=== PATIENT | male | born 1960 | race Caucasian/White ===

== ENCOUNTER 2020-05-05 16:01 | Emergency (ER) | payer MEDICAID, SELFPAY ==
[2020-05-05 16:10] VITALS: BP 142/70; PULSE 98; RESP 24; TEMP 36.9; O2SAT 99; BMI 31.6
--- NOTE | 2020-05-05 16:23 | HMH.EDUTC ---
[facility] [place] Clinical Impression: Cough, Viral syndrome Disposition: Home, Self-Care Condition on Discharge: Good Instructions: Cough, Benzonatate, Preventing the Spread of Coronavirus Discharge Instructions Additional Instructions: *Monitor Temp, Over the counter Motrin or Tylenol as directed/as needed Tylenol every 4 hours and Motrin every 6 hours (as long as your family doctor has told you that you can take it) for fever or pain. and straight to ER if unable to lower temp less than 101.0 after medication given *Warm salt water gargles may help to soothe the throat *Throat Lozenges *Warm fluids like tea with honey may help to soothe the throat *Sleep elevated *Humidifier/Vaporizer *Flonase 2 sprays in each nostril daily but be aware that it may take 2-3 days before you notice improvement *Bromfed may cause drowsiness. Know how it effects you (your child) before driving, caring for small child, or sending your child to school. Not other antihistamines/allergy medications while taking bromfed Your throat swab was sent for culture. Those results are typically sent to your primary care. Be sure to follow up in 2-3 days with your family doctor/primary care physician if no improvement so they can review those result and treat if necessary. If you don?t have a primary care doctor, I recommend you get one but in the mean time, you will have to return to a walk in clinic Follow up IMMEDIATELY for new or worsening symptoms or no Noticeable improvement over the next 48-72 hours. 911 for difficulty breathing or swallowing You was tested for today for COVID19 your test result should be back in the next 24-48 hours, you may call to the [facility] later today or tomorrow to see if your test results are back and the result [phone] [facility] hours are 9am-9pm You was given a handout with instructions for Self Quarantine and Self isolation for while you wait on test results and what to do if they are positive If you are positive the Health Dept will be contacting you also Prescriptions: Fluticasone Propionate [Flonase 50mcg nasal spray 16gm] 1 spr NS DAILY #1 bottle Transmission Status: Received by [id number] Benzonatate [Tessalon Perle 100mg Cap*] 100 mg PO TID PRN #30 cap PRN Reason: Cough Transmission Status: Received by [id number] Referrals: PCP,No [Primary Care Provider] - As needed Forms: Work/School Release Time of Disposition: 16:41 Medical Decision Making - Matti Inquiry Pt receiving controlled substance: No Matti was queried for this patient: No Vital Signs: 05/05/20 16:10 Temperature 98.4 F Temperature Source Oral Pulse Rate [Left Brachial] 98 H Respiratory Rate 24 Blood Pressure [Left Arm] 142/70 H Blood Pressure Mean [Left Arm] 94 Blood Pressure Source [Left Arm] Automatic Cuff Blood Pressure Position [Left Arm] Sitting 02 Sat by Pulse Oximetry 99 Oxygen Delivery Method Room Air - Lab Data Lab results reviewed: Yes: I reviewed the patient's lab results. Orders (Tests/Meds): ORDERS Category Date Time Status Covid-19 Nasal PCR Sendout [facility] 05/05/20 16:26 [place] [facility] [place] - General Stated complaint: cough/covid test Time Seen by Provider: 05/05/20 16:23 Mode of Arrival: Ambulatory Source of Information: Patient Limitations: No Limitations Description of Symptoms (Recalled from Triage Doc. by RN): PATIENT STATES THIS AM HE FELT IF HE HAD A FEVER AND HAS BEEN FEELING BAD THROUGHOUT THE DAY. 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 NO KNOWN DIRECT COVID CONTACTS. 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
[2020-05-05 16:44] VITALS: BP 142/70; PULSE 98; RESP 24; TEMP 36.9; O2SAT 99
[2020-05-06 20:05] LABS: UTC Influenza A Antigen Negative (Negative)
[2020-05-06 20:06] LABS: UTC Influenza B Antigen Negative (Negative)
[2020-05-07 09:47] LABS: Covid-19 Nasal PCR Sendout Lex NOT DETECTED
== END 2020-05-05 16:48 | disposition home or self-care (01) ==
PROVIDERS: Emergency Provider Nurse Practitioner
DX: Z20.828 Contact with and (suspected) exposure to other viral communicable diseases (principal); B34.9 Viral infection, unspecified; E11.9 Type 2 diabetes mellitus without complications; K21.9 Gastro-esophageal reflux disease without esophagitis; Z87.891 Personal history of nicotine dependence
CPT/HCPCS: 87804; 99201; U0004

== ENCOUNTER 2024-11-02 14:49 | Emergency (ER) | payer OTHER, SELFPAY ==
[2024-11-02] VITALS (24 sets, daily range): BP systolic 107–141; BP diastolic 71–97; PULSE 75–155; RESP 13–34; TEMP 36.8–37; O2SAT 94–100; BMI 30.4
--- NOTE | 2024-11-02 15:12 | ECG_ITS ---
APPROVED REPORT Exam: Resting ECG HR:155 bpm ECG Measurements Heart Rate 155 AXES QRSd 93 QRS -64 QT 260 T 66 QTc 347 Conclusion ATRIAL FLUTTER/TACHYCARDIA WITH RAPID VENTRICULAR RESPONSE PATTERN CONSISTENT WITH PULMONARY DISEASE LEFT ANTERIOR FASCICULAR BLOCK [QRS AXIS <= -45, QR IN I, RS IN II] JUNCTIONAL ST DEPRESSION, CONSIDER NORMAL VARIANT [0.1+ mV JUNCTIONAL DEPRESSION] No STEMI Electronically signed by : ABEBA DANIELS, 11/09/2024 03:57:05
[2024-11-02] MEDS: LACTATED RINGERS 1000ML 1,000 ML 999 ML IV ×2 (15:27→18:09)
[2024-11-02 15:32] LABS: Basophils # 0.1 K/mm3 (0-0.2); Basophils % 0.5 % (0.1-2.0); Eosinophils # 0.2 Kmm3 (0.0-0.4); Eosinophils % 1.6 % (0.1-12.0); Hematocrit 48.8 % (42.0-52.0); Hemoglobin 16.3 g/dL (14.1-18.0); Immature Granulocytes # 0.04 10^3uL; Immature Granulocytes % 0.4 %; Lymphocytes # 3.5 K/mm3 (0.7-4.5); Lymphocytes % 32.8 % (10-50); Mean Corpuscular HGB Conc 33.4 g/dL (31.8-35.4); Mean Corpuscular Hemoglobin 31.2 pg (27.0-31.2); Mean Corpuscular Volume 93.3 fl (80-94); Mean Platelet Volume 9.7 fl (7.4-10.4); Monocytes # 1.3 K/mm3 (0.1-1.0); Monocytes % 12.3 % (1.7-9.3); Neutrophils # 5.5 K/mm3 (1.8-7.8); Neutrophils % 52.4 % (37.0-80.0); Nucleated Red Blood Cells # 0 10^3/uL; Nucleated Red Blood Cells % 0 %; Platelet Count 271 K/mm3 (142-424); Red Blood Count 5.23 M/mm3 (4.60-6.20); Red Cell Distribution Width 12.8 % (11.5-17.5); Red Cell Distribution Width-SD 43.8 fL; White Blood Count 10.5 K/mm3 (4.8-10.8)
[2024-11-02 15:35] LABS: Albumin Level 4.7 g/dl (3.5-5.0); Chloride 103 mmol/L (98-107); Potassium 4.9 mmoL/L (3.5-5.1); Sodium 141 mmol/L (136-145)
[2024-11-02 15:37] LABS: Blood Urea Nitrogen 16 mg/dl (9-20); Creatinine Clearance Estimated 107 mL/min (50-200); Estimated Glomerular Filt Rate 67 ml/min (>60); GFR (African American) 81 ML/MIN (>60)
[2024-11-02 15:38] LABS: Alanine Aminotransferase 38 U/L (12-78); Albumin/Globulin Ratio 1.4 (1.1-1.8); Alkaline Phosphatase 88 U/L (38-126); Anion Gap 14.9 mEq/L (5-15); Aspartate Amino Transferase 48 U/L (17-59); Bilirubin,Total 0.7 mg/dl (0.2-1.3); Calcium 10.7 mg/dl (8.4-10.2); Carbon Dioxide 28 mmol/L (22.0-30.0); Globulin 3.4 g/dL (1.3-3.2); Glucose 274 mg/dl (74-100); Total Protein,Serum 8.1 g/dl (6.3-8.2)
--- NOTE | 2024-11-02 15:44 | HMH.EDGENADL ---
Discharge Plan Disposition Patient Disposition: Home, Self-Care Prescriptions Prescriptions: New Eliquis 5 mg tablet 5 mg PO BID 28 Days Qty: 56 0RF Rx Instructions: please take 10 mg BID for 7 days followed by 5 mg BID for a total of 3 months metoprolol succinate 50 mg tablet extended release 24 hr 50 mg PO DAILY 30 Days Qty: 30 0RF No Action pantoprazole [Protonix] 20 mg tablet,delayed release (DR/EC) 20 mg PO ONCE fluticasone propionate 120 SPR/BOT bottle 1 spr NS DAILY Qty: 1 0RF Rx Instructions: each nostril daily Referrals Follow up/Referrals: Neli Brito APRN [Primary Care Provider, Medical] - See instructions Balaji Lucero MD [Staff Physician, Cardiology] - See instructions Activity Restrictions/Add. Instructions Additional Instructions/Restrictions: You had acute onset atrial flutter with rapid ventricular response that was successfully cardioverted. We have started you on a medication called metoprolol and Eliquis. The metoprolol is a medication that will keep your heart rate low and the Eliquis is a blood thinner. Please make sure you do not miss any doses and follow-up closely with cardiology, Dr. Lucero. Return to the emergency point with any significant worsening of your symptoms. Clinical Impressions Clinical Impression: Atrial flutter with rapid ventricular response, Near syncope, Hypomagnesemia Print Language Print Language: [place] Island[place] Discharge ED Provider: Jerardo Erickson General Adult HPI General Chief complaint: Dizziness Stated complaint: dizziness x2 elevated pulse above 150 weakness Time Seen by Provider: 11/02/24 15:32 Mode of Arrival: Ambulatory Source of Information: Patient Description of Symptoms (Recalled from ER Triage Doc. by RN): pt reports feeling dizzy, shaky and almost blacking out while standing and cooking his luis. Pt reports that he had 2 episodes of this feeling lasting from 10-30 sec, he was able to take his bp after the first episode which read 171/95 and HR in the 150s. History of Present Illness HPI narrative: Patient is a 64-year-old previously healthy man who presents today with near syncope. This happened just prior to arrival had 2 episodes. Had no symptoms prior to these episodes. No history of atrial fibrillation or atrial flutter. Not on any anticoagulants or antiplatelets. No chest pain shortness of breath or any other symptoms currently feels no symptoms aside from stating that his heart rate is really elevated. Related Data Home Medications ?Medication ?Instructions ?Recorded ?Confirmed pantoprazole 20 mg tablet,delayed 20 mg PO ONCE 01/04/18 01/05/21 release (Protonix) Previous Rx's ?Medication ?Instructions ?Recorded fluticasone propionate 50 1 spr NS DAILY ##1 05/05/20 mcg/actuation nasal spray,suspension apixaban 5 mg tablet (Eliquis) 5 mg PO BID 28 days #56 tabs 11/02/24 metoprolol succinate 50 mg 50 mg PO DAILY 30 days #30 tabs 11/02/24 tablet,extended release 24 hr Allergies Allergy/AdvReac Type Severity Reaction Status Date / Time pseudoephedrine (From Allergy Verified 01/05/21 17:14 [facility]) [facility] Disclaimer: The information contained in this section may have been updated after the patient was seen, as this information can be updated by other users. Social History Smoking Status: Former smoker alcohol intake: never current occupational status: other Travel in the last 8 weeks?: None Have you lived/traveled outside [place] in past 30 days?: No Contact w/someone who lives/traveled outside [place] past 30 days?: No Exposure to someone with infectious disease in past 14 days?: No Do you have a fever (greater than 100.4 F or 38 C)?: No Have you tested positive for COVID-19?: No Exposed to someone with COVID-19 in past 14 days?: No Do you have a sore throat?: No Do you have a cough?: No Do you have any weakness?: No Do you have any diarrhea?: No Are you experiencing any unusual bleeding?: No Do you have any muscle aches/pain?: No Do you have any abdominal pain?: No Are you experiencing loss of taste or smell?: No Other Medical History Have you received the Flu Vaccine for this season: Yes ROS Obtained: Yes All systems reviewed & no additional complaints except as documented Physical Exam General General appearance: alert and in no apparent distress Respiratory Respiratory exam: Present normal lung sounds bilaterally; Absent respiratory distress Cardiovascular Cardiovascular exam: Present tachycardia Neurological Exam Neurological exam: Present alert, oriented X3, CN II-XII intact and normal gait; Absent motor sensory deficit Medical Decision Making Medical Records Screening: Per USPSTF and CDC recommendations, given the prevalence of disease in our region, it is our hospital?s policy to screen for HIV and viral Hepatitis for all patients aged 18 and over and those with ongoing risk factors. Matti Inquiry Pt receiving controlled substance: No Matti was queried for this patient: No Vital Signs: 11/02/24 15:15 11/02/24 15:21 11/02/24 15:30 Temperature 98.6 F Temperature Source Oral Pulse Rate 150 H 152 H Pulse Rate [Left Radial] 155 H Respiratory Rate 20 25 H 25 H Blood Pressure 121/83 107/74 L Blood Pressure [Right Arm] 121/83 Blood Pressure Mean [Right Arm] 95 02 Sat by Pulse Oximetry 97 99 96 Oxygen Delivery Method Room Air 11/02/24 16:00 11/02/24 16:30 11/02/24 17:00 Temperature Temperature Source Pulse Rate 150 H 75 149 H Pulse Rate [Left Radial] Respiratory Rate 28 H 28 H 20 Blood Pressure 114/79 130/79 128/94 H Blood Pressure [Right Arm] Blood Pressure Mean [Right Arm] 02 Sat by Pulse Oximetry 98 98 98 Oxygen Delivery Method 11/02/24 17:06 11/02/24 17:11 11/02/24 17:15 Temperature Temperature Source Pulse Rate 152 H 149 H 150 H Pulse Rate [Left Radial] Respiratory Rate 18 34 H 26 H Blood Pressure 118/87 141/97 H 119/84 Blood Pressure [Right Arm] Blood Pressure Mean [Right Arm] 02 Sat by Pulse Oximetry 100 99 97 Oxygen Delivery Method 11/02/24 17:20 11/02/24 17:25 11/02/24 17:30 Temperature Temperature Source Pulse Rate 151 H 149 H 148 H Pulse Rate [Left Radial] Respiratory Rate 17 19 26 H Blood Pressure 117/83 118/81 133/82 Blood Pressure [Right Arm] Blood Pressure Mean [Right Arm] 02 Sat by Pulse Oximetry 99 98 98 Oxygen Delivery Method 11/02/24 17:35 11/02/24 17:40 Temperature Temperature Source Pulse Rate 148 H 80 Pulse Rate [Left Radial] Respiratory Rate 23 19 Blood Pressure 122/89 137/90 Blood Pressure [Right Arm] Blood Pressure Mean [Right Arm] 02 Sat by Pulse Oximetry 95 95 Oxygen Delivery Method Lab Data Lab results reviewed: Yes I reviewed the patient's lab results. Lab Results 11/02/24 15:14: WBC 10.5, RBC 5.23, Hgb 16.3, Hct 48.8, MCV 93.3, MCH 31.2, MCHC 33.4, RDW 12.8, Plt Count 271, MPV 9.7, Neut % (Auto) 52.4, Lymph % (Auto) 32.8, [place] % (Auto) 12.3 H, Eos % (Auto) 1.6, Baso % (Auto) 0.5, Neut # (Auto) 5.5, Lymph # (Auto) 3.5, [place] # (Auto) 1.3 H, Eos # (Auto) 0.2, Baso # (Auto) 0.1, Sodium 141, Potassium 4.9, Chloride 103, Carbon Dioxide 28, Anion Gap 14.9, BUN 16, Creatinine 1.10, Estimated Creat Clear 107, Estimated GFR 67, Est GFR ( Amer) 81, Glucose 274 H, Calcium 10.7 H, Magnesium 0.8 L, Total Bilirubin 0.7, AST 48, ALT 38, Alkaline Phosphatase 88, Troponin I 0.02, Total Protein 8.1, Albumin 4.7, Globulin 3.4 H, Albumin/Globulin Ratio 1.4, TSH 1.74, HCV Ab ZULAY w/Rflx PCR Qn Negative, HIV Ag/Ab Combo Qual Negative 11/02/24 15:14 11/02/24 15:14 Orders (Tests/Meds): ED MEDICATIONS Discontinued Medications Generic Name Dose Route Start Last Admin Trade Name Freq PRN Reason Stop Dose Admin Lactated Ringer's 1,000 mls @ 999 mls/hr 11/02/24 15:30 11/02/24 15:27 Lactated Ringer's 1000 Ml Bag IV 11/02/24 16:30 999 mls/hr .Q1H1M MARYLIN Administration Lactated Ringer's 1,000 mls @ 999 mls/hr 11/02/24 15:45 Lactated Ringer's 1000 Ml Bag IV 11/02/24 16:45 .Q1H1M MARYLIN Magnesium Sulfate 2 gm in 50 mls @ 50 mls/hr 11/02/24 16:15 11/02/24 16:25 Magnesium Sulfate 2gm/50ml Premix IV 11/02/24 17:14 50 mls/hr ONCE ONE Administration Metoprolol Succinate 50 mg 11/02/24 17:48 Metoprolol Succinate Xl 50mg Tablet PO 11/02/24 17:49 ONCE ONE ORDERS Category Date Time Status Complete Blood Count Auto Diff Stat Lab 11/02/24 15:14 Completed Comprehensive Metabolic Panel Stat Lab 11/02/24 15:14 Completed HIV Combo Stat Lab 11/02/24 15:14 Completed Hepatitis C Ab Qual. W/ RFX Stat Lab 11/02/24 15:14 Completed Magnesium Stat Lab 11/02/24 15:14 Completed TSH [Thyroid Stimulating Hormone] Stat Lab 11/02/24 15:14 Completed Trop I [Troponin I] Stat Lab 11/02/24 15:14 Completed Troponin I Q3H Lab 11/02/24 18:45 Ordered Troponin I Q3H Lab 11/02/24 21:45 Ordered Medical Decision Narrative: Patient with above history and physical presents today with near syncope EKG was performed I personally interpreted which shows a ventricular rate of 155 and has atrial flutter with rapid ventricular response some ST depressions which are nonspecific in this particular situation no obvious STEMI. Does appear to have a left anterior fascicular block. Patient has no chest pain or shortness of breath I do not suspect an MA or pulmonary embolism or other acute cardiopulmonary emergency this appears to be an acute arrhythmia. Given the fact that he had symptoms that presented just prior to arrival suggest that we could pursue either rate control or rhythm control. Had an extensive discussion with him regarding risk and benefits of both. I do think that he is safe given the fact that this started just a few minutes ago that we could proceed with electrical cardioversion which is what he opted for. Will proceed with moderate sedation and electrical cardioversion then we will anticoagulate the patient and have him follow-up with cardiology. Reassessment 6:01 PM patient had significant hypomagnesemia and this was replaced. After replacement patient was successfully cardioverted. Patient is awake alert oriented with normal neurologic exam first dose of metoprolol and Eliquis were provided patient will be anticoagulated for 4 weeks and will follow-up closely with cardiology as soon as possible. Patient was discharged in improved and stable condition. Procedures Procedural Sedation A heart and lung assessment was performed on this patient at: 16:30 Mallampati Score:: Class I Indication: other (Electrical cardioversion) ASA Class: I Preparation: monitoring specialist applied, pulse oximeter, capnometry used, supplemental O2 applied, suction/airway equipment at bedside and IV secured Fentanyl: IV Fentanyl dose (mcg): 99 Midazolam: IV Midazolam dose (mg): 3 Patient Tolerated Procedure: well Complications: none Miscellaneous Procedure Procedure Performed: Electrical cardioversion Indication acute onset atrial flutter with rapid ventricular response Patient had an IV placed and procedural sedation was performed. Patient had anterior posterior pads that were placed and had synchronized cardioversion with 200 J and was successfully cardioverted with 1 attempt. Subsequent twelve-lead was performed which confirmed sinus rhythm. Patient had no complications. Critical Care Critical Care Time Critical Care Time: Yes Attestation: On 11/02/24, the high probability of a clinically significant, sudden or life threatening deterioration of the following system(s) required my full and direct attention, intervention and personal management. The time I documented below is in addition to time spent performing reported procedures but includes the following listed in this critical care notation. Total Time Total Critical Care Time: 35
[2024-11-02 16:07] LABS: Troponin I 0.02 ng/ml (0.00-0.034)
[2024-11-02 16:08] LABS: Magnesium 0.8 mg/dl (1.6-2.3)
[2024-11-02 16:25] LABS: Thyroid Stimulating Hormone 1.74 uIU/mL (0.465-4.68)
[2024-11-02] MEDS: MAGNESIUM SULFATE IN WATER 2 GM/50 ML PIGGYBACK IV (16:25)
[2024-11-02 16:36] LABS: HIV Combo NEGATIVE (Negative)
[2024-11-02 16:44] LABS: Hepatitis C Ab Qual. W/ RFX NEGATIVE (Negative)
--- NOTE | 2024-11-02 17:39 | ECG_ITS ---
APPROVED REPORT Exam: Resting ECG HR:78 bpm ECG Measurements Heart Rate 78 AXES NV 160 P 60 QRSd 102 QRS -67 QT 364 T 12 QTc 397 Conclusion SINUS RHYTHM LEFT ANTERIOR FASCICULAR BLOCK [QRS AXIS <= -45, QR IN I, RS IN II] POSSIBLE ANTERIOR MYOCARDIAL INFARCTION , OF INDETERMINATE AGE [30 ms Q WAVE IN V3/V4, OR R < 0.2 mV IN V4] ABNORMAL ECG UNCONFIRMED REPORT Electronically signed by : Vimal Erickson, 11/05/2024 23:15:12
[2024-11-02] MEDS: MIDAZOLAM 5MG/ML 1ML VIAL 4 MG IV (18:08)
[2024-11-02] MEDS: FENTANYL 100MCG/2ML VIAL 100 MCG IV (18:09)
[2024-11-02] MEDS: METOPROLOL SUCCINATE XL 50MG TABLET 50 MG PO (18:11)
== END 2024-11-02 18:25 | disposition home or self-care (01) ==
PROVIDERS: Emergency Provider Student in an Organized Health Care Education/Training Program; PCP Nurse Practitioner Family
DX: I48.91 Unspecified atrial fibrillation (principal); R55 Syncope and collapse; E83.42 Hypomagnesemia
CPT/HCPCS: 80053; 83735; 84443; 84484; 85025; 86803; 87389; 92960; 93005; 96360; 99291; J2250; J3010; J3475; J7120

== ENCOUNTER 2024-12-21 15:35 | Emergency (ER) | payer OTHER, SELFPAY ==
--- OUTSIDE RECORDS SUMMARY | 2023-12-28 07:12 | XMS_ITS | Encounter Summary ---
Author Name [facility] Organization [facility] Address [address] [place] [address] Care Team Providers Care Audio Production Instructor Name Role Phone KRYSTIN HOLLIS Primary Care Provider LUKE Harris Primary Care Provider Unavailab le Insurance Providers: All historical and current Section Date Range: From patient's date of to the date document was created. This section includes the names of all active insurance providers for the patient. Insurance Provider Type of Coverage Plan Name Start of Policy Coverage End of Policy Coverage Group Number Member ID Insurance Provider's Telephone Number Policy Landon's Name Patient's Relationship to Policy Landon MEDICARE (WNR) MEDICARE (M) PART A Jun 05, 2024 PART A [id number] BLAIR BOND PATIENT MEDICARE (WNR) MEDICARE (M) PART B Jun 05, 2024 PART B [id number] BLAIR BOND PATIENT Selected Encounter This section includes the information on record at DC for the Encounter. Date/Time Encounter Type Encounter Description Reason Pro vider Source Dec 28, 2023 11:12 AM Outpatient Encounter PRIMARY CARE SHARED APPT IHE Encounter Template Text not used by DC Plan of Treatment: Future Appointments (+ 6 months) and Future Tests (+/- 45 days) The Plan of Treatment section includes future care activities for the patient [facility] This section includes future appointments and future orders which are active, pending or scheduled. Future Appointments This section includes appointments that were scheduled to occur 6 months from the date of the Encounter, up to a maximum of 20 appointments. The data comes from all [place] treatment [facility]. Appointment Date/Time Appointment Type Appointme nt Facility Name Jan 10, 2024 09:00 AM AMBULATORY - NONE [place] [facility] Jan 17, 2024 09:00 AM AMBULATORY - NONE [place] Jan 23, 2024 08:30 AM AMBULATORY - NONE [place] Jan 23, 2024 09:00 AM [facility] [facility] Jan 30, 2024 09:15 AM [facility] - N[place] [facility] Jan 30, 2024 01:40 PM [place]UL[place]GERY [place] Feb 01, 2024 08:00 AM AMBULATORY - NONE [place] Feb 01, 2024 08:45 AM AMBULATORY - NONE [place] Feb 02, 2024 01:00 PM AMBULATORY - REHAB MEDICIN E [facility] Feb 06, 2024 08:30 AM [facility]ORY - NONE [place] [facility] Feb 14, 2024 11:00 AM AMBULATORY - REHAB MEDICIN E [facility] Feb 23, 2024 01:00 PM AMBULATORY - REHAB MEDICIN E [facility] Feb 28, 2024 09:30 AM AMBULATORY - REHAB MEDICIN E [facility] Lab Results: +/- 30 days of the encounter This section includes the Chemistry and Hematology Lab Results on record with DC for the patient. Radiology Reports and Pathology Reports are provided separately, in subsequent sections. Lab Results This section contains the Chemistry/Hematology Results that were resulted 30 days before or 30 daysafter the date of the Encounter. Date/Time Source Result Type Result - Unit Interpretation Reference Range Specimen Type Comment Dec 28, 2023 09:12 AM [facility] MICRO[facility]IN/CREAT RATIO URINE Specimen Type: URINE No comment entered. Ordering Provider: LUEK MANCIA Report Released Date/Time: Dec 28, 2023 08:39 AM Reporting Lab: [address] [address] Performing Lab: [address] [address] CREATININE 251.3 mg/dL MICROALBUMIN QUANT 119.0 mg/L H 0.0-30.0 .MICROALBUMIN/CREA RATIO 47.4 ug/mg{creat} Dec 28, 2023 09:00 AM [facility] TSH PLASMA Specimen Type: PLASM A Comment: Vitamin B12 test may not yield results when protein level of sample is too elevated. Estimated Glomerular Filtration Rate (eGFR) calculated using the 2020 Chronic Kidney Disease-Epidemiology (CKD-EPI) Collaboration creatinine equation; units of measure are mL/min/1.73 m2. Results are only valid for adults (>=18 years) whose serum creatinine is in a steady state. eGFR calculations are not valid for patients with acute kidney injury and for patients on dialysis. Creatinine-based estimates of kidney function may also be inaccurate in patients with reduced creatinine generation due to decreased muscle mass (e.g., malnutrition, severe hypoalbuminemia, sarcopenia, chronic neuromuscular disease, amputations, severe heart failure or liver disease) and in patients with increased creatinine generation due to increased muscle mass (e.g., muscle builders, anabolic steroids) or increased dietary intake. As drug clearance is proportional to total GFR and not GFR indexed to body surface area (BSA), in individuals with a BSA substantially different than 1.73 m2, drug dosing should be based on the reported eGFR value de-indexed from BSA by multiplying by the individual's BSA and dividing by 1.73. CKD is diagnosed based on abnormalities of kidney structure or function, present for >3 months, with implications for health and disease. CKD is classified and staged based on cause, eGFR and albuminuria (quantified as urine albumin to creatinine ratio). An eGFR >60 mL/min/1.73 m2 in the absence of increased urine albumin excretion or structural abnormalities does not represent CKD. eGFR CKD Interpretation (mL/min/1.73 m2) stage >=90 G1 Normal 60-89 G2 Mild decrease 45-59 G3A Mild to moderate decrease 30-44 G3B Moderate to severe decrease 15-29 G4 Severe decrease <15 G5 Kidney failure Ordering Provider: LUKE MANCIA Report Released Date/Time: Dec 28, 2023 08:39 AM Reporting Lab: [address] [address] Performing Lab: [address] [address] TSH 2.0426 m[IU]/mL 0.3500-4.9400 Dec 28, 2023 09:00 AM [facility] 25-OH VITAMIN D SERUM Specime n Type: SERUM Comment: The National Institutes of Health (NIH) recommendations state: <12 ng/mL - Deficient 20 - 50 ng/mL - Optimal Levels - adequate for most people. >50 ng/mL - Increased risk of hypercalciuria/other health problems - clinical correlation is required. These reference ranges represent clinical decision values rather than population-based reference values. Ordering Provider: LUKE MANCIA Report Released Date/Time: Dec 28, 2023 08:39 AM Reporting Lab: [address] [address] Performing Lab: [address] [address] 25-OH VITAMIN D 43.0 ng/mL 20.0-50.0 Dec 28, 2023 09:00 AM [facility] B12 VITAMIN PLASMA Specimen Type: PLASM A Comment: Vitamin B12 test may not yield results when protein level of sample is too elevated. Estimated Glomerular Filtration Rate (eGFR) calculated using the 2020 Chronic Kidney Disease-Epidemiology (CKD-EPI) Collaboration creatinine equation; units of measure are mL/min/1.73 m2. Results are only valid for adults (>=18 years) whose serum creatinine is in a steady state. eGFR calculations are not valid for patients with acute kidney injury and for patients on dialysis. Creatinine-based estimates of kidney function may also be inaccurate in patients with reduced creatinine generation due to decreased muscle mass (e.g., malnutrition, severe hypoalbuminemia, sarcopenia, chronic neuromuscular disease, amputations, severe heart failure or liver disease) and in patients with increased creatinine generation due to increased muscle mass (e.g., muscle builders, anabolic steroids) or increased dietary intake. As drug clearance is proportional to total GFR and not GFR indexed to body surface area (BSA), in individuals with a BSA substantially different than 1.73 m2, drug dosing should be based on the reported eGFR value de-indexed from BSA by multiplying by the individual's BSA and dividing by 1.73. CKD is diagnosed based on abnormalities of kidney structure or function, present for >3 months, with implications for health and disease. CKD is classified and staged based on cause, eGFR and albuminuria (quantified as urine albumin to creatinine ratio). An eGFR >60 mL/min/1.73 m2 in the absence of increased urine albumin excretion or structural abnormalities does not represent CKD. eGFR CKD Interpretation (mL/min/1.73 m2) stage >=90 G1 Normal 60-89 G2 Mild decrease 45-59 G3A Mild to moderate decrease 30-44 G3B Moderate to severe decrease 15-29 G4 Severe decrease <15 G5 Kidney failure Ordering Provider: LUKE MANCIA Report Released Date/Time: Dec 28, 2023 08:39 AM Reporting Lab: [address] [address] Performing Lab: [address] [address] B12 VITAMIN 322 pg/mL 213-816 Dec 28, 2023 09:00 AM [facility] GLYCOHEMOGLOBIN BLOOD Specimen Type: BLOOD Comment: [place] guidelines for A1c interpretation: Glycemic control targets are based on Shared Decision Making between clinicians and patients. Criteria used to establish an A1c target recommendation can be found at https://www.va.gov/qualityandpatientsafety/ and include the use of result accuracy and precision(CV) of the A1c tests clinicians utilize at their own sites of practice. Values obtained from A1C measurements can vary. For typical A1C assays, a reported value of 7.0 could actually be between 6.72 and 7.28 if measured by a reference method. A reported value of 9.0 could actually be between 8.73 and 9.27. Ref: https://ngsp.org/CAPdata.asp. The in-house [employer] D-100 analyzer has a historical CV <= 2%. Contact the laboratory for further performance characteristics of this assay. Ordering Provider: LUKE MANCIA Report Released Date/Time: Dec 28, 2023 08:39 AM Reporting Lab: [address] [address] Performing Lab: [address] [address] GLYCOHEMOGLOBIN 8.2 H 4.4-6.4 Dec 28, 2023 09:00 AM [facility] LIPID PROFILE PLASMA Specimen Type: PLASM A Comment: Vitamin B12 test may not yield results when protein level of sample is too elevated. Estimated Glomerular Filtration Rate (eGFR) calculated using the 2020 Chronic Kidney Disease-Epidemiology (CKD-EPI) Collaboration creatinine equation; units of measure are mL/min/1.73 m2. Results are only valid for adults (>=18 years) whose serum creatinine is in a steady state. eGFR calculations are not valid for patients with acute kidney injury and for patients on dialysis. Creatinine-based estimates of kidney function may also be inaccurate in patients with reduced creatinine generation due to decreased muscle mass (e.g., malnutrition, severe hypoalbuminemia, sarcopenia, chronic neuromuscular disease, amputations, severe heart failure or liver disease) and in patients with increased creatinine generation due to increased muscle mass (e.g., muscle builders, anabolic steroids) or increased dietary intake. As drug clearance is proportional to total GFR and not GFR indexed to body surface area (BSA), in individuals with a BSA substantially different than 1.73 m2, drug dosing should be based on the reported eGFR value de-indexed from BSA by multiplying by the individual's BSA and dividing by 1.73. CKD is diagnosed based on abnormalities of kidney structure or function, present for >3 months, with implications for health and disease. CKD is classified and staged based on cause, eGFR and albuminuria (quantified as urine albumin to creatinine ratio). An eGFR >60 mL/min/1.73 m2 in the absence of increased urine albumin excretion or structural abnormalities does not represent CKD. eGFR CKD Interpretation (mL/min/1.73 m2) stage >=90 G1 Normal 60-89 G2 Mild decrease 45-59 G3A Mild to moderate decrease 30-44 G3B Moderate to severe decrease 15-29 G4 Severe decrease <15 G5 Kidney failure Ordering Provider: LUKE MANCIA Report Released Date/Time: Dec 28, 2023 08:39 AM Reporting Lab: [address] [phone] Performing Lab: [address] [address] CHOLESTEROL 259 mg/dL H 0-199 TRIGLYCERIDE 346 mg/dL H 0-149 HDL CHOLESTEROL 44 mg/dL 40-69 DIRECT LDL CHOL. 167 mg/dL H 0-100 Dec 28, 2023 09:00 AM [facility] IRON/TIBC PLASMA Specimen Type: PLASM A Comment: Vitamin B12 test may not yield results when protein level of sample is too elevated. Estimated Glomerular Filtration Rate (eGFR) calculated using the 2020 Chronic Kidney Disease-Epidemiology (CKD-EPI) Collaboration creatinine equation; units of measure are mL/min/1.73 m2. Results are only valid for adults (>=18 years) whose serum creatinine is in a steady state. eGFR calculations are not valid for patients with acute kidney injury and for patients on dialysis. Creatinine-based estimates of kidney function may also be inaccurate in patients with reduced creatinine generation due to decreased muscle mass (e.g., malnutrition, severe hypoalbuminemia, sarcopenia, chronic neuromuscular disease, amputations, severe heart failure or liver disease) and in patients with increased creatinine generation due to increased muscle mass (e.g., muscle builders, anabolic steroids) or increased dietary intake. As drug clearance is proportional to total GFR and not GFR indexed to body surface area (BSA), in individuals with a BSA substantially different than 1.73 m2, drug dosing should be based on the reported eGFR value de-indexed from BSA by multiplying by the individual's BSA and dividing by 1.73. CKD is diagnosed based on abnormalities of kidney structure or function, present for >3 months, with implications for health and disease. CKD is classified and staged based on cause, eGFR and albuminuria (quantified as urine albumin to creatinine ratio). An eGFR >60 mL/min/1.73 m2 in the absence of increased urine albumin excretion or structural abnormalities does not represent CKD. eGFR CKD Interpretation (mL/min/1.73 m2) stage >=90 G1 Normal 60-89 G2 Mild decrease 45-59 G3A Mild to moderate decrease 30-44 G3B Moderate to severe decrease 15-29 G4 Severe decrease <15 G5 Kidney failure Ordering Provider: LUKE MANCIA Report Released Date/Time: Dec 28, 2023 08:39 AM Reporting Lab: [address] [address] Performing Lab: [address] [address] IRON 122 ug/dL 65-175 TIBC 325 mg/dL 250-425 IRON SATURATION 38 20-50 Dec 28, 2023 09:00 AM [facility] H. PYLORI AB SERUM Specimen Type: SERUM No comment entered. Ordering Provider: LUKE MANCIA Report Released Date/Time: Dec 28, 2023 08:39 AM Reporting Lab: [address] [address] Performing Lab: [address] [address] H. PYLORI AB Negative Negative Dec 28, 2023 09:00 AM [facility] FERRITIN PLASMA Specimen Type: PLASM A Comment: Vitamin B12 test may not yield results when protein level of sample is too elevated. Estimated Glomerular Filtration Rate (eGFR) calculated using the 2020 Chronic Kidney Disease-Epidemiology (CKD-EPI) Collaboration creatinine equation; units of measure are mL/min/1.73 m2. Results are only valid for adults (>=18 years) whose serum creatinine is in a steady state. eGFR calculations are not valid for patients with acute kidney injury and for patients on dialysis. Creatinine-based estimates of kidney function may also be inaccurate in patients with reduced creatinine generation due to decreased muscle mass (e.g., malnutrition, severe hypoalbuminemia, sarcopenia, chronic neuromuscular disease, amputations, severe heart failure or liver disease) and in patients with increased creatinine generation due to increased muscle mass (e.g., muscle builders, anabolic steroids) or increased dietary intake. As drug clearance is proportional to total GFR and not GFR indexed to body surface area (BSA), in individuals with a BSA substantially different than 1.73 m2, drug dosing should be based on the reported eGFR value de-indexed from BSA by multiplying by the individual's BSA and dividing by 1.73. CKD is diagnosed based on abnormalities of kidney structure or function, present for >3 months, with implications for health and disease. CKD is classified and staged based on cause, eGFR and albuminuria (quantified as urine albumin to creatinine ratio). An eGFR >60 mL/min/1.73 m2 in the absence of increased urine albumin excretion or structural abnormalities does not represent CKD. eGFR CKD Interpretation (mL/min/1.73 m2) stage >=90 G1 Normal 60-89 G2 Mild decrease 45-59 G3A Mild to moderate decrease 30-44 G3B Moderate to severe decrease 15-29 G4 Severe decrease <15 G5 Kidney failure Ordering Provider: LUKE MANCIA Report Released Date/Time: Dec 28, 2023 08:39 AM Reporting Lab: [address] [address] Performing Lab: [address] [address] FERRITIN 412.1 ng/mL H 21.8-274.7 Dec 28, 2023 09:00 AM [facility] PSA S JEFF Specimen Type: SERUM No comment entered. Ordering Provider: LUKE MANCIA Report Released Date/Time: Dec 28, 2023 08:39 AM Reporting Lab: [address] [address] Performing Lab: [address] [address] PSA 0.340 ng/mL 0-3.999 Dec 28, 2023 09:00 AM [facility] CBC/PLT BLOOD Specimen Type: BLOOD No comment entered. Ordering Provider: LUKE MANCIA Report Released Date/Time: Dec 28, 2023 08:39 AM Reporting Lab: [facility] [address] [facility] [address] Performing Lab: [address] [address] WBC 6.8 10*3/uL 5.0-10.0 RBC 4.64 10*6/uL 4.6-6.2 HGB 13.8 g/dL L 14.0-18.0 HCT 43.9 42.0-52.0 MCV 94.6 fL H 80.0-94.0 MCH 29.7 pg 27.0-31.0 MCHC 31.4 g/dL L 32.0-36.0 PLT 293 10*3/uL 150-450 MPV 9.5 fL 9.0-13.1 RDW 12.7 11.0-16.0 NRBC 0.0 0.0-0.0 Dec 28, 2023 09:00 AM [facility] PANEL 5 PLASMA Specimen Type: PLASM A Comment: Vitamin B12 test may not yield results when protein level of sample is too elevated. Estimated Glomerular Filtration Rate (eGFR) calculated using the 2020 Chronic Kidney Disease-Epidemiology (CKD-EPI) Collaboration creatinine equation; units of measure are mL/min/1.73 m2. Results are only valid for adults (>=18 years) whose serum creatinine is in a steady state. eGFR calculations are not valid for patients with acute kidney injury and for patients on dialysis. Creatinine-based estimates of kidney function may also be inaccurate in patients with reduced creatinine generation due to decreased muscle mass (e.g., malnutrition, severe hypoalbuminemia, sarcopenia, chronic neuromuscular disease, amputations, severe heart failure or liver disease) and in patients with increased creatinine generation due to increased muscle mass (e.g., muscle builders, anabolic steroids) or increased dietary intake. As drug clearance is proportional to total GFR and not GFR indexed to body surface area (BSA), in individuals with a BSA substantially different than 1.73 m2, drug dosing should be based on the reported eGFR value de-indexed from BSA by multiplying by the individual's BSA and dividing by 1.73. CKD is diagnosed based on abnormalities of kidney structure or function, present for >3 months, with implications for health and disease. CKD is classified and staged based on cause, eGFR and albuminuria (quantified as urine albumin to creatinine ratio). An eGFR >60 mL/min/1.73 m2 in the absence of increased urine albumin excretion or structural abnormalities does not represent CKD. eGFR CKD Interpretation (mL/min/1.73 m2) stage >=90 G1 Normal 60-89 G2 Mild decrease 45-59 G3A Mild to moderate decrease 30-44 G3B Moderate to severe decrease 15-29 G4 Severe decrease <15 G5 Kidney failure Ordering Provider: LUKE MANCIA Report Released Date/Time: Dec 28, 2023 08:39 AM Reporting Lab: [address] [phone] Performing Lab: [address] [address] CREATININE 1.15 mg/dL 0.72-1.25 UREA NITROGEN 10 mg/dL 9-25 GLUCOSE 220 mg/dL H 74-100 SODIUM 140 mmol/L 136-145 POTASSIUM 4.5 mmol/L 3.5-5.1 CHLORIDE 102 mmol/L 98-107 CO2 25 mmol/L 22-29 CALCIUM 10.0 mg/dL 8.4-10.2 TOTAL PROTEIN 7.9 g/dL 6.4-8.3 ALBUMIN 4.3 g/dL 3.5-5.2 TOTAL BILIRUBIN 0.4 mg/dL 0.2-1.2 AST 41 U/L H 5-34 ALT 51 U/L 0-55 ANION GAP 13 meq/L 3-19 ALK PHOS 101 U/L 40-150 eGFR (CKD-EPI) 71 Vital Signs: All taken on the encounter date This section contains inpatient and outpatient Vital Signs collected on the date of the Encounter. Date/Time Temperature Pulse Blood Pressure Respiratory Rate SP02 Pain Height Weight Body Mass Index Source Dec 28, 2023 08:07 AM 89 128/80 16 97 5 76 268 33 [place] [facility] Dec 28, 2023 07:53 AM 97.9 [place] [facility] Social History: Smoking Status (Most current) and Tobacco Use (All prior to encounter date) This section includes the most current, and the historical, smoking and tobacco- related health factors from the DC facility where the Encounter took place. Current Smoking Status This section includes the most current smoking, or tobacco-related health factor, from the [place] facility where the Encounter took place. Date/Time Current Smoking Status Comment Facil ity Dec 28, 2023 08:00 AM VA-TOBACCO FORMER USER [facility] Tobacco Use History This section includes a history of the smoking, or tobacco-related health factors, that were collected on or before the date of the Encounter. The data comes from the [place] facility where the Encounter took place. Date/Time Smoking Status/Tobacco Use Comment F acility Dec 28, 2023 08:00 AM VA-TOBACCO QUIT 5 TO < 15 YRS [facility] May 19, 2022 09:30 AM VA-TOBACCO FORMER USER [facility] May 19, 2022 09:30 AM VA-TOBACCO QUIT 5 TO < 15 YRS [facility] Mar 29, 2021 08:00 AM VA-TOBACCO FORMER USER [facility] Mar 29, 2021 08:00 AM VA-TOBACCO QUIT 5 TO < 15 YRS [facility] Nov 22, 2017 10:50 AM V9 QUIT TOBACCO >1 2 MO & <7 YRS AGO [facility] Advance Directives: All historical and current Section Date Range: From patient's date of to the date document was created. This section includes ALL of a patient's completed or amended [place] Advance and Rescinded Directives. The entries below indicate that a directive exists for the patient, but an actual copy is not included with this document. The data comes from all [place] facilities. Date Advance Directives Provider Source Apr 25, 2019 ADVANCE DIRECTIVE DISCUSSION ERVIN TAYLOR [facility] Radiology Reports: +/- 30 days of the encounter Radiology Reports For cases when an order for radiology services may have been completed prior to the date of the Encounter, the report list includes the Radiology Reports that were completed up to 30 days before dateof the Encounter. For cases when an order for radiology services may have been completed after the date of the Encounter, the report list also includes the Radiology Reports that were completed up to30 days after date of the Encounter. The data comes from all [place] treatment facilities. Date/Time Radiology Report Provider Source Jan 23, 2024 08:33 AM UPPER GI- DOUBLE C ONTRAST: ZENON BOND [id number] -[id number] M Exm Date: JAN 23, 2024@08:33 Req Phys: LUKE MANCIA Pat Loc: SOL PACT PHONE WILL MCGOVERN (Req'g Img Loc: [facility] RADIOLOGY Service: Unknown [place] [id number] (Case [id number] COMPLETE) UPPER GI- DOUBLE CONTRAST (RAD Detailed) CPT:56339 Contrast Media : Barium Reason for Study: eval for pud Clinical History: severe heartburn Report Status: Verified Date Reported: JAN 23, 2024 Date Verified: JAN 23, 2024 [employer] E-Sig: Report: EXAMINATION: UPPER GI AIR CONTRAST WITHOUT KUB CLINICAL INDICATIONS: Evaluate for peptic ulcer disease, severe heart COMPARISON: 03/28/2018 FINDINGS: Routine double contrast exam was performed in the usual fashion. Swallowing mechanism was within normal limits. The esophagus had a normal appearance. There was a small transient sliding type hiatal hernia. No gastroesophageal reflux was demonstrated during the exam. There is continued prominence of rugal fold within the stomach greatest in the proximal one half of the stomach and similar to the previous exam. This may reflect gastritis. No mucosal ulceration were apparent. The more distal one half of the stomach and the duodenal bulb and proximal small intestine opacified have a normal appearance. No strictures or persistent filling defects were apparent. Impression: Transient small sliding type hiatal hernia. No significant gastroesophageal reflux or peptic esophagitis though the patient would be at increased risk for gastroesophageal reflux. Continued prominence of rugal folds diffusely throughout the proximal one half of stomach similar to the previous exam. This would raise the question of question of hyperplastic gastritis. No focal ulcerations. Primary Diagnostic Code: NO ALERT REQUIRED Primary Interpreting Staff: ALAINA MENDOZA Radiologist Verified by rug layer for ALAINA MENDOZA /ALAINA LOCKETT-D [facility] Jan 23, 2024 08:21 AM LDCT LUNG CANCER S CREENING: ZENON BOND [id number] -1960 M Exm Date: JAN 23, 2024@08:21 Req Phys: LUKE MANCIA Pat Loc: SOL PACT PHONE RN FROILAN (Req'g Img Loc: CT SCAN Service: Unknown [place] [id number] (Case [id number] COMPLETE) LDCT LUNG CANCER SCREENING (CT Detailed) CPT:75841 Reason for Study: screening Clinical History: + tobacco Report Status: Verified Date Reported: JAN 23, 2024 Date Verified: JAN 23, 2024 Camp [employer] E-Sig: Report: EXAM: LDCT LUNG CANCER SCREENING . COMPARISON: Chest CT scan dated 01/02/2018. PROTOCOL: Screening protocol, low dose, non-contrast CT chest was performed at the local [place] facility in accordance with Lung-Rads 2021. Additional coronal and sagittal reconstructions. MIP reconstructions were reviewed. RADIATION DOSE: CTDI(vol): 3.40 mGy. INDEX NODULE: No suspicious pulmonary nodule. OTHER NODULES: None. ADDITIONAL FINDINGS: LUNG/AIRWAYS: The lungs and central airways are unremarkable. EMPHYSEMA: Mild. HEART, MEDIASTINUM AND LYMPH NODES: No significant abnormalities. VISUAL CORONARY ARTERY CALCIFICATIONS: Mild. UPPER ABDOMEN: Fatty liver. BONES AND SOFT TISSUES: Unremarkable. Impression: LUNG-RADS: 1: Negative. RECOMMENDATION: [address] follow-up, if patient meets screening criteria. LUNG-RADS MODIFIER: N/A. Primary Diagnostic Code: LUNGRADS 1: NEGATIVE Primary Interpreting Staff: ELVIA NOYOLA, Staff Physician Verified by rug layer for ELVIA NOYOLA /ELVIA HO [facility] Dec 28, 2023 09:15 AM ORTHO BGPB-VJLYC-HYR,MIHAELA WALLACE,W/JUANI TH AP STANDING: ZENON BOND [id number] -1960 M Exm Date: DEC 28, 2023@09:15 Req Phys: LUKE MANCIA Pat Loc: SOL PACT PAPA 16-2 (Req'g Loc) Img Loc: [facility] RADIOLOGY [place]: [place] [address] (Case [id number] COMPLETE)ORTHO GWFA-KNGTL-HHR,MIHAELA WALLACE,W/B( RAD Detailed) CPT:21815 Reason for Study: eval for worsening djd Clinical History: chronic right knee pain Report Status: Verified Date Reported: DEC 31, 2023 Date Verified: DEC 31, 2023 [employer] E-Sig: Report: HISTORY eval for worsening djdchronic right knee pain COMPARISON May 19, 2022 TECHNIQUE X-RAY EXAM KNEE 4 OR MORE FINDINGS No acute fracture or dislocation. No radiopaque foreign bodies. No suspicious lytic or erosive lesions. Right knee small suprapatellar effusion. Moderate bilateral tricompartmental osteophytosis and joint space narrowing. Right knee soft tissue swelling. Osteopenia. Vascular calcifications. Electronically signed by: Floyd Saldaña MD (December 31 2023 07:44 PM EST) Impression: *No acute fracture or dislocation. *Right knee small suprapatellar effusion and soft tissue swelling. *Similar moderate bilateral tricompartmental osteoarthritis. Primary Diagnostic Code: SIGNIFICANT ABNORMALITY, ATTN NEEDED Primary Interpreting Staff: FLOYD SALDAÑA, Staff Physician Verified by rug layer for FLOYD SALDAÑA /FLOYD AVENDANO [facility] Encounter Notes: All associated encounter notes This section contains the clinical notes associated to the Encounter. Date/Time Encounter Note(s) Provider Source Dec 28, 2023 11:12 AM LETTERS: LOCAL TITLE: SPECIALTY CONTACT LETTER STANDARD TITLE: LETTERS DATE OF NOTE: DEC 28, 2023@11:12 ENTRY DATE: DEC 28, 2023@11:12:12 AUTHOR: ROBBIE FIGUEROA EXP COSIGNER: URGENCY: STATUS: COMPLETED [facility] [address] [place] [address] Mr. ZENON BOND [facility] [place], [place] [address] DEC 28, 2023 Dear ZENON BOND, We have been unable to contact you by telephone to schedule an appointment in our Nutrition clinic. Your health and well-being are important to us. Please call us at or . Select Option #2 and then #3. We look forward to hearing from you soon. Sincerely yours, Nutrition [facility] ROBBIE FIGUEROA [facility]
--- OUTSIDE RECORDS SUMMARY | 2024-01-26 09:27 | XMS_ITS ---
Author Name [facility] Organization [facility] Address [address] [place] [address] Care Team Providers Care Cracker Dough Mixer Name Role Phone KRYSTIN HOLLIS Primary Care Provider VERONICA Harris Primary Care Provider Unavailab le Insurance [...] PART A Jun 05, 2024 PART A [id number] [facility] [place] PATIENT MEDICARE (WNR) MEDICARE (M) PART B Jun 05, 2024 PART B [id number] [place] PATIENT Selected Encounter This section includes the information on record at ID for the Encounter. Date/Time Encounter Type Encounter Description Reason Pro vider Source Jan 26, 2024 01:27 PM Outpatient Encounter ADMIN PAT ACTIVTIES (MASNONCT) IHE Encounter Template Text not used by ID Plan of Treatment: Future Appointments (+ 6 months) and Future Tests (+/- 45 days) The Plan of Treatment section includes future care activities for the patient from all ID treatmentfacilities. This section includes future appointments and future orders which are active, pending or scheduled. Future Appointments This section includes appointments that were scheduled to occur 6 months from the date of the Encounter, up to a maximum of 20 appointments. The data comes from all ID treatment facilities. Appointment Date/Time Appointment Type Appointme nt Facility Name Jan 30, 2024 09:15 AM [facility]ORY - NONE [place] [facility] Jan 30, 2024 01:40 PM AMBULATORY - SURGERY [place] [facility] Feb 01, 2024 08:00 AM [facility]ORY - NONE [place] [facility] Feb 01, 2024 08:45 AM [facility]ORY - NONE [place] [facility] Feb 02, 2024 01:00 PM AMBULATORY - REHAB [facility]ICIN E [facility] Feb 06, 2024 08:30 AM [facility] - NONE [place] [facility] Feb 14, 2024 11:00 AM AMBULATORY - REHAB MEDICIN E [facility] Feb 23, 2024 01:00 PM AMBULATORY - REHAB MEDICIN E [facility] Feb 28, 2024 09:30 AM AMBULATORY - REHAB MEDICIN E [facility] Lab Results: +/- 30 days of the encounter This section includes the Chemistry and Hematology Lab Results on record with ID for the patient. Radiology Reports and Pathology Reports are provided separately, in subsequent sections. Lab Results This section contains the Chemistry/Hematology Results that were resulted 30 days before or 30 daysafter the date of the Encounter. Date/Time Source Result Type Result - Unit Interpretation Reference Range Specimen Type Comment Jan 30, 2024 09:25 AM [facility] N PANEL 1 PLASMA Specimen Type: PLASMA Comment: Estimated Glomerular Filtration Rate (eGFR) calculated using the 2020 Chronic Kidney Disease-Epidemio logy (CKD-EPI) Collaboration creatinine equation; units of measure [...] or structural abnormalities does not represent CKD. ====== eGFR CKD Interpretation (mL/min/1.73 m2) stage >=90 G1 Normal 60-89 G2 Mild decrease 45-59 G3A Mild to moderate decrease 30-44 G3B Moderate to severe decrease 15-29 G4 Severe decrease <15 G5 Kidney failure Ordering Provider: VERONICA MICHELE Report Released Date/Time: Jan 02, 2024 11:14 AM Reporting Lab: [address] [address] Performing Lab: [address] [address] CREATININE 1.09 mg/dL 0.72-1.25 UREA NITROGEN 11 mg/dL 9-25 GLUCOSE 189 mg/dL H 74-100 SODIUM 139 mmol/L 136-145 POTASSIUM 4.3 mmol/L 3.5-5.1 CHLORIDE 101 mmol/L 98-107 CO2 27 mmol/L 22-29 CALCIUM 10.1 mg/dL 8.4-10.2 ANION GAP 11 meq/L 3-19 eGFR (CKD-EPI) 76 Dec 28, 2023 09:12 AM [facility] MICROALBUMIN/CREAT RATIO URINE Specimen Type: URINE No comment entered. Ordering Provider: VERONICA MICHELE Report Released Date/Time: Dec 28, 2023 08:39 AM Reporting Lab: [address] [address] Performing Lab: [address] [address] CREATININE 251.3 mg/dL MICROALBUMIN QUANT 119.0 mg/L H 0.0-30.0 .MICROALBUMIN/CREA RATIO 47.4 ug/mg{creat} Dec 28, 2023 09:00 AM [facility] TSH PLASMA Specimen Type: PLASM A Comment: [...] decrease <15 G5 Kidney failure Ordering Provider: VERONICA MICHELE Report Released Date/Time: Dec 28, 2023 08:39 AM Reporting Lab: [address] [address] Performing Lab: [address] [address] TSH 2.0426 m[IU]/mL 0.3500-4.9400 Dec 28, 2023 09:00 AM [facility] B12 VITAMIN PLASMA Specimen Type: PLASM [...] decrease <15 G5 Kidney failure Ordering Provider: VERONICA MICHELE Report Released Date/Time: Dec 28, 2023 08:39 AM Reporting Lab: [address] [address] Performing Lab: [address] [address] B12 VITAMIN 322 pg/mL 213-816 Dec 28, 2023 09:00 AM [facility] 25-OH VITAMIN D SERUM Specime n Type: SERUM Comment: The National Institutes of Health (NIH) recommendations state: <12 ng/mL - Deficient 20 - 50 ng/mL - Optimal Levels - adequate for most people. >50 ng/mL - Increased risk of hypercalciuria/other health problems - clinical correlation is required. These reference ranges represent clinical decision values rather than population-based reference values. Ordering Provider: VERONICA MICHELE Report Released Date/Time: Dec 28, 2023 08:39 AM Reporting Lab: [address] [address] Performing Lab: [address] [address] 25-OH VITAMIN D 43.0 ng/mL 20.0-50.0 Dec 28, 2023 09:00 AM [facility] GLYCOHEMOGLOBIN BLOOD Specimen Type: BLOOD Comment: [facility] guidelines for A1c interpretation: Glycemic control targets [...] 8.73 and 9.27. Ref: https://ngsp.org/CAPdata.asp. The in-house [employer]Ezuza D-100 analyzer has a historical CV <= 2%. Contact the laboratory for further performance characteristics of this assay. Ordering Provider: VERONICA MICHELE Report Released Date/Time: Dec 28, 2023 08:39 AM Reporting Lab: [address] [address] Performing Lab: [address] [address] GLYCOHEMOGLOBIN 8.2 H 4.4-6.4 Dec 28, 2023 09:00 AM [facility] LIPID PROFILE PLASMA Specimen Type: PLASM [...] decrease <15 G5 Kidney failure Ordering Provider: VERONICA MICHELE Report Released Date/Time: Dec 28, 2023 08:39 AM Reporting Lab: [address] [address] Performing Lab: [address] [address] CHOLESTEROL 259 mg/dL H 0-199 TRIGLYCERIDE 346 mg/dL H 0-149 HDL CHOLESTEROL 44 mg/dL 40-69 DIRECT LDL CHOL. 167 mg/dL H 0-100 Dec 28, 2023 09:00 AM [facility] IRON/TIBC PLASMA Specimen Type: PLASM A Comment: [...] decrease <15 G5 Kidney failure Ordering Provider: VERONICA MICHELE Report Released Date/Time: Dec 28, 2023 08:39 AM Reporting Lab: [address] [address] Performing Lab: [address] [address] IRON 122 ug/dL 65-175 TIBC 325 mg/dL 250-425 IRON SATURATION 38 20-50 Dec 28, 2023 09:00 AM [facility] SERUM Specimen Type: SERUM No comment entered. Ordering Provider: VERONICA MICHELE Report Released Date/Time: Dec 28, 2023 08:39 AM Reporting Lab: [address] [address] Performing Lab: [address] [address] H. PYLORI AB Negative Negative Dec 28, 2023 09:00 AM [facility] FERRITIN PLASMA Specimen Type: PLASM A [...] decrease <15 G5 Kidney failure Ordering Provider: VERONICA MICHELE Report Released Date/Time: Dec 28, 2023 08:39 AM Reporting Lab: [address] [address] Performing Lab: [address] [address] FERRITIN 412.1 ng/mL H 21.8-274.7 Dec 28, 2023 09:00 AM [facility] CBC/PLT BLOOD Specimen Type: BLOOD No comment entered. Ordering Provider: VERONICA MICHELE Report Released Date/Time: Dec 28, 2023 08:39 AM Reporting Lab: [address] [address] Performing Lab: [address] [address] WBC 6.8 10*3/uL 5.0-10.0 RBC 4.64 10*6/uL 4.6-6.2 HGB 13.8 g/dL L 14.0-18.0 HCT 43.9 42.0-52.0 MCV 94.6 fL H 80.0-94.0 MCH 29.7 pg 27.0-31.0 MCHC 31.4 g/dL L 32.0-36.0 PLT 293 10*3/uL 150-450 MPV 9.5 fL 9.0-13.1 RDW 12.7 11.0-16.0 NRBC 0.0 0.0-0.0 Dec 28, 2023 09:00 AM [facility] PSA S JEFF Specimen Type: SERUM No comment entered. Ordering Provider: VERONICA MICHELE Report Released Date/Time: Dec 28, 2023 08:39 AM Reporting Lab: [address] [address] Performing Lab: [address] [address] PSA 0.340 ng/mL 0-3.999 Dec 28, 2023 09:00 AM [facility] PANEL 5 PLASMA Specimen Type: PLASM [...] decrease <15 G5 Kidney failure Ordering Provider: VERONICA MICHELE Report Released Date/Time: Dec 28, 2023 08:39 AM Reporting Lab: [address] [address] Performing Lab: [address] [address] CREATININE 1.15 mg/dL 0.72-1.25 UREA NITROGEN 10 [...] PHOS 101 U/L 40-150 eGFR (CKD-EPI) 71 Advance Directives: All historical and current Section Date Range: From patient's date of to the date document was created. This section includes ALL of a patient's completed or amended ID Advance and Rescinded Directives. The entries below indicate that a directive exists for the patient, but an actual copy is not included with this document. The data comes from all ID facilities. Date Advance Directives Provider Source Apr 25, 2019 ADVANCE DIRECTIVE DISCUSSION ERVIN TAYLOR [facility] Radiology Reports: +/- 30 days [...] the Encounter. The data comes from all ID treatment facilities. Date/Time Radiology Report Provider Source Jan 23, 2024 08:33 AM UPPER GI- DOUBLE C ONTRAST: ZENON BOND Brandy [id number] -1960 M Exm Date: JAN 23, 2024@08:33 Req Phys: VERONICA MICHELE Pat Loc: SOL PACT PHONE WILL MCGOVERN (Req'g Img Loc: [facility] RADIOLOGY Service: [place] [address] (Case [id number] COMPLETE) UPPER GI- DOUBLE CONTRAST (RAD Detailed) CPT:13995 Contrast Media : Barium Reason for Study: eval for pud Clinical History: severe heartburn Report Status: Verified Date Reported: JAN 23, 2024 Date Verified: JAN 23, 2024 Director Of Vocational Guidance E-Sig: Report: EXAMINATION: UPPER GI AIR CONTRAST [...] NO ALERT REQUIRED Primary Interpreting Staff: ALAINA MENDOZA, Radiologist Verified by azure principal solution specialist for ALAINA MENDOZA /ALAINA LOCKETT-[facility] Jan 23, 2024 08:21 AM LDCT LUNG CANCER S CREENING: ZENON BOND [id number] -1960 M Exm Date: JAN 23, 2024@08:21 Req Phys: VERONICA MICHELE Loc: SOL PACT PHONE WILL MCGOVERN (Req'g Img Loc: CT SCAN Service: [place] [address] (Case [id number] COMPLETE) LDCT LUNG CANCER SCREENING (CT Detailed) CPT:73988 Reason for Study: screening Clinical History: + tobacco Report Status: Verified Date Reported: JAN 23, 2024 Date Verified: JAN 23, 2024 Director Of Vocational Guidance E-Sig: Report: EXAM: LDCT LUNG CANCER SCREENING . COMPARISON: Chest CT scan dated 01/02/2018. PROTOCOL: Screening protocol, low dose, non-contrast CT chest was performed at the local [place] facility in accordance with Lung-Rads 2021. Additional [...] LUNGRADS 1: NEGATIVE Primary Interpreting Staff: ELVIA NOYOLA Staff Physician Verified by azure principal solution specialist for ELVIA NOYOLA /ELVIA HO [facility] Dec 28, 2023 09:15 AM ORTHO EHON-YOJZY-LMGRODRIGO TUNL,W/JUANI TH AP STANDING: ZENON BOND [id number] -1960 M Exm Date: DEC 28, 2023@09:15 Req Phys: NGVERONICA CLINTON [facility]Req[facility]g Loc) Img Loc: [facility] RADIOLOGY [place]: [place] [address] (Case [id number] COMPLETE)ORTHO AISM-KRCAX-JAV,MIHAELA WALLACE,W/B( RAD Detailed) CPT:14499 Reason for Study: eval for worsening djd Clinical History: chronic right knee pain Report Status: Verified Date Reported: DEC 31, 2023 Date Verified: DEC 31, 2023 Director Of Vocational Guidance E-Sig: Report: HISTORY eval for worsening djdchronic [...] ABNORMALITY, ATTN NEEDED Primary Interpreting Staff: FLOYD SALDAÑA Staff Physician Verified by azure principal solution specialist for FLOYD AGUILERA [facility] Pathology Reports: +/- 30 days of the encounter Pathology Reports For cases when an order for pathology services may have been completed prior to the date of the Encounter, the report list includes the Pathology Reports that were completed up to 30 days before dateof the Encounter. For cases when an order for pathology services may have been completed after the date of the Encounter, the report list also includes the Pathology Reports that were completed up to30 days after date of the Encounter. The data comes from all ID treatment facilities. Date/Time Pathology Report Provider Source Feb 07, 2024 02:19 PM LR SURGICAL PATHOL OGY REPORT: LOCAL TITLE: LR SURGICAL PATHOLOGY REPORT DATE OF NOTE: FEB 07, 2024@14:19:30 ENTRY DATE: FEB 07, 2024@14:19:30 AUTHOR: ELBA SEXTON COSIGNER: URGENCY: STATUS: COMPLETED $APHDR Reporting Lab: [facility] [[facility]# [id number]] [address] [place] [phone] - - - - - - - - - - - - - - - - - - - - - - - - - - - - - - - - - - - - - - - - MEDICAL RECORD SURGICAL PATHOLOGY - - - - - - - - - - - - - - - - - - - - - - - - - - - - - - - - - - - - - - - - PATHOLOGY REPORT Accession No. [id number] - - - - - - - - - - - - - - - - - - - - - - - - - - - - - - - - - - - - - - - - $TEXT Submitted by: ENDO Date obtained: Feb 01, 2024 - - - - - - - - - - - - - - - - - - - - - - - - - - - - - - - - - - - - - - - - Specimen (Received Feb 02, 2024 08:46): ASCENDING COLON POLYP - - - - - - - - - - - - - - - - - - - - - - - - - - - - - - - - - - - - - - - - BRIEF CLINICAL HISTORY: 63YOM HX OF ADVANCED ADENOMA UNDERGOING SURVEILLANCE COLONOSCOPY. ADDITIONALLY WITH MELENA UNDERGOING EGD. - - - - - - - - - - - - - - - - - - - - - - - - - - - - - - - - - - - - - - - - PREOPERATIVE DIAGNOSIS: NORMAL EGD. DIVERTICULOSIS. 2 SUBCENTIMETER POLYPS, REMOVED WITH PATH PENDING. - - - - - - - - - - - - - - - - - - - - - - - - - - - - - - - - - - - - - - - - OPERATIVE FINDINGS: PROCEDURE & FINDINGS - NOT GIVEN. - - - - - - - - - - - - - - - - - - - - - - - - - - - - - - - - - - - - - - - - POSTOPERATIVE DIAGNOSIS: NOT GIVEN. Surgeon/physician: SARAH MAGANA MD =-=-=-=-=-=-=-=-=-=-=-=-=- =-=-=-=-=-=-=-=-=-=-=-=-=- =-=-=-=-=-=-=-=-=-=-=-=-=- = - - - - - - - - - - - - - - - - - - - - - - - - - - - - - - - - - - - - - - - - PATHOLOGY REPORT Accession No. [id number] - - - - - - - - - - - - - - - - - - - - - - - - - - - - - - - - - - - - - - - - Pathology Resident: SHIRLENE BO The specimen is received in formalin labeled ascending colon polyp and consists of two currie/white fragments of soft tissue which measure 0.4 x 0.4 x 0.4 cm and 0.4 x 0.3 x 0.3 cm, respectively. The specimen is entirely submitted in one cassette. CPT CODE - [id number] MICROSCOPIC EXAM/DIAGNOSIS: Colon, ascending, polyp, biopsy: -Fragments of tubular adenoma. /es/ ELBA SEXTON Pathologist Signed Feb 07, 2024@14:19 Performing Laboratory: Surgical Pathology Report Performed By: [facility] [[facility]# [id number]] [address] [place] [phone] $FTR - - - - - - - - - - - - - - - - - - - - - - - - - - - - - - - - - - - - - - - - (End of report) ELBA SEXTON [facility] Date Feb 07, 2024 - - - - - - - - - - - - - - - - - - - - - - - - - - - - - - - - - - - - - - - - ZENON BOND STANDARD FORM 515 ID:[id number] SEX:M :1960 AGE: 63 LOC:PATH PCP: Veronica Michele /allie/ ELBA SEXTON Pathologist Signed: 02/07/2024 14:19 ELBA SEXTONTaryn [facility] Encounter Notes: All associated encounter notes This section contains the clinical notes associated to the Encounter. Date/Time Encounter Note(s) Provider Source Jan 26, 2024 01:27 PM ADMINISTRATIVE NOT E: LOCAL TITLE: CLERICAL/ADMIN NOTE STANDARD TITLE: ADMINISTRATIVE NOTE DATE OF NOTE: JAN 26, 2024@13:27 ENTRY DATE: JAN 26, 2024@13:27:48 AUTHOR: NANCY GOYAL EXP COSIGNER: URGENCY: STATUS: COMPLETED FUTURE ORDER FOR: LDCT LUNG CANCER SCREENIN per 01/23/2025 dd Order has been placed in HOLD STATUS Per [facility]ATIONAL RADIOLOGY SOP [id number] /allie/ Nancy Goyal Advanced Brand Strategy Manager Signed: 01/26/2024 13:27 [facility]
--- OUTSIDE RECORDS SUMMARY | 2024-01-29 03:54 | XMS_ITS ---
Author Name [facility] [place] [facility] [place] Address [address] [place] [address] Care Team Providers Care Casing Tier Name Role Phone KRYSTIN HOLLIS Primary Care [...] PART A Jun 05, 2024 PART A [id number] [facility] BLA[place] B[place] PATIENT MEDICARE (WNR) MEDICARE (M) PART B Jun 05, 2024 PART B [id number] [place] PATIENT Selected Encounter This section includes the information on record at [place] for the Encounter. Date/Time Encounter Type Encounter Description Reason Pro vider Source Jan 29, 2024 07:54 AM Outpatient Encounter ADMIN PAT ACTIVTIES (MASNONCT) IHE Encounter Template Text not used by [place] Plan of Treatment: Future Appointments (+ 6 months) and Future Tests (+/- 45 days) The Plan of Treatment section includes future care activities for the patient from all [place] treatmentfacilities. This section includes future appointments and future orders which are active, pending or scheduled. Future Appointments This section includes appointments that were scheduled to occur 6 months from the date of the Encounter, up to a maximum of 20 appointments. The data comes from all [place] treatment facilities. Appointment Date/Time Appointment Type Appointme nt Facility Name Jan 30, 2024 09:15 AM AMBULATORY - NONE [place] [facility] Jan 30, 2024 01:40 PM AMBULATORY - SURGERY [place] [facility] Feb 01, 2024 08:00 AM AMBULATORY - NONE [place] Feb 01, 2024 08:45 AM AM[place]ATORY - NONE [place] Feb 02, 2024 01:00 PM AMBULATORY - [facility]AB [facility] Feb 06, 2024 08:30 AM AM[facility]ULATORY - NONE [place] [facility] Feb 14, 2024 11:00 AM AMBULATORY - REHAB MEDICIN E [facility] Feb 23, 2024 01:00 PM AMBULATORY - REHAB MEDICIN E [facility] Feb 28, 2024 09:30 AM AMBULATORY - REHAB MEDICIN E [facility] Lab Results: +/- 30 days of the encounter This section includes the Chemistry and Hematology Lab Results on record with [place] for the patient. Radiology Reports and Pathology Reports are provided separately, in subsequent sections. Lab Results This section contains the Chemistry/Hematology Results that were resulted 30 days before or 30 daysafter the date of the Encounter. Date/Time Source Result Type Result - Unit Interpretation Reference Range Specimen Type Comment Jan 30, 2024 09:25 AM [facility] N PANEL 1 PLASMA Specimen Type: PLASMA [...] Jan 02, 2024 11:14 AM Reporting Lab: [address] [address] Performing Lab: [address] [address] CREATININE 1.09 mg/dL 0.72-1.25 UREA NITROGEN 11 mg/dL 9-25 GLUCOSE 189 mg/dL H 74-100 SODIUM 139 mmol/L 136-145 POTASSIUM 4.3 mmol/L 3.5-5.1 CHLORIDE 101 mmol/L 98-107 CO2 27 mmol/L 22-29 CALCIUM 10.1 mg/dL 8.4-10.2 ANION GAP 11 meq/L 3-19 eGFR (CKD-EPI) 76 Advance Directives: All historical and current Section Date Range: From patient's date of to the date document was created. This section includes ALL of a patient's completed or amended [place] Advance and Rescinded Directives. The entries below indicate that a directive exists for the patient, but an actual copy is not included with this document. The data comes from all [place] facilities. Date Advance Directives Provider Source Apr 25, 2019 ADVANCE DIRECTIVE DISCUSSION ERVIN TAYLOR [facility] Radiology Reports: +/- 30 days of the [...] the Encounter. The data comes from all [place] treatment facilities. Date/Time Radiology Report Provider Source Jan 23, 2024 08:33 AM UPPER GI- DOUBLE C ONTRAST: ZENON BOND [id number] -1960 M Exm Date: JAN 23, 2024@08:33 Req Phys: VERONICA MICHELE Pat Loc: SOL PACT PHONE WILL MCGOVERN (Req'g Img Loc: CDD RADIOLOGY Service: [place] [address] (Case [id number] COMPLETE) UPPER GI- DOUBLE CONTRAST (RAD Detailed) CPT:60826 Contrast Media : Barium Reason for Study: eval for pud Clinical History: severe heartburn Report Status: Verified Date Reported: JAN 23, 2024 Date Verified: JAN 23, 2024 Dental Scheduling Coordinator E-Sig: Report: EXAMINATION: UPPER GI AIR CONTRAST [...] Interpreting Staff: ALAINA MENDOZA, Radiologist Verified by lubricator granulator for ALAINA MENDOZA /ALAINA LOCKETT-D [facility] Jan 23, 2024 08:21 AM LDCT LUNG CANCER S CREENING: ZENON BOND Brandy [id number] -1960 M Exm Date: JAN 23, 2024@08:21 Req Phys: VERONICA MICHELE Loc: SOL PACT PHONE WILL MCGOVERN (Req'g Img Loc: CT SCAN Service: [place] [address] (Case [id number] COMPLETE) LDCT LUNG CANCER SCREENING (CT Detailed) CPT:93554 Reason for Study: screening Clinical History: + tobacco Report Status: Verified Date Reported: JAN 23, 2024 Date Verified: JAN 23, 2024 Dental Scheduling Coordinator E-Sig: Report: EXAM: LDCT LUNG CANCER SCREENING . COMPARISON: Chest CT scan dated 01/02/2018. PROTOCOL: Screening protocol, low dose, non-contrast CT chest was performed at the local [place] facility in accordance with Lung-Rads 2022. Additional coronal and sagittal reconstructions. MIP reconstructions [...] Staff: ELVIA NOYOLA, Staff Physician Verified by lubricator granulator for ELVIA NOYOLA /[facility]IA [facility] Pathology Reports: +/- 30 days of the [...] the Encounter. The data comes from all [place] treatment facilities. Date/Time Pathology Report Provider Source Feb 07, 2024 02:19 PM LR SURGICAL PATHOL OGY REPORT: LOCAL TITLE: LR SURGICAL PATHOLOGY REPORT DATE OF NOTE: FEB 07, 2024@14:19:30 ENTRY DATE: FEB 07, 2024@14:19:30 AUTHOR: ELBA SEXTON EXP COSIGNER: URGENCY: STATUS: COMPLETED $APHDR Reporting Lab: [facility] [CLIA# [id number]] [address] [place] [address] - - - - - - - [...] submitted in one cassette. CPT CODE - 91029 MICROSCOPIC EXAM/DIAGNOSIS: Colon, ascending, polyp, biopsy: -Fragments of tubular adenoma. /allie/ ELBA SEXTON Pathologist Signed Feb 07, 2024@14:19 Performing Laboratory: Surgical Pathology Report Performed By: [facility] [CLIA# [id number]] [facility] [place] [address] $FTR - - - - - - - - - - - - - - - - - - - - - - - - - - - - - - - - - - - - - - - - (End of report) ELBA SEXTON [facility] Date Feb 07, 2024 - - - - - - - - - - - - - - - - - - - - - - - - - - - - - - - - - - - - - - - - ZENON BOND STANDARD FORM 515 ID:[id number] SEX:M :1960 AGE: 63 LOC:PATH PCP: Veronica Michele /allie/ ELBA SEXTON Pathologist Signed: 02/07/2024 14:19 ELBA SEXTON [facility] Encounter Notes: All associated encounter notes This section contains the clinical notes associated to the Encounter. Date/Time Encounter Note(s) Provider Source Jan 29, 2024 07:54 AM LETTERS: LOCAL TITLE: SPECIALTY CONTACT LETTER STANDARD TITLE: LETTERS DATE OF NOTE: JAN 29, 2024@07:54 ENTRY DATE: JAN 29, 2024@07:54:33 AUTHOR: BROCK ARNETT EXP COSIGNER: URGENCY: STATUS: COMPLETED [address] [address] Mr. ZENON Nava RONDA [address] [place] [address] JAN 29, 2024 Dear ZENON BOND, We have been unable to contact you by telephone to schedule an appointment in our Audiology clinic. Your health and well-being are important to us. Please call us at or . Select Option #2 and then #3. We look forward to hearing from you soon. Sincerely yours, Audiology [facility]
--- OUTSIDE RECORDS SUMMARY | 2024-01-30 09:40 | XMS_ITS | Encounter Summary ---
Author Name [facility] [place] [facility] [place] Address [address] [place] [address] Care Team Providers Care Bark Fitter Name Role Phone KRYSTIN HOLLIS Primary Care [...] PART A Jun 05, 2024 PART A [id number] [place] PATIENT MEDICARE (WNR) MEDICARE (M) PART B Jun 05, 2024 PART B [id number] [place] PATIENT Selected Encounter This section includes the information on record at [place] for the Encounter. Date/Time Encounter Type Encounter Description Reason Provider Source Jan 30, 2024 01:40 PM OFFICE O/P NEW MOD 45 MIN ORTHO/JOINT SURG ICD-10-CM M17.0 Bilateral primary osteoarthritis of knee DEON SWANSON Chapo Encounter Template Text not used by [place] Assessments - Encounter Diagnoses This section includes the primary and secondary diagnoses documented for the Encounter. Date/Time Primary/Secondary Diagnosis Diagnosis Name Provider Source Feb 19, 2024 03:59 PM PRIMARY Bilateral primary osteoarthritis of knee DEON SWANSON [facility] Plan of Treatment: Future Appointments (+ 6 months) and Future Tests (+/- 45 days) The Plan of Treatment section includes future care activities for the patient from all [place] treatmentfacilities. This section includes future appointments and future orders which are active, pending or scheduled. Future Appointments This section includes appointments that were scheduled to occur 6 months from the date of the Encounter, up to a maximum of 20 appointments. The data comes from all [place] treatment facilities. Appointment Date/Time Appointment Type Appointme nt Facility Name Feb 01, 2024 08:00 AM AMBULATORY - NONE [facility] Feb 01, 2024 08:45 AM AMBULATORY - NONE [facility] Feb 02, 2024 01:00 PM AMBULATORY - REHAB MEDICIN E [facility] Feb 06, 2024 08:30 AM AMBULATORY - NONE [facility] Feb 14, 2024 11:00 AM AMBULATORY - REHAB MEDICIN E [facility] Feb 23, 2024 01:00 PM AMBULATORY - REHAB MEDICIN E [facility] Feb 28, 2024 09:30 AM AMBULATORY - REHAB MEDICIN E [facility] Lab Results: +/- 30 days of the encounter This section includes the Chemistry and Hematology Lab Results on record with [place] for the patient. Radiology Reports and Pathology Reports are provided separately, in subsequent sections. Lab Results This section contains the Chemistry/Hematology Results that were resulted 30 days before or 30 daysafter the date of the Encounter. Date/Time Source Result Type Result - Unit Interpretation Reference Range Specimen Type Comment Jan 30, 2024 09:25 AM [facility] PANEL 1 PLASMA Specimen Type: PLASMA Comment: [...] Jan 02, 2024 11:14 AM Reporting Lab: [address] [address] Performing Lab: [address] [address] CREATININE 1.09 mg/dL 0.72-1.25 UREA NITROGEN 11 [...] ALL of a patient's completed or amended [place] Advance and Rescinded Directives. The entries below indicate that a directive exists for the patient, but an actual copy is not included with this document. The data comes from all [place] facilities. Date Advance Directives Provider Source Apr [...] the Encounter. The data comes from all [place] treatment facilities. Date/Time Radiology Report Provider Source Jan 23, 2024 08:33 AM UPPER GI- DOUBLE C ONTRAST: RONDAZENON [id number] -1960 M Exm Date: JAN 23, 2024@08:33 Req Phys: VERONICA MICHELE Loc: SOL PACT PHONE WILL MCGOVERN (Req'g Img Loc: CDD RADIOLOGY Service: [place] [address] (Case [id number] COMPLETE) UPPER GI- DOUBLE CONTRAST (RAD Detailed) CPT:87401 Contrast Media : Barium Reason for Study: eval for pud Clinical History: severe heartburn Report Status: Verified Date Reported: JAN 23, 2024 Date Verified: JAN 23, 2024 Power Digger Operator E-Sig: Report: EXAMINATION: UPPER GI AIR CONTRAST [...] Interpreting Staff: ALAINA MENDOZA, Radiologist Verified by penology professor for ALAINA MENDOZA /ALAINA LOCKETT-Taryn [facility] Jan 23, 2024 08:21 AM LDCT LUNG CANCER S CREENING: ZENON BOND [id number] -1960 M Exm Date: JAN 23, 2024@08:21 Req Phys: VERONICA MICHELE Loc: SOL PACT PHONE WILL MCGOVERN (Req'g Img Loc: CT SCAN Service: [place] [address] (Case [id number] COMPLETE) LDCT LUNG CANCER SCREENING (CT Detailed) CPT:20996 Reason for Study: screening Clinical History: + tobacco Report Status: Verified Date Reported: JAN 23, 2024 Date Verified: JAN 23, 2024 Power Digger Operator E-Sig: Report: EXAM: LDCT LUNG CANCER SCREENING . COMPARISON: Chest CT scan dated 01/02/2018. PROTOCOL: Screening protocol, low dose, non-contrast CT chest was performed at the local [place] facility in accordance with Lung-Rads 2022. Additional [...] Staff: ELVIA NOYOLA, Staff Physician Verified by penology professor for ELVIA NOYOLA /ELVIA [facility] Pathology Reports: +/- 30 days of [...] the Encounter. The data comes from all [place] treatment facilities. Date/Time Pathology Report Provider Source Feb 07, 2024 02:19 PM LR SURGICAL PATHOL OGY REPORT: LOCAL TITLE: LR SURGICAL PATHOLOGY REPORT DATE OF NOTE: FEB 07, 2024@14:19:30 ENTRY DATE: FEB 07, 2024@14:19:30 AUTHOR: ELBA SEXTON EXP COSIGNER: URGENCY: STATUS: COMPLETED $APHDR Reporting Lab: [facility] [[facility]# [id number]] [address] [place] [address] - - - - - - - [...] - - - - $TEXT Submitted by: DENIS Date obtained: Feb 01, 2024 - - [...] submitted in one cassette. CPT CODE - 73584 MICROSCOPIC EXAM/DIAGNOSIS: Colon, ascending, polyp, biopsy: -Fragments of tubular adenoma. /es/ YASODAH TODDYWALLA Pathologist Signed Feb 07, 2024@14:19 Performing Laboratory: Surgical Pathology Report Performed By: [facility] [IA# [id number]] [address] [place] [address] $FTR - - - - - - - - - - - - - - - - - - - - - - - - - - - - - - - - - - - - - - - - (End of report) ELBA SEXTON [facility] Date Feb 07, 2024 - - - - - - - - - - - - - - - - - - - - - - - - - - - - - - - - - - - - - - - - ZENON BOND STANDARD FORM 515 ID:[id number] SEX:M :1960 AGE: 63 LOC:PATH PCP: Veronica Michele /valentine SEXTON Pathologist Signed: 02/07/2024 14:19 ELBA SEXTON-CDD [facility] Encounter Notes: All associated encounter notes This section contains the clinical notes associated to the Encounter. Date/Time Encounter Note(s) Provider Source Jan 30, 2024 03:00 PM ORTHOPEDIC SURGERY CONSULT: LOCAL TITLE: ORTHOPEDIC SURGERY CONSULT RESPONSE STANDARD TITLE: ORTHOPEDIC SURGERY CONSULT DATE OF NOTE: JAN 30, 2024@15:00 ENTRY DATE: JAN 30, 2024@15:00:29 AUTHOR: DEON SWANSON COSIGNER: URGENCY: STATUS: COMPLETED ORTHOPEDIC SURGERY CONSULT RESPONSE Has ADDENDA Prior to procedure, the operative/procedure team members verbally confirmed: Correct patient identity (2 identifiers) Correct operation/procedure to be performed Correct operative/procedure site/side Correct consent form Correct position Correct imaging labeled and displayed Correct implant(s) available, if applicable Special equipment available, if applicable Allergies confirmed COMMENTS: CONSULT RESPONSE Nursing Screening Note reviewed: PAIN: 5 (12/28/2023 08:07) Presenting problems and reason for visit: Right knee pain History:63-year-old male here for evaluation of chronic right knee pain. Patient says that he has had right knee pain for several years maybe up to 6 years however over the last 9 months this started getting significantly worse. He lives in [facility] and says he was walking about 3 miles a day when his knee started clicking and popping and swelling and increasing in pain. He is now stateside to deal with other medical issues and hoping that we will be able to do an arthroscopy of his knee like he had on his left knee several years ago and debride what ever was causing him the pain. We have discussed that this is not an option as he has moderately severe osteoarthritis. Exam:Right knee, moderate effusion. Medial joint line tenderness on palpation. Active range of motion 0-1 20. Walks with mild antalgic gait. No varus or valgus laxity or anterior posterior instability with stressing neurovascular intact ROS: Right knee pain X-ray findings: X-rays reveal moderately severe osteoarthritis of the right knee medial compartment with mild to moderate lateral and patellofemoral joint Impression:Right knee osteoarthritis moderate Treatment plan/Follow-up treatment and patient instructions:Discussed at length his treatment options his BMI now is 32.69 and his hemoglobin A1c is 8.2 we discussed that this is above our criteria of 7.5 he says that he has just started new medication for glucose control. He also does not know how long he is going to stay but it is going to be under a month before he returns to [facility]. We discussed viscosupplement injections since we cannot do steroid injection of his knee and he says he does not want to do something that he cannot continue while he is in [facility]. Explained to him he could be a surgical candidate for total knee arthroplasty with better glucose control however he is not wanting a joint replacement so we will try PT for quad strengthening exercises Voltaren gel and lidocaine patches for his knee as well as fitted him for a medial off grain loader brace through prosthetics with the global marketing operations manager. He does not know when he will be back stateside so he understands he can follow-up as needed and at that time hopefully have better hemoglobin A1c Diagnoses treated, or that require further treatment: /allie/ DEON SWANSON Orthopedic SHANNON Signed: 01/30/2024 15:07 02/06/2024 ADDENDUM STATUS: COMPLETED Exam per SHANNON. EXITED CLINIC BY SHANNON, WHO PROVIDED INSTRUCTION TO THE PATIENT. Chart reviewed. Plan of Care as follows: -Right knee osteoarthritis Treatment plan/Follow-up treatment and patient instructions: -patient does not want to do any intervention that he cannot continue while he is [place] [facility] -needs better glucose control to be surgical candidate for total knee arthroplasty -PT for quad strengthening exercises -Voltaren gel -lidocaine patches -medial off grain loader brace through prosthetics -does not know when he will be back stateside, can follow-up as needed Per PA, to return to Follow-up clinic in: [place] /allie/ KURT [place], dentist private practice Replenishment Merchandising Associate Signed: 02/06/2024 10:41 DEON SWANSON-CDD [facility] Jan 30, 2024 01:47 PM SURGERY NURSING NO TE: LOCAL TITLE: SURGERY CLINIC INTAKE NOTE STANDARD TITLE: SURGERY NURSING NOTE DATE OF NOTE: JAN 30, 2024@13:47 ENTRY DATE: JAN 30, 2024@13:47:20 AUTHOR: PADMINI GARCIA COSIGNER: URGENCY: STATUS: COMPLETED The patient was given a list of his/her medications, instructed to review and discuss any changes or problems with their provider. Patient advised to carry a list of current medications and any allergies with them in the event of emergency situations. Allergies: local and remote PSEUDOEPHEDRINE, CRESTOR FACILITY ALLERGY/ADR -------- 35582^ED [facility]^675 ATORVASTATIN 21671^ED [facility]^675 PRAVASTATIN 91793^ED [facility]^675 PSEUDOEPHEDRINE Medication Reconciliation MRR1 - Med Reconciliation INCLUDED IN THIS LIST: Alphabetical list of active outpatient prescriptions dispensed from this [place] (local) and dispensed from another [place] or [facility] facility (remote) as well as inpatient orders (local pending and active), local clinic medications, locally documented non-VA medications, and local prescriptions that have or been discontinued in the past 90 days. Non-VA Meds Last Documented On: Dec 28, 2023 NOTE The display of VA prescriptions dispensed from another [place] or [facility] facility (remote) is limited to active outpatient prescription entries matched to National Drug File at the originating site and may not include some items such as investigational drugs, compounds, etc. NOT INCLUDED IN THIS LIST: Medications self-entered by the patient into personal health records (i.e. Social[employer]) are NOT included in this list. Non-VA medications documented outside this [place], remote inpatient orders (regardless of status) and remote clinic medications are NOT included in this list. The patient and provider must always discuss medications the patient is taking, regardless of where the medication was dispensed or obtained. Non-VA ASPIRIN 81MG EC TAB TAKE ONE TABLET BY MOUTH DAILY otc OUTPT ATORVASTATIN CALCIUM 40MG TAB (Status = Active/Suspended) TAKE ONE-HALF TABLET BY MOUTH DAILY FOR CHOLESTEROL -DO NOT DRINK GRAPEFRUIT JUICE WHILE ON THIS DRUG Rx# [id number] Last Released: 01/26/24 Qty/Days Supply: Rx Expiration Date: 01/02/25 Refills Remainin Indication: FOR CHOLESTEROL OUTPT COLON ELECTROLYTE LAVAGE PWD FOR SOLN (Status = Active) TAKE MIX CONTENTS OF BOTTLE AND TAKE BY MOUTH DIRECTED FOR BOWEL PREP -FILL JUG TO LINE WITH WATER. DRINK HALF AT 6PM THE NIGHT BEFORE PROCEDURE. DRINK LAST HALF 4-6 HOURS PRIOR TO PROCEDURE. NOTHING BY MOUTH AFTER PREP IS COMPLETED. CALL PREP HOTLINE AT WITH QUESTIONS. Rx# [id number] Last Released: 01/10/24 Qty/Days Supply: 07/04 Rx Expiration Date: 02/02/24 Refills Remainin Indication: FOR BOWEL PREP OUTPT GLIMEPIRIDE 2MG TAB (Status = Active) TAKE ONE TABLET BY MOUTH TWICE A DAY FOR BLOOD SUGAR Rx# [id number] Last Released: 01/05/24 Qty/Days Supply: 180/90 Rx Expiration Date: 01/02/25 Refills Remainin Indication: FOR BLOOD SUGAR Non-VA IBUPROFEN 400MG TAB TAKE ONE TABLET BY MOUTH DAILY otc CLIN LACTATED RINGER'S INJ,SOLN (Status=Active) LACTATED RINGER'S INJ,SOLN 1000 ml IV 20 ml/hr@0 for 12 hours Administered in [facility] Indication: FOR HYDRATION CLIN LIDOCAINE INJ 2% 5ML VIAL (PF) (Status=Active) 3ML ORAL ONCE -INJECTION SOLUTION TO BE GARGLED/SWALLOWED PRIOR TO EGD. TO BE GIVEN IN CLINIC Indication: FOR PAIN OUTPT LISINOPRIL 10MG TAB (Status = Active/Suspended) TAKE ONE-HALF TABLET BY MOUTH DAILY FOR HIGH BLOOD PRESSURE Rx# [id number] Last Released: 01/26/24 Qty/Days Supply: Rx Expiration Date: 01/02/25 Refills Remainin Indication: FOR HIGH BLOOD PRESSURE OUTPT METFORMIN HCL 500MG 24HR SA TAB (Status = Discontinued) TAKE ONE TABLET BY MOUTH DAILY FOR 7 DAYS, THEN TAKE ONE TABLET TWICE A DAY FOR 7 DAYS, THEN TAKE TWO TABLETS EVERY MORNING AND TAKE ONE TABLET EVERY EVENING FOR 7 DAYS, THEN TAKE TWO TABLETS TWICE A DAY FOR BLOOD SUGAR Rx# [id number] Last Released: 01/23/24 Qty/ Supply: Rx Expiration Date: 01/17/25 Refills Remainin Indication: FOR BLOOD SUGAR OUTPT METFORMIN HCL 500MG 24HR SA TAB (Status = Active) TAKE TWO TABLETS BY MOUTH TWICE A DAY FOR BLOOD SUGAR Rx# [id number] Last Released: Qt Supply: 12030 Rx Expiration Date: 01/17/25 Refills Remainin Indication: FOR BLOOD SUGAR OUTPT OMEPRAZOLE 20MG EC CAP (Status = Active) TAKE TWO CAPSULES BY MOUTH TWICE A DAY FOR STOMACH -TAKE ON AN EMPTY STOMACH Rx# [id number] Last Released: 01/05/24 Qty/Days Supply: 360/90 Rx Expiration Date: 03/27/24 Refills Remainin Indication: FOR STOMACH Non-VA TAMSULOSIN HCL 0.4MG CAP TAKE 1 CAPSULE BY MOUTH EVERY EVENING per private Non-VA TRAMADOL HCL 50MG TAB TAKE ONE TABLET BY MOUTH TWICE A DAY NEEDED SUPPLIES OUTPT ACCU-CHEK GUIDE (GLUCOSE) TEST STRIP (Status = Active/Suspended) USE 1 STRIP TO TEST BLOOD SUGAR DIRECTED LIMIT 50 STRIPS EVERY 90 DAYS Rx# [id number] Last Released: 01/24/24 Qty/Days Supply: 50/90 Rx Expiration Date: 01/17/25 Refills Remainin OUTPT LANCET,SOFTCLIX (Status = Active/Suspended) USE LANCET AFFECTED AREA DIRECTED Rx# [id number] Last Released: 01/19/24 Qty/Days Supply: 100/90 Rx Expiration Date: 01/17/25 Refills Remainin /allie/ Padmini CASTRO [facility] LEATHER FITTER Signed: 01/30/2024 13:49 PADMINI GARCIA-SUZAND [facility]
--- OUTSIDE RECORDS SUMMARY | 2024-01-30 11:57 | XMS_ITS | Encounter Summary ---
Author Name [facility] Organization [facility] Address [address] [place] [address] Care Team Providers Care Golf Superintendent Name Role Phone KRYSTIN HOLLIS Primary Care [...] PART A Jun 05, 2024 PART A [id number] [place] PATIENT MEDICARE (WNR) MEDICARE (M) PART B Jun 05, 2024 PART B [id number] [place] PATIENT Selected Encounter This section includes the information on record at [place] for the Encounter. Date/Time Encounter Type Encounter Description Reason Provider Source Jan 30, 2024 03:57 PM SELF-MGMT EDUC & TRAIN 1 PT PHYSICAL THERAPY ICD-10-CM M25.561 Pain in right knee KIKI STEPHEN [place] Encounter Template Text not used by [place] Assessments - Encounter Diagnoses This section includes the primary and secondary diagnoses documented for the Encounter. Date/Time Primary/Secondary Diagnosis Diagnosis Name Provider Source Feb 14, 2024 10:28 AM PRIMARY Pain in right knee KIKI STEPHEN [facility] Plan of Treatment: Future Appointments (+ 6 months) and Future Tests (+/- 45 days) The Plan of Treatment section includes future care activities for the [facility] This section includes future appointments and future orders which are active, pending or scheduled. Future Appointments This section includes appointments that were scheduled to occur 6 months from the date of the Encounter, up to a maximum of 20 appointments. The data comes from all [place] treatment facilities. Appointment Date/Time Appointment Type Appointme nt Facility Name Feb 01, 2024 08:00 AM [facility] Feb 01, 2024 08:45 AM AMBULATORY - NONE [facility] Feb 02, 2024 01:00 PM AMBULATORY - REHAB MEDICIN E [facility] Feb 06, 2024 08:30 AM AMBULATORY - NONE [facility] Feb 14, 2024 11:00 AM AMBULATORY - REHAB MEDICIN E [facility] Feb 23, 2024 01:00 PM AMBULATORY - REHAB MEDICIN E [facility] Feb 28, 2024 09:30 AM AMBULATORY - REHAB MEDICIN E [facility] Lab Results: +/- 30 days of the encounter This section includes the Chemistry and Hematology Lab Results on record with [place] for the patient. Radiology Reports and Pathology Reports are provided separately, in subsequent sections. Lab Results This section contains the Chemistry/Hematology Results that were resulted 30 days before or 30 daysafter the date of the Encounter. Date/Time Source Result Type Result - Unit Interpretation Reference Range Specimen Type Comment Jan 30, 2024 09:25 AM [facility] N PANEL 1 PLASMA Specimen Type: PLASMA [...] Jan 02, 2024 11:14 AM Reporting Lab: [address] [id number] Performing Lab: [address] [id number] CREATININE 1.09 mg/dL 0.72-1.25 UREA NITROGEN 11 mg/dL 9-25 GLUCOSE 189 mg/dL H 74-100 SODIUM 139 mmol/L 136-145 POTASSIUM 4.3 mmol/L 3.5-5.1 CHLORIDE 101 mmol/L 98-107 CO2 27 mmol/L 22-29 CALCIUM 10.1 mg/dL 8.4-10.2 ANION GAP 11 meq/L 3-19 eGFR (CKD-EPI) 76 Vital Signs: All taken on the encounter date This section contains inpatient and outpatient Vital Signs collected on the date of the Encounter. Date/Time Temperature Pulse Blood Pressure Respiratory Rate SP02 Pain Height Weight Body Mass Index Source Jan 30, 2024 09:22 AM 96 124/74 [place] [facility] Social History: Smoking Status (Most current) and Tobacco Use (All prior to encounter date) This section includes the most current, and the historical, smoking and tobacco- related health factors from the [place] facility where the Encounter took place. Current Smoking Status This section includes the most current smoking, or tobacco-related health factor, from the [place] facility where the Encounter took place. Date/Time Current Smoking Status Comment Facil ity Dec 28, 2023 08:00 AM VA-TOBACCO QUIT 5 TO < 15 YRS [facility] Tobacco Use History This section includes a history of the smoking, or tobacco-related health factors, that were collected on or before the date of the Encounter. The data comes from the [place] facility where the Encounter took place. Date/Time Smoking Status/Tobacco Use Comment F acility Dec 28, 2023 08:00 AM VA-TOBACCO QUIT 5 TO < 15 YRS [facility] May 19, 2022 09:30 AM VA-TOBACCO FORMER USER [facility] May 19, 2022 09:30 AM VA-TOBACCO QUIT 5 TO < 15 YRS [facility] Mar 29, 2021 08:00 AM VA-TOBACCO FORMER USER [facility] Mar 29, 2021 08:00 AM VA-TOBACCO QUIT 5 TO < 15 YRS [facility] Nov 22, 2017 10:50 AM V9 QUIT TOBACCO >1 2 MO & <7 YRS AGO [facility] Advance Directives: All historical and current Section Date Range: From patient's date of to the date document was created. This section includes ALL of a patient's completed or amended [place] Advance and Rescinded Directives. The entries below indicate that a directive exists for the patient, but an actual copy is not included with this document. The data comes from all [place] facilities. Date Advance Directives Provider Source Apr 25, 2019 ADVANCE DIRECTIVE DISCUSSION [facility] Radiology Reports: +/- 30 days [...] the Encounter. The data comes from all [place] treatment facilities. Date/Time Radiology Report Provider Source Jan 23, 2024 08:33 AM UPPER GI- DOUBLE C ONTRAST: ZENON BOND Brandy [id number] -1960 M Exm Date: JAN 23, 2024@08:33 Req Phys: VERONICA MICHELE Loc: SOL PACT PHONE WILL MCGOVERN (Req'g Img Loc: CDD RADIOLOGY Service: [place] [address] (Case [id number] COMPLETE) UPPER GI- DOUBLE CONTRAST (RAD Detailed) CPT:10715 Contrast Media : Barium Reason for Study: eval for pud Clinical History: severe heartburn Report Status: Verified Date Reported: JAN 23, 2024 Date Verified: JAN 23, 2024 Instrumentation Fitter E-Sig: Report: EXAMINATION: UPPER GI AIR CONTRAST [...] Interpreting Staff: ALAINA MENDOZA, Radiologist Verified by lounge car attendant for ALAINA MENDOZA /ALAINA LOCK[facility] Jan 23, 2024 08:21 AM LDCT LUNG CANCER S CREENING: ZENON BOND [id number] -1960 M Exm Date: JAN 23, 2024@08:21 Req Phys: VERONICA MICHELE Pat Loc: SOL PACT PHONE WILL MCGOVERN (Req'g Img Loc: CT SCAN Service: Unknown [place] [id number] (Case [id number] COMPLETE) LDCT LUNG CANCER SCREENING (CT Detailed) CPT:61651 Reason for Study: screening Clinical History: + tobacco Report Status: Verified Date Reported: JAN 23, 2024 Date Verified: JAN 23, 2024 Instrumentation Fitter E-Sig: Report: EXAM: LDCT LUNG CANCER SCREENING . COMPARISON: Chest CT scan dated 01/02/2018. PROTOCOL: Screening protocol, low dose, non-contrast CT chest was performed at the local [place] facility in accordance with Lung-Rads 2022. Additional [...] Staff: ELVIA NOYOLA, Staff Physician Verified by lounge car attendant for ELVIA NOYOLA /ELVIA HO [facility] Pathology Reports: +/- 30 days of the [...] the Encounter. The data comes from all [place] treatment facilities. Date/Time Pathology Report Provider Source Feb 07, 2024 02:19 PM LR SURGICAL PATHOL OGY REPORT: LOCAL TITLE: LR SURGICAL PATHOLOGY REPORT DATE OF NOTE: FEB 07, 2024@14:19:30 ENTRY DATE: FEB 07, 2024@14:19:30 AUTHOR: ELBA SEXTON COSIGNER: URGENCY: STATUS: COMPLETED $APHDR Reporting Lab: [facility] [[facility]# [id number]] [address] [place] [id number] - - - - - - - [...] submitted in one cassette. CPT CODE - 96527 MICROSCOPIC EXAM/DIAGNOSIS: Colon, ascending, polyp, biopsy: -Fragments of tubular adenoma. /es/ ELBA SEXTON Pathologist Signed Feb 07, 2024@14:19 Performing Laboratory: Surgical Pathology Report Performed By: [facility] [CLIA# [id number]] [address] [place] [address] $FTR - - - - - - - - - - - - - - - - - - - - - - - - - - - - - - - - - - - - - - - - (End of report) ELBA SEXTON [facility] Date Feb 07, 2024 - - - - - - - - - - - - - - - - - - - - - - - - - - - - - - - - - - - - - - - - ZENON BOND STANDARD FORM 515 ID:[id number] SEX:M :1960 AGE: 63 LOC:PATH PCP: Veronica Michele /allie/ ELBA SEXTON Pathologist Signed: 02/07/2024 14:19 ELBA SEXTON-D [facility] Encounter Notes: All associated encounter notes This section contains the clinical notes associated to the Encounter. Date/Time Encounter Note(s) Provider Source Jan 30, 2024 03:57 PM PHYSICAL THERAPY C ONSULT: LOCAL TITLE: PHYSICAL THERAPY CONSULT RESPONSE STANDARD TITLE: PHYSICAL THERAPY CONSULT DATE OF NOTE: JAN 30, 2024@15:57 ENTRY DATE: JAN 30, 2024@15:57:33 AUTHOR: KIKI STEPHEN EXP COSIGNER: URGENCY: STATUS: COMPLETED Order Information To Service: PT OUTPATIENT PACT From Service: SOL PACT OPTICAL GLASS ETCHER PAPA 16-2 Requesting Provider: VERONICA MICHELE Service is to be rendered on an OUTPATIENT basis Place: Sensor Technician's choice Urgency: Routine Clinically Ind. Date: Jan 30, 2024 DST ID: Orderable Item: PT OUTPATIENT PACT Consult: Consult Request Provisional Diagnosis: Pain in unspecified Knee(ICD-10-CM M25.569) Reason For Request: #RCT# Special Comments: knee pain/needs cane SUBJECTIVE: Pt presents needing instruction on a single point cane OBJECTIVE: Pt. was instructed in the use of the straight cane, including: proper gait pattern, ambulation up and down steps with railing; how to properly adjust height. Precautions while using the straight cane included: avoid wet floors, remove loose throw rugs, caution at walking surface change, caution around small children/pets, caution when stepping over objects, caution in narrow spaces/crowds. Observed function following instruction: Pt. ambulated approximately 75 feet in clinic with straight cane, verbally expressed understanding of ascending and descending steps. No loss of balance or loss of path during ambulation. ASSESSMENT: At time of this assessment, patient ambulated with use of straight cane without loss of balance or loss of path, and is appropriate for use of straight cane during ambulation as long as he maintains the functional status observed during this consult. PLAN: Discharge to home use of straight cane TODAY'S TREATMENT: 15 MINUTES PATIENT EDUCATION: 15 MINUTES /allie/ KIKI STEPHEN Signed: 01/30/2024 15:58 KIKI STEPHEN [facility]
--- OUTSIDE RECORDS SUMMARY | 2024-02-01 04:00 | XMS_ITS | Encounter Summary ---
Author Name [facility] Organization [facility] Address [address] [place] [address] Care Team Providers Care Stove Polisher Name Role Phone KRYSTIN HOLLIS Primary Care [...] PART A Jun 05, 2024 PART A [id number] BLA[place]OND PATIENT MEDICARE (WNR) MEDICARE (M) PART B Jun 05, 2024 PART B [id number] BLAIR BOND PATIENT Selected Encounter This section includes the information on record at ME for the Encounter. Date/Time Encounter Type Encounter Description Reason Provider Source Feb 01, 2024 08:00 AM COLONOSCOPY W/LESION REMOVAL GI ENDOSCOPY ICD-10-CM K92.1 LUIS Bueno E Encounter Template Text not used by ME Assessments - Encounter Diagnoses This section includes the primary and secondary diagnoses documented for the Encounter. Date/Time Primary/Secondary Diagnosis Diagnosis Name Provider Source Feb 06, 2024 09:51 AM PRIMARY SHAY Elliott [place] Plan of Treatment: Future Appointments (+ 6 months) and Future Tests (+/- 45 days) The Plan of Treatment section includes future care activities for the patient from all [place] treatmentfacilities. This section includes future appointments and future orders which are active, pending or scheduled. Future Appointments This section includes appointments that were scheduled to occur 6 months from the date of the Encounter, up to a maximum of 20 appointments. The data comes from all [place] treatment facilities. Appointment Date/Time Appointment Type Appointme nt Facility Name Feb 02, 2024 01:00 PM AMBULATORY - REHAB MEDICIN E [facility] Feb 06, 2024 08:30 AM AMBULATORY - NONE [facility] Feb 14, 2024 11:00 AM AMBULATORY - REHAB MEDICIN E [facility] Feb 23, 2024 01:00 PM AMBULATORY - REHAB MEDICIN E [facility] Feb 28, 2024 09:30 AM AMBULATORY - REHAB MEDICIN E [facility] Lab Results: +/- 30 days of the encounter This section includes the Chemistry and Hematology Lab Results on record with ME for the patient. Radiology Reports and Pathology Reports are provided separately, in subsequent sections. Lab Results This section contains the Chemistry/Hematology Results that were resulted 30 days before or 30 daysafter the date of the Encounter. Date/Time Source Result Type Result - Unit Interpretation Reference Range Specimen Type Comment Jan 30, 2024 09:25 AM [facility] PANEL 1 PLASMA Specimen Type: PLASMA Comment: [...] Jan 02, 2024 11:14 AM Reporting Lab: [address] [id number] Performing Lab: [address] [id number] CREATININE 1.09 mg/dL 0.72-1.25 UREA NITROGEN 11 [...] ALL of a patient's completed or amended ME Advance and Rescinded Directives. The entries below indicate that a directive exists for the patient, but an actual copy is not included with this document. The data comes from all [place] facilities. Date Advance Directives Provider Source Apr 25, 2019 ADVANCE DIRECTIVE DISCUSSION [facility] Radiology Reports: +/- 30 days of the [...] the Encounter. The data comes from all [place] treatment facilities. Date/Time Radiology Report Provider Source Jan 23, 2024 08:33 AM UPPER GI- DOUBLE C ONTRAST: ZENON BOND [id number] -1960 M Ex Date: JAN 23, 2024@08:33 Req Phys: VERONICA MICHELE Pat Loc: SOL PACT PHONE WILL MCGOVERN (Req'g Img Loc: CDD RADIOLOGY Service: [place] [address] (Case [id number] COMPLETE) UPPER GI- DOUBLE CONTRAST (RAD Detailed) CPT:82572 Contrast Media : Barium Reason for Study: eval for pud Clinical History: severe heartburn Report Status: Verified Date Reported: JAN 23, 2024 Date Verified: JAN 23, 2024 Interactive Media Specialist E-Sig: Report: EXAMINATION: UPPER GI AIR CONTRAST [...] Interpreting Staff: ALAINA MENDOZA, Radiologist Verified by international sales manager for ALAINA MENDOZA /ALAINA LOCKETT-D [facility] Jan 23, 2024 08:21 AM LDCT LUNG CANCER S CREENING: ZENON BOND [id number] -1960 M Exm Date: JAN 23, 2024@08:21 Req Phys: VERONICA MICHELE Loc: SOL PACT PHONE WILL MCGOVERN (Req'g Img Loc: CT SCAN Service: [place] [address] (Case [id number] COMPLETE) LDCT LUNG CANCER SCREENING (CT Detailed) CPT:93059 Reason for Study: screening Clinical History: + tobacco Report Status: Verified Date Reported: JAN 23, 2024 Date Verified: JAN 23, 2024 Interactive Media Specialist E-Sig: Report: EXAM: LDCT LUNG CANCER SCREENING . COMPARISON: Chest CT scan dated 01/02/2018. PROTOCOL: Screening protocol, low dose, non-contrast CT chest was performed at the local [place] facility in accordance with Lung-Rads 2022. Additional [...] Staff: ELVIA NOYOLA, Staff Physician Verified by international sales manager for ELVIA NOYOLA /WILLIAM NOYOLA,[facility] Pathology Reports: +/- 30 days [...] the Encounter. The data comes from all [place] treatment facilities. Date/Time Pathology Report Provider Source Feb 07, 2024 02:19 PM LR SURGICAL PATHOL OGY REPORT: LOCAL TITLE: LR SURGICAL PATHOLOGY REPORT DATE OF NOTE: FEB 07, 2024@14:19:30 ENTRY DATE: FEB 07, 2024@14:19:30 AUTHOR: ELBA SEXTON COSIGNER: URGENCY: STATUS: COMPLETED $APHDR Reporting Lab: [facility] [IA# [id number]] [address] [place] [phone] - - - - - - - [...] - - POSTOPERATIVE DIAGNOSIS: NOT GIVEN. Surgeon/physician: LUIS ALMONTE MD =-=-=-=-=-=-=-=-=-=-=-=-=- =-=-=-=-=-=-=-=-=-=-=-=-=- =-=-=-=-=-=-=-=-=-=-=-=-=- = - - [...] submitted in one cassette. CPT CODE - 92966 MICROSCOPIC EXAM/DIAGNOSIS: Colon, ascending, polyp, biopsy: -Fragments of tubular adenoma. /allie/ ELBA SEXTON Pathologist Signed Feb 07, 2024@14:19 Performing Laboratory: Surgical Pathology Report Performed By: [facility] [CLIA# [id number]] [address] [place] [phone] $FTR - - - - - - - - - - - - - - - - - - - - - - - - - - - - - - - - - - - - - - - - (End of report) ELBA SEXTON [facility] Date Feb 07, 2024 - - - - - - - - - - - - - - - - - - - - - - - - - - - - - - - - - - - - - - - - ZENON BOND STANDARD FORM 515 ID:[id number] SEX:M :1960 AGE: 63 LOC:PATH PCP: Veronica Michele /allie/ ELBA SEXTON Pathologist Signed: 02/07/2024 14:19 SEBASTIANAndrésJEFFELBA MOJICA-CDD [facility] Encounter Notes: All associated encounter notes This section contains the clinical notes associated to the Encounter. Date/Time Encounter Note(s) Provider Source Feb 01, 2024 12:16 PM CONSULT: LOCAL TITLE: CP ENDOSCOPY CONSULT RESPONSE STANDARD TITLE: CONSULT DATE OF NOTE: FEB 01, 2024@12:16:35 ENTRY DATE: FEB 01, 2024@12:16:35 AUTHOR: CLINICAL,DEVICE PRO EXP COSIGNER: URGENCY: STATUS: COMPLETED CP ENDOSCOPY CONSULT RESPONSE Has ADDENDA DOCUMENT IN [facility] SEE FULL REPORT IN [facility] SIGNATURE NOT REQUIRED SEE SIGNATURE IN [facility]IST[facility] (Provation EGD) AUTO-INSTRUMENT DIAGNOSIS Procedure: ExamEndo Upper GI endoscopy Release Status: Released Off-Line Verified Date Verified: Feb 01, 2024@12:16:33 [facility] Patient Name: Zenon Bnod. Procedure Date No Time: 02/01/2024 SSN: [id number] Date of : 1960 Admit Type: Outpatient Age: 63 Gender: Male Attending MD: Luis Almonte MD Procedure: Upper GI endoscopy Indications: Melena Providers: Luis Almonte MD, Shay Estrada (Fellow), Saji Samaniego (Nurse), Antonieta Nugent (Print Finishing Worker) Referring MD: Medicines: Midazolam 5 mg IV, Fentanyl 75 micrograms IV Complications: No immediate complications. Procedure: After obtaining informed consent, the endoscope was passed under direct vision. Throughout the procedure, the patient's blood pressure, pulse, and oxygen saturations were monitored continuously. The EGD Scope (serial# [id number]) was introduced through the mouth, and advanced to the second part of duodenum. The upper GI endoscopy was accomplished without difficulty. The patient tolerated the procedure fairly well. Moderate Sedation: Moderate (conscious) sedation was administered by the endoscopy nurse and supervised by the endoscopist. The following parameters were monitored: oxygen saturation, heart rate, blood pressure, and response to care. Findings: The esophagus was normal. The stomach was normal. The examined duodenum was normal. Impression: - Normal esophagus. - Normal stomach. - Normal examined duodenum. - No specimens collected. - Normal examination. Recommendation: - Discharge patient to home (with escort). - Patient has a contact number available for emergencies. The signs and symptoms of potential delayed complications were discussed with the patient. Return to normal activities tomorrow. Written discharge instructions were provided to the patient. - If patient needs EGD in the future would recommend undergoing procedure with Anesthesia -Follow up with referring provider Procedure Code(s): --- Professional --- 70075, Esophagogastroduodenoscopy, flexible, transoral; diagnostic, including collection of specimen(s) by brushing or washing, when performed (separate procedure) Diagnosis Code(s): --- Professional --- K92.1, Melena (includes Hematochezia) CPT copyright 2017 [employer]. All rights reserved. The codes documented in this report are preliminary and upon lead radiation therapist review may be revised to meet current compliance requirements. Attending Participation: I personally performed the entire procedure. MD Luis Gonzalez MD 02/01/2024 12:13:10 PM This report has been signed electronically. Number of Addenda: 0 Note Initiated On: 02/01/2024 8:18 AM Total Procedure Duration Time 0 hours 3 minutes 10 seconds Estimated Blood Loss: Estimated blood loss: none. Scope In: 8:52:44 AM Scope Out: 8:55:54 AM Administrative Closure: 02/01/2024 by: DEVICE PROXY SERVICE CLINICAL CLINICAL,DEVICE PROXY SERVICE 02/20/2024 ADDENDUM STATUS: COMPLETED no additional f/u advised /allie/ IKE GUILLORY RN ENDOSCOPY FIXTURE RELAMPER Signed: 02/20/2024 11:46 CLINICAL,DEVICE PROXY SERVICE [facility] Feb 01, 2024 11:17 AM SCANNED NOTE: LOCAL TITLE: CONSCIOUS SEDATION SCANNED NOTE STANDARD TITLE: SCANNED NOTE DATE OF NOTE: FEB 01, 2024@11:17 ENTRY DATE: FEB 02, 2024@11:17:30 AUTHOR: KEELY HUSTON EXP COSIGNER: URGENCY: STATUS: COMPLETED The scanned image may be viewed in [employer]. /allie/ KEELY HUSTON LEAD MICROWAVE REMOTE SENSING SCIENTIST Signed: 02/02/2024 11:18 KEELY HUSTON [facility] Feb 01, 2024 09:47 AM PATHOLOGY NOTE: LOCAL TITLE: MED/GI/PATH EXAM REQUEST STANDARD TITLE: PATHOLOGY NOTE DATE OF NOTE: FEB 01, 2024@09:47 ENTRY DATE: FEB 01, 2024@09:47:08 AUTHOR: SHAY ESTRADA EXP COSIGNER: URGENCY: STATUS: COMPLETED Specimen Submitted By: Dr. Almonte, Dr. Shay Estrada Obtained: FEB 01, 2024 Specimen(s): [please enter each on a separate line] A. Ascending Colon Polyp Brief Clinical History: 63yoM hx advanced adenoma undergoing surveillance colonoscopy. Additionally with melena undergoing EGD. (For Gynecologic specimens) Date of Last Menstrual Period: Jan Operative Procedure(s): Preoperative Diagnosis: Normal EGD Diverticulosis 2 subcentimeter polyps, removed with path pending Operative Findings: Postoperative Diagnosis: Physician Collecting Specimen: Dr. Almonte, Dr. Shay Estrada Attending Provider: Dr. Almonte LAB USE ONLY Accession Number(s) AGE: 63 SEX: MALE RACE: WHITE /allie/ SHAY ESTRADA Signed: 02/01/2024 09:49 SHAY ESTRADA [facility] Feb 01, 2024 09:43 AM GASTROENTEROLOGY P ROCEDURE NOTE: LOCAL TITLE: PRELIM ENDO PROCEDURE REPORT NOTE STANDARD TITLE: GASTROENTEROLOGY PROCEDURE NOTE DATE OF NOTE: FEB 01, 2024@09:43 ENTRY DATE: FEB 01, 2024@09:43:11 AUTHOR: SHAY ESTRADA EXP COSIGNER: URGENCY: STATUS: COMPLETED PRELIM ENDO Procedure Report Primary Attending: Dr. Almonte Fellow: Shay Estrada Procedure Performed: EGD, Colonoscopy Preliminary Procedure Findings: Normal EGD Colonoscopy with singh-=dioverticular disease. 2 polyps identified in the ascending colon, removed and sent for patho Estimated Blood Loss: Minimal Specimen(s) Removed: Ascending colon polyp Postoperative Diagnosis: Normal EGD 2 subcentimeter polyps in ascending colon, removed. Path pending Diverticulosis /es/ SHAY ESTRADA Signed: 02/01/2024 09:46 SHAY ESTRADA MARIA [facility] Feb 01, 2024 08:47 AM NURSING NOTE: LOCAL TITLE: PRE PROCEDURE PROGRESS NOTE WITH MED-REC STANDARD TITLE: NURSING NOTE DATE OF NOTE: FEB 01, 2024@08:47 ENTRY DATE: FEB 01, 2024@08:47:18 AUTHOR: SAJI SAMANIEGO EXP COSIGNER: URGENCY: STATUS: COMPLETED History & Physical dated within 30 days or Review of Systems completed. Yes Interval/Focus H&P Note within 24 hours of planned procedure Yes Attending note within 30 days Yes Step 1: Reviewed current medications with patient/signficant other, patient/significant other reports patient taking ALL VA, Non VA & OTC medications as listed on CPRS medication tab outpatient section. YES: *Printed copy of medication list provided to patient and reviewed. Yes *Explained to the patient the importance of keeping providers updated on medication changes and to carrying an updated list of medication at all times in case of an emergency situation. Yes Step 2: Consent Form checked for: Patient's Full Name: Yes Procedure Site: Yes Name of Procedure: Yes Reason for Procedure:Yes Privileges verified: Yes COMMENTS: egd , colonoscopy Step 4: Patient States: Their Full Name Yes Full SSN or Date of Yes Site for the Procedure Yes egd , colonoscopy Step 5: Time Out Presence of the Correct Patient Yes Marking of the Correct Site Not Applicable Procedure to be Performed Yes Availability of the Correct Implant Not Applicable Time Out Done At: 0833 YES, Verbal confirmation by participants of the site of the invasive procedure to be performed. Position of Patient: left lateral Participants: Name of Surgeon/Physician:Brianda Almonte and Name of Nursing Staff Members: Anish Nugent Other: Endoscopy Suite ONLY: Scope reprocessing date current Yes COMMENTS: egd 4500 - 02/05/24 colon 3090 - exp 02/06/24 See OR Nurse Nichols Protocol Checklist Note for Time out documentation for OR cases. Patient notified executive receptionist available upon request for any examinations/procedures. Warm Handoff communicated to post procedure staff, RN. Time: post /es/ SAJI SAMANIEGO Registered Nurse Signed: 02/01/2024 08:50 SAJI SAMANIEGO-SERA [facility]
--- OUTSIDE RECORDS SUMMARY | 2024-02-01 04:45 | XMS_ITS | Encounter Summary ---
Author Name [facility] Organization [facility] Address [address] [place] [address] Care Team Providers Care Coil Winder Strap Name Role Phone KRYSTIN HOLLIS Primary Care [...] Policy [place] MEDICARE (WNR) MEDICARE (M) PART B Jun 05, 2024 PART B [id number] BLAIR BOND PATIENT MEDICARE (WNR) MEDICARE (M) PART A Jun 05, 2024 PART A [id number] BLAIR BOND PATIENT Selected Encounter This section includes the information on record at DC for the Encounter. Date/Time Encounter Type Encounter Description Reason Provider Source Feb 01, 2024 08:45 AM Outpatient Encounter GI ENDOSCOPY LUIS ALMONTE Encounter Template Text not used by DC Plan of Treatment: Future Appointments (+ 6 months) and Future Tests (+/- 45 days) The Plan of Treatment section includes future care activities for the patient from [facility]. This section includes future appointments and future orders which are active, pending or scheduled. Future Appointments This section includes appointments that were scheduled to occur 6 months from the date of the Encounter, up to a maximum of 20 appointments. The data comes from all [place] treatment facilities. Appointment Date/Time Appointment Type Appointme nt Facility Name Feb 02, 2024 01:00 PM AMBULATORY - REHAB MEDICIN E [facility] Feb 06, 2024 08:30 AM AMBULATORY - NONE [facility] Feb 14, 2024 11:00 AM AMBULATORY - REHAB MEDICIN E [facility] Feb 23, 2024 01:00 PM AMBULATORY - REHAB MEDICIN E [facility] Feb 28, 2024 09:30 AM AMBULATORY - REHAB MEDICIN E [facility] Lab Results: +/- 30 days [...] Type Comment Jan 30, 2024 09:25 AM [facility] N PANEL 1 PLASMA Specimen [...] Jan 02, 2024 11:14 AM Reporting Lab: [address] [address] Performing Lab: [address] [address] CREATININE 1.09 mg/dL 0.72-1.25 UREA NITROGEN 11 [...] 25, 2019 ADVANCE DIRECTIVE DISCUSSION [facility] Radiology Reports: +/- 30 days of [...] UPPER GI- DOUBLE C ONTRAST: ZENON BOND [id number] -1960 M Exm Date: JAN 23, 2024@08:33 Req Phys: VERONICA MICHELE Loc: SOL PACT PHONE WILL MCGOVERN (Req'g Img Loc: CDD RADIOLOGY Service: [place] [address] (Case [id number] COMPLETE) UPPER GI- DOUBLE CONTRAST (RAD Detailed) CPT:92286 Contrast Media : Barium Reason for Study: eval for pud Clinical History: severe heartburn Report Status: Verified Date Reported: JAN 23, 2024 Date Verified: JAN 23, 2024 [employer] Laborer E-Sig: Report: EXAMINATION: UPPER GI AIR CONTRAST [...] Interpreting Staff: ALAINA MENDOZA, Radiologist Verified by laborer mine for ALAINA MENDOZA /[facility] Jan 23, 2024 08:21 AM LDCT LUNG CANCER S CREENING: ZENON BOND [id number] -1960 M Exm Date: JAN 23, 2024@08:21 Req Phys: VERONICA MICHELE Pat Loc: SOL PACT PHONE WILL MCGOVERN (Req'g Img Loc: CT SCAN Service: [place] [address] (Case [id number] COMPLETE) LDCT LUNG CANCER SCREENING (CT Detailed) CPT:76296 Reason for Study: screening Clinical History: + tobacco Report Status: Verified Date Reported: JAN 23, 2024 Date Verified: JAN 23, 2024 [employer] E-Sig: Report: EXAM: LDCT LUNG CANCER SCREENING . COMPARISON: Chest CT scan dated 01/02/2018. PROTOCOL: Screening protocol, low dose, non-contrast CT chest was performed at the local [place] facility in accordance with Lung-Rads 2. Additional coronal and sagittal reconstructions. MIP reconstructions [...] Staff: ELVIA NOYOLA, Staff Physician Verified by laborer mine for ELVIA NOYOLA /ELVIA [facility] Pathology Reports: +/- 30 days of [...] comes from all [place] treatment facilities. Date/Time Pathology Report Provider Source Feb 07, 2024 02:19 PM LR SURGICAL PATHOL OGY REPORT: LOCAL TITLE: LR SURGICAL PATHOLOGY REPORT DATE OF NOTE: FEB 07, 2024@14:19:30 ENTRY DATE: FEB 07, 2024@14:19:30 AUTHOR: ELBA SEXTON EXP COSIGNER: URGENCY: STATUS: COMPLETED $APHDR Reporting Lab: [facility] [[facility]# [id number]] [address] [place] [id number] - - - - - - - [...] submitted in one cassette. CPT CODE - 71120 MICROSCOPIC EXAM/DIAGNOSIS: Colon, ascending, polyp, biopsy: -Fragments of tubular adenoma. /es/ ELBA SEXTON Pathologist Signed Feb 07, 2024@14:19 Performing Laboratory: Surgical Pathology Report Performed By: [facility] [[facility]# [id number]] [address] [place] [address] $FTR - - - - - - - - - - - - - - - - - - - - - - - - - - - - - - - - - - - - - - - - (End of report) ELBA SEXTON [facility] Date Feb 07, 2024 - - - - - - - - - - - - - - - - - - - - - - - - - - - - - - - - - - - - - - - - ZENON BOND STANDARD FORM 515 ID:[id number] SEX:M :1960 AGE: 63 LOC:PATH PCP: Veronica Michele /allie/ ELBA SEXTON Pathologist Signed: 02/07/2024 14:19 [facility] Encounter Notes: All associated encounter notes This section contains the clinical notes associated to the Encounter. Date/Time Encounter Note(s) Provider Source Feb 20, 2024 11:47 AM GASTROENTEROLOGY L ETTERS: LOCAL TITLE: GASTROENTEROLOGY PATIENT LETTER STANDARD TITLE: GASTROENTEROLOGY LETTERS DATE OF NOTE: FEB 20, 2024@11:47 ENTRY DATE: FEB 20, 2024@11:47:14 AUTHOR: IEK GUILLORY EXP COSIGNER: URGENCY: STATUS: COMPLETED [facility] [address] [place] [address] Mr. ZENON BOND [address] [place] [address] Feb Dear Mr. ZENON BOND This letter is to inform you of the results from your colonoscopy on Jan. The biopsies that were obtained demonstrated: Tubular adenoma/tubulovillous adenoma polyp(s) - these are the types of polyps that as they increase in size may become malignant. There was no evidence of cancer in your polyp(s) and your polyp(s) were completely removed. However, because you can form more precancerous polyps that can develop into colon cancer with time, it is very important that you have a repeat (surveillance) colonoscopy in the future. We would recommend a repeat colonoscopy, per the gastroenterology professional societies guidelines: 5 years (2028) Thank you for allowing the Gastroenterology/Endoscopy department to participate in your healthcare. If you should have any questions or concerns, please contact telephone care. Sincerely, /valentine GUILLORY RN ENDOSCOPY MULTI CARE TECHNICIAN Patient Record Number [id number] IKE GUILLORY-[facility] Feb 09, 2024 11:30 AM ADDENDUM: LOCAL TITLE: Addendum STANDARD TITLE: ADDENDUM DATE OF NOTE: FEB 09, 2024@11:30:30 ENTRY DATE: FEB 09, 2024@11:30:31 AUTHOR: SHAY ESTRADA COSIGNER: URGENCY: STATUS: COMPLETED Surgeon/physician: LUIS ALMONTE MD =-=-=-=-=-=-=-=-=-=-=-=-=-=- =-=-=-=-=-=-=-=-=-=-=-=-=-=- =-=-=-=-=-=-=-=-=-=-=-= - - - - - - - [...] submitted in one cassette. CPT CODE - 00705 MICROSCOPIC EXAM/DIAGNOSIS: Colon, ascending, polyp, biopsy: -Fragments of tubular adenoma. Recommendations: -Repeat colonoscopy in 5 years /allie/ SHAY ESTRADA Signed: 02/09/2024 11:31 Receipt Acknowledged By: 02/15/2024 11:49 /es/ LUIS ALMONTE MD GI Attending 02/12/2024 10:29 /es/ IKE GUILLORY RN ENDOSCOPY MULTI CARE TECHNICIAN for KARRI CORONADO 02/09/2024 11:34 /es/ VERONICA MICHELE STAFF PHYSICIAN/PRIMARY CARE --- Original Document --- 02/01/24 CP ENDOSCOPY CONSULT RESPONSE: DOCUMENT IN VISTA IMAGING SEE FULL REPORT IN VISTA IMAGING SIGNATURE NOT REQUIRED SEE SIGNATURE IN VISTA IMAGING (Provation Colonoscopy) AUTO-INSTRUMENT DIAGNOSIS Procedure: ExamCol Colonoscopy Release Status: Released Off-Line Verified Date Verified: Feb 01, 2024@12:16:31 [facility] Endoscopy Patient Name: Zenon Bond Procedure Date No Time: 02/01/2024 SSN: [id number] Date of : 1960 Admit Type: Outpatient Age: 63 Gender: Male Attending MD: Luis Almonte MD Procedure: Colonoscopy Indications: High risk colon cancer surveillance: Personal history of adenoma (10 mm or greater in size) Providers: Luis Almonte MD, Shay Estrada (Fellow), Kirill Oconnell (Nurse), Antonieta Nugent (Tobacco Classer) Referring MD: Medicines: Midazolam 7 mg IV, Fentanyl 100 micrograms IV (additive from prior EGD) Complications: No immediate complications. Procedure: Pre-Anesthesia Assessment: - Pre-procedure physical examination revealed no contraindications to sedation. After I obtained informed consent, the scope was passed under direct vision. Throughout the procedure, the patient's blood pressure, pulse, and oxygen saturations were monitored continuously. The Colonoscope (serial# [id number]) was introduced through the anus and advanced to the cecum, identified by appendiceal orifice and ileocecal valve. The colonoscopy was performed without difficulty. The patient tolerated the procedure fairly well. The quality of the bowel preparation was good. The quality of the bowel preparation was evaluated using the BBPS ([place] Bowel Preparation Scale) with scores of: Right Colon = 2 (minor amount of residual staining, small fragments of stool and/or opaque liquid, but mucosa seen well), Transverse Colon = 2 (minor amount of residual staining, small fragments of stool and/or opaque liquid, but mucosa seen well) and Left Colon = 2 (minor amount of residual staining, small fragments of stool and/or opaque liquid, but mucosa seen well). The total BBPS score equals 6. Moderate Sedation: Moderate (conscious) sedation was administered by the endoscopy nurse and supervised by the endoscopist. The following parameters were monitored: oxygen saturation, heart rate, blood pressure, and response to care. Findings: A 6 mm polyp was found in the distal ascending colon. The polyp was sessile. The polyp was removed with a cold snare. Resection and retrieval were complete. Estimated blood loss: none. A 2 mm polyp was found in the mid ascending colon. The polyp was sessile. The polyp was removed with a cold biopsy forceps. Resection and retrieval were complete. Multiple diverticula were found in the sigmoid colon, descending colon and ascending colon. Impression: - One 6 mm polyp in the distal ascending colon, removed with a cold snare. Resected and retrieved. - One 2 mm polyp in the mid ascending colon, removed with a cold biopsy forceps. Resected and retrieved. - Diverticulosis in the sigmoid colon, in the descending colon and in the ascending colon. Recommendation: - The patient will be observed post-procedure, until all discharge criteria are met. - Await pathology results. - Follow up with referring provider - Repeat colonoscopy in 5 years for surveillance (history of advanced adenoma). - Findings and recommendations discussed with patient. - Findings and recommendations to be conveyed to referring provider. Procedure Code(s): --- Professional --- 30150, Colonoscopy, flexible; with removal of tumor(s), polyp(s), or other lesion(s) by snare technique 93143, 59, Colonoscopy, flexible; with biopsy, single or multiple Diagnosis Code(s): --- Professional --- Z86.010, Personal history of colonic polyps CPT copyright 2017 [employer]. All rights reserved. The codes documented in this report are preliminary and upon sole scraper review may be revised to meet current compliance requirements. Attending Participation: I was present and participated during the entire procedure, including non-arrington portions. MD Luis Gonzalez MD 02/01/2024 12:12:47 PM This report has been signed electronically. Number of Addenda: 0 Note Initiated On: 02/01/2024 8:13 AM Scope Withdrawal Time 0 hours 17 minutes 23 seconds Total Procedure Duration Time 0 hours 24 minutes 52 seconds Estimated Blood Loss: Estimated blood loss was minimal. Scope In: 9:04:20 AM Scope Out: 9:29:12 AM Administrative Closure: 02/01/2024 by: DEVICE PROXY SERVICE CLINICAL CLINICAL,DEVICE PROXY SERVICE 02/12/2024 ADDENDUM STATUS: COMPLETED Colonoscopy GAP Reminder: Recommendations are needed in the clinical reminder system following the patient's most recent colorectal cancer screening/surveillance test (Colonoscopy, Sigmoidoscopy or CT Colonography) Colonoscopy reminder set 5 years from FEB 12, 2024. /allie/ IKE GUILLORY RN ENDOSCOPY MULTI CARE TECHNICIAN Signed: 02/12/2024 10:30 [facility] Feb 01, 2024 12:16 PM CONSULT: LOCAL TITLE: CP ENDOSCOPY CONSULT RESPONSE STANDARD TITLE: CONSULT DATE OF NOTE: FEB 01, 2024@12:16:33 ENTRY DATE: FEB 01, 2024@12:16:33 AUTHOR: CLINICAL,DEVICE PRO EXP COSIGNER: URGENCY: STATUS: COMPLETED CP ENDOSCOPY CONSULT RESPONSE Has ADDENDA DOCUMENT IN VISTA IMAGING SEE FULL REPORT IN VISTA IMAGING SIGNATURE NOT REQUIRED SEE SIGNATURE IN VISTA IMAGING (Provation Colonoscopy) AUTO-INSTRUMENT DIAGNOSIS Procedure: ExamCol Colonoscopy Release Status: Released Off-Line Verified Date Verified: Feb 01, 2024@12:16:31 [facility] Endoscopy Patient Name: Zenon Bond Procedure Date No Time: 02/01/2024 SSN: [id number] Date of : 1960 Admit Type: Outpatient Age: 63 Gender: Male Attending MD: Luis Almonte MD Procedure: Colonoscopy Indications: High risk colon cancer surveillance: Personal history of adenoma (10 mm or greater in size) Providers: Luis Almonte MD, Shay Estrada (Fellow), Kirill Oconnell (Nurse), Antonieta Nugent (Tobacco Classer) Referring MD: Medicines: Midazolam 7 mg IV, Fentanyl 100 micrograms IV (additive from prior EGD) Complications: No immediate complications. Procedure: Pre-Anesthesia Assessment: - Pre-procedure physical examination revealed no contraindications to sedation. After I obtained informed consent, the scope was passed under direct vision. Throughout the procedure, the patient's blood pressure, pulse, and oxygen saturations were monitored continuously. The Colonoscope (serial# [id number]) was introduced through the anus and advanced to the cecum, identified by appendiceal orifice and ileocecal valve. The colonoscopy was performed without difficulty. The patient tolerated the procedure fairly well. The quality of the bowel preparation was good. The quality of the bowel preparation was evaluated using the BBPS ([place] Bowel Preparation Scale) with scores of: Right Colon = 2 (minor amount of residual staining, small fragments of stool and/or opaque liquid, but mucosa seen well), Transverse Colon = 2 (minor amount of residual staining, small fragments of stool and/or opaque liquid, but mucosa seen well) and Left Colon = 2 (minor amount of residual staining, small fragments of stool and/or opaque liquid, but mucosa seen well). The total BBPS score equals 6. Moderate Sedation: Moderate (conscious) sedation was administered by the endoscopy nurse and supervised by the endoscopist. The following parameters were monitored: oxygen saturation, heart rate, blood pressure, and response to care. Findings: A 6 mm polyp was found in the distal ascending colon. The polyp was sessile. The polyp was removed with a cold snare. Resection and retrieval were complete. Estimated blood loss: none. A 2 mm polyp was found in the mid ascending colon. The polyp was sessile. The polyp was removed with a cold biopsy forceps. Resection and retrieval were complete. Multiple diverticula were found in the sigmoid colon, descending colon and ascending colon. Impression: - One 6 mm polyp in the distal ascending colon, removed with a cold snare. Resected and retrieved. - One 2 mm polyp in the mid ascending colon, removed with a cold biopsy forceps. Resected and retrieved. - Diverticulosis in the sigmoid colon, in the descending colon and in the ascending colon. Recommendation: - The patient will be observed post-procedure, until all discharge criteria are met. - Await pathology results. - Follow up with referring provider - Repeat colonoscopy in 5 years for surveillance (history of advanced adenoma). - Findings and recommendations discussed with patient. - Findings and recommendations to be conveyed to referring provider. Procedure Code(s): --- Professional --- 55975, Colonoscopy, flexible; with removal of tumor(s), polyp(s), or other lesion(s) by snare technique 37768, 59, Colonoscopy, flexible; with biopsy, single or multiple Diagnosis Code(s): --- Professional --- Z86.010, Personal history of colonic polyps CPT copyright 2017 [employer]. All rights reserved. The codes documented in this report are preliminary and upon sole scraper review may be revised to meet current compliance requirements. Attending Participation: I was present and participated during the entire procedure, including non-arrington portions. MD Luis Gonzalez MD 02/01/2024 12:12:47 PM This report has been signed electronically. Number of Addenda: 0 Note Initiated On: 02/01/2024 8:13 AM Scope Withdrawal Time 0 hours 17 minutes 23 seconds Total Procedure Duration Time 0 hours 24 minutes 52 seconds Estimated Blood Loss: Estimated blood loss was minimal. Scope In: 9:04:20 AM Scope Out: 9:29:12 AM Administrative Closure: 02/01/2024 by: DEVICE PROXY SERVICE CLINICAL CLINICAL,DEVICE PROXY SERVICE 02/09/2024 ADDENDUM STATUS: COMPLETED Surgeon/physician: LUIS ALMONTE MD =-=-=-=-=-=-=-=-=-=-=-=-=-=- =-=-=-=-=-=-=-=-=-=-=-=-=-=- =-=-=-=-=-=-=-=-=-=-=-= - - - - - - - [...] submitted in one cassette. CPT CODE - 93852 MICROSCOPIC EXAM/DIAGNOSIS: Colon, ascending, polyp, biopsy: -Fragments of tubular adenoma. Recommendations: -Repeat colonoscopy in 5 years /es/ SHAY ESTRADA Signed: 02/09/2024 11:31 Receipt Acknowledged By: 02/15/2024 11:49 /es/ LUIS ALMONTE MD GI Attending 02/12/2024 10:29 /es/ IKE GUILLORY RN ENDOSCOPY MULTI CARE TECHNICIAN for KARRI CORONADO 02/09/2024 11:34 /es/ VERONICA MICHELE STAFF PHYSICIAN/PRIMARY CARE 02/12/2024 ADDENDUM STATUS: COMPLETED Colonoscopy GAP Reminder: Recommendations are needed in the clinical reminder system following the patient's most recent colorectal cancer screening/surveillance test (Colonoscopy, Sigmoidoscopy or CT Colonography) Colonoscopy reminder set 5 years from FEB 12, 2024. /allie/ IKE GUILLORY RN ENDOSCOPY MULTI CARE TECHNICIAN Signed: 02/12/2024 10:30 02/20/2024 ADDENDUM STATUS: COMPLETED Pathology results have been mailed & surveillance interval noted on problem list. /valentine GUILLORY RN ENDOSCOPY MULTI CARE TECHNICIAN Signed: 02/20/2024 11:46 CLINICAL,DEVICE PROXY SERVICE [facility] Feb 01, 2024 12:13 PM CONSULT: LOCAL TITLE: CP ENDOSCOPY CONSULT RESPONSE STANDARD TITLE: CONSULT DATE OF NOTE: FEB 01, 2024@12:13:09 ENTRY DATE: FEB 01, 2024@12:13:09 AUTHOR: CLINICAL,DEVICE PRO EXP COSIGNER: URGENCY: STATUS: COMPLETED CP ENDOSCOPY CONSULT RESPONSE Has ADDENDA DOCUMENT IN VISTA IMAGING SEE FULL REPORT IN VISTA IMAGING SIGNATURE NOT REQUIRED SEE SIGNATURE IN VISTA IMAGING (Provation Colonoscopy) AUTO-INSTRUMENT DIAGNOSIS Procedure: ExamCol Colonoscopy Release Status: Released Off-Line Verified Date Verified: Feb 01, 2024@12:13 [facility] Endoscopy Patient Name: Zenon Bond Procedure Date No Time: 02/01/2024 SSN: [id number] Date of : 1960 Admit Type: Outpatient Age: 63 Gender: Male Attending MD: Luis Almonte MD Procedure: Colonoscopy Indications: High risk colon cancer surveillance: Personal history of adenoma (10 mm or greater in size) Providers: Luis Almonte MD, Shay Estrada (Fellow), Kirill Oconnell (Nurse), Antonieta Nugent (Tobacco Classer) Referring MD: Medicines: Midazolam 7 mg IV, Fentanyl 100 micrograms IV (additive from prior EGD) Complications: No immediate complications. Procedure: Pre-Anesthesia Assessment: - Pre-procedure physical examination revealed no contraindications to sedation. After I obtained informed consent, the scope was passed under direct vision. Throughout the procedure, the patient's blood pressure, pulse, and oxygen saturations were monitored continuously. The Colonoscope (serial# [id number]) was introduced through the anus and advanced to the cecum, identified by appendiceal orifice and ileocecal valve. The colonoscopy was performed without difficulty. The patient tolerated the procedure fairly well. The quality of the bowel preparation was good. The quality of the bowel preparation was evaluated using the BBPS ([place] Bowel Preparation Scale) with scores of: Right Colon = 2 (minor amount of residual staining, small fragments of stool and/or opaque liquid, but mucosa seen well), Transverse Colon = 2 (minor amount of residual staining, small fragments of stool and/or opaque liquid, but mucosa seen well) and Left Colon = 2 (minor amount of residual staining, small fragments of stool and/or opaque liquid, but mucosa seen well). The total BBPS score equals 6. Moderate Sedation: Moderate (conscious) sedation was administered by the endoscopy nurse and supervised by the endoscopist. The following parameters were monitored: oxygen saturation, heart rate, blood pressure, and response to care. Findings: A 6 mm polyp was found in the distal ascending colon. The polyp was sessile. The polyp was removed with a cold snare. Resection and retrieval were complete. Estimated blood loss: none. A 2 mm polyp was found in the mid ascending colon. The polyp was sessile. The polyp was removed with a cold biopsy forceps. Resection and retrieval were complete. Multiple diverticula were found in the sigmoid colon, descending colon and ascending colon. Impression: - One 6 mm polyp in the distal ascending colon, removed with a cold snare. Resected and retrieved. - One 2 mm polyp in the mid ascending colon, removed with a cold biopsy forceps. Resected and retrieved. - Diverticulosis in the sigmoid colon, in the descending colon and in the ascending colon. Recommendation: - The patient will be observed post-procedure, until all discharge criteria are met. - Await pathology results. - Follow up with referring provider - Repeat colonoscopy in 5 years for surveillance (history of advanced adenoma). - Findings and recommendations discussed with patient. - Findings and recommendations to be conveyed to referring provider. Procedure Code(s): --- Professional --- 31638, Colonoscopy, flexible; with removal of tumor(s), polyp(s), or other lesion(s) by snare technique 13767, 59, Colonoscopy, flexible; with biopsy, single or multiple Diagnosis Code(s): --- Professional --- Z86.010, Personal history of colonic polyps CPT copyright 2017 [employer]. All rights reserved. The codes documented in this report are preliminary and upon sole scraper review may be revised to meet current compliance requirements. Attending Participation: I was present and participated during the entire procedure, including non-arrington portions. MD Luis Gonzalez MD 02/01/2024 12:12:47 PM This report has been signed electronically. Number of Addenda: 0 Note Initiated On: 02/01/2024 8:13 AM Scope Withdrawal Time 0 hours 17 minutes 23 seconds Total Procedure Duration Time 0 hours 24 minutes 52 seconds Estimated Blood Loss: Estimated blood loss was minimal. Scope In: 9:04:20 AM Scope Out: 9:29:12 AM Administrative Closure: 02/01/2024 by: DEVICE PROXY SERVICE CLINICAL CLINICAL,DEVICE PROXY SERVICE 02/20/2024 ADDENDUM STATUS: COMPLETED duplicate report /es/ IKE GUILLORY RN ENDOSCOPY MULTI CARE TECHNICIAN Signed: 02/20/2024 11:45 CLINICAL,DEVICE PROXY SERVICE [facility]
--- OUTSIDE RECORDS SUMMARY | 2024-02-02 01:51 | XMS_ITS | Encounter Summary ---
Author Name [facility] [facility] [place] [facility] [place] Address [address] [place] [address] Care Team Providers Care Early Childhood Education Worker Name Role Phone KRYSTIN HOLLIS Primary Care [...] PART A Jun 05, 2024 PART A [id number] [phone] BLA[place] BOND PATIENT MEDICARE (WNR) MEDICARE (M) PART B Jun 05, 2024 PART B [id number] BLAIR BOND PATIENT Selected Encounter This section includes the information on record at [place] for the Encounter. Date/Time Encounter Type Encounter Description Reason Pro vider Source Feb 02, 2024 05:51 AM Outpatient Encounter AMBULATORY IHE Encounter Template Text not used by [facility] Plan of Treatment: Future Appointments (+ 6 months) and Future Tests (+/- 45 days) The Plan of Treatment section includes future care activities for the patient from all [place] [facility]. This section includes future appointments and future orders which are active, pending or scheduled. Future Appointments This section includes appointments that were scheduled to occur 6 months from the date of the Encounter, up to a maximum of 20 appointments. The data comes from all [place] treatment facilities. Appointment Date/Time Appointment Type Appointme nt Facility Name Feb 06, 2024 08:30 AM AMBULATORY - NONE [facility] Feb 14, 2024 11:00 AM AMBULATORY - REHAB MEDICIN E [facility] Feb 23, 2024 01:00 PM AMBULATORY - REHAB MEDICIN E [facility] Feb 28, 2024 09:30 AM AMBULATORY - REHAB MEDICIN E [facility] Lab Results: +/- 30 days of the encounter This section includes the Chemistry and Hematology Lab Results on record with [place] for the patient. Radiology Reports and Pathology Reports are provided separately, in subsequent sections. Lab Results This section contains the Chemistry/Hematology Results that were resulted 30 days before or 30 daysafter the date of the Encounter. Date/Time Source Result Type Result - Unit Interpretation Reference Range Specimen Type Comment Jan 30, 2024 09:25 AM [facility] PANEL 1 PLASMA Specimen Type: PLASMA [...] Jan 02, 2024 11:14 AM Reporting Lab: [address] [address] Performing Lab: [address] [address] CREATININE 1.09 mg/dL 0.72-1.25 UREA NITROGEN 11 [...] ALL of a patient's completed or amended [place] Advance and Rescinded Directives. The entries below indicate that a directive exists for the patient, but an actual copy is not included with this document. The data comes from all [place] facilities. Date Advance Directives Provider Source Apr 25, 2019 ADVANCE DIRECTIVE DISCUSSION [facility] Radiology Reports: +/- 30 days of [...] the Encounter. The data comes from all [place] treatment facilities. Date/Time Radiology Report Provider Source Jan 23, 2024 08:33 AM UPPER GI- DOUBLE C ONTRAST: ZENON BOND [id number] -1960 M Exm Date: JAN 23, 2024@08:33 Req Phys: MARIYA MICHELEMY Phill Pat Loc: SOL PACT PHONE WILL MCGOVERN (Req'g Img Loc: CDD RADIOLOGY Service: [place] [address] (Case [id number] COMPLETE) UPPER GI- DOUBLE CONTRAST (RAD Detailed) CPT:13874 Contrast Media : Barium Reason for Study: eval for pud Clinical History: severe heartburn Report Status: Verified Date Reported: JAN 23, 2024 Date Verified: JAN 23, 2024 Groundwater Monitoring Technician E-Sig: Report: EXAMINATION: UPPER GI AIR CONTRAST [...] Interpreting Staff: ALAINA MENDOZA, Radiologist Verified by crust sorter for ALAINA MENDOZA [facility] Jan 23, 2024 08:21 AM LDCT LUNG CANCER S CREENING: ZENON BOND [id number] -1960 M Exm Date: JAN 23, 2024@08:21 Req Phys: VERONICA MICHELE Pat Loc: SOL PACT PHONE WILL MCGOVERN (Req'g Img Loc: CT SCAN Service: Unknown [place] [id number] (Case [id number] COMPLETE) LDCT LUNG CANCER SCREENING (CT Detailed) CPT:65557 Reason for Study: screening Clinical History: + tobacco Report Status: Verified Date Reported: JAN 23, 2024 Date Verified: JAN 23, 2024 Groundwater Monitoring Technician E-Sig: Report: EXAM: LDCT LUNG CANCER SCREENING . COMPARISON: Chest CT scan dated 01/02/2018. PROTOCOL: Screening protocol, low dose, non-contrast CT chest was performed at the local [place] facility in accordance with Lung-Rads 2021. Additional [...] Staff: ELVIA NOYOLA, Staff Physician Verified by crust sorter for ELVIA NOYOLA /ELVIA HO [facility] Pathology Reports: +/- 30 days [...] the Encounter. The data comes from all [place] treatment facilities. Date/Time Pathology Report Provider Source Feb 07, 2024 02:19 PM LR SURGICAL PATHOL OGY REPORT: LOCAL TITLE: LR SURGICAL PATHOLOGY REPORT DATE OF NOTE: FEB 07, 2024@14:19:30 ENTRY DATE: FEB 07, 2024@14:19:30 AUTHOR: ELBA SEXTON COSIGNER: URGENCY: STATUS: COMPLETED $APHDR Reporting Lab: [facility] [CLIA# [id number]] [address] [place] [id number] - - - - - - - [...] submitted in one cassette. CPT CODE - 01174 MICROSCOPIC EXAM/DIAGNOSIS: Colon, ascending, polyp, biopsy: -Fragments of tubular adenoma. /es/ ELBA SEXTON Pathologist Signed Feb 07, 2024@14:19 Performing Laboratory: Surgical Pathology Report Performed By: [facility] [CLIA# [id number]] [address] [place] [address] $FTR - - - - - - - - - - - - - - - - - - - - - - - - - - - - - - - - - - - - - - - - (End of report) ELBA SEXTON [facility] Date Feb 07, 2024 - - - - - - - - - - - - - - - - - - - - - - - - - - - - - - - - - - - - - - - - ZENON BOND STANDARD FORM 515 ID:[id number] SEX:M :1960 AGE: 63 LOC:PATH PCP: Veronica Michele /allie/ ELBA SEXTON Pathologist Signed: 02/07/2024 14:19 ELBA SEXTON-SUZAND [facility]
--- OUTSIDE RECORDS SUMMARY | 2024-02-02 09:00 | XMS_ITS | Encounter Summary ---
Author Name [facility] [facility] [place] [facility] [place] Address [address] [place] [address] Care Team Providers Care Junior Assistant Manager Name Role Phone KRYSTIN HOLLIS Primary Care [...] PART A Jun 05, 2024 PART A [id number] BLA[place] BOND PATIENT MEDICARE (WNR) MEDICARE (M) PART B Jun 05, 2024 PART B [id number] BLAIR BOND PATIENT Selected Encounter This section includes the information on record at [place] for the Encounter. Date/Time Encounter Type Encounter Description Reason Provider Source Feb 02, 2024 01:00 PM HEARING AID EXAM BOTH EARS AUDIOLOGY ICD-10-CM H90.5 Unspecified sensorineural hearing loss KAILYN LEON IHE Encounter Template Text not used by [place] Assessments - Encounter Diagnoses This section includes the primary and secondary diagnoses documented for the Encounter. Date/Time Primary/Secondary Diagnosis Diagnosis Name Provider Source Feb 02, 2024 01:32 PM PRIMARY Unspecified sensorineural hearing loss CANDIDO LEON [facility] Feb 02, 2024 01:32 PM SECONDARY Tinnitus, bilateral CANDIDO LEON [facility] Plan of Treatment: Future Appointments (+ 6 months) and Future Tests (+/- 45 days) The Plan of Treatment section includes future care activities for the patient [facility] [place] [facility] This section includes future appointments and future orders which are active, pending or scheduled. Future Appointments This section includes appointments that were scheduled to occur 6 months from the date of the Encounter, up to a maximum of 20 appointments. The data comes from all [place] treatment facilities. Appointment Date/Time Appointment Type Appointme nt Facility Name Feb 06, 2024 08:30 AM AMBULATORY - NONE [facility] Feb 14, 2024 11:00 AM AMBULATORY - REHAB MEDICIN E [facility] Feb 23, 2024 01:00 PM AMBULATORY - REHAB MEDICIN E [facility] Feb 28, 2024 09:30 AM AMBULATORY - REHAB MEDICIN E [facility] Lab Results: +/- 30 days of the encounter This section includes the Chemistry and Hematology Lab Results on record with [place] for the patient. Radiology Reports and Pathology Reports are provided separately, in subsequent sections. Lab Results This section contains the Chemistry/Hematology Results that were resulted 30 days before or 30 daysafter the date of the Encounter. Date/Time Source Result Type Result - Unit Interpretation Reference Range Specimen Type Comment Jan 30, 2024 09:25 AM [facility] PANEL 1 PLASMA Specimen Type: PLASMA Comment: [...] Jan 02, 2024 11:14 AM Reporting Lab: [address] [address] Performing Lab: [address] [address] CREATININE 1.09 mg/dL 0.72-1.25 UREA NITROGEN 11 mg/dL 9-25 GLUCOSE 189 mg/dL H 74-100 SODIUM 139 mmol/L 136-145 POTASSIUM 4.3 mmol/L 3.5-5.1 CHLORIDE 101 mmol/L 98-107 CO2 27 mmol/L 22-29 CALCIUM 10.1 mg/dL 8.4-10.2 ANION GAP 11 meq/L 3-19 eGFR (CKD-EPI) 76 Social History: Smoking Status (Most current) and Tobacco Use (All prior to encounter date) This section includes the most current, and the historical, smoking and tobacco- related health factors from the [place] facility where the Encounter took place. Current Smoking Status This section includes the most current smoking, or tobacco-related health factor, from the [place] facility where the Encounter took place. Date/Time Current Smoking Status Comment [place] Dec 28, 2023 08:00 AM VA-TOBACCO FORMER USER [facility] Tobacco Use History This section includes a history of the smoking, or tobacco-related health factors, that were collected on or before the date of the Encounter. The data comes from the [place] facility where the Encounter took place. Date/Time Smoking Status/Tobacco Use Comment F acility Dec 28, 2023 08:00 AM VA-TOBACCO QUIT 5 TO < 15 YRS [facility] May 19, 2022 09:30 AM VA-TOBACCO FORMER USER [facility] May 19, 2022 09:30 AM VA-TOBACCO QUIT 5 TO < 15 YRS [facility] Mar 29, 2021 08:00 AM VA-TOBACCO FORMER USER [facility] Mar 29, 2021 08:00 AM VA-TOBACCO QUIT 5 TO < 15 YRS [facility] Nov 22, 2017 10:50 AM V9 QUIT TOBACCO >1 2 MO & <7 YRS AGO [facility] Advance Directives: All historical and current Section Date Range: From patient's date of to the date document was created. This section includes ALL of a patient's completed or amended [place] Advance and Rescinded Directives. The entries below indicate that a directive exists for the patient, but an actual copy is not included with this document. The data comes from all [facility]. Date Advance Directives Provider Source Apr 25, 2019 ADVANCE DIRECTIVE DISCUSSION [facility]IN [facility] Radiology Reports: +/- 30 days [...] the Encounter. The data comes from all [place] treatment facilities. Date/Time Radiology Report Provider Source Jan 23, 2024 08:33 AM UPPER GI- DOUBLE C ONTRAST: ZENON BOND [id number] -1960 M Exm Date: JAN 23, 2024@08:33 Req Phys: VERONICA MICHELE Loc: SOL PACT PHONE WILL MCGOVERN (Req'g Img Loc: CDD RADIOLOGY Service: Unknown [place] [id number] (Case [id number] COMPLETE) UPPER GI- DOUBLE CONTRAST (RAD Detailed) CPT:35380 Contrast Media : Barium Reason for Study: eval for pud Clinical History: severe heartburn Report Status: Verified Date Reported: JAN 23, 2024 Date Verified: JAN 23, 2024 Wagon Driver Salesperson E-Sig: Report: EXAMINATION: UPPER GI AIR CONTRAST [...] Interpreting Staff: ALAINA MENDOZA, Radiologist Verified by alligator hunter for ALAINA MENDOZA /ALAINA LOCKETT-D [facility] Jan 23, 2024 08:21 AM LDCT LUNG CANCER S CREENING: ZENON BOND [id number] -1960 M Exm Date: JAN 23, 2024@08:21 Req Phys: VERONICA MICHELE Loc: SOL PACT PHONE WILL ShepardReq'g Img Loc: CT SCAN Service: [place] [address] (Case [id number] COMPLETE) LDCT LUNG CANCER SCREENING (CT Detailed) CPT:16159 Reason for Study: screening Clinical History: + tobacco Report Status: Verified Date Reported: JAN 23, 2024 Date Verified: JAN 23, 2024 Wagon Driver Salesperson E-Sig: Report: EXAM: LDCT LUNG CANCER SCREENING . COMPARISON: Chest CT scan dated 01/02/2018. PROTOCOL: Screening protocol, low dose, non-contrast CT chest was performed at the local [place] facility in accordance with Lung-Rads 2021. Additional [...] Staff: ELVIA NOYOLA, Staff Physician Verified by alligator hunter for ELVIA NOYOLA /ELVIA HO [facility] Pathology Reports: +/- 30 days of [...] the Encounter. The data comes from all [place] treatment facilities. Date/Time Pathology Report Provider Source Feb 07, 2024 02:19 PM LR SURGICAL PATHOL OGY REPORT: LOCAL TITLE: LR SURGICAL PATHOLOGY REPORT DATE OF NOTE: FEB 07, 2024@14:19:30 ENTRY DATE: FEB 07, 2024@14:19:30 AUTHOR: ELBA SEXTON COSIGNER: URGENCY: STATUS: COMPLETED $APHDR Reporting Lab: [facility] [[facility]# [id number]] [address] [place] [address] - - - - - - - [...] submitted in one cassette. CPT CODE - 61725 MICROSCOPIC EXAM/DIAGNOSIS: Colon, ascending, polyp, biopsy: -Fragments of tubular adenoma. /allie/ ELBA SEXTON Pathologist Signed Feb 07, 2024@14:19 Performing Laboratory: Surgical Pathology Report Performed By: [facility] [CLIA# [id number]] [address] [place] [address] $FTR - - - - - - - - - - - - - - - - - - - - - - - - - - - - - - - - - - - - - - - - (End of report) ELBA SEXTON [facility] Date Feb 07, 2024 - - - - - - - - - - - - - - - - - - - - - - - - - - - - - - - - - - - - - - - - ZENON BOND STANDARD FORM 515 ID:[id number] SEX:M :1960 AGE: 63 LOC:PATH PCP: Veronica Michele /allie/ ELBA SEXTON Pathologist Signed: 02/07/2024 14:19 ELBA SEXTON SOL[facility]-CDD [facility] Encounter Notes: All associated encounter notes This section contains the clinical notes associated to the Encounter. Date/Time Encounter Note(s) Provider Source Feb 02, 2024 01:03 PM AUDIOLOGY E & M NO TE: LOCAL TITLE: AUDIOLOGICAL EVALUATION NOTE STANDARD TITLE: AUDIOLOGY E & M NOTE DATE OF NOTE: FEB 02, 2024@13:03 ENTRY DATE: FEB 02, 2024@13:03:36 AUTHOR: CANDIDO LEON COSIGNER: URGENCY: STATUS: COMPLETED AUDIOLOGICAL EVALUATION NOTE Has ADDENDA HEARING EVALUATION NOTE SUBJECTIVE: lives in [facility] and is just visiting the [facility] to take care of medical appointments. Patient, who has sensorineural hearing loss, presents in clinic for a hearing evaluation. His last hearing evaluation was on 02/14/18. The reports a decline in hearing sensitivity since his last evaluation. He denies having any recent ear issues such as infection, pain, pressure, or drainage. He does report a history of ear infections in the past, h/o middle ear fluid, no h/o surgeries. He reports bilateral intermittent tinnitus. He reports having occasional vertigo when he looks down from a great height, He reports consistent hearing aid use up until he lost one of the aids a year and a half ago. Patient has been issued the following hearing aid(s): 03/06/18 AUDIOLOGY PURE 312 7NX ANANDA R [id number] 03/06/18 AUDIOLOGY PURE 312 7NX ANANDA L [id number] OBJECTIVE: ALSO AVAILABLE IN THE AUDIOGRAM EDIT FOUND IN CPRS TOOLS MENU Equipment: Audiometer: GSI Transducer: 3A insert earphones Middle Ear Analyzer: Titan Otoscopy: clear ear canals bilaterally, tympanic membranes visible Tympanometry: Right: Type A Left: Type A Acoustic Reflexes Screening at 1000Hz @ 80 dB: Right: absent Left: absent Distortion Product Otoacoustic Emissions (DPOAEs .5-10 kHz): Right: no emissions present Left: emissions present at 1.5 kHz Speech Intelligence Officer Threshold (SRT): Right: 25dB Left: 25dB Word Recognition Score (WRS): Right: 96% @ 65dB Left: 100% @ 65dB Pure Tone air and bone conduction: Right: Normal hearing sensitivity through 1 kHz, sloping to a severe sensorineural hearing loss. Left: Normal hearing sensitivity through 1 kHz, sloping to a moderately severe sensorineural hearing loss. Reliability: GOOD ASSESSMENT: Comprehensive pure tone air/bone conduction testing revealed an asymmetric sensorineural hearing loss, right ear is the worse ear. Hearing sensitivity has declined bilaterally compared to the previous audiogram from 2018. The asymmetry was preseng on the previous audiogram. Word recognition scores were excellent, bilaterally. Tympanograms were consistent with normal middle ear status bilaterally. We discussed the effects of hearing loss on speech understanding and we reviewed the test results. Subjective tinnitus - the origins of tinnitus and some tinnitus sound therapy strategies were discussed with the patient. OAEs - findings correlate well with pure tone results. Hearing Aid Assessment-BINAURAL - benefits and limitations of amplification were discussed with the patient. Hearing aid styles and technologies were discussed with the patient. ANANDA style hearing aids were recommended for him. Patient is interested in hearing aids and he is an eligible candidate. PLAN: Schedule a hearing aid fitting with [facility] in 3 weeks. New devices to be ordered: Aaron Oreilly /allie/ CANDIDO LEON DELI SLICER Signed: 02/02/2024 13:33 02/12/2024 ADDENDUM STATUS: COMPLETED Hearing aids received by [facility], Verified in [facility]. Fitting is schedule for 02/23/24@1300 with CALEB Nash /allie/ ANNETTE ROSS SLEEVE TAILOR Signed: 02/12/2024 07:57 CANDIDO LEON [facility]
--- OUTSIDE RECORDS SUMMARY | 2024-02-06 04:30 | XMS_ITS | Encounter Summary ---
Author Name [facility] [place] [facility] [place] Address [address] [place] [address] Care Team Providers Care Deputy Assessor Name Role Phone KRYSTIN HOLLIS Primary Care [...] PART B Jun 05, 2024 PART B [id number] BLAIR BOND PATIENT MEDICARE (WNR) MEDICARE (M) PART A Jun 05, 2024 PART A [id number] BLAIR BOND PATIENT Selected Encounter This section includes the [place] record at [place] for the Encounter. Date/Time Encounter Type Encounter Description Reason Provider Source Feb 06, 2024 08:30 AM DIAB MANAGE TRN PER INDIV NUTRITION/DIETETI CS-INDIVIDUAL ICD-10-CM E11.9 Type 2 diabetes mellitus without complications STEVEN TERAN [facility] Encounter Template Text not used by [facility] Assessments - Encounter Diagnoses This section includes the primary and secondary diagnoses documented for the Encounter. Date/Time Primary/Secondary Diagnosis Diagnosis Name Provider Source Feb 06, 2024 09:50 AM PRIMARY Type 2 diabetes mellitus without complications [facility] Feb 06, 2024 09:50 AM SECONDARY Dietary counseling and surveillance JACKSON TERAN [facility] Plan of Treatment: Future Appointments (+ 6 months) and Future Tests (+/- 45 days) The Plan of Treatment section includes future care activities for the patient from all [place] [facility]. This section includes future appointments and future orders which are active, pending or scheduled. Future Appointments This section includes appointments that were scheduled to occur 6 months from the date of the Encounter, up to a maximum of 20 appointments. The data comes from all [place] treatment facilities. Appointment Date/Time Appointment Type Appointme nt Facility Name Feb 14, 2024 11:00 AM AMBULATORY - REHAB MEDICIN E [facility] Feb 23, 2024 01:00 PM AMBULATORY - REHAB MEDICIN E [facility] Feb 28, 2024 09:30 AM AMBULATORY - REHAB [facility] Lab Results: +/- 30 days of [...] Type Comment Jan 30, 2024 09:25 AM [facility] N PANEL 1 PLASMA Specimen Type: [...] Jan 02, 2024 11:14 AM Reporting Lab: [address] [address] Performing Lab: [address] [address] CREATININE 1.09 mg/dL 0.72-1.25 UREA NITROGEN 11 [...] and tobacco- related health factors from the [place] facility where the Encounter took place. Current Smoking Status This section includes the most current smoking, or tobacco-related health factor, from the [place] facility where the Encounter took place. Date/Time Current Smoking Status Comment [place] Dec 28, 2023 08:00 AM VA-TOBACCO FORMER USER [facility] Tobacco Use History This section includes a history of the smoking, or tobacco-related health factors, that were collected on or before the date of the Encounter. The data comes from the [place] facility where the Encounter took place. Date/Time Smoking Status/Tobacco Use Comment F acility Dec 28, 2023 08:00 AM VA-TOBACCO QUIT 5 TO < 15 YRS [facility] May 19, 2022 09:30 AM VA-TOBACCO FORMER USER [facility] May 19, 2022 09:30 AM VA-TOBACCO QUIT 5 TO < 15 YRS [facility] Mar 29, 2021 08:00 AM VA-TOBACCO FORMER USER [facility] Mar 29, 2021 08:00 AM VA-TOBACCO QUIT 5 TO < 15 YRS [facility] Nov 22, 2017 10:50 AM V9 QUIT TOBACCO >1 2 MO & <7 YRS AGO [facility] Advance Directives: All historical and current [...] from all [facility]. Date Advance Directives Provider Source Apr 25, 2019 ADVANCE DIRECTIVE DISCUSSION ERVIN TAYLOR [facility] Radiology Reports: +/- 30 days of the [...] UPPER GI- DOUBLE C ONTRAST: ZENON BOND [id number] -1960 M Exm Date: JAN 23, 2024@08:33 Req Phys: VERONICA MICHELE Pat Loc: SOL PACT PHONE WILL MCGOVERN (Req'g Img Loc: CDD RADIOLOGY Service: [place] [address] (Case [id number] COMPLETE) UPPER GI- DOUBLE CONTRAST (RAD Detailed) CPT:30717 Contrast Media : Barium Reason for Study: eval for pud Clinical History: severe heartburn Report Status: Verified Date Reported: JAN 23, 2024 Date Verified: JAN 23, 2024 Analytics Lead E-Sig: Report: EXAMINATION: UPPER GI AIR CONTRAST [...] Interpreting Staff: ALAINA MENDOZA, Radiologist Verified by quality control tech raw materials for ALAINA MENDOZA /ALAINA [facility] Jan 23, 2024 08:21 AM LDCT LUNG CANCER S CREENING: ZENON BOND [id number] -1960 Exm Date: JAN 23, 2024@08:21 Req Phys: VERONICA MICHELE Loc: SOL PACT PHONE WILL MCGOVERN (Req'g Img Loc: CT SCAN Service: Unknown [place] [id number] (Case [id number] COMPLETE) LDCT LUNG CANCER SCREENING (CT Detailed) CPT:41619 Reason for Study: screening Clinical History: + tobacco Report Status: Verified Date Reported: JAN 23, 2024 Date Verified: JAN 23, 2024 Analytics Lead E-Sig: Report: EXAM: LDCT LUNG CANCER SCREENING . COMPARISON: Chest CT scan dated 01/02/2018. PROTOCOL: Screening protocol, low dose, non-contrast CT chest was performed at the local [place] facility in accordance with Lung-Rads 2021. Additional [...] Staff: ELVIA NOYOLA, Staff Physician Verified by quality control tech raw materials for ELVIA NOYOLA /ELVIA HO [facility] Pathology Reports: +/- 30 days [...] $APHDR Reporting Lab: [facility] [IA# [id number]] [address] [place] [address] - - - - - - - [...] submitted in one cassette. CPT CODE - 01603 MICROSCOPIC EXAM/DIAGNOSIS: Colon, ascending, polyp, biopsy: -Fragments of tubular adenoma. /allie/ ELBA SEXTON Pathologist Signed Feb 07, 2024@14:19 Performing Laboratory: Surgical Pathology Report Performed By: [facility] [IA# [id number]] [address] [place] [id number] $FTR - - - - - - - - - - - - - - - - - - - - - - - - - - - - - - - - - - - - - - - - (End of report) ELBA SEXTON [facility] Date Feb 07, 2024 - - - - - - - - - - - - - - - - - - - - - - - - - - - - - - - - - - - - - - - - ZENON BOND STANDARD FORM 515 ID:[id number] SEX:M :1960 AGE: 63 LOC:PATH PCP: Veronica Michele /valentine SEXTON Pathologist Signed: 02/07/2024 14:19 ELBA SEXTON-SERA [facility] Encounter Notes: All associated encounter notes This section contains the clinical notes associated to the Encounter. Date/Time Encounter Note(s) Provider Source Feb 06, 2024 08:30 AM DIABETOLOGY NOTE: LOCAL TITLE: DIABETES SELF-MANAGEMENT TRAINING STANDARD TITLE: DIABETOLOGY NOTE DATE OF NOTE: FEB 06, 2024@08:30 ENTRY DATE: FEB 06, 2024@09:25:40 AUTHOR: JACKSON TERAN EXP COSIGNER: URGENCY: STATUS: COMPLETED Diabetes Self-Management Education Note Individual session Visit Type Follow up: Comment: F/U from DSMES groups Teaching/Technology Platform In-person: Length of appointment 60 minutes Patient/Family Response Adequately explains critical information about the topic Needs reinforcement Patient/family/significan t other understands when and how to obtain further treatment SMART GOAL(S) SMART Goal Topic: Healthy Eating: Healthy Eating Smart Goal: Reduce Sugary Bevergaes: sweet tea and fruit juices Return to clinic/other In-Person Comment: Individual RTC 1 year __ Time spent: 60 minites Mr Bond is here for DSMES f/u for Mgt of T2DM. He lives most of the year in [facility]- and is returning to there at the end of the month. He is working on lowering his A1c to 7.5 to qualify for knee replacement surgery. Lab Tests Glycohemoglobin (blood) 6.6 H % 4.4 - 6.4 11/22/17 12:31 Glycohemoglobin (blood) 8.4 H % 4.4 - 6.4 06/12/20 08:14 Glycohemoglobin (blood) 7.5 H % 4.4 - 6.4 09/21/20 08:34 Glycohemoglobin (blood) 9.0 H % 4.4 - 6.4 03/29/21 09:11 Glycohemoglobin (blood) 10.1 H % 4.4 - 6.4 07/07/21 08:39 Glycohemoglobin (blood) 10.5 H % 4.4 - 6.4 09/29/21 09:54 Glycohemoglobin (blood) 10.6 H % 4.4 - 6.4 05/19/22 10:18 Glycohemoglobin (blood) 8.2 H % 4.4 - 6.4 12/28/23 09:00 ADCES 7 self-care behaviors: Healthy Eating: Has been working to reduce bread and potato intake since [facility]. Has also been splurging on [place] favorites he doesnt typcially get to eat while in [facility]. vietnamese and zimbabwean food Breakfast: kejeromybasa on 06/06 hot dog bun Dinner: 2 spoons of green beans I'm getting over a cold and havent felt like eating candy bar last night- standard size angel bar. drinks: diet coke or ice tea half and half (15g CHO) - 5 or 6 glasses in [place]: Lots of seafood serves rice and beans with everything. i hate rice. if i eat breakst of brunch- el morso- lunch of the day- soup, a salad, an entree and a dessert and juice. Reviewed CHO Sources and appropraite amounts. Reminded of the plate method for managing CHO intake Being Active: ambulates with cane. Monitoring: Reviewed SMBG data with Shock from his glucometer: 01/17 0931 155 01/24 1043 182 02/04 1215 255 (breakfast hour and a half before) 02/05 0615 222 Reviewed SMBG testing frequency and BG Goals based on time of day. Reminded Shock of SMBG log he has in his DSMES booklet. Taking Medications: I didn't always take my medicine like I should, but I am now Stopped glimiperide- needs to be d/c in chart. Started Metformin 500mg SA titrating up to 2,000mg/day. Having some diarrhea. Encouraged taking med with food-which he has not been. I suspect he will need an additional medication to reach A1c goal. Feels he could obtain this back home if needed. Problem Solving: Discussed utilizing SMBG as a tool to make decisions about food intake and when to seek care from medical cash poster to evaluate meds Healthy Coping: - Reducing Risk: Discussed GOC to prevent complications. Atorvastatin 20mg Lisinopril 5mg daily Microalbumin Quant (urine) 119.0 H Mg/L 0.0 - 30.0 12/28/23 09:12 Plan/Goals: A1c 7.5 to qualify for knee replacement: 1. Try to cut back/eliminate sweet tea and fruit juices can use Stevia to replace. 2. Add a protein to carb sources- meat, cheese, etc. 3. Neuropathy- Continue working on blood glucose levels capsaicin cream- Neuropathy Rubbing Oils- Can ask MD about Alpha Lipoic Acid verbalized understanding and is agreeable to plan of care. Recall 1 year (when [place]) /allie/ JACKSON [place]. EVELIO TERAN, [facility] CLINICAL DIETITIAN/MAINTENANCE SPECIALIST Signed: 02/06/2024 09:48 JACKSON TERAN [facility]
--- OUTSIDE RECORDS SUMMARY | 2024-02-28 05:30 | XMS_ITS | Encounter Summary ---
Author Name [facility] [place] Address [address] [place] [address] Care Team Providers Care Shuffle Board Operator Name Role Phone KRYSTIN HOLLIS Primary Care [...] PART B Jun 05, 2024 PART B [id number] BLAIR BOND PATIENT MEDICARE (WNR) MEDICARE (M) PART A Jun 05, 2024 PART A [id number] BLAIR BOND PATIENT Selected Encounter This section includes the information on record at [place] for the Encounter. Date/Time Encounter Type Encounter Description Reason Provider Source Feb 28, 2024 09:30 AM PT EVAL LOW COMPLEX 20 MIN PHYSICAL THERAPY ICD-10-CM M25.561 Pain in right knee YULISA FRANCIS IHE Encounter Template Text not used by [place] Assessments - Encounter Diagnoses This section includes the primary and secondary diagnoses documented for the Encounter. Date/Time Primary/Secondary Diagnosis Diagnosis Name Provider Source Feb 28, 2024 10:27 AM PRIMARY Pain in right knee YULISA FRANCIS [facility] Plan of Treatment: Future Appointments (+ 6 months) and Future Tests (+/- 45 days) The Plan of Treatment section includes future care activities for the patient from all [place] treatmentfacilities. This section includes future appointments and future orders which are active, pending or scheduled. Active, Pending, and Scheduled Orders This section includes a listing of several types of active, pending, and scheduled orders, including clinic medications orders, diagnostic test orders, procedure orders and consult orders; where the start date of the order is 45 days before the date of the Encounter or 45 days after the date of theEncounter. The data comes from all [place] treatment facilities. Test Date/Time Test Type Test Details Facility Name Apr 03, 2024 12:00 AM Laboratory - Chemistry Order GLYCOHEMOGLOBIN PPI-FMXNNRUB-OPT BLOOD SP ONCE [facility] Apr 03, 2024 12:00 AM Laboratory - Chemistry Order PANEL 5 RVM-BDZOM-XDYSIF SP ONCE [facility] Apr 03, 2024 12:00 AM Laboratory - Chemistry Order LIPID PROFILE KWQ-LLUVA-LEFNHR SP ONCE [facility] Lab Results: +/- 30 days of the encounter This section includes the Chemistry and Hematology Lab Results on record with [facility] for the patient. Radiology Reports and Pathology Reports are provided separately, in subsequent sections. Lab Results This section contains the Chemistry/Hematology Results that were resulted 30 days before or 30 daysafter the date of the Encounter. Date/Time Source Result Type Result - Unit Interpretation Reference Range Specimen Type Comment Jan 30, 2024 09:25 AM [facility] Chew PANEL 1 PLASMA Specimen Type: PLASMA Comment: [...] Jan 02, 2024 11:14 AM Reporting Lab: [address] [address] Performing Lab: [address] [address] CREATININE 1.09 mg/dL 0.72-1.25 UREA NITROGEN 11 [...] 25, 2019 ADVANCE DIRECTIVE DISCUSSION ERVIN TAYLOR [facility] Pathology Reports: +/- 30 days of [...] COMPLETED $APHDR Reporting Lab: [facility] [IA# [id number]] [address] [place] [id number] - - - - - - - [...] submitted in one cassette. CPT CODE - 86269 MICROSCOPIC EXAM/DIAGNOSIS: Colon, ascending, polyp, biopsy: -Fragments of tubular adenoma. /allie/ ELBA SEXTON Pathologist Signed Feb 07, 2024@14:19 Performing Laboratory: Surgical Pathology Report Performed By: [facility] [CLIA# [id number]] [address] [place] [address] $FTR - - - - - - - - - - - - - - - - - - - - - - - - - - - - - - - - - - - - - - - - (End of report) ELBA SEXTON [facility] Date Feb 07, 2024 - - - - - - - - - - - - - - - - - - - - - - - - - - - - - - - - - - - - - - - - ZENON BOND STANDARD FORM 515 ID:[id number] SEX:M :1960 AGE: 63 LOC:PATH PCP: Veronica Michele /allie/ ELBA SEXTON Pathologist Signed: 02/07/2024 14:19 ELBA SEXTON-CDD [facility] Encounter Notes: All associated encounter notes This section contains the clinical notes associated to the Encounter. Date/Time Encounter Note(s) Provider Source Feb 28, 2024 09:42 AM PHYSICAL THERAPY C ONSULT: LOCAL TITLE: PHYSICAL THERAPY INITIAL & PLAN OF CARE CONSULT RES STANDARD TITLE: PHYSICAL THERAPY CONSULT DATE OF NOTE: FEB 28, 2024@09:42 ENTRY DATE: FEB 28, 2024@09:42:17 AUTHOR: YULISA FRANCIS COSIGNER: URGENCY: STATUS: COMPLETED Order Information To Service: PT OUTPATIENT CDD From Service: SOL ORTHO/CONSULT CD Requesting Provider: DEON SWANSON Service is to be rendered on an OUTPATIENT basis Place: Brake Adjuster's choice Urgency: Routine Clinically Ind. Date: Jan 30, 2024 DST ID: Orderable Item: PT OUTPATIENT CDD Consult: Consult Request Provisional Diagnosis: Pain in right Knee(ICD-10-CM M25.561) Reason For Request: #RCT# Special Comments: CHRONIC RT KNEE PAIN, FOR QUAD STRENGTHENING Check if any of the following apply: Subjective: Patient is a 63 year old male with chronic right knee pain. Patient reports that over the past few months/years there has been pain but it has gotten worse. Patient states that he has been having alot of popping, and clicking that reduces his ability to walk. Patient reports that he used to walk 3-4 miles a day but the pain limits his ability to do that. Patient is leaving to return to [facility] on Monday next week. EMPLOYMENT: Retired HOME ENVIRONMENT: Lives in [facility] Assistive devices: Knee medial tank tender, SPC Date of injury: Chronic Mechanism of injury: Degeneration Location of pain: R knee Pain rating (0-10 scale):Current: 2/10; Worse: 6/10 Pain description: Sharp, grinding, click Pain is constant Activities that increase pain: Walking Activities that decrease pain: Sitting, Rest, elevation OBJECTIVE: OBSERVATION/SKIN INTEGRITY Patient deferred full evaluation due to leaving the country for unknown duration. GAIT: mild limp with using wooden SPC to LUE ASSESSMENT: Patient was referred for physical therapy with a diagnosis of right knee degeneration. Objective findings from physical therapy evaluation consistent with above diagnosis. Patient issued TENs unit and a replacement cane tip. Provided green, blue and black T-band with written HEP for improvement flexibility and strength of the knees. GOALS: None with patient leaving country Plan: No Outpaitent physical therapy needs at this time. Consult completed. Today's Treatment:30 (minutes) Evaluation:30 min /allie/ YULISA FRANCIS PHYSICAL THERAPIST Signed: 02/28/2024 10:27 YULISA FRANCIS-SUZAND [facility]
--- OUTSIDE RECORDS SUMMARY | 2024-07-17 08:46 | XMS_ITS ---
Author Name [facility] [place] Address [address] [place] [address] Care Team Providers Care Validation Consultant Name Role Phone KRYSTIN HOLLIS Primary Care [...] PART A Jun 05, 2024 PART A [id number] BLAIR BOND PATIENT MEDICARE (WNR) MEDICARE (M) PART B Jun 05, 2024 PART B [id number] BLAIR BOND PATIENT Selected Encounter This section includes the information on record at [place] for the Encounter. Date/Time Encounter Type Encounter Description Reason Pro vider Source Jul 17, 2024 12:46 PM Outpatient Encounter ADMIN PAT ACTIVTIES (MASNONCT) IH Encounter Template Text not used by [place] Plan of Treatment: Future Appointments (+ 6 months) and Future Tests (+/- 45 days) The Plan of Treatment section includes future care activities for the patient from all [place] [facility]. This section includes future appointments and future orders which are active, pending or scheduled. Future Appointments This section includes appointments that were scheduled to occur 6 months from the date of the Encounter, up to a maximum of 20 appointments. The data comes from all [place] treatment facilities. Appointment Date/Time Appointment Type Appointme nt Facility Name Sep 30, 2024 10:00 AM AMBULATORY - MEDICINE [facility] October 09, 2024 10:30 AM AMBULATORY - SURGERY [place] [facility] October 29, 2024 10:15 AM AMBULATORY - NONE [place] [facility] Nov 12, 2024 01:00 PM AMBULATORY - MEDICINE [facility] Nov 15, 2024 09:00 AM AMBULATORY - MEDICINE [facility] Nov 25, 2024 04:00 PM AMBULATORY - NONE [place] [facility] Nov 28, 2024 09:40 AM AMBULATORY - MEDICINE [facility] Dec 30, 2024 02:00 PM AMBULATORY - NONE [place] Dec 30, 2024 02:30 PM AMBULATORY - MEDICINE [facility] Advance Directives: All historical and current Section Date Range: From patient's date of to the date document was created. This section includes ALL of a patient's completed or amended [place] Advance and Rescinded Directives. The entries below indicate that a directive exists for the patient, but an actual copy is not included with this document. The data comes from all [facility]. Date Advance Directives Provider Source Apr 25, 2019 ADVANCE DIRECTIVE DISCUSSION [facility] [facility] Encounter Notes: All associated encounter notes This section contains the clinical notes associated to the Encounter. Date/Time Encounter Note(s) Provider Source Jul 17, 2024 12:50 PM PRIMARY CARE LETTE RS: LOCAL TITLE: PC LETTER FOLLOW UP/PAST RECALL/INACTIVE STANDARD TITLE: PRIMARY CARE LETTERS DATE OF NOTE: JUL 17, 2024@12:50 ENTRY DATE: JUL 17, 2024@12:51:02 AUTHOR: RACHID DINH EXP COSIGNER: URGENCY: STATUS: COMPLETED [facility] [address] [place] [address] [address] Mr. ZENON BOND [facility] [place] [address] JUL 17, 2024 Dear Mr. ZENON BOND, Our Records indicate you are past due for an appointment in primary care. We value you as a patient, and are concerned about your overall health. Patients are encouraged to see their Primary Care Provider annually to maintain their health care needs. If you would like to be seen and maintain enrollment in Primary Care, please contact our Telephone Care Program at or local [phone] to schedule an appointment. If you do not wish to be seen, please call the same number listed above, and let us know. We look forward to hearing from you soon. Sincerely, /valentine DINH Advanced Senior Production Supervisor Patient Record Number [id number] RACHID DINHTaryn [facility] Jul 17, 2024 12:46 PM PRIMARY CARE ADMIN ISTRATIVE NOTE: LOCAL TITLE: PC ADMINISTRATIVE NOTE STANDARD TITLE: PRIMARY CARE ADMINISTRATIVE NOTE DATE OF NOTE: JUL 17, 2024@12:46 ENTRY DATE: JUL 17, 2024@12:46:28 AUTHOR: RACHID DINH EXP COSIGNER: URGENCY: STATUS: COMPLETED Called to schedule recall from his spouse , no answer, left HIPAA Compliant Voice Mail to return call to schedule. /valentine DINH Advanced Senior Production Supervisor Signed: 07/17/2024 12:50 RACHID DINHTaryn [facility]
--- OUTSIDE RECORDS SUMMARY | 2024-09-30 06:00 | XMS_ITS | Encounter Summary ---
Author Name [facility] [place] [facility] [place] [facility] [place] [facility] [place] Address [address] [place] [address] Care Team Providers Care Handkerchief Folder Name Role Phone KRYSTIN HOLLIS Primary Care [...] PART B Jun 05, 2024 PART B [id number] [place] PATIENT MEDICARE (WNR) MEDICARE (M) PART A Jun 05, 2024 PART A [id number] BLA[place] PATIENT Selected Encounter This section includes the information on record at [place] for the Encounter. Date/Time Encounter Type Encounter Description Reason Provider Source Sep 30, 2024 10:00 AM OFFICE O/P EST MOD 30 MIN PRIMARY CARE/MEDICINE ICD-10-CM R05.9 Cough, unspecified NGUYENDON,TAMM Y H IHE Encounter Template Text not used by [place] Assessments - Encounter Diagnoses This section includes the primary and secondary diagnoses documented for the Encounter. Date/Time Primary/Secondary Diagnosis Diagnosis Name Provider Source Nov 05, 2024 12:34 PM PRIMARY Cough, unspecified NGUYENDON,TAMM Y Phill [facility] Nov 05, 2024 12:34 PM SECONDARY Chronic pain syndrome NGUYENDONTAMM Y H [facility] Nov 05, 2024 12:34 PM SECONDARY Encounter for immunization KARINA LAI RA [facility] Nov 05, 2024 12:34 PM SECONDARY Essential (primary) hypertension NGCLEOPATRAENDMARIYA ROBBM Y H [facility] Nov 05, 2024 12:34 PM SECONDARY Obesity, unspecified NGUYENDON,TAMM Y H [facility] Nov 05, 2024 12:34 PM SECONDARY Otitis media in diseases classified elsewhere, left ear NGUYENDONTAMM Y H [facility] Nov 05, 2024 12:34 PM SECONDARY Pain in right knee NGUYENDONTAMM Y H [facility] Nov 05, 2024 12:34 PM SECONDARY Personal history of colon polyps, unspecified NGUYENDON,TAMM Y H [facility] Nov 05, 2024 12:34 PM SECONDARY Type 2 diabetes mellitus without complications NGUYENDONTAMM Y H [facility] Plan of Treatment: Future Appointments (+ 6 months) and Future Tests (+/- 45 days) The Plan of Treatment section includes future care activities for the patient [facility] [place] [facility] This section includes future appointments and future orders which are active, pending or scheduled. Future Appointments This section includes appointments that were scheduled to occur 6 months from the date of the Encounter, up to a maximum of 20 appointments. The data comes from all [place] treatment facilities. Appointment Date/Time Appointment Type Appointme nt Facility Name October 09, 2024 10:30 AM AMBULATORY - SURGERY SOLIN GTON [facility] October 29, 2024 10:15 AM AMBULATORY - NONE [place] [facility] Nov 12, 2024 01:00 PM AMBULATORY - MEDICINE TOYA ALFREDITO [facility] Nov 15, 2024 09:00 AM AMBULATORY - MEDICINE TOYA ALFREDITO [facility] Nov 25, 2024 04:00 PM AMBULATORY - NONE SHEREE Chew [facility] Nov 28, 2024 09:40 AM AMBULATORY - MEDICINE TOYA ALFREDITO [facility] Dec 30, 2024 02:00 PM AM[place]ULATORY - NONE [place] Dec 30, 2024 02:30 PM AMBULATORY - MEDICINE [facility] Jan 22, 2025 03:00 PM AMBULATORY - NONE DARRIUSTO Jeevan [facility] Active, Pending, and Scheduled Orders This section includes a listing of several types of active, pending, and scheduled orders, including clinic medications orders, diagnostic test orders, procedure orders and consult orders; where the start date of the order is 45 days before the date of the Encounter or 45 days after the date of theEncounter. The data comes from all [place] treatment facilities. Test Date/Time Test Type Test Details Facility Name Nov 08, 2024 03:56 PM Consult Order MED CARDIO LOGY OUTPATIENT Cons Supervisor [employer] [facility] Lab Results: +/- 30 [...] Unit Interpretation Reference Range Specimen Type Comment October 29, 2024 10:22 AM [facility] N PANEL 1 PLASMA Specimen Type: [...] Ordering Provider: LUKE MANCIA Report Released Date/Time: Sep 30, 2024 11:03 AM Reporting Lab: [address] [address] Performing Lab: [address] [address] CREATININE 0.90 mg/dL 0.72-1.25 UREA NITROGEN 11 mg/dL 9-25 GLUCOSE 180 mg/dL H 74-100 SODIUM 144 mmol/L 136-145 POTASSIUM 4.5 mmol/L 3.5-5.1 CHLORIDE 105 mmol/L 98-107 CO2 26 mmol/L 22-29 CALCIUM 9.6 mg/dL 8.4-10.2 ANION GAP 13 meq/L 3-19 eGFR (CKD-EPI) >90 Sep 30, 2024 12:04 PM [facility] DRUG SCREEN EXPANDED IN-HOUSE URINE Specimen Type: URINE Comment: Screening method results are unconfirmed and are for medical use only. Unconfirmed screening results must not be used for non-medical purposes. Opiates test most sensitive for morphine, codeine and heroin and less sensitive for hydrocodone and hydromorphone where higher concentrations are needed for cut-off detection. Drugs of abuse screening is a preliminary analytical test result. A more specific alternate chemical method (GC/MS) must be used to obtain a confirmed analytical result. This assay provides a preliminary unconfirmed analytical test result that may be suitable for clinical management of patients in certain situations. Drug-test results should be interpreted in the context of clinical information. Patient metabolic characteristics can affect test outcome. Ordering Provider: LUKE MANCIA Report Released Date/Time: Sep 30, 2024 11:05 AM Reporting Lab: [address] [address] Performing Lab: [place] [id number] TETRAHYDROCANNABINOL SCREEN NEG Cuto ff < 50 AMPHETAMINE SCR NEG Cutoff < 1000 BARBITURATES SCR NEG Cutoff < 200 BENZODIAZEPINES SCR NEG Cutoff < 200 COCAINE METABOLITE SCR NEG Cutoff < 300 OPIATES SCR NEG Cutoff < 300 METHADONE SCR NEG Cutoff < 300 OXYCODONE SCR NEG Cutoff < 200 BUPRENORPHINE SCR IN-HOUSE NEG Cutof f < 5 FENTANYL SCREEN IN-HOUSE NEG Cutoff < 1 Sep 30, 2024 12:04 PM [facility] PSA S JEFF Specimen Type: SERUM No comment entered. Ordering Provider: LUKE MANCIA Report Released Date/Time: Sep 30, 2024 11:03 AM Reporting Lab: [address] [address] Performing Lab: [address] [address] PSA 0.561 ng/mL 0-3.999 Sep 30, 2024 12:04 PM [facility] PANEL 2 PLASMA Specimen Type: PLASM A Comment: Vitamin [...] Ordering Provider: LUKE MANCIA Report Released Date/Time: Sep 30, 2024 11:03 AM Reporting Lab: [address] [address] Performing Lab: [address] [address] TOTAL PROTEIN 7.7 g/dL 6.4-8.3 ALBUMIN 4.1 g/dL 3.5-5.2 TOTAL BILIRUBIN 0.4 mg/dL 0.2-1.2 AST 21 U/L 5-34 ALT 19 U/L 0-55 ALK PHOS 78 U/L 40-150 BILIRUBIN-DIRECT 0.2 mg/dL 0.0-0.5 Sep 30, 2024 12:04 PM [facility] MICROALBUMIN/CREAT RATIO URINE Specimen Type: URINE No comment entered. Ordering Provider: LUKE MANCIA Report Released Date/Time: Sep 30, 2024 11:03 AM Reporting Lab: [address] [address] Performing Lab: [address] [address] CREATININE 189.9 mg/dL MICROALBUMIN QUANT 60.2 mg/L H 0.0-30.0 .MICROALBUMIN/CREA RATIO 31.7 ug/mg{creat} Sep 30, 2024 12:04 PM [facility] GLYCOHEMOGLOBIN BLOOD Specimen Type: BLOOD Comment: Prediabetes: 5.7%-6.4% Diabetes: >= 6.5% [facility] guidelines for A1c interpretation: Glycemic control targets are based on Shared Decision Making between clinicians and patients. Criteria used to establish an A1c target recommendation can be found at https://www.pr.gov/qualityandpatientsafety/ and include the use of result accuracy [...] 8.73 and 9.27. Ref: https://ngsp.org/CAPdata.asp. The in-house flux - neutrinity-[employer] D-100 analyzer has a historical CV <= 2%. Contact the laboratory for further performance characteristics of this assay. Ordering Provider: LUKE MANCIA Report Released Date/Time: Sep 30, 2024 11:03 AM Reporting Lab: [address] [address] Performing Lab: [address] [address] GLYCOHEMOGLOBIN 7.8 H 4.4-5.6 Sep 30, 2024 12:04 PM [facility] LIPID PROFILE PLASMA Specimen Type: PLASM A [...] Ordering Provider: LUKE MANCIA Report Released Date/Time: Sep 30, 2024 11:03 AM Reporting Lab: [address] [address] Performing Lab: [address] [address] CHOLESTEROL 201 mg/dL H 0-199 TRIGLYCERIDE 166 mg/dL H 0-149 HDL CHOLESTEROL 51 mg/dL 40-69 DIRECT LDL CHOL. 139 mg/dL H 0-100 Sep 30, 2024 12:04 PM [facility] CBC/PLT BLOOD Specimen Type: BLOOD No comment entered. Ordering Provider: LUKE MANCIA Report Released Date/Time: Sep 30, 2024 11:03 AM Reporting Lab: [address] [address] Performing Lab: [address] [address] WBC 7.8 10*3/uL 5.0-10.0 RBC 4.65 10*6/uL 4.6-6.2 HGB 14.3 g/dL 14.0-18.0 HCT 43.8 42.0-52.0 MCV 94.2 fL H 80.0-94.0 MCH 30.8 pg 27.0-31.0 MCHC 32.6 g/dL 32.0-36.0 PLT 280 10*3/uL 150-450 MPV 9.6 fL 9.0-13.1 RDW 13.0 11.0-16.0 NRBC 0.0 0.0-0.0 Sep 30, 2024 12:04 PM [facility] 25-OH VITAMIN D SERUM Specime n Type: [...] Ordering Provider: LUKE MANCIA Report Released Date/Time: Sep 30, 2024 11:03 AM Reporting Lab: [address] [address] Performing Lab: [address] [address] 25-OH VITAMIN D 53.7 ng/mL H 20.0-50.0 Sep 30, 2024 12:04 PM [facility] B12 VITAMIN PLASMA Specimen Type: PLASM A [...] Ordering Provider: LUKE MANCIA Report Released Date/Time: Sep 30, 2024 11:03 AM Reporting Lab: [address] [address] Performing Lab: [address] [address] B12 VITAMIN 295 pg/mL 213-816 Sep 30, 2024 12:04 PM [facility] THYROID PROFILE PLASMA Specimen Type: PLASM A Comment: [...] Ordering Provider: LUKE MANCIA Report Released Date/Time: Sep 30, 2024 11:05 AM Reporting Lab: [address] [address] Performing Lab: [address] [address] TSH 1.1217 m[IU]/mL 0.3500-4.9400 FREE T4 1.03 ng/mL 0.70-1.48 Sep 30, 2024 12:04 PM [facility] PANEL 1 PLASMA Specimen Type: PLASM A Comment: Vitamin [...] Ordering Provider: LUKE MANCIA Report Released Date/Time: Sep 30, 2024 11:03 AM Reporting [facility]: [facility] [address] Performing Lab: [address] [address] CREATININE 0.91 mg/dL 0.72-1.25 UREA NITROGEN 7 mg/dL L 9-25 GLUCOSE 181 mg/dL H 74-100 SODIUM 144 mmol/L 136-145 POTASSIUM 3.8 mmol/L 3.5-5.1 CHLORIDE 102 mmol/L 98-107 CO2 30 mmol/L H 22-29 CALCIUM 9.5 mg/dL 8.4-10.2 ANION GAP 12 meq/L 3-19 eGFR (CKD-EPI) >90 Sep 30, 2024 10:46 AM [facility] COVID-19 & FLU DIAGNOSTIC PANEL (SOFIA) NASOPHARYNX Specimen Type: NASOPHARYNX Comment: Test performed by: [id number] Meter #: [id number] Ordering Provider: LUKE MANCIA Report Released Date/Time: Sep 30, 2024 11:28 AM Reporting Lab: [address] [address] Performing Lab: [address] [address] COVID-19 (SOFIA) Not Detected Not Detecte d POC INFLUENZA A Not Detected Not Detecte d POC INFLUENZA B Not Detected Not Detecte d Vital Signs: All taken on the encounter date This section contains inpatient and outpatient Vital Signs collected on the date of the Encounter. Date/Time Temperature Pulse Blood Pressure Respiratory Rate SP02 Pain Height Weight Body Mass Index Source Sep 30, 2024 10:18 AM 150/88 [place] [facility] Sep 30, 2024 10:08 AM 98.4 76 156/91 14 95 0 76 246 30 [facility] Immunizations: All administered on the encounter date This section contains immunizations associated to the Encounter. Immunization Series Date Issued Administered By Site Reaction Lot Number CVX Code Drug Cocoa Roaster Comment(s) Source TDAP Sep 30, 2024 DEEJAY LAI RIGHT DELTO ID [id number] SANOFI PASTEUR Booster for Series, ADMINISTERE D AT [place], [place] [facility] Social History: Smoking Status (Most current) and Tobacco Use (All prior to encounter date) This section includes the most current, and the historical, smoking and tobacco- related health factors from the [place] facility where the Encounter took place. Current Smoking Status This section includes the most current smoking, or tobacco-related health factor, from the [place] facility where the Encounter took place. Date/Time Current Smoking Status Comment [place] Dec 28, 2023 08:00 AM VA-TOBACCO FORMER USER [facility] Tobacco Use History This section includes a history of the smoking, or tobacco-related health factors, that were collected on or before the date of the Encounter. The data comes from the [place] facility where the Encounter took place. Date/Time Smoking Status/Tobacco Use Comment F acility Dec 28, 2023 08:00 AM VA-TOBACCO QUIT 5 TO < 15 YRS [facility] May 19, 2022 09:30 AM VA-TOBACCO FORMER USER [facility] May 19, 2022 09:30 AM VA-TOBACCO QUIT 5 TO < 15 YRS [facility] Mar 29, 2021 08:00 AM VA-TOBACCO FORMER USER [facility] Mar 29, 2021 08:00 AM VA-TOBACCO QUIT 5 TO < 15 YRS [facility] Nov 22, 2017 10:50 AM V9 QUIT TOBACCO >1 2 MO & <7 YRS AGO [facility] Advance Directives: All historical and current Section Date Range: From patient's date of to the date document was created. This section includes ALL of a patient's completed or amended [place] Advance and Rescinded Directives. The entries below indicate that a directive exists for the patient, but an actual copy is not included with this document. The data comes from all [facility]. Date Advance Directives Provider Source Apr 25, 2019 ADVANCE DIRECTIVE DISCUSSION ERVIN TAYLOR [facility] Radiology Reports: +/- 30 days of [...] the Encounter. The data comes from all [place] treatment facilities. Date/Time Radiology Report Provider Source October 09, 2024 10:23 AM AORTA -U/S SCREEN (INITIAL): ZENON BOND [id number] -1960 M Exm Date: OCTOBER 09, 2024@10:23 Req Phys: LUKE MANCIA Pat Loc: [facility] PACT [facility] 16-2 (Req'g Loc) Img Loc: [facility] Service: Unknown (Case [id number] COMPLETE) AORTA -U/S SCREEN (INITIAL) (VAS Detailed) CPT:87468 Reason for Study: SEE CLINICAL HISTORY Clinical History: Screening aorta duplex, asymptomatic Report Status: Verified Date Reported: OCTOBER 10, 2024 Date Verified: OCTOBER 10, 2024 Pc Technician E-Sig: Report: Duplex examination of the abdominal aorta. Findings: The suprarenal aorta measures 2.4 cm in diameter, and the infrarenal aorta 2.2 cm in diameter. The right and left common iliac arteries measure 1.1 and 1.4 cm in diameter. Impression: Study is negative for abdominal aortic aneurysm. Primary Diagnostic Code: NO ALERT REQUIRED Primary Interpreting Staff: LISA OTOOLE, ATTENDING PHYSICIAN Verified by nut grinder for LISA OTOOLE /LISA PORTER [facility] Encounter Notes: All associated encounter notes This section contains the clinical notes associated to the Encounter. Date/Time Encounter Note(s) Provider Source October 03, 2024 10:49 AM PRIMARY CARE NOTE: LOCAL TITLE: Pc Chart Review Note STANDARD TITLE: PRIMARY CARE NOTE DATE OF NOTE: OCTOBER 03, 2024@10:49 ENTRY DATE: OCTOBER 03, 2024@10:49:12 AUTHOR: LUKE MANCIA EXP COSIGNER: URGENCY: STATUS: COMPLETED Specimen: PLASMA. CH [id number] Specimen Collection Date: Sep 30, 2024@12:04 Test name Result units Ref. range Site Code CHOLESTEROL 201 H mg/dL 0 - 199 [6033] Eval: The National Cholesterol Education Program (NCEP)-III Guidelines Eval: recommends obtaining a complete lipoprotein profile after a 9 to 12 hour Eval: fast. Following are the Adult Treatment Panel III (ATP III) risk Eval: categories: Eval: Eval: TOTAL CHOLESTEROL: Eval: <200 mg/dl Desirable Eval: 201 - 239 mg/dl Borderline High Eval: =>240 mg/dl High TRIGLYCERIDE 166 H mg/dL 0 - 149 [6033] Eval: TRIGLYCERIDES: Eval: <150 mg/dl Normal Eval: 150 - 199 mg/dl Borderline High Eval: >= 200 mg/dl High HDL CHOLESTEROL 51 mg/dL 40 - 69 [6033] Eval: HDL CHOLESTEROL: Eval: <40 mg/dL Low Eval: =>60 mg/dL High DIRECT LDL CHOL. 139 H mg/dL 0 - 100 [6033] Eval: <100 Optimal or Desirable Eval: 100-159 Borderline High Eval: >160 High -I called the patient/he had run out of Lipitor prior to this lab result -Will continue current treatment with Lipitor 40 mg 1/2 tablet daily -Microalbumin urea noted at 60-we just recently increased lisinopril -Keep upcoming HOPPER OPERATOR visit for blood pressure check/panel 1 check the end of this month -He thanked me for calling /allie/ LUKE MANCIA STAFF PHYSICIAN/PRIMARY CARE Signed: 10/03/2024 10:49 LUKE MANCIA [facility] October 03, 2024 10:39 AM PRIMARY CARE LETTERS: LOCAL TITLE: PC LETTER STANDARD TITLE: PRIMARY CARE LETTERS DATE OF NOTE: OCTOBER 03, 2024@10:39 ENTRY DATE: OCTOBER 03, 2024@10:39:21 AUTHOR: LUKE MANCIA EXP COSIGNER: URGENCY: STATUS: COMPLETED Mr. ZENON Fernandez [place] [id number] I WANT TO INFORM YOU OF THE FOLLOWING TEST RESULTS: Specimen: BLOOD. GLY [id number] Specimen Collection Date: Sep 30, 2024@12:04 Test name Result units Ref. range Site Code GLYCOHEMOGLOBIN 7.8 H % 4.4 - 5.6 [6033] Comment: Prediabetes: 5.7%-6.4% Diabetes: >= 6.5% [place] guidelines for A1c interpretation: Glycemic control targets are based on Shared Decision Making between clinicians and patients. Criteria used to establish an A1c target recommendation can be found at https://www.pr.gov/qualitya ndpatientsafety/ and include the use of result accuracy and precision(CV) of the A1c tests clinicians utilize at their own sites of practice. Values obtained from A1C measurements can vary. For typical A1C assays, a reported value of 7.0 could actually be between 6.72 and 7.28 if measured by a reference method. A reported value of 9.0 could actually be between 8.73 and 9.27. Ref: https://ngsp.org/CAPdata.as p. The in-house flux - neutrinity-[employer] D-100 analyzer has a historical CV <= 2%. Contact the laboratory for further performance characteristics of this assay. Specimen: BLOOD. [id number] Specimen Collection Date: Sep 30, 2024@12:04 Test name Result units Ref. range Site Code WBC 7.8 K/cmm 5.0 - 10.0 [6033] RBC 4.65 M/cmm 4.6 - 6.2 [6033] HGB 14.3 g/dL 14.0 - 18.0 [6033] HCT 43.8 % 42.0 - 52.0 [6033] MCV 94.2 H fL 80.0 - 94.0 [6033] MCH 30.8 pg 27.0 - 31.0 [6033] MCHC 32.6 g/dL 32.0 - 36.0 [6033] RDW 13.0 % 11.0 - 16.0 [6033] PLT 280 K/cmm 150 - 450 [6033] MPV 9.6 fL 9.0 - 13.1 [6033] NRBC 0.0 % 0.0 - 0.0 [6033] Provider: NGUYENDON,LUKE H Specimen: URINE. [id number] Specimen Collection Date: Sep 30, 2024@12:04 Test name Result units Ref. range Site Code CREATININE 189.9 mg/dL [6033] Eval: The reference range and other method performance specifications have not Eval: been established for this test in random urine. The test result Eval: should be integrated into the clinical context for interpretation. MICROALBUMIN QUANT 60.2 H mg/L 0.0 - 30.0 [6033] .MICROALBUMIN/CREA RATIO 31.7 ug/mg Crea [6033] Specimen: SERUM. [facility] [id number] Specimen Collection Date: Sep 30, 2024@12:04 Test name Result units Ref. range Site Code PSA 0.561 ng/mL 0 - 3.999 [6033] Eval: The following procedures may cause PSA serum levels to be Eval: raised: Prostatic massage, cystoscopy, TURP; Therefore, Eval: PSA/PAP determination should not be drawn following these Eval: procedures. Finasteride (Proscar) causes a decrease in PSA Eval: levels in patients with BPH, even coexisting with prostate Eval: cancer. (FDA MED. BUL. 22:9, '92). 25-OH VITAMIN D 53.7 H ng/mL 20.0 - 50.0 [6033] Comment: The National Institutes of Health (NIH) recommendations state: <12 ng/mL - Deficient 20 - 50 ng/mL - Optimal Levels - adequate for most people. >50 ng/mL - Increased risk of hypercalciuria/other health problems - clinical correlation is required. These reference ranges represent clinical decision values rather than population-based reference values. Specimen: PLASMA. [id number] Specimen Collection Date: Sep 30, 2024@12:04 Test name Result units Ref. range Site Code CHOLESTEROL 201 H mg/dL 0 - 199 [6033] Eval: The National Cholesterol Education Program (NCEP)-III Guidelines Eval: recommends obtaining a complete lipoprotein profile after a 9 to 12 hour Eval: fast. Following are the Adult Treatment Panel III (ATP III) risk Eval: categories: Eval: Eval: TOTAL CHOLESTEROL: Eval: <200 mg/dl Desirable Eval: 201 - 239 mg/dl Borderline High Eval: =>240 mg/dl High TRIGLYCERIDE 166 H mg/dL 0 - 149 [6033] Eval: TRIGLYCERIDES: Eval: <150 mg/dl Normal Eval: 150 - 199 mg/dl Borderline High Eval: >= 200 mg/dl High HDL CHOLESTEROL 51 mg/dL 40 - 69 [6033] Eval: HDL CHOLESTEROL: Eval: <40 mg/dL Low Eval: =>60 mg/dL High DIRECT LDL CHOL. 139 H mg/dL 0 - 100 [6033] Eval: <100 Optimal or Desirable Eval: 100-159 Borderline High Eval: >160 High SODIUM 144 mmol/L 136 - 145 [6033] POTASSIUM 3.8 mmol/L 3.5 - 5.1 [6033] CHLORIDE 102 mmol/L 98 - 107 [6033] CO2 30 H mmol/L 22 - 29 [6033] ANION GAP 12.0 mEq/L 3 - 19 [6033] GLUCOSE 181 H mg/dL 74 - 100 [6033] UREA NITROGEN 7 L mg/dL 9 - 25 [6033] CREATININE 0.91 mg/dL 0.72 - 1.25 [6033] eGFR (CKD-EPI) >90 SEE EVAL [6033] CALCIUM 9.5 mg/dL 8.4 - 10.2 [6033] TOTAL PROTEIN 7.7 g/dL 6.4 - 8.3 [6033] ALBUMIN 4.1 g/dL 3.5 - 5.2 [6033] TOTAL BILIRUBIN 0.4 mg/dL 0.2 - 1.2 [6033] BILIRUBIN-DIRECT 0.2 mg/dL 0.0 - 0.5 [6033] AST 21 U/L 5 - 34 [6033] ALT 19 U/L 0 - 55 [6033] ALK PHOS 78 U/L 40 - 150 [6033] B12 VITAMIN 295 pg/mL 213 - 816 [6033] TSH 1.1217 mIU/mL 0.3500 - 4.9400 [6033] FREE T4 1.03 ng/mL 0.70 - 1.48 [6033] = Specimen Collection Date: Sep 30, 2024@10:46 Test name Result units Ref. range Site Code COVID-19 (SOFIA) Not Detected Ref: Not Detected [596] Eval: Positive results are indicative of infection but do not rule out Eval: bacterial infection or co-infection with other pathogens not detected by Eval: the test. Clinical correlation with patient history and other diagnostic Eval: information is necessary to determine patient infection status. Eval: Eval: Negative results do not preclude SARS-CoV-2, influenza A, and/or Eval: influenza B infection and should not be used as the sole basis for Eval: diagnosis, treatment or other patient management decisions. Negative Eval: results must be combined with clinical observations, patient history, Eval: and/or epidemiological information. Eval: Eval: The Venessa giuseppe SARS-CoV-2 & Influenza A/B Nucleic acid test is Eval: an automated multiplex real-time RT-PCR assay intended for rapid Eval: qualitative detection and differentiation of SARS-CoV-2, influenza A, and Eval: influenza B virus RNA in nasopharyngeal swabs from individuals suspected Eval: of respiratory viral infection consistent with COVID-19 or Influenza by Eval: their healthcare provider. This test is currently FDA approved but prior Eval: to 12/29/2022, in the [place] cobasr SARS-CoV-2 & Influenza A/B is only for Eval: use under the Food and Drug Administration's Emergency Use Authorization Eval: (EUA). POC INFLUENZA A Not Detected Ref: Not Detected [596] POC INFLUENZA B Not Detected Ref: Not Detected -I have called you and spoke to you on the phone/voiced understanding of the above labs -We will continue current treatment as discussed on the telephone Please call us if you have questions or problems. Sincerely, /allie/ LUKE MANCIA STAFF PHYSICIAN/PRIMARY CARE Patient Record Number [id number] [facility] Sep 30, 2024 11:24 AM ADDENDUM: LOCAL TITLE: Addendum STANDARD TITLE: ADDENDUM DATE OF NOTE: SEP 30, 2024@11:24:12 ENTRY DATE: SEP 30, 2024@11:24:13 AUTHOR: BEBE LAI COSIGNER: URGENCY: STATUS: COMPLETED [place] in clinic today with runny nose and left ear pain. [place] swabbed as ordered and SOFIA run. Results are negative for all three tests, FLU A and B and COVID. /allie/ BEBE LAI STAFF HOPPER OPERATOR Signed: 09/30/2024 11:26 Receipt Acknowledged By: 09/30/2024 11:27 /es/ LUKE MANCIA STAFF PHYSICIAN/PRIMARY CARE --- Original Document --- 09/30/24 Health Tech/manager infusion Note: The patient was given a list of his current medications, instructed to review and discuss any changes or problems with their provider. Patient advised to carry a list of current medications and any allergies with them in the event of emergency situations. Yes - [place]/Caregiver verbalized understanding of topics discussed and education provided COVID-19 Immunization: Vaccine given previously - no written/electronic documentation available Comment: health dept lovely The patient was instructed to bring a copy of their COVID-19 vaccine information to their next appointment so that this can be accurately recorded in their [place] medical record. Influenza Immunization: The patient has received the seasonal influenza vaccine for the current season at another location. Documented: INFLUENZA, UNSPECIFIED FORMULATION Historical Date Administered: Feb 2024 Exact date unknownSeries: Complete Outside Location: Health dept Information Source: FROM PATIENT'S RECALL Eye Care At-Risk Screen : Patient identified to be at risk for the following eye condition(s): DIABETIC RETINOPATHY: Diabetes Diagnosis Information: Encounter Diagnosis: 02/06/2024@08:30 E11.9 (ICD-10-CM) Type 2 Diabetes Mellitus without Complications rank: PRIMARY Prov. Narr. - Type 2 diabetes mellitus without complications MACULAR DEGENERATION: Macular Degeneration Risk Factors Information: Reminder Term: VA-AMD RISK FACTORS Encounter Diagnosis: 01/23/2024@08:21 I25.10 (ICD-10-CM) Atherosclerotic Heart Disease of [place] Coronary Artery without Angina Pectoris rank: SECONDARY Prov. Narr. - Atherosclerotic Heart Disease of [place] Coronary A Action: Referral Ordered: Tele-Eye Screening Learning Readiness Assessment: Preferred language for discussing health care [place] NEW ASSESSMENT LEARNING BARRIERS Hearing Barrier Visual Barrier READING LIMITATIONS No reading limitations PREFERRED METHODS FOR LEARNING Written/Printed Material Verbal Demonstration (Audio/Visual) INTERESTED IN LEARNING (MOTIVATED) Yes, interested in learning what? PERSON BEING EDUCATED TODAY Education was provided on the following topics [facility] Healthy Living Message Handouts provided: Be Physically Active Eat Wisely Strive for a Healthy Weight Get Recommended Screening Tests & Immunizations Be Involved in Your Health Care Be Tobacco Free Limit Alcohol Manage Stress Be Safe RESPONSE Verbalizes Successfully PAVE Foot Check: A complete foot check was completed at this encounter. VISUAL INSPECTION: Includes inspection for skin breaks, deformity, erythema, trauma, pallor on elevation, dependent rubor, nail deformities, extensive callus and pitting edema. Visual exam results: Normal PEDAL PULSES: Includes palpation of dorsalis and posterior tibial pulses and signs/symptoms of vascular compromise like pain, pallor, paresthesia or paralysis. Present (even if diminished) SENSORY CHECK: Includes 10 gram Monofilament ([place]-Dulce) test of sensation. Intact (Greater than or equal to 80% of sites checked) Abnormal (Less than 80% of sites checked): Intact LOW-RISK: LOW RISK INFORMATION PROVIDED: 1. Advised patient not to walk barefoot. 2. Explained the importance of daily foot checks for changes. 3. Stressed the importance of daily foot hygiene, including bathing and complete drying. The patient verbalized understanding and was offered a detailed handout on diabetic foot care. Td/Tdap Immunization: Administered: TDAP Date Administered: Sep 30, 2024 10:00 Series: Booster Cocoa Roaster: SANOFI PASTEUR Lot: [id number] Exp Date: Jul 05, 2026 [facility]: [id number] Admin Route/Site: INTRAMUSCULAR/RIGHT DELTOID Dosage: 0.5mL Vaccine Information Statement(s): TDAP (TETANUS, DIPHTHERIA, PERTUSSIS) VACCINE VIS Jul 05, 2024 (MARTINIQUAIS) Order By: Policy Administered By: Bebe Lai The TETANUS/DIPHTHERIA/PERTUSSI S (TDAP) Vaccine Information Statement (VIS) was reviewed with the patient/caregiver which lists the benefits and risks of the vaccine and the risks of not receiving the Tdap vaccine. The patient/caregiver denied any prior severe reaction to this vaccine or its components or a severe allergic reaction, such as anaphylaxis, to any vaccine or any injectable therapy. The patient/caregiver gave verbal consent to receive the vaccine. RSV Immunization: Defer due to a PRECAUTION Reason: not feeling well today /allie/ BEBE WINKLER HOPPER OPERATOR Signed: 09/30/2024 10:15 09/30/2024 ADDENDUM STATUS: COMPLETED Manual BP taken in left arm with a large adult cuff, 150/88. Verteran states he did not take his morning meds today. /allie/ BEBE LAI STAFF HOPPER OPERATOR Signed: 09/30/2024 10:17 Receipt Acknowledged By: 09/30/2024 10:19 /allie/ LUKE MANCIA STAFF PHYSICIAN/PRIMARY CARE BEBE LAI [facility] Sep 30, 2024 10:25 AM INTERNAL MEDICINE ATTENDING NOTE: LOCAL TITLE: MEDICINE ATTENDING PHYSICIAN NOTE STANDARD TITLE: INTERNAL MEDICINE ATTENDING NOTE DATE OF NOTE: SEP 30, 2024@10:25 ENTRY DATE: SEP 30, 2024@10:25:29 AUTHOR: LUKE MANCIA EXP COSIGNER: URGENCY: STATUS: COMPLETED MEDICINE ATTENDING PHYSICIAN NOTE Has ADDENDA age:64WHITE sex:MALE cc: Cough unspecified pmh: Active problems - Computerized Problem List is the source for the followin. Gastroesophageal reflux disease 2. Obesity 3. Type 2 diabetes mellitus 4. Hyperlipidemia 5. Benign prostatic hyperplasia 6. Polyp of colon 7. Exposure to potentially hazardous substance ([facility] [id number]) 8. Exposure to potentially hazardous substance 9. Right knee pain 10. Adenomatous polyp of colon 02-01-24 colonoscopy, polyps removed, repeat 5 years very large 4cm adenoma found December 2017 -- repeat for removal. TSA resected Jan 2018 -- repeat in 6 months. pmh: -knee pain sec to meniscal tear?? 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 ros: constitutional: neg eyes: neg ent/mouth: neg pulm: neg cv: neg gi: neg gu: neg ms: neg skin/breast: neg neuro: neg psych: neg endocrine: neg hem/lymph: neg sh:started smoking when 15 yo 1ppd-stopped 2015 - etoh 1 cocktail per day -no illicit drugs -lives in [place] [place] [facility] [place] [facility]/retired, but his family lives in [facility]-wants to have right knee surgery here -/2 children fh:mother at 78 yo- + cva/copd father at 83 yo- +cva/copd/cad s/p cabg SERVICE CONNECTED % - 50 DS - Disabilities Eligibility: SERVICE CONNECTED 50% to 100% VERIFIED Total S/C %: 50 DEGENERATIVE ARTHRITIS OF THE SPINE 40% S/C LARYNX, STENOSIS OF 0% S/C NONUNION OF LOWER JAW 0% S/C 2ND DEGREE TANG 0% S/C PARALYSIS OF SCIATIC NERVE 10% S/C Active Outpatient Medications (including Supplies): Active Outpatient Medications Status 1) ACCU-CHEK GUIDE (GLUCOSE) TEST STRIP USE 1 STRIP TO TEST ACTIVE BLOOD SUGAR DIRECTED LIMIT 50 STRIPS EVERY 90 DAYS 2) ATORVASTATIN CALCIUM 40MG TAB TAKE ONE-HALF TABLET BY MOUTH ACTIVE DAILY -DO NOT DRINK GRAPEFRUIT JUICE WHILE ON THIS DRUG Indication: FOR CHOLESTEROL 3) DICLOFENAC NA 1% TOP GEL APPLY 4 GRAM STRIP TO AFFECTED AREA ACTIVE EVERY 6 HOURS NEEDED Indication: FOR PAIN 4) LANCET,SOFTCLIX USE LANCET AFFECTED AREA DIRECTED ACTIVE 5) LIDOCAINE 5% 5IN X 6IN PATCH APPLY 2 PATCHES TO SKIN DAILY ACTIVE -LEAVE ON 12 HOURS, THEN REMOVE FOR 12 HOURS Indication: FOR PAIN 6) LISINOPRIL 10MG TAB TAKE ONE-HALF TABLET BY MOUTH DAILY ACTIVE Indication: FOR HIGH BLOOD PRESSURE 7) METFORMIN HCL 500MG 24HR SA TAB TAKE TWO TABLETS BY MOUTH ACTIVE TWICE A DAY Indication: FOR BLOOD SUGAR Active Non-VA Medications Status 1) Non-VA ASPIRIN 81MG EC TAB 81MG MOUTH DAILY ACTIVE 2) Non-VA IBUPROFEN 400MG TAB 400MG MOUTH DAILY ACTIVE 3) Non-VA TAMSULOSIN HCL 0.4MG CAP 0.4MG MOUTH EVERY EVENING ACTIVE 4) Non-VA TRAMADOL HCL 50MG TAB 50MG MOUTH TWICE A DAY ACTIVE 11 Total Medications hpi: #1. Cough for 5 to 7 days/production of usual phlegm/no hemoptysis -Left ear discharge/no bleeding/minimal ear ache -No fever chills or night sweats No shortness of breath or chest pain -Normal appetite -No abdominal pain nausea vomiting diarrhea No rectal bleeding -Drinking fluids -Patient is using NyQuil and DayQuil with good results -Some minimal nasal congestion/nasal discharge-clear/no epistaxis 2. Left ear ache-review #1 3. Diabetes mellitus-stable on metformin/needs refill/no abdominal pain nausea vomiting or diarrhea -Ordered repeat A1c and nephropathy screen 4. Hypertension-ran out of lisinopril/willing to increase to 10 mg daily/will [place] in the [place] for the next several months for knee replacement -He normally lives in [facility] -He is agreeable to a nursing visit in 4 weeks for blood pressure check -No shortness of breath or chest pain exam: vss afeb pleasant MALE in nad 150/88 (09/30/2024 10:18)76 (09/30/2024 10:08)14 (09/30/2024 10:08)98.4 F [36.9 C] (09/30/2024 10:08) 95% (09/30/2024 10:08) VITAL SIGNS SELECTED Measurement DT WEIGHT LB(KG)[BMI] 09/30/2024 10:08 246(111.58)[30*] 12/28/2023 08:07 268(121.56)[33*] 05/19/2022 09:18 241(109.32)[29*] 09/29/2021 08:55 267.9(121.52)[33*] 08/23/2021 11:14 275.2(124.83)[34*] 03/29/2021 08:33 270(122.47)[33*] NERUO- A&O x4; CN II-XII intact grossly PSYCH- appropriate mood and affect/oriented to time and place and person skin-no rash or lesions eyes: nl conjunctivae and lids/perrl ent: no preauricle or tragal tenderness Right TM is clear -Left TM is red/minimal swelling of middle ear canal/no bleeding/no discharge nasal: pink/boggy turbinates w/o bleeding or lesions bilaterally oral: clear w/o exudate, nl gums neck supple w/o la/no thyromegaly pulm ctab/no wheezing/no rales or crackles cv-rrr w/o m,r,g/no carotid bruits abd-soft nt/no rebound tenderness/good bs/no hsm/no masses or hernia ext-no cce/all 4 extremities w/o edema bilaterally mai: MS: gait and station is abnormal, no erythema or swelling, no instability, nl strength and tone of surrounding muscles No data available PANEL 1 Frances. date GLUCOSE BUN CREAT SODIUM K CHLOR CO2 01/30/24 09:25 189 H 11 1.09 139 4.3 101 27 PANEL 2 Frances. date TOT PRO ALBUMIN SGOT SGPT Z ALK PHZ DIRECTZ TOTAL 12/28/23 09:00 7.9 4.3 41 H 51 101 0.4 Collection DT Specimen Test Name Result Units Ref Range 12/28/2023 09:00 PLASMA!! CHOLESTEROL 259 H mg/dL 0 - 199 12/28/2023 09:00 PLASMA!! TRIGLYCERIDE 346 H mg/dL 0 - 149 12/28/2023 09:00 PLASMA!! HDL CHOLESTEROL 44 mg/dL 40 - 69 12/28/2023 09:00 PLASMA!! DIRECT LDL CHOL. 167 H mg/dL 0 - 100 !! Indicates COMMENTS AVAILABLE...Refer to Interim Lab Report. aic: Z GLYCOHEMOGLOBIN (HPLC) 12/28/23 09:00 8.2 H tsh: 2.0426 mIU/mL (12/28/2023 09:00) psa: 0.340 ng/mL (12/28/2023 09:00) Collection DT Specimen Test Name Result Units Ref Range 12/28/2023 09:00 SERUM !! 25-OH VITAMIN D 43.0 ng/mL 20.0 - 50.0 !! Indicates COMMENTS AVAILABLE...Refer to Interim Lab Report. Collection DT Specimen Test Name Result Units Ref Range 12/28/2023 09:00 PLASMA!! B12 VITAMIN 322 pg/mL 213 - 816 !! Indicates COMMENTS AVAILABLE...Refer to Interim Lab Report. a/p #1. Cough unspecified-stable/negative Sofia/likely due to viral syndrome -Continue NyQuil and DayQuil [id number]-ojycham as needed -Ordered Flonase for nasal congestion 2. Otitis media in diseases classified elsewhere, left ear-stable/ordered Z- Kevin/Corticosporin eardrops/lactobacillus for gut protection 3. Right knee pain-stable/review orthopedics recommendations January 30, 2024 -Continue lidocaine patch as needed/continue Voltaren gel as needed 4. Obesity unspecified-stable/needs dietary changes and exercise 5. Type 2 diabetes mellitus without complications-stable/contin ue metformin/ordered A1c and nephropathy screen -Increase lisinopril 6. Essential hypertension-stable/not at goal/increase lisinopril to 10 mg daily/nursing visit in 4 weeks for blood pressure check and panel 1 7. Personal history colonic polyps unspecified-stable/reviewed colonoscopy report noted below 8. Chronic pain syndrome-stable/review #3 9. Preventive health care-immunizations are up to date I spent 45 minutes with the patient Findings: A 6 mm polyp was found [...] referring provider. Procedure Code(s): --- Professional --- 18042, Colonoscopy, flexible; with removal of tumor(s), polyp(s), or other lesion(s) by snare technique 79908, 59, Colonoscopy, flexible; with biopsy, single or multiple Diagnosis Code(s): --- Professional --- Z86.010, Personal history of colonic polyps CPT copyright 2017 [employer]. All rights reserved. The codes documented in this report are preliminary and upon title 1 tutor review may be revised to meet current compliance requirements. Attending Participation: I was present and participated during the entire procedure, including non-arrington portions. MD Luis Gonzalez MD Pg. 3 09/30/24 10:28 Colonoscopy ZENON BOND [phone] : [birth year] (64) NOT INPATIENT 02/01/2024 12:12:47 PM This report has been [...] SERVICE 02/09/2024 ADDENDUM STATUS: COMPLETED Surgeon/physician: LUIS MAGANA MD =-=-=-=-=-=-=-=-=-=-=-=-=-= -=-=-=-=-=-=-=-=-=-=-=-=-=- =-=-=-=-=-=-=-=-=-=-=-=-= - - - - - - - [...] submitted in one cassette. CPT CODE - 37914 MICROSCOPIC EXAM/DIAGNOSIS: Colon, ascending, polyp, biopsy: -Fragments of tubular adenoma. Recommendations: -Repeat colonoscopy in 5 years /allie/ CHAMP ESTRADA Signed: 02/09/2024 11:31 Receipt Acknowledged By: 02/15/2024 11:49 /es/ LUIS MAGANA MD GI Attending 02/12/2024 10:29 /es/ IKE GUILLORY RN Pg. 4 09/30/24 10:28 Colonoscopy ZENON BOND [phone] : [birth year] (64) NOT INPATIENT ENDOSCOPY ROUTE DRIVER COIN MACHINES for KARRI CORONADO 02/09/2024 11:34 /es/ LUKE MANCIA STAFF PHYSICIAN/PRIMARY CARE 02/12/2024 ADDENDUM STATUS: COMPLETED Colonoscopy GAP Reminder: Recommendations are needed in the clinical reminder system following the patient's most recent colorectal cancer screening/surveillance test (Colonoscopy, Sigmoidoscopy or CT Colonography) Colonoscopy reminder set 5 years from FEB 12, 2024. /allie/ IKE GUILLORY RN ENDOSCOPY ROUTE DRIVER COIN MACHINES Signed: 02/12/2024 10:30 - The Outpatient Essential Medication List for review (EMLR) was reviewed with the patient/caregiver and the patient was provided an updated reconciled medication list- - Discrepancies were corrected or sent to the ordering provider to correct Review of medications include: Patient allergies (Remote and Local) and active and pending prescriptions [facility]ensed from this [facility] (local) and dispensed from another [place] or [facility] facility (remote and pending) as well as local inpatient orders (pending and active) and clinic medications (IMOs), locally documented non-VA medications and local prescriptions that have or been discontinued in the past 90 days. With the exception of Allergies, if a category is not listed below, it means there were no relevant medications for the patient. - ( ) /caregiver refused a copy of EMLR ( ) /caregiver refused a copy of EMLR and stated they will maintain their own list ( ) [place]/caregiver was handed a copy of EMLR at todays visit ( X ) /caregiver requests copy of EMLR to be mailed to them at their address (verify address on file) ( ) /caregiver requests copy of EMLR to be sent to them via Secure Messaging (must have [employer] account) Patient declined need for HIV testing/or STD testing/no risk factors per patient ( ) Patient has naloxone kit, ( x ) naloxone kit not indicated The /caregiver verbalized understanding of the topics covered/discussed in today's visit. [place]/caregiver were given the opportunity to ask questions to the MD. RTC: August 30, 2025/follow-up labs Assess Statin Use - Lipids (CVD/DM): The patient is already on a statin. The patients prescription for a statin was reviewed and updated. Screen for Abd Aortic Aneurysm: Order Ultrasound SOL-DM HbA1c not done: Glycohemoglobin (HgbA1c) ordered /es/ LUKE MANCIA STAFF PHYSICIAN/PRIMARY CARE Signed: 09/30/2024 11:58 09/30/2024 ADDENDUM STATUS: COMPLETED SOL-DM HbA1c not done: Glycohemoglobin (HgbA1c) ordered /es/ LUKE MANCIA STAFF PHYSICIAN/PRIMARY CARE Signed: 09/30/2024 11:59 10/03/2024 ADDENDUM STATUS: COMPLETED Specimen Collection Date: Sep 30, 2024@12:04 Test name Result units Ref. range Site Code AMPHETAMINE SCR NEG Ref: Cutoff < 1000 [6033] BARBITURATES SCR NEG Ref: Cutoff < 200 [6033] BENZODIAZEPINES SCR NEG Ref: Cutoff < 200 [6033] COCAINE METABOLITE SCR NEG Ref: Cutoff < 300 [6033] METHADONE SCR NEG Ref: Cutoff < 300 [6033] OPIATES SCR NEG Ref: Cutoff < 300 [6033] OXYCODONE SCR NEG Ref: Cutoff < 200 [6033] TETRAHYDROCANNABINOL SCREEN NEG Ref: Cutoff < 50 [6033] Eval: Drugs of abuse screening is a preliminary Eval: analytical test result. A more specific Eval: alternate chemical method (GC/MS) must be Eval: used in order to obtain a confirmed Eval: analytical result. BUPRENORPHINE SCR IN-HOUSE NEG Ref: Cutoff < 5 [6033] FENTANYL SCREEN IN-HOUSE NEG Ref: Cutoff < 1 [6033] /es/ LUKE MANCIA STAFF PHYSICIAN/PRIMARY CARE Signed: 10/03/2024 10:38 LUKE MANCIA [facility] Sep 30, 2024 10:16 AM ADDENDUM: LOCAL TITLE: Addendum STANDARD TITLE: ADDENDUM DATE OF NOTE: SEP 30, 2024@10:16:57 ENTRY DATE: SEP 30, 2024@10:16:58 AUTHOR: BBEE LAI COSIGNER: URGENCY: STATUS: COMPLETED Manual BP taken in left arm with a large adult cuff, 150/88. Verteran states he did not take his morning meds today. /es/ BEBE LAI STAFF HOPPER OPERATOR Signed: 09/30/2024 10:17 Receipt Acknowledged By: 09/30/2024 10:19 /allie/ LUKE MANCIA STAFF PHYSICIAN/PRIMARY CARE --- Original Document --- 09/30/24 Viblio/ani Note: The patient was given a list of his current medications, instructed to review and discuss any changes or problems with their provider. Patient advised to carry a list of current medications and any allergies with them in the event of emergency situations. Yes - [place]/Caregiver verbalized understanding of topics discussed and education provided COVID-19 Immunization: Vaccine given previously - no written/electronic documentation available Comment: health dept lovely The patient was instructed to bring a copy of their COVID-19 vaccine information to their next appointment so that this can be accurately recorded in their [place] medical record. Influenza Immunization: The patient has received the seasonal influenza vaccine for the current season at another location. Documented: INFLUENZA, UNSPECIFIED FORMULATION Historical Date Administered: Feb 2024 Exact date unknownSeries: Complete Outside Location: Health dept Information Source: FROM PATIENT'S RECALL Eye Care At-Risk Screen : Patient identified to be at risk for the following eye condition(s): DIABETIC RETINOPATHY: Diabetes Diagnosis Information: Encounter Diagnosis: 02/06/2024@08:30 E11.9 (ICD-10-CM) Type 2 Diabetes Mellitus without Complications rank: PRIMARY Prov. Narr. - Type 2 diabetes mellitus without complications MACULAR DEGENERATION: Macular Degeneration Risk Factors Information: Reminder Term: VA-AMD RISK FACTORS Encounter Diagnosis: 01/23/2024@08:21 I25.10 (ICD-10-CM) Atherosclerotic Heart Disease of [place] Coronary Artery without Angina Pectoris rank: SECONDARY Prov. Narr. - Atherosclerotic Heart Disease of [place] Coronary A Action: Referral Ordered: Tele-Eye Screening Learning Readiness Assessment: Preferred language for discussing health care [place] NEW ASSESSMENT LEARNING BARRIERS Hearing Barrier Visual Barrier READING LIMITATIONS No reading limitations PREFERRED METHODS FOR LEARNING Written/Printed Material Verbal Demonstration (Audio/Visual) INTERESTED IN LEARNING (MOTIVATED) Yes, interested in learning what? PERSON BEING EDUCATED TODAY Education was provided on the following topics [facility] Healthy Living Message Handouts provided: Be Physically Active Eat Wisely Strive for a Healthy Weight Get Recommended Screening Tests & Immunizations Be Involved in Your Health Care Be Tobacco Free Limit Alcohol Manage Stress Be Safe RESPONSE Verbalizes Successfully PAVE Foot Check: A complete foot check was completed at this encounter. VISUAL INSPECTION: Includes inspection for skin breaks, deformity, erythema, trauma, pallor on elevation, dependent rubor, nail deformities, extensive callus and pitting edema. Visual exam results: Normal PEDAL PULSES: Includes palpation of dorsalis and posterior tibial pulses and signs/symptoms of vascular compromise like pain, pallor, paresthesia or paralysis. Present (even if diminished) SENSORY CHECK: Includes 10 gram Monofilament ([place]-Dulce) test of sensation. Intact (Greater than or equal to 80% of sites checked) Abnormal (Less than 80% of sites checked): Intact LOW-RISK: LOW RISK INFORMATION PROVIDED: 1. Advised patient not to walk barefoot. 2. Explained the importance of daily foot checks for changes. 3. Stressed the importance of daily foot hygiene, including bathing and complete drying. The patient verbalized understanding and was offered a detailed handout on diabetic foot care. Td/Tdap Immunization: Administered: TDAP Date Administered: Sep 30, 2024 10:00 Series: Booster Cocoa Roaster: SANOFI PASTEUR Lot: [id number] Exp Date: Jul 05, 2026 [facility]: [id number] Admin Route/Site: INTRAMUSCULAR/RIGHT DELTOID Dosage: 0.5mL Vaccine Information Statement(s): TDAP (TETANUS, DIPHTHERIA, PERTUSSIS) VACCINE VIS Jul 05, 2024 (MARTINIQUAIS) Order By: Policy Administered By: Bebe Lai The TETANUS/DIPHTHERIA/PERTUSSI S (TDAP) Vaccine Information Statement (VIS) was reviewed with the patient/caregiver which lists the benefits and risks of the vaccine and the risks of not receiving the Tdap vaccine. The patient/caregiver denied any prior severe reaction to this vaccine or its components or a severe allergic reaction, such as anaphylaxis, to any vaccine or any injectable therapy. The patient/caregiver gave verbal consent to receive the vaccine. RSV Immunization: Defer due to a PRECAUTION Reason: not feeling well today /es/ BEBE LAI STAFF HOPPER OPERATOR Signed: 09/30/2024 10:15 BEBE LAI [facility] Sep 30, 2024 10:02 AM PRIMARY CARE NURSING NOTE: LOCAL TITLE: [facility] Tech/manager infusion Note STANDARD TITLE: PRIMARY CARE NURSING NOTE DATE OF NOTE: SEP 30, 2024@10:02 ENTRY DATE: SEP 30, 2024@10:02:10 AUTHOR: BEBE LAI COSIGNER: URGENCY: STATUS: COMPLETED [facility] Tech/manager infusion Note Has ADDENDA The patient was given a list of his current medications, instructed to review and discuss any changes or problems with their provider. Patient advised to carry a list of current medications and any allergies with them in the event of emergency situations. Yes - [place]/Caregiver verbalized understanding of topics discussed and education provided COVID-19 Immunization: Vaccine given previously - no written/electronic documentation available Comment: health dept lovely The patient was instructed to bring a copy of their COVID-19 vaccine information to their next appointment so that this can be accurately recorded in their [place] medical record. Influenza Immunization: The patient has received the seasonal influenza vaccine for the current season at another location. Documented: INFLUENZA, UNSPECIFIED FORMULATION Historical Date Administered: Feb 2024 Exact date unknownSeries: Complete Outside Location: Health dept Information Source: FROM PATIENT'S RECALL Eye Care At-Risk Screen : Patient identified to be at risk for the following eye condition(s): DIABETIC RETINOPATHY: Diabetes Diagnosis Information: Encounter Diagnosis: 02/06/2024@08:30 E11.9 (ICD-10-CM) Type 2 Diabetes Mellitus without Complications rank: PRIMARY Prov. Narr. - Type 2 diabetes mellitus without complications MACULAR DEGENERATION: Macular Degeneration Risk Factors Information: Reminder Term: VA-AMD RISK FACTORS Encounter Diagnosis: 01/23/2024@08:21 I25.10 (ICD-10-CM) Atherosclerotic Heart Disease of [place] Coronary Artery without Angina Pectoris rank: SECONDARY Prov. Narr. - Atherosclerotic Heart Disease of [place] Coronary A Action: Referral Ordered: Tele-Eye Screening Learning Readiness Assessment: Preferred language for discussing health care [place] NEW ASSESSMENT LEARNING BARRIERS Hearing Barrier Visual Barrier READING LIMITATIONS No reading limitations PREFERRED METHODS FOR LEARNING Written/Printed Material Verbal Demonstration (Audio/Visual) INTERESTED IN LEARNING (MOTIVATED) Yes, interested in learning what? PERSON BEING EDUCATED TODAY Education was provided on the following topics [facility] Healthy Living Message Handouts provided: Be Physically Active Eat Wisely Strive for a Healthy Weight Get Recommended Screening Tests & Immunizations Be Involved in Your Health Care Be Tobacco Free Limit Alcohol Manage Stress Be Safe RESPONSE Verbalizes Successfully PAVE Foot Check: A complete foot check was completed at this encounter. VISUAL INSPECTION: Includes inspection for skin breaks, deformity, erythema, trauma, pallor on elevation, dependent rubor, nail deformities, extensive callus and pitting edema. Visual exam results: Normal PEDAL PULSES: Includes palpation of dorsalis and posterior tibial pulses and signs/symptoms of vascular compromise like pain, pallor, paresthesia or paralysis. Present (even if diminished) SENSORY CHECK: Includes 10 gram Monofilament ([place]-Dulce) test of sensation. Intact (Greater than or equal to 80% of sites checked) Abnormal (Less than 80% of sites checked): Intact LOW-RISK: LOW RISK INFORMATION PROVIDED: 1. Advised patient not to walk barefoot. 2. Explained the importance of daily foot checks for changes. 3. Stressed the importance of daily foot hygiene, including bathing and complete drying. The patient verbalized understanding and was offered a detailed handout on diabetic foot care. Td/Tdap Immunization: Administered: TDAP Date Administered: Sep 30, 2024 10:00 Series: Booster Cocoa Roaster: SANOFI PASTEUR Lot: [id number] Exp Date: Jul 05, 2026 [facility]: [id number] Admin Route/Site: INTRAMUSCULAR/RIGHT DELTOID Dosage: 0.5mL Vaccine Information Statement(s): TDAP (TETANUS, DIPHTHERIA, PERTUSSIS) VACCINE VIS Jul 05, 2024 ([place]ARTIN[place]QUA[place]) Order By: Policy Administered By: Bebe Lai The TETANUS/DIPHTHERIA/PERTUSSI S (TDAP) Vaccine Information Statement (VIS) was reviewed with the patient/caregiver which lists the benefits and risks of the vaccine and the risks of not receiving the Tdap vaccine. The patient/caregiver denied any prior severe reaction to this vaccine or its components or a severe allergic reaction, such as anaphylaxis, to any vaccine or any injectable therapy. The patient/caregiver gave verbal consent to receive the vaccine. RSV Immunization: Defer due to a PRECAUTION Reason: not feeling well today /allie/ BEBE WINKLER LPN Signed: 09/30/2024 10:15 09/30/2024 ADDENDUM STATUS: COMPLETED Manual BP taken in left arm with a large adult cuff, 150/88. Verteran states he did not take his morning meds today. /allie/ BEBE WINKLER LPN Signed: 09/30/2024 10:17 Receipt Acknowledged By: 09/30/2024 10:19 /allie/ LUKE MANCIA STAFF PHYSICIAN/PRIMARY CARE 09/30/2024 ADDENDUM STATUS: COMPLETED [place] in clinic today with runny nose and left ear pain. swabbed as ordered and SOFIA run. Results are negative for all three tests, FLU A and B and COVID. /allie/ BEBE WINKLER LPN Signed: 09/30/2024 11:26 Receipt Acknowledged By: 09/30/2024 11:27 /valentine WINKLER PHYSICIAN/PRIMARY CARE [facility]
--- OUTSIDE RECORDS SUMMARY | 2024-09-30 06:03 | XMS_ITS ---
Author Name [facility] [place] Address [address] [place] [address] Care Team Providers Care Aerosol Line Operator Name Role Phone KRYSTIN HOLLIS Primary [...] PART A Jun 05, 2024 PART A [id number] [place] PATIENT MEDICARE (WNR) MEDICARE (M) PART B Jun 05, 2024 PART B [id number] [place] PATIENT Selected Encounter This section includes the information on record at [place] for the Encounter. Date/Time Encounter Type Encounter Description Reason Pro vider Source Sep 30, 2024 10:03 AM Outpatient Encounter ADMIN PAT ACTIVTIES (MASNONCT) IHE Encounter Template Text not used by PA Plan of Treatment: Future Appointments (+ 6 months) and Future Tests (+/- 45 days) The Plan of Treatment section includes future care activities for the patient [facility] This section includes future appointments and future orders which are active, pending or scheduled. Future Appointments This section includes appointments that were scheduled to occur 6 months from the date of the Encounter, up to a maximum of 20 appointments. The data comes from all [facility]. Appointment Date/Time Appointment Type Appointme nt Facility Name October 09, 2024 10:30 AM AMBULATORY - SURGERY [place] [facility] October 29, 2024 10:15 AM AMBULATORY - NONE [place] [facility] Nov 12, 2024 01:00 PM AMBULATORY - MEDICINE [facility] Nov 15, 2024 09:00 AM AMBULATORY - MEDICINE [facility] Nov 25, 2024 04:00 PM [facility]ATORY - NONE [place] [facility] Nov 28, 2024 09:40 AM [facility] Dec 30, 2024 02:00 PM [facility]ORY - NONE [place] Dec 30, 2024 02:30 PM AMBULATORY - MEDICINE [facility] Jan 22, 2025 03:00 PM AMBULATORY - NONE [place] [facility] Active, Pending, and Scheduled Orders This section includes a listing of several types of active, pending, and scheduled orders, including clinic medications orders, diagnostic test orders, procedure orders and consult orders; where the start date of the order is 45 days before the date of the Encounter or 45 days after the date of theEncounter. The data comes from all [facility]. Test Date/Time Test Type Test Details Facility Name Nov 08, 2024 03:56 PM Consult Order MED CARDIO LOGY OUTPATIENT Cons Printing Bindery Assistant's Choice [facility] Lab Results: +/- 30 days of the encounter This section includes the Chemistry and Hematology Lab Results on record with PA for the patient. Radiology Reports and Pathology Reports are provided separately, in subsequent sections. Lab Results This section contains the Chemistry/Hematology Results that were resulted 30 days before or 30 daysafter the date of the Encounter. Date/Time Source Result Type Result - Unit Interpretation Reference Range Specimen Type Comment October 29, 2024 10:22 AM [facility] N PANEL 1 PLASMA Specimen Type: PLASMA [...] Sep 30, 2024 11:03 AM Reporting Lab: [address] [address] Performing Lab: [id number] [address] CREATININE 0.90 mg/dL 0.72-1.25 UREA NITROGEN 11 mg/dL 9-25 GLUCOSE 180 mg/dL H 74-100 SODIUM 144 mmol/L 136-145 POTASSIUM 4.5 mmol/L 3.5-5.1 CHLORIDE 105 mmol/L 98-107 CO2 26 mmol/L 22-29 CALCIUM 9.6 mg/dL 8.4-10.2 ANION GAP 13 meq/L 3-19 eGFR (CKD-EPI) >90 Sep 30, 2024 12:04 PM [facility] DRUG SCREEN EXPANDED IN-HOUSE URINE Specimen Type: [...] Sep 30, 2024 11:05 AM Reporting Lab: [address] [address] Performing Lab: [address] [address] TETRAHYDROCANNABINOL SCREEN NEG Cuto ff < 50 [...] < 1 Sep 30, 2024 12:04 PM [facility] PSA S JEFF Specimen Type: SERUM No comment entered. Ordering Provider: LUKE MANCIA Report Released Date/Time: Sep 30, 2024 11:03 AM Reporting Lab: [address] [address] Performing Lab: [address] [address] PSA 0.561 ng/mL 0-3.999 Sep 30, 2024 12:04 PM [facility] MICROALBUMIN/CREAT RATIO URINE Specimen Type: URINE No comment entered. Ordering Provider: LUKE MANCIA Report Released Date/Time: Sep 30, 2024 11:03 AM Reporting Lab: [address] [address] Performing Lab: [address] [address] CREATININE 189.9 mg/dL MICROALBUMIN QUANT 60.2 mg/L H 0.0-30.0 .MICROALBUMIN/CREA RATIO 31.7 ug/mg{creat} Sep 30, 2024 12:04 PM [facility] PANEL 2 PLASMA Specimen Type: PLASM A [...] Sep 30, 2024 11:03 AM Reporting Lab: [address] [address] Performing Lab: [address] [address] TOTAL PROTEIN 7.7 g/dL 6.4-8.3 ALBUMIN 4.1 g/dL 3.5-5.2 TOTAL BILIRUBIN 0.4 mg/dL 0.2-1.2 AST 21 U/L 5-34 ALT 19 U/L 0-55 ALK PHOS 78 U/L 40-150 BILIRUBIN-DIRECT 0.2 mg/dL 0.0-0.5 Sep 30, 2024 12:04 PM [facility] GLYCOHEMOGLOBIN BLOOD Specimen Type: BLOOD Comment: Prediabetes: 5.7%-6.4% Diabetes: >= 6.5% [facility] guidelines for A1c interpretation: Glycemic control targets are based on Shared Decision Making between clinicians and patients. Criteria used to establish an A1c target recommendation can be found at https://www.fl.gov/qualityandpatientsafety/ and include the use of result accuracy [...] 8.73 and 9.27. Ref: https://ngsp.org/CAPdata.asp. The in-house FreeAgent D-100 analyzer has a historical CV <= 2%. Contact the laboratory for further performance characteristics of this assay. Ordering Provider: LUKE MANCIA Report Released Date/Time: Sep 30, 2024 11:03 AM Reporting Lab: [address] [address] Performing Lab: [address] [address] GLYCOHEMOGLOBIN 7.8 H 4.4-5.6 Sep 30, 2024 12:04 PM [facility] 25-OH VITAMIN D SERUM Specime n Type: [...] Sep 30, 2024 11:03 AM Reporting Lab: [address] [address] Performing Lab: [address] [address] 25-OH VITAMIN D 53.7 ng/mL H 20.0-50.0 Sep 30, 2024 12:04 PM [facility] LIPID PROFILE PLASMA Specimen Type: PLASM A [...] Sep 30, 2024 11:03 AM Reporting Lab: [address] [address] Performing Lab: [address] [address] CHOLESTEROL 201 mg/dL H 0-199 TRIGLYCERIDE 166 mg/dL H 0-149 HDL CHOLESTEROL 51 mg/dL 40-69 DIRECT LDL CHOL. 139 mg/dL H 0-100 Sep 30, 2024 12:04 PM [facility] B12 VITAMIN PLASMA Specimen Type: PLASM A [...] Sep 30, 2024 11:03 AM Reporting Lab: [address] [address] Performing Lab: [address] [address] B12 VITAMIN 295 pg/mL 213-816 Sep 30, 2024 12:04 PM [facility] CBC/PLT BLOOD Specimen Type: BLOOD No comment entered. Ordering Provider: LUKE MANCIA Report Released Date/Time: Sep 30, 2024 11:03 AM Reporting Lab: [address] [address] Performing Lab: [address] [address] WBC 7.8 10*3/uL 5.0-10.0 RBC 4.65 10*6/uL 4.6-6.2 HGB 14.3 g/dL 14.0-18.0 HCT 43.8 42.0-52.0 MCV 94.2 fL H 80.0-94.0 MCH 30.8 pg 27.0-31.0 MCHC 32.6 g/dL 32.0-36.0 PLT 280 10*3/uL 150-450 MPV 9.6 fL 9.0-13.1 RDW 13.0 11.0-16.0 NRBC 0.0 0.0-0.0 Sep 30, 2024 12:04 PM [facility] THYROID PROFILE PLASMA Specimen Type: PLASM A [...] Sep 30, 2024 11:05 AM Reporting Lab: [address] [address] Performing Lab: [address] [address] TSH 1.1217 m[IU]/mL 0.3500-4.9400 FREE T4 1.03 ng/mL 0.70-1.48 Sep 30, 2024 12:04 PM [facility] PANEL 1 PLASMA Specimen Type: PLASM A [...] Sep 30, 2024 11:03 AM Reporting Lab: [address] [address] Performing Lab: [address] [address] CREATININE 0.91 mg/dL 0.72-1.25 UREA NITROGEN 7 mg/dL L 9-25 GLUCOSE 181 mg/dL H 74-100 SODIUM 144 mmol/L 136-145 POTASSIUM 3.8 mmol/L 3.5-5.1 CHLORIDE 102 mmol/L 98-107 CO2 30 mmol/L H 22-29 CALCIUM 9.5 mg/dL 8.4-10.2 ANION GAP 12 meq/L 3-19 eGFR (CKD-EPI) >90 Sep 30, 2024 10:46 AM [facility] COVID-19 & FLU DIAGNOSTIC PANEL (SOFIA) NASOPHARYNX Specimen Type: NASOPHARYNX Comment: Test performed by: [id number] Meter #: [id number] Ordering Provider: LUKE MANCIA Report Released Date/Time: Sep 30, 2024 11:28 AM Reporting Lab: [address] [address] Performing Lab: [address] [address] COVID-19 (SOFIA) Not Detected Not Detecte d POC INFLUENZA A Not Detected Not Detecte d POC INFLUENZA B Not Detected Not Detecte d Advance Directives: All historical and current Section Date Range: From patient's date of to the date document was created. This section includes ALL of a patient's completed or amended PA Advance and Rescinded Directives. The entries below indicate that a directive exists for the patient, but an actual copy is not included with this document. The data comes from all [place] facilities. Date Advance Directives Provider Source Apr [...] the Encounter. The data comes from all [place] treatment facilities. Date/Time Radiology Report Provider Source October 09, 2024 10:23 AM [facility] -U/S SCREEN (INITIAL): ZENON BOND [id number] -[id number] M Exm Date: OCTOBER 09, 2024@10:23 Req Phys: LUKE MANCIA Pat Loc: [facility] PACT [facility]AP[facility] 16-2 (Req'g Loc) Img Loc: [facility] Service: Unknown (Case [id number] COMPLETE) AORTA -U/S SCREEN (INITIAL) (VAS Detailed) CPT:32033 Reason for Study: SEE CLINICAL HISTORY Clinical History: Screening aorta duplex, asymptomatic Report Status: Verified Date Reported: OCTOBER 10, 2024 Date Verified: OCTOBER 10, 2024 Delivery Driver E-Sig: Report: Duplex examination of the abdominal aorta. Findings: The suprarenal aorta measures 2.4 cm in diameter, and the infrarenal aorta 2.2 cm in diameter. The right and left common iliac arteries measure 1.1 and 1.4 cm in diameter. Impression: Study is negative for abdominal aortic aneurysm. Primary Diagnostic Code: NO ALERT REQUIRED Primary Interpreting Staff: LISA OTOOLE, ATTENDING PHYSICIAN Verified by chimney builder helper for LISA OTOOLE /LISA PORTER [facility] Encounter Notes: All associated encounter notes This section contains the clinical notes associated to the Encounter. Date/Time Encounter Note(s) Provider Source Sep 30, 2024 10:03 AM ADMINISTRATIVE NOT E: LOCAL TITLE: HEALTH BENEFITS ADMINISTRATIVE NOTE STANDARD TITLE: ADMINISTRATIVE NOTE DATE OF NOTE: SEP 30, 2024@10:03 ENTRY DATE: SEP 30, 2024@10:03:25 AUTHOR: ALAINA SOLOMON I EXP COSIGNER: URGENCY: STATUS: COMPLETED Eligible for enrollment: Yes has been enrolled and assigned to priority group 1 HBA enrolled Sep PER HAS EMAIL GROUP: Please change home and cell phone number to: /es/ ALAINA SOLOMON III Signed: 09/30/2024 10:04 [facility]
--- OUTSIDE RECORDS SUMMARY | 2024-09-30 07:32 | XMS_ITS ---
Author Name [facility] [place] [facility] [place] Organization [facility] [facility] [place] Address [address] [place] [address] Care Team Providers Care Division Leader Name Role Phone KRYSTIN HOLLIS Primary Care [...] PART B Jun 05, 2024 PART B [id number] BLAIR BOND PATIENT MEDICARE (WNR) MEDICARE (M) PART A Jun 05, 2024 PART A [id number] BLAIR BOND PATIENT Selected Encounter This section includes the information on record at [place] for the Encounter. Date/Time Encounter Type Encounter Description Reason Pro vider Source Sep 30, 2024 11:32 AM Outpatient Encounter ADMIN PAT ACTIVTIES (MASNONCT) IHE Encounter Template Text not used by [place] Plan of Treatment: Future Appointments (+ 6 months) and Future Tests (+/- 45 days) The Plan of Treatment section includes future care activities for the patient from [facility] [place] [facility] This section includes future appointments and future orders which are active, pending or scheduled. Future Appointments This section includes appointments that were scheduled to occur 6 months from the date of the Encounter, up to a maximum of 20 appointments. The data comes from all [facility]. Appointment Date/Time Appointment Type Appointme nt Facility Name October 09, 2024 10:30 AM AMBULATORY - SURGERY [facility] October 29, 2024 10:15 AM [facility] - NONE [place] [facility] Nov 12, 2024 01:00 PM AMBULATORY - MEDICINE [facility] Nov 15, 2024 09:00 AM AMBULATORY - MEDICINE [facility] Nov 25, 2024 04:00 PM [facility]ONE [facility] [facility] Nov 28, 2024 09:40 AM [facility] Dec 30, 2024 02:00 PM [facility] [place] [facility] Dec 30, 2024 02:30 PM AM[facility]ULATORY - MEDICINE [facility] Jan 22, 2025 03:00 PM [facility]ORY - NONE [place] [facility] Active, Pending, and Scheduled Orders This section includes a listing of several types of active, pending, and scheduled orders, including clinic medications orders, diagnostic test orders, procedure orders and consult orders; where the start date of the order is 45 days before the date of the Encounter or 45 days after the date of theEncounter. The data comes from all [facility]. Test Date/Time Test Type Test Details Facility Name Nov 08, 2024 03:56 PM Consult Order MED CARDIO LOGY OUTPATIENT Cons Elementary Vocal Music Teacher's Choice [facility] Lab Results: +/- 30 days of the encounter This section includes the Chemistry and Hematology Lab Results on record with [place] for the patient. Radiology Reports and Pathology Reports are provided separately, in subsequent sections. Lab Results This section contains the Chemistry/Hematology Results that were resulted 30 days before or 30 daysafter the date of the Encounter. Date/Time Source Result Type Result - Unit Interpretation Reference Range Specimen Type Comment October 29, 2024 10:22 AM [facility] PANEL 1 PLASMA Specimen Type: PLASMA [...] Sep 30, 2024 11:03 AM Reporting Lab: [address] [address] Performing Lab: [id number] [address] CREATININE 0.90 mg/dL 0.72-1.25 UREA NITROGEN 11 mg/dL 9-25 GLUCOSE 180 mg/dL H 74-100 SODIUM 144 mmol/L 136-145 POTASSIUM 4.5 mmol/L 3.5-5.1 CHLORIDE 105 mmol/L 98-107 CO2 26 mmol/L 22-29 CALCIUM 9.6 mg/dL 8.4-10.2 ANION GAP 13 meq/L 3-19 eGFR (CKD-EPI) >90 Sep 30, 2024 12:04 PM [facility] DRUG SCREEN EXPANDED IN-HOUSE URINE Specimen Type: [...] Sep 30, 2024 11:05 AM Reporting Lab: [address] [address] Performing Lab: [address] [address] TETRAHYDROCANNABINOL SCREEN NEG Cuto ff < 50 [...] < 1 Sep 30, 2024 12:04 PM [facility] PSA S JEFF Specimen Type: SERUM No comment entered. Ordering Provider: LUKE MANCIA Report Released Date/Time: Sep 30, 2024 11:03 AM Reporting Lab: [address] [address] Performing Lab: [address] [address] PSA 0.561 ng/mL 0-3.999 Sep 30, 2024 12:04 PM [facility] MICROALBUMIN/CREAT RATIO URINE Specimen Type: URINE No comment entered. Ordering Provider: LUKE MANCIA Report Released Date/Time: Sep 30, 2024 11:03 AM Reporting Lab: [address] [address] Performing Lab: [address] [address] CREATININE 189.9 mg/dL MICROALBUMIN QUANT 60.2 mg/L H 0.0-30.0 .MICROALBUMIN/CREA RATIO 31.7 ug/mg{creat} Sep 30, 2024 12:04 PM [facility] PANEL 2 PLASMA Specimen Type: PLASM A [...] Sep 30, 2024 11:03 AM Reporting Lab: [address] [address] Performing Lab: [address] [address] TOTAL PROTEIN 7.7 g/dL 6.4-8.3 ALBUMIN 4.1 g/dL 3.5-5.2 TOTAL BILIRUBIN 0.4 mg/dL 0.2-1.2 AST 21 U/L 5-34 ALT 19 U/L 0-55 ALK PHOS 78 U/L 40-150 BILIRUBIN-DIRECT 0.2 mg/dL 0.0-0.5 Sep 30, 2024 12:04 PM [facility] GLYCOHEMOGLOBIN BLOOD Specimen Type: BLOOD Comment: Prediabetes: 5.7%-6.4% Diabetes: >= 6.5% [facility] guidelines for A1c interpretation: Glycemic control targets are based on Shared Decision Making between clinicians and patients. Criteria used to establish an A1c target recommendation can be found at https://www.[place].gov/qualityandpatientsafety/ and include the use of result accuracy [...] 8.73 and 9.27. Ref: https://ngsp.org/CAPdata.asp. The in-house [employer] D-100 analyzer has a historical CV <= 2%. Contact the laboratory for further performance characteristics of this assay. Ordering Provider: LUKE MANCIA Report Released Date/Time: Sep 30, 2024 11:03 AM Reporting Lab: [address] [address] Performing Lab: [address] [address] GLYCOHEMOGLOBIN 7.8 H 4.4-5.6 Sep 30, 2024 12:04 PM [facility] 25-OH VITAMIN D SERUM Specime n [...] Sep 30, 2024 11:03 AM Reporting Lab: [address] [address] Performing Lab: [address] [address] 25-OH VITAMIN D 53.7 ng/mL H 20.0-50.0 Sep 30, 2024 12:04 PM [facility] LIPID PROFILE PLASMA Specimen Type: PLASM [...] Sep 30, 2024 11:03 AM Reporting Lab: [address] [address] Performing Lab: [address] [address] CHOLESTEROL 201 mg/dL H 0-199 TRIGLYCERIDE 166 mg/dL H 0-149 HDL CHOLESTEROL 51 mg/dL 40-69 DIRECT LDL CHOL. 139 mg/dL H 0-100 Sep 30, 2024 12:04 PM [facility] B12 VITAMIN PLASMA Specimen Type: PLASM [...] Sep 30, 2024 11:03 AM Reporting Lab: [address] [address] Performing Lab: [address] [address] B12 VITAMIN 295 pg/mL 213-816 Sep 30, 2024 12:04 PM [facility] CBC/PLT BLOOD Specimen Type: BLOOD No comment entered. Ordering Provider: LUKE MANCIA Report Released Date/Time: Sep 30, 2024 11:03 AM Reporting Lab: [address] [address] Performing Lab: [address] [address] WBC 7.8 10*3/uL 5.0-10.0 RBC 4.65 10*6/uL 4.6-6.2 HGB 14.3 g/dL 14.0-18.0 HCT 43.8 42.0-52.0 MCV 94.2 fL H 80.0-94.0 MCH 30.8 pg 27.0-31.0 MCHC 32.6 g/dL 32.0-36.0 PLT 280 10*3/uL 150-450 MPV 9.6 fL 9.0-13.1 RDW 13.0 11.0-16.0 NRBC 0.0 0.0-0.0 Sep 30, 2024 12:04 PM [facility] THYROID PROFILE PLASMA Specimen Type: PLASM A [...] Sep 30, 2024 11:05 AM Reporting Lab: [address] [address] Performing Lab: [address] [address] TSH 1.1217 m[IU]/mL 0.3500-4.9400 FREE T4 1.03 ng/mL 0.70-1.48 Sep 30, 2024 12:04 PM [facility] PANEL 1 PLASMA Specimen Type: PLASM A [...] Sep 30, 2024 11:03 AM Reporting Lab: [address] [address] Performing Lab: [address] [address] CREATININE 0.91 mg/dL 0.72-1.25 UREA NITROGEN 7 mg/dL L 9-25 GLUCOSE 181 mg/dL H 74-100 SODIUM 144 mmol/L 136-145 POTASSIUM 3.8 mmol/L 3.5-5.1 CHLORIDE 102 mmol/L 98-107 CO2 30 mmol/L H 22-29 CALCIUM 9.5 mg/dL 8.4-10.2 ANION GAP 12 meq/L 3-19 eGFR (CKD-EPI) >90 Sep 30, 2024 10:46 AM [facility] COVID-19 & FLU DIAGNOSTIC PANEL (SOFIA) NASOPHARYNX Specimen Type: NASOPHARYNX Comment: Test performed by: [id number] Meter #: [id number] Ordering Provider: LUKE MANCIA Report Released Date/Time: Sep 30, 2024 11:28 AM Reporting Lab: [address] [address] Performing Lab: [address] [address] COVID-19 (SOFIA) Not Detected Not Detecte d POC INFLUENZA A Not Detected Not Detecte d POC INFLUENZA B Not Detected Not Detecte d Advance Directives: All historical and current Section Date Range: From patient's date of to the date document was created. This section includes ALL of a patient's completed or amended [place] Advance and Rescinded Directives. The entries below indicate that a directive exists for the patient, but an actual copy is not included with this document. The data comes from all [place] facilities. Date Advance Directives Provider Source Apr [...] the Encounter. The data comes from all [place] treatment facilities. Date/Time Radiology Report Provider Source October 09, 2024 10:23 AM AORTA -U/S SCREEN (INITIAL): ZENON BOND [id number] -1960 M Exm Date: OCTOBER 09, 2024@10:23 Req Phys: LUKE MANCIA Pat Loc: [facility]CT [facility] 16-2 (Req'g Loc) Img Loc: SOL VAS LAB [facility] Service: Unknown (Case [id number] COMPLETE) AORTA -U/S SCREEN (INITIAL) (VAS Detailed) CPT:70076 Reason for Study: SEE CLINICAL HISTORY Clinical History: Screening aorta duplex, asymptomatic Report Status: Verified Date Reported: OCTOBER 10, 2024 Date Verified: OCTOBER 10, 2024 Label Folder E-Sig: Report: Duplex examination of the abdominal aorta. Findings: The suprarenal aorta measures 2.4 cm in diameter, and the infrarenal aorta 2.2 cm in diameter. The right and left common iliac arteries measure 1.1 and 1.4 cm in diameter. Impression: Study is negative for abdominal aortic aneurysm. Primary Diagnostic Code: NO ALERT REQUIRED Primary Interpreting Staff: LISA OTOOLE, ATTENDING PHYSICIAN Verified by chief substation operator for LISA OTOOLE /[facility] Encounter Notes: All associated encounter notes This section contains the clinical notes associated to the Encounter. Date/Time Encounter Note(s) Provider Source Sep 30, 2024 11:32 AM PRIMARY CARE ADMIN ISTRATIVE NOTE: LOCAL TITLE: PC ADMINISTRATIVE NOTE STANDARD TITLE: PRIMARY CARE ADMINISTRATIVE NOTE DATE OF NOTE: SEP 30, 2024@11:32 ENTRY DATE: SEP 30, 2024@11:32:30 AUTHOR: CANDIDO PIEDRA EXP COSIGNER: URGENCY: STATUS: COMPLETED Scheduled for TUESDAY OCTOBER 29, 2024 10:15 AM [facility] Clinic: [facility] MAINTENANCE MECHANIC TELEPHONE PAPA 16-2 BP CHECK PER NOTE IN RTC 09/30/24 on PDD/T /es/ CANDIDO Rose. TADEO Signed: 09/30/2024 11:32 [facility]
--- OUTSIDE RECORDS SUMMARY | 2024-10-15 07:01 | XMS_ITS ---
Author Name [facility] [place] Organization [facility] [place] [facility] [place] Address [address] [place] [address] Care Team Providers Care Magnetic Tape Winder Name Role Phone KRYSTIN HOLLIS Primary Care [...] PART A Jun 05, 2024 PART A [id number] BLAIR BOND PATIENT MEDICARE (WNR) MEDICARE (M) PART B Jun 05, 2024 PART B [id number] BLAIR BOND PATIENT Selected Encounter This section includes the information on record at [place] for the Encounter. Date/Time Encounter Type Encounter Description Reason Pro vider Source October 15, 2024 11:01 AM Outpatient Encounter ADMIN PAT ACTIVTIES (MASNONCT) IHE Encounter Template Text not used by [place] Plan of Treatment: Future Appointments (+ 6 months) and Future Tests (+/- 45 days) The Plan of Treatment section includes future care activities for the patient [facility] [place] [facility] This section includes future appointments and future orders which are active, pending or scheduled. Future Appointments This section includes appointments that were scheduled to occur 6 months from the date of the Encounter, up to a maximum of 20 appointments. The data comes from all [facility]. Appointment Date/Time Appointment Type Appointme nt Facility Name October 29, 2024 10:15 AM [facility]ORY - NONE [place] [facility] Nov 12, 2024 01:00 PM [facility]ATORY - MEDICINE [facility] Nov 15, 2024 09:00 AM AMBULATORY - MEDICINE [facility] Nov 25, 2024 04:00 PM [facility]ONE [place] [facility] Nov 28, 2024 09:40 AM AMBULATORY - MEDICINE [facility] Dec 30, 2024 02:00 PM [facility] - [facility]ONE [place] [facility] Dec 30, 2024 02:30 PM AMBULATORY - MEDICINE [facility] Jan 22, 2025 03:00 PM AMBULATORY - NONE [facility] Active, Pending, and Scheduled Orders This section includes a listing of several types of active, pending, and scheduled orders, including clinic medications orders, diagnostic test orders, procedure orders and consult orders; where the start date of the order is 45 days before the date of the Encounter or 45 days after the date of theEncounter. The data comes from all [facility]. Test Date/Time Test Type Test Details Facility Name Nov 08, 2024 03:56 PM Consult Order MED CARDIO LOGY OUTPATIENT Cons Vehicle Refinisher's Choice [facility] Nov 15, 2024 09:16 AM Procedure Order CP PATCH H OLTER OUTPATIENT CP PATCH HOLTER Proc Vehicle Refinisher's Choice [facility] Lab Results: +/- 30 days of [...] Comment October 29, 2024 10:22 AM [facility] PANEL 1 PLASMA Specimen Type: PLASMA Comment: [...] Sep 30, 2024 11:03 AM Reporting Lab: [place] [facility] [address] [facility] [address] Performing Lab: [address] [address] CREATININE 0.90 mg/dL 0.72-1.25 UREA NITROGEN 11 mg/dL 9-25 GLUCOSE 180 mg/dL H 74-100 SODIUM 144 mmol/L 136-145 POTASSIUM 4.5 mmol/L 3.5-5.1 CHLORIDE 105 mmol/L 98-107 CO2 26 mmol/L 22-29 CALCIUM 9.6 mg/dL 8.4-10.2 ANION GAP 13 meq/L 3-19 eGFR (CKD-EPI) >90 Sep 30, 2024 12:04 PM [facility] DRUG SCREEN EXPANDED IN-HOUSE URINE Specimen [...] Sep 30, 2024 11:05 AM Reporting Lab: [address] [address] Performing Lab: [address] [address] TETRAHYDROCANNABINOL SCREEN NEG Cuto ff < 50 [...] < 1 Sep 30, 2024 12:04 PM [facility] PSA S JEFF Specimen Type: SERUM No comment entered. Ordering Provider: LUKE MANCIA Report Released Date/Time: Sep 30, 2024 11:03 AM Reporting Lab: [address] [address] Performing Lab: [address] [address] PSA 0.561 ng/mL 0-3.999 Sep 30, 2024 12:04 PM [facility] MICROALBUMIN/CREAT RATIO URINE Specimen Type: URINE No comment entered. Ordering Provider: LUKE MANCIA Report Released Date/Time: Sep 30, 2024 11:03 AM Reporting Lab: [address] [address] Performing Lab: [address] [address] CREATININE 189.9 mg/dL MICROALBUMIN QUANT 60.2 mg/L H 0.0-30.0 .MICROALBUMIN/CREA RATIO 31.7 ug/mg{creat} Sep 30, 2024 12:04 PM [facility] PANEL 2 PLASMA Specimen Type: PLASM [...] Sep 30, 2024 11:03 AM Reporting Lab: [address] [address] Performing Lab: [address] [address] TOTAL PROTEIN 7.7 g/dL 6.4-8.3 ALBUMIN 4.1 g/dL 3.5-5.2 TOTAL BILIRUBIN 0.4 mg/dL 0.2-1.2 AST 21 U/L 5-34 ALT 19 U/L 0-55 ALK PHOS 78 U/L 40-150 BILIRUBIN-DIRECT 0.2 mg/dL 0.0-0.5 Sep 30, 2024 12:04 PM [facility] GLYCOHEMOGLOBIN BLOOD Specimen Type: BLOOD Comment: Prediabetes: 5.7%-6.4% Diabetes: >= 6.5% [facility] guidelines for A1c interpretation: Glycemic control [...] 8.73 and 9.27. Ref: https://ngsp.org/CAPdata.asp. The in-house [employer] D-100 analyzer has a historical CV <= 2%. Contact the laboratory for further performance characteristics of this assay. Ordering Provider: LUKE MANCIA Report Released Date/Time: Sep 30, 2024 11:03 AM Reporting Lab: [address] [address] Performing Lab: [address] [address] GLYCOHEMOGLOBIN 7.8 H 4.4-5.6 Sep 30, 2024 12:04 PM [facility] 25-OH VITAMIN D SERUM Specime n [...] Sep 30, 2024 11:03 AM Reporting Lab: [address] [address] Performing Lab: [address] [address] 25-OH VITAMIN D 53.7 ng/mL H 20.0-50.0 Sep 30, 2024 12:04 PM [facility] LIPID PROFILE PLASMA Specimen Type: PLASM [...] Sep 30, 2024 11:03 AM Reporting Lab: [address] [address] Performing Lab: [address] [address] CHOLESTEROL 201 mg/dL H 0-199 TRIGLYCERIDE 166 mg/dL H 0-149 HDL CHOLESTEROL 51 mg/dL 40-69 DIRECT LDL CHOL. 139 mg/dL H 0-100 Sep 30, 2024 12:04 PM [facility] B12 VITAMIN PLASMA Specimen Type: PLASM [...] Sep 30, 2024 11:03 AM Reporting Lab: [address] [address] Performing Lab: [address] [address] B12 VITAMIN 295 pg/mL 213-816 Sep 30, 2024 12:04 PM [facility] CBC/PLT BLOOD Specimen Type: BLOOD No comment entered. Ordering Provider: LUKE MANCIA Report Released Date/Time: Sep 30, 2024 11:03 AM Reporting Lab: [address] [address] Performing Lab: [address] [address] WBC 7.8 10*3/uL 5.0-10.0 RBC 4.65 10*6/uL 4.6-6.2 HGB 14.3 g/dL 14.0-18.0 HCT 43.8 42.0-52.0 MCV 94.2 fL H 80.0-94.0 MCH 30.8 pg 27.0-31.0 MCHC 32.6 g/dL 32.0-36.0 PLT 280 10*3/uL 150-450 MPV 9.6 fL 9.0-13.1 RDW 13.0 11.0-16.0 NRBC 0.0 0.0-0.0 Sep 30, 2024 12:04 PM [facility] THYROID PROFILE PLASMA Specimen Type: PLASM [...] Sep 30, 2024 11:05 AM Reporting Lab: [address] [address] Performing Lab: [address] [address] TSH 1.1217 m[IU]/mL 0.3500-4.9400 FREE T4 1.03 ng/mL 0.70-1.48 Sep 30, 2024 12:04 [facility] Specimen Type: PLASM A [...] Sep 30, 2024 11:03 AM Reporting Lab: [address] [address] Performing Lab: [address] [address] CREATININE 0.91 mg/dL 0.72-1.25 UREA NITROGEN 7 mg/dL L 9-25 GLUCOSE 181 mg/dL H 74-100 SODIUM 144 mmol/L 136-145 POTASSIUM 3.8 mmol/L 3.5-5.1 CHLORIDE 102 mmol/L 98-107 CO2 30 mmol/L H 22-29 CALCIUM 9.5 mg/dL 8.4-10.2 ANION GAP 12 meq/L 3-19 eGFR (CKD-EPI) >90 Sep 30, 2024 10:46 AM [facility] COVID-19 & FLU DIAGNOSTIC PANEL (SOFIA) NASOPHARYNX Specimen Type: NASOPHARYNX Comment: Test performed by: [id number] Meter #: [id number] Ordering Provider: LUKE MANCIA Report Released Date/Time: Sep 30, 2024 11:28 AM Reporting Lab: [address] [address] Performing Lab: [address] [address] COVID-19 (SOFIA) Not Detected Not Detecte d [...] 25, 2019 ADVANCE DIRECTIVE DISCUSSION ERVIN T[facility] Radiology Reports: +/- 30 days [...] AM AORTA -U/S SCREEN (INITIAL): ZENON BOND Brandy [id number] -1960 M Ex Date: OCTOBER 09, 2024@10:23 Req Phys: LUKE MANCIA Pat Loc: [facility] PACT [facility] 16-2 (Req'g Loc) Img Loc: SOL VAS LAB [facility] Service: Unknown (Case [id number] COMPLETE) AORTA -U/S SCREEN (INITIAL) (VAS Detailed) CPT:56540 Reason for Study: SEE CLINICAL HISTORY Clinical History: Screening aorta duplex, asymptomatic Report Status: Verified Date Reported: OCTOBER 10, 2024 Date Verified: OCTOBER 10, 2024 Ext Js Developer E-Sig: Report: Duplex examination of the abdominal aorta. Findings: The suprarenal aorta measures 2.4 cm in diameter, and the infrarenal aorta 2.2 cm in diameter. The right and left common iliac arteries measure 1.1 and 1.4 cm in diameter. Impression: Study is negative for abdominal aortic aneurysm. Primary Diagnostic Code: NO ALERT REQUIRED Primary Interpreting Staff: LISA OTOOLE, ATTENDING PHYSICIAN Verified by final finisher forging dies for LISA OTOOLE /[facility] Encounter Notes: All associated encounter notes This section contains the clinical notes associated to the Encounter. Date/Time Encounter Note(s) Provider Source October 09, 2024 11:01 AM SCANNED NOTE: LOCAL TITLE: [facility] CUI RESEARCH CONSENT NOTE STANDARD TITLE: SCANNED NOTE DATE OF NOTE: OCTOBER 09, 2024@11:01 ENTRY DATE: OCTOBER 15, 2024@11:01:22 AUTHOR: INDY ZHENG EXP COSIGNER: URGENCY: STATUS: COMPLETED The scanned image may be viewed in [employer]. /allie/ INDY ZHENG INSTRUMENT SETTER Signed: 10/15/2024 11:01 INDY ZHENG-Taryn [facility]
--- OUTSIDE RECORDS SUMMARY | 2024-10-29 06:15 | XMS_ITS | Encounter Summary ---
Author Name [facility] [place] [facility] [place] Address [address] [place] [address] Care Team Providers Care Senior Pastor Name Role Phone KRYSTIN HOLLIS Primary Care [...] PART A Jun 05, 2024 PART A [id number] [place] PATIENT MEDICARE (WNR) MEDICARE (M) PART B Jun 05, 2024 PART B [id number] BLA[place] BOND PATIENT Selected Encounter This section includes the information on record at [place] for the Encounter. Date/Time Encounter Type Encounter Description Reason Provider Source October 29, 2024 10:15 AM OFF/OP EST OCTOBER X REQ PHY/QHP PRIMARY CARE/MEDICINE ICD-10-CM I10 Essential (primary) hypertension MARANDA BABIN IHE Encounter Template Text not used by [place] Assessments - Encounter Diagnoses This section includes the primary and secondary diagnoses documented for the Encounter. Date/Time Primary/Secondary Diagnosis Diagnosis Name Provider Source October 29, 2024 10:21 AM PRIMARY Essential (primary) hypertension MARANDA BABIN [facility] Plan of Treatment: Future Appointments (+ 6 months) and Future Tests (+/- 45 days) The Plan of Treatment section includes future care activities for the patient from all [place] [facility] This section includes future appointments and future orders which are active, pending or scheduled. Future Appointments This section includes appointments that were scheduled to occur 6 months from the date of the Encounter, up to a maximum of 20 appointments. The data comes from all [facility]. Appointment Date/Time Appointment Type Appointme nt Facility Name Nov 12, 2024 01:00 PM [facility] Nov 15, 2024 09:00 AM [facility] Nov 25, 2024 04:00 PM [facility] NONE [place] [facility] Nov 28, 2024 09:40 AM [facility] Dec 30, 2024 02:00 PM [facility] - NONE [place] Dec 30, 2024 02:30 PM [facility] - [facility] Jan 22, 2025 03:00 PM AM[facility]ORY - NONE [place] [facility] Active, Pending, and Scheduled Orders [...] Consult Order MED CARDIO LOGY OUTPATIENT Cons Resident Care Manager's Choice [facility] Nov 15, 2024 09:16 AM Procedure Order CP PATCH H OLTER OUTPATIENT CP PATCH HOLTER Proc Resident Care Manager's Choice [facility] Lab Results: +/- 30 days of the encounter This section includes the Chemistry and Hematology Lab Results on record with [place] for the patient. Radiology Reports and Pathology Reports are provided separately, in subsequent sections. Lab Results This section contains the Chemistry/Hematology Results that were resulted 30 days before or 30 daysafter the date of the Encounter. Date/Time Source Result Type Result - Unit Interpretation Reference Range Specimen Type Comment October 29, 2024 10:22 AM MARIA LUZ [facility] N PANEL 1 PLASMA Specimen Type: [...] Sep 30, 2024 11:03 AM Reporting Lab: [address] [address] Performing Lab: [address] [address] CREATININE 0.90 mg/dL 0.72-1.25 UREA NITROGEN 11 mg/dL 9-25 GLUCOSE 180 mg/dL H 74-100 SODIUM 144 mmol/L 136-145 POTASSIUM 4.5 mmol/L 3.5-5.1 CHLORIDE 105 mmol/L 98-107 CO2 26 mmol/L 22-29 CALCIUM 9.6 mg/dL 8.4-10.2 ANION GAP 13 meq/L 3-19 eGFR (CKD-EPI) >90 Sep 30, 2024 12:04 PM [facility] DRUG SCREEN EXPANDED IN-HOUSE URINE [...] Sep 30, 2024 11:05 AM Reporting Lab: [address] [address] Performing Lab: [address] [address] TETRAHYDROCANNABINOL SCREEN NEG Cuto ff < 50 [...] < 1 Sep 30, 2024 12:04 PM [facility] PSA S JEFF Specimen Type: SERUM No comment entered. Ordering Provider: LUKE MANCIA Report Released Date/Time: Sep 30, 2024 11:03 AM Reporting Lab: [place] [id number] Performing Lab: [place] [id number] PSA 0.561 ng/mL 0-3.999 Sep 30, 2024 12:04 PM [facility] MICROALBUMIN/CREAT RATIO URINE Specimen Type: URINE No comment entered. Ordering Provider: LUKE MANCIA Report Released Date/Time: Sep 30, 2024 11:03 AM Reporting Lab: [place] [phone] Performing Lab: [place] [phone] CREATININE 189.9 mg/dL MICROALBUMIN QUANT 60.2 mg/L H 0.0-30.0 .MICROALBUMIN/CREA RATIO 31.7 ug/mg{creat} Sep 30, 2024 12:04 PM [facility] PANEL 2 PLASMA Specimen Type: [...] Sep 30, 2024 11:03 AM Reporting Lab: [address] [address] Performing Lab: [address] [address] TOTAL PROTEIN 7.7 g/dL 6.4-8.3 ALBUMIN 4.1 g/dL 3.5-5.2 TOTAL BILIRUBIN 0.4 mg/dL 0.2-1.2 AST 21 U/L 5-34 ALT 19 U/L 0-55 ALK PHOS 78 U/L 40-150 BILIRUBIN-DIRECT 0.2 mg/dL 0.0-0.5 Sep 30, 2024 12:04 PM [facility] GLYCOHEMOGLOBIN BLOOD Specimen Type: BLOOD Comment: Prediabetes: 5.7%-6.4% Diabetes: >= 6.5% [facility] guidelines for A1c interpretation: Glycemic control targets are based on Shared Decision Making between clinicians and patients. Criteria used to establish an A1c target recommendation can be found at https://www.wi.gov/qualityandpatientsafety/ and include the use of result accuracy [...] 8.73 and 9.27. Ref: https://ngsp.org/CAPdata.asp. The in-house [employer] D-100 analyzer has a historical CV <= 2%. Contact the laboratory for further performance characteristics of this assay. Ordering Provider: LUKE MANCIA Report Released Date/Time: Sep 30, 2024 11:03 AM Reporting Lab: [address] [address] Performing Lab: [address] [address] GLYCOHEMOGLOBIN 7.8 H 4.4-5.6 Sep 30, 2024 12:04 PM [facility] 25-OH VITAMIN D SERUM Specime [...] Sep 30, 2024 11:03 AM Reporting Lab: [address] [address] Performing Lab: [address] [address] 25-OH VITAMIN D 53.7 ng/mL H 20.0-50.0 Sep 30, 2024 12:04 PM [facility] LIPID PROFILE PLASMA Specimen Type: [...] Sep 30, 2024 11:03 AM Reporting Lab: [address] [address] Performing Lab: [address] [address] CHOLESTEROL 201 mg/dL H 0-199 TRIGLYCERIDE 166 mg/dL H 0-149 HDL CHOLESTEROL 51 mg/dL 40-69 DIRECT LDL CHOL. 139 mg/dL H 0-100 Sep 30, 2024 12:04 PM [facility] B12 VITAMIN PLASMA Specimen Type: [...] Sep 30, 2024 11:03 AM Reporting Lab: [address] [address] Performing Lab: [address] [address] B12 VITAMIN 295 pg/mL 213-816 Sep 30, 2024 12:04 PM [facility] CBC/PLT BLOOD Specimen Type: BLOOD No comment entered. Ordering Provider: NGUYENDON,LUKE H Report Released Date/Time: Sep 30, 2024 11:03 AM Reporting Lab: [facility] [address] [facility] [address] Performing Lab: [address] [address] WBC 7.8 10*3/uL 5.0-10.0 RBC 4.65 10*6/uL 4.6-6.2 HGB 14.3 g/dL 14.0-18.0 HCT 43.8 42.0-52.0 MCV 94.2 fL H 80.0-94.0 MCH 30.8 pg 27.0-31.0 MCHC 32.6 g/dL 32.0-36.0 PLT 280 10*3/uL 150-450 MPV 9.6 fL 9.0-13.1 RDW 13.0 11.0-16.0 NRBC 0.0 0.0-0.0 Sep 30, 2024 12:04 PM [facility] THYROID PROFILE PLASMA Specimen Type: PLASM A [...] Sep 30, 2024 11:05 AM Reporting Lab: [address] [address] Performing Lab: [address] [address] TSH 1.1217 m[IU]/mL 0.3500-4.9400 FREE T4 1.03 ng/mL 0.70-1.48 Sep 30, 2024 12:04 PM [facility] PAN[facility] 1 PLASMA Specimen Type: PLASM A [...] Sep 30, 2024 11:03 AM Reporting Lab: [address] [address] Performing Lab: [address] [address] CREATININE 0.91 mg/dL 0.72-1.25 UREA NITROGEN 7 mg/dL L 9-25 GLUCOSE 181 mg/dL H 74-100 SODIUM 144 mmol/L 136-145 POTASSIUM 3.8 mmol/L 3.5-5.1 CHLORIDE 102 mmol/L 98-107 CO2 30 mmol/L H 22-29 CALCIUM 9.5 mg/dL 8.4-10.2 ANION GAP 12 meq/L 3-19 eGFR (CKD-EPI) >90 Sep 30, 2024 10:46 AM [facility] COVID-19 & FLU DIAGNOSTIC PANEL (SOFIA) NASOPHARYNX Specimen Type: NASOPHARYNX Comment: Test performed by: [id number] Meter #: [id number] Ordering Provider: LUKE MANCIA Report Released Date/Time: Sep 30, 2024 11:28 AM Reporting Lab: [address] [address] Performing Lab: [address] [address] COVID-19 (SOFIA) Not Detected Not Detecte d POC INFLUENZA A Not Detected Not Detecte d POC INFLUENZA B Not Detected Not Detecte d Vital Signs: All taken on the encounter date This section contains inpatient and outpatient Vital Signs collected on the date of the Encounter. Date/Time Temperature Pulse Blood Pressure Respiratory Rate SP02 Pain Height Weight Body Mass Index Source October 29, 2024 10:05 AM 94 108/74 [place] [facility] Social History: Smoking Status (Most current) and Tobacco Use (All prior to encounter date) This section includes the most current, and the historical, smoking and tobacco- related health factors from the [facility] where the Encounter took place. Current Smoking Status This section includes the most current smoking, or tobacco-related health factor, from the [place] facility where the Encounter took place. Date/Time Current Smoking Status Comment Facil ity Dec 28, 2023 08:00 AM VA-TOBACCO FORMER USER [facility] Tobacco Use History This section includes a history of the smoking, or tobacco-related health factors, that were collected on or before the date of the Encounter. The data comes from the [facility] where the Encounter took place. Date/Time Smoking Status/Tobacco Use Comment F acility Dec 28, 2023 08:00 AM VA-TOBACCO QUIT 5 TO < 15 YRS [facility] May 19, 2022 09:30 AM VA-TOBACCO FORMER USER [facility] May 19, 2022 09:30 AM VA-TOBACCO QUIT 5 TO < 15 YRS [facility] Mar 29, 2021 08:00 AM VA-TOBACCO FORMER USER [facility] Mar 29, 2021 08:00 AM VA-TOBACCO QUIT 5 TO < 15 YRS [facility] Nov 22, 2017 10:50 AM V9 QUIT TOBACCO >1 2 MO & <7 YRS AGO [facility] Advance Directives: All historical and current Section Date Range: From patient's date of to the date document was created. This section includes ALL of a patient's completed or amended [place] Advance and Rescinded Directives. The entries below indicate that a directive exists for the patient, but an actual copy is not included with this document. The data comes from all [place] facilities. Date Advance Directives Provider Source Apr [...] the Encounter. The data comes from all [place] treatment facilities. Date/Time Radiology Report Provider Source October 09, 2024 10:23 AM AORTA -U/S SCREEN (INITIAL): ZENON BOND [id number] -[id number] M Exm Date: OCTOBER 09, 2024@10:23 Req Phys: LUKE MANCIA Loc: SOL PACT PAPA 16-2 (Req'g Loc) Img Loc: SOL [facility] Service: Unknown (Case [id number] COMPLETE) AORTA -U/S SCREEN (INITIAL) (VAS Detailed) CPT:41363 Reason for Study: SEE CLINICAL HISTORY Clinical History: Screening aorta duplex, asymptomatic Report Status: Verified Date Reported: OCTOBER 10, 2024 Date Verified: OCTOBER 10, 2024 Manager Landscape E-Sig: Report: Duplex examination of the abdominal aorta. Findings: The suprarenal aorta measures 2.4 cm in diameter, and the infrarenal aorta 2.2 cm in diameter. The right and left common iliac arteries measure 1.1 and 1.4 cm in diameter. Impression: Study is negative for abdominal aortic aneurysm. Primary Diagnostic Code: NO ALERT REQUIRED Primary Interpreting Staff: LISA OTOOLE, ATTENDING PHYSICIAN Verified by grades 7 8 tutor for LISA OTOOLE /LISA PORTER [facility] Encounter Notes: All associated encounter notes This section contains the clinical notes associated to the Encounter. Date/Time Encounter Note(s) Provider Source October 29, 2024 12:38 PM PRIMARY CARE BARNEY RS: LOCAL TITLE: PC LETTER STANDARD TITLE: PRIMARY CARE LETTERS DATE OF NOTE: OCTOBER 29, 2024@12:38 ENTRY DATE: OCTOBER 29, 2024@12:38:22 AUTHOR: LUKE MANCIA EXP COSIGNER: URGENCY: STATUS: COMPLETED [place]. [place], [place] [address] I WANT TO INFORM YOU OF THE FOLLOWING TEST RESULTS: Test Name Result Units Range --------- ------ ----- ----- SODIUM 144 mmol/L 136 - 145 POTASSIUM 4.5 mmol/L 3.5 - 5.1 CHLORIDE 105 mmol/L 98 - 107 CO2 26 mmol/L 22 - 29 ANION GAP 13.0 mEq/L 3 - 19 GLUCOSE 180 H mg/dL 74 - 100 UREA NITROGEN 11 mg/dL 9 - 25 CREATININE 0.90 mg/dL 0.72 - 1.25 eGFR (CKD-EPI) >90 SEE EVAL CALCIUM 9.6 mg/dL 8.4 - 10.2 Your Primary Care Provider has reviewed your recent blood work, and wanted us to let you know that everything looked okay. You may notice that some tests are listed as outside normal limits. Your Primary CareProvider has reviewed these results, and has determined these are not considered to be significant. Therefore, they do not require further investigation or treatment. There are no other recommended changes in your medications or treatment at this time. Please call us if you have questions or problems. Sincerely, /allie/ LUKE MANCIA STAFF PHYSICIAN/PRIMARY CARE Patient Record Number [id number] LUKE MANCIA [facility] October 29, 2024 10:09 AM NURSING NOTE: LOCAL TITLE: NURSING NOTE STANDARD TITLE: NURSING NOTE DATE OF NOTE: OCTOBER 29, 2024@10:09 ENTRY DATE: OCTOBER 29, 2024@10:09:45 AUTHOR: MARANDA BABIN EXP COSIGNER: URGENCY: STATUS: COMPLETED NURSING NOTE Has ADDENDA [place] here for HTN recheck. 108/74 94 manually, pcp informed. Also asked for repeat A1c and handicap yumiko, informed that A1c is too early but that he does have a lab due today. Recent BP results: Did patient check bp using proper technique: legs uncrossed, resting quietly, 30-60 minutes after having taken meds? 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 Any problems with current meds: No /allie/ Maranda Babin LPN STAFF MACHINE ADJUSTER [employer]AD[employer] CASE [employer]IM Signed: 10/29/2024 10:12 Receipt Acknowledged By: 10/29/2024 10:23 /allie/ LUKE MANCIA STAFF PHYSICIAN/PRIMARY CARE 10/29/2024 ADDENDUM STATUS: COMPLETED - I went into the room/discussed with patient-need repeat A1c in end of December -Please take metformin as ordered -I signed a temporary handicap sticker -Will follow-up labs from today /valentine MANCIA STAFF PHYSICIAN/PRIMARY CARE Signed: 10/29/2024 10:23 MARANDA BABIN [facility]
--- OUTSIDE RECORDS SUMMARY | 2024-11-04 04:42 | XMS_ITS | Encounter Summary ---
Author Name [facility] [place] Address [address] [place] [address] Care Team Providers Care Home Administrator Name Role Phone KRYSTIN HOLLIS Primary Care [...] PART A Jun 05, 2024 PART A [id number] BALIR BOND PATIENT MEDICARE ([place]) MEDICARE (M) PART B Jun 05, 2024 PART B [id number] [id number] BLAIR BOND PATIENT Selected Encounter This section includes the information on record at [place] for the Encounter. Date/Time Encounter Type Encounter Description Reason Provider Source Nov 04, 2024 08:42 AM Outpatient Encounter PRIMARY CARE/MEDICINE MARANDA BABIN E Encounter Template Text not used by [place] Plan of Treatment: Future Appointments (+ 6 months) and Future Tests (+/- 45 days) The Plan of Treatment section includes future care activities for the patient from all [place] [facility]. This section includes future appointments and future orders which are active, pending or scheduled. Future Appointments This section includes appointments that were scheduled to occur 6 months from the date of the Encounter, up to a maximum of 20 appointments. The data comes from all [facility]. Appointment Date/Time Appointment Type Appointme nt Facility Name Nov 12, 2024 01:00 PM AMBULATORY - MEDICINE [facility] Nov 15, 2024 09:00 AM AMBULATORY - MEDICINE [facility] Nov 25, 2024 04:00 PM [facility]ORY - NONE [place] [facility] Nov 28, 2024 09:40 AM AMBULATORY - MEDICINE [facility] Dec 30, 2024 02:00 PM [facility] [place] Dec 30, 2024 02:30 PM AMBULATORY - MEDICINE [facility] Jan 22, 2025 03:00 PM AM[facility]ULATORY - NONE [place] [facility] Active, Pending, and Scheduled Orders This section includes a listing of several types of active, pending, and scheduled orders, including clinic medications orders, diagnostic test orders, procedure orders and consult orders; where the start date of the order is 45 days before the date of the Encounter or 45 days after the date of theEncounter. The data comes from all [facility]. Test Date/Time Test Type Test Details Facility Name Nov 08, 2024 03:56 PM Consult Order MED CARDIO LOGY OUTPATIENT Cons Home Care Scheduler's Choice [facility] Nov 15, 2024 09:16 AM Procedure Order CP PATCH H OLTER OUTPATIENT CP PATCH HOLTER Proc Home Care Scheduler's Choice [facility] Lab Results: +/- 30 days of the encounter This section includes the Chemistry and Hematology Lab Results on record with [place] for the patient. Radiology Reports and Pathology Reports are provided separately, in subsequent sections. Lab Results This section contains the Chemistry/Hematology Results that were resulted 30 days before or 30 daysafter the date of the Encounter. Date/Time Source Result Type Result - Unit Interpretation Reference Range Specimen Type Comment October 29, 2024 10:22 AM [facility] PANEL 1 PLASMA Specimen Type: PLASMA [...] Sep 30, 2024 11:03 AM Reporting Lab: [address] [id number] Performing Lab: [address] [id number] CREATININE 0.90 mg/dL 0.72-1.25 UREA NITROGEN 11 mg/dL 9-25 GLUCOSE 180 mg/dL H 74-100 SODIUM 144 mmol/L 136-145 POTASSIUM 4.5 mmol/L 3.5-5.1 CHLORIDE 105 mmol/L 98-107 CO2 26 mmol/L 22-29 CALCIUM 9.6 mg/dL 8.4-10.2 ANION GAP 13 meq/L 3-19 eGFR (CKD-EPI) >90 Social History: Smoking Status (Most current) and Tobacco Use (All prior to encounter date) This section includes the most current, and the historical, smoking and tobacco- related health factors from the [place] facility where the Encounter took place. Current Smoking Status This section includes the most current smoking, or tobacco-related health factor, from the [place] facility where the Encounter took place. Date/Time Current Smoking Status Comment [place] Dec 28, 2023 08:00 AM VA-TOBACCO FORMER USER [facility] Tobacco Use History This section includes a history of the smoking, or tobacco-related health factors, that were collected on or before the date of the Encounter. The data comes from the [place] facility where the Encounter took place. Date/Time Smoking Status/Tobacco Use Comment F acility Dec 28, 2023 08:00 AM VA-TOBACCO QUIT 5 TO < 15 YRS [facility] May 19, 2022 09:30 AM VA-TOBACCO FORMER USER [facility] May 19, 2022 09:30 AM VA-TOBACCO QUIT 5 TO < 15 YRS [facility] Mar 29, 2021 08:00 AM VA-TOBACCO FORMER USER [facility] Mar 29, 2021 08:00 AM VA-TOBACCO QUIT 5 TO < 15 YRS [facility] Nov 22, 2017 10:50 AM V9 QUIT TOBACCO >1 2 MO & <7 YRS AGO [facility] Advance Directives: All historical and current Section Date Range: From patient's date of to the date document was created. This section includes ALL of a patient's completed or amended [place] Advance and Rescinded Directives. The entries below indicate that a directive exists for the patient, but an actual copy is not included with this document. The data comes from all [place] facilities. Date Advance Directives Provider Source Apr 25, 2019 ADVANCE DIRECTIVE DISCUSSION TAYLOR,ERVIN K ANDINO [facility] Radiology Reports: +/- 30 days [...] the Encounter. The data comes from all [place] treatment facilities. Date/Time Radiology Report Provider Source October 09, 2024 10:23 AM AORTA -U/S SCREEN (INITIAL): ZENON BOND [id number] -[id number] M Exm Date: OCTOBER 09, 2024@10:23 Req Phys: LUKE MANCIA Loc: SOL PACT PAPA 16-2 (Req'g Loc) Img Loc: SOL VAS LAB [facility] Service: Unknown (Case [id number] COMPLETE) AORTA -U/S SCREEN (INITIAL) (VAS Detailed) CPT:67365 Reason for Study: SEE CLINICAL HISTORY Clinical History: Screening aorta duplex, asymptomatic Report Status: Verified Date Reported: OCTOBER 10, 2024 Date Verified: OCTOBER 10, 2024 Soft Top Installer E-Sig: Report: Duplex examination of the abdominal aorta. Findings: The suprarenal aorta measures 2.4 cm in diameter, and the infrarenal aorta 2.2 cm in diameter. The right and left common iliac arteries measure 1.1 and 1.4 cm in diameter. Impression: Study is negative for abdominal aortic aneurysm. Primary Diagnostic Code: NO ALERT REQUIRED Primary Interpreting Staff: LISA OTOOLE, ATTENDING PHYSICIAN Verified by hand fabric cutter for LISA OTOOLE /[facility] Encounter Notes: All associated encounter notes This section contains the clinical notes associated to the Encounter. Date/Time Encounter Note(s) Provider Source Nov 04, 2024 10:48 AM PRIMARY CARE SECUR E MESSAGING: LOCAL TITLE: PRIMARY CARE SECURE MESSAGING STANDARD TITLE: PRIMARY CARE SECURE MESSAGING DATE OF NOTE: NOV 04, 2024@10:48 ENTRY DATE: NOV 04, 2024@10:48:45 AUTHOR: MARANDA BABIN EXP COSIGNER: URGENCY: STATUS: COMPLETED PRIMARY CARE SECURE MESSAGING Has ADDENDA ------Original Message ------- Sent: 11/04/2024 09:37 AM ET From: ZENON BOND To: PAPA Team (Leny) [facility] [place] Subject: Appointment:Need to see a Patient Day Coordinator FYAnita, I was not able to purchase the Eliquis due to the extreme cost. I did metoprolol succinate and have added it to my morning pills. /allie/ Maranda Babin LPN STAFF MATRIX SUPERVISOR Signed: 11/04/2024 10:48 Receipt Acknowledged By: 11/04/2024 11:17 /allie/ LUKE MANCIA STAFF PHYSICIAN/PRIMARY CARE 11/04/2024 ADDENDUM STATUS: COMPLETED -waiting for outside records /allie/ LUKE MANCIA STAFF PHYSICIAN/PRIMARY CARE Signed: 11/04/2024 11:17 MARANDA BABIN [facility] Nov 04, 2024 08:47 AM ADDENDUM: LOCAL TITLE: Addendum STANDARD TITLE: ADDENDUM DATE OF NOTE: NOV 04, 2024@08:47:03 ENTRY DATE: NOV 04, 2024@08:47:03 AUTHOR: LUKE MANCIA EXP COSIGNER: URGENCY: STATUS: COMPLETED -I need outside records per usual protocol/I will enter cardiology consult once i have records -he will also need warfarin consult for daoc /allie/ LUKE MANCIA STAFF PHYSICIAN/PRIMARY CARE Signed: 11/04/2024 08:47 Receipt Acknowledged By: 11/05/2024 15:37 /es/ MOHAN BROOKS Advanced Pyridine Operator for RACHID DINH 11/04/2024 11:38 /es/ Sangeeta Cline RN acupressurist 11/04/2024 14:20 /allie/ Maranda Babin LPN STAFF MATRIX SUPERVISOR ====== --- Original Document --- 11/04/24 PRIMARY CARE SECURE MESSAGING: ------Original Message ------- Sent: 11/03/2024 10:39 AM ET From: ZENON BOND To: AEXL Team (Leny) [facility] [place] Subject: Appointment:Need to see a Patient Day Coordinator I had an episode of passing out yesterday and my pulse was 160+ so I had a neighbor take me to the hospital ER here in [place]. Once there they found via EKG that my pulse rate was staying above 150 and that my heart was in something they called aflutter. They used a procedure that shocked my heart to get the rhythm settled down and later sent me home with a couple of prescriptions, Eliquis & metoprolol succinate. The official diagnosis was Acute onset atrial flutter with rapid ventricular response . They also wanted to refer me to see a PCP and a Patient Day Coordinator this week. Please refer me to a Patient Day Coordinator within the [place] system and anyone else that you feel I need to see. Thank you Zenon Bond [phone] ------Original Message ------- Sent: 11/04/2024 08:42 AM ET From: MARANDA BABIN To: ZENON BOND Subject: Appointment:Need to see a Patient Day Coordinator Forwarding to your PACT team for mor information. Maranda Babin LPN /allie/ Maranda Babin LPN STAFF MATRIX SUPERVISOR Signed: 11/04/2024 08:42 Receipt Acknowledged By: 11/04/2024 09:02 /allie/ Sangeeta Cline, RN acupressurist 11/04/2024 08:46 /allie/ LUKE MNACIA STAFF PHYSICIAN/PRIMARY CARE 11/04/2024 ADDENDUM STATUS: COMPLETED replied via secure message 11/04/24 /valentine Cline RN acupressurist Signed: 11/04/2024 11:38 LUKE MANCIA [facility] Nov 04, 2024 08:42 AM PRIMARY CARE SECUR E MESSAGING: LOCAL TITLE: PRIMARY CARE SECURE MESSAGING STANDARD TITLE: PRIMARY CARE SECURE MESSAGING DATE OF NOTE: NOV 04, 2024@08:42 ENTRY DATE: NOV 04, 2024@08:42:16 AUTHOR: MARANDA BABIN EXP COSIGNER: URGENCY: STATUS: COMPLETED PRIMARY CARE SECURE MESSAGING Has ADDENDA ------Original Message ------- Sent: 11/03/2024 10:39 AM ET From: ZENON BOND To: PAPA Team (Leny) [facility] [place] Subject: Appointment:Need to see a Patient Day Coordinator I had an episode of passing out yesterday and my pulse was 160+ so I had a neighbor take me to the hospital ER here in [place]. Once there they found via EKG that my pulse rate was staying above 150 and that my heart was in something they called aflutter. They used a procedure that shocked my heart to get the rhythm settled down and later sent me home with a couple of prescriptions, Eliquis & metoprolol succinate. The official diagnosis was Acute onset atrial flutter with rapid ventricular response . They also wanted to refer me to see a PCP and a Patient Day Coordinator this week. Please refer me to a Patient Day Coordinator within the [place] system and anyone else that you feel I need to see. Thank you Zenon Bond [phone] ------Original Message ------- Sent: 11/04/2024 08:42 AM ET From: MARANDA BABIN To: ZENON BOND Subject: Appointment:Need to see a Patient Day Coordinator Forwarding to your PACT team for mor information. Maranda Babin LPN /allie/ Maranda Babin LPN STAFF MATRIX SUPERVISOR Signed: 11/04/2024 08:42 Receipt Acknowledged By: 11/04/2024 09:02 /allie/ Sangeeta Cline, RN acupressurist 11/04/2024 08:46 /allie/ LUKE MANCIA STAFF PHYSICIAN/PRIMARY CARE 11/04/2024 ADDENDUM STATUS: COMPLETED -I need outside records per usual protocol/I will enter cardiology consult once i have records -he will also need warfarin consult for daoc /allie/ LUKE MANCIA STAFF PHYSICIAN/PRIMARY CARE Signed: 11/04/2024 08:47 Receipt Acknowledged By: 11/05/2024 15:37 /allie/ MOHAN BROOKS Advanced Pyridine Operator for RACHID DINH 11/04/2024 11:38 /allie/ Sangeeta Cline, RN acupressurist 11/04/2024 14:20 /allie/ Maranda Babin LPN STAFF MATRIX SUPERVISOR 11/04/2024 ADDENDUM STATUS: COMPLETED replied via secure message 11/04/24 /allie/ Sangeeta Cline, RN acupressurist Signed: 11/04/2024 11:38 11/05/2024 ADDENDUM STATUS: COMPLETED Indicated records requested /allie/ MOHAN BROOKS Advanced Pyridine Operator Signed: 11/05/2024 15:38 MARANDA BABIN [facility]
--- OUTSIDE RECORDS SUMMARY | 2024-11-04 07:38 | XMS_ITS | Encounter Summary ---
Author Name [facility] [place] Address [address] [place] [address] Care Team Providers Care Hospital Chief Financial Officer Name Role Phone KRYSTIN HOLLIS Primary Care [...] PART A Jun 05, 2024 PART A [id number] BLAIR BOND PATIENT MEDICARE ([place]) MEDICARE ([place]) PART B Jun 05, 2024 PART B [id number] [id number] BLAIR BOND PATIENT Selected Encounter This section includes the information on record at [place] for the Encounter. Date/Time Encounter Type Encounter Description Reason Provider Source Nov 04, 2024 11:38 AM Outpatient Encounter PRIMARY CARE/MEDICINE CLINE,AUGUSTINE M IHE Encounter Template Text not used by [place] Plan of Treatment: Future Appointments (+ 6 months) and Future Tests (+/- 45 days) The Plan of Treatment section includes future care activities for the patient from all [place] [facility]. This section includes future appointments and future orders which are active, pending or scheduled. Future Appointments This section includes appointments that were scheduled to occur 6 months from the date of the Encounter, up to a maximum of 20 appointments. The data comes from all [facility]. Appointment Date/Time Appointment Type Appointme nt Facility Name Nov 12, 2024 01:00 PM AMBULATORY - MEDICINE [facility] Nov 15, 2024 09:00 AM AMBULATORY - MEDICINE [facility] Nov 25, 2024 04:00 PM [facility] [facility] Nov 28, 2024 09:40 AM AMBULATORY - MEDICINE [facility] Dec 30, 2024 02:00 PM [facility]ORY - NONE [place] Dec 30, 2024 02:30 PM AMBULATORY - MEDICINE [facility] Jan 22, 2025 03:00 PM [facility] [place] [facility] Active, Pending, and Scheduled Orders This section includes a listing of several types of active, pending, and scheduled orders, including clinic medications orders, diagnostic test orders, procedure orders and consult orders; where the start date of the order is 45 days before the date of the Encounter or 45 days after the date of theEncounter. The data comes from all [facility]. Test Date/Time Test Type Test Details Facility Name Nov 08, 2024 03:56 PM Consult Order MED CARDIO LOGY OUTPATIENT Cons [place] Inspector's Choice [facility] Nov 15, 2024 09:16 AM Procedure Order CP PATCH H OLTER OUTPATIENT CP PATCH HOLTER Proc [place] Inspector's Choice [facility] Lab Results: +/- 30 days of the encounter This section includes the Chemistry and Hematology Lab Results on record with [place] for the patient. Radiology Reports and Pathology Reports are provided separately, in subsequent sections. Lab Results This section contains the Chemistry/Hematology Results that were resulted 30 days before or 30 daysafter the date of the Encounter. Date/Time Source Result Type Result - Unit Interpretation Reference Range Specimen Type Comment October 29, 2024 10:22 [facility] PLASMA Specimen Type: PLASMA Comment: Estimated Glomerular Filtration Rate (eGFR) calculated using the 202 Chronic Kidney Disease-Epidemio logy (CKD-EPI) Collaboration creatinine [...] <15 G5 Kidney failure Ordering Provider: LUKE MICHELE Report Released Date/Time: Sep 30, 2024 11:03 AM Reporting Lab: [address] [id number] Performing Lab: [address] [address] CREATININE 0.90 mg/dL 0.72-1.25 UREA NITROGEN 11 [...] and tobacco- related health factors from the [place] facility where the Encounter took place. Current Smoking Status This section includes the most current smoking, or tobacco-related health factor, from the [place] facility where the Encounter took place. Date/Time Current Smoking Status Comment [place] Dec 28, 2023 08:00 AM VA-TOBACCO FORMER USER [facility] Tobacco Use History This section includes a history of the smoking, or tobacco-related health factors, that were collected on or before the date of the Encounter. The data comes from the [place] facility where the Encounter took place. Date/Time Smoking Status/Tobacco Use Comment F acility Dec 28, 2023 08:00 AM VA-TOBACCO QUIT 5 TO < 15 YRS [facility] May 19, 2022 09:30 AM VA-TOBACCO FORMER USER [facility] May 19, 2022 09:30 AM VA-TOBACCO QUIT 5 TO < 15 YRS [facility] Mar 29, 2021 08:00 AM VA-TOBACCO FORMER USER [facility] Mar 29, 2021 08:00 AM VA-TOBACCO QUIT 5 TO < 15 YRS [facility] Nov 22, 2017 10:50 AM V9 QUIT TOBACCO >1 2 MO & <7 YRS AGO [facility] Advance Directives: All historical and current Section Date Range: From patient's date of to the date document was created. This section includes ALL of a patient's completed or amended [place] Advance and Rescinded Directives. The entries below indicate that a directive exists for the patient, but an actual copy is not included with this document. The data comes from all [place] facilities. Date Advance Directives Provider Source Apr 25, 2019 ADVANCE DIRECTIVE DISCUSSION ERVIN TAYLOR [facility] Radiology Reports: +/- 30 days of [...] the Encounter. The data comes from all [place] treatment facilities. Date/Time Radiology Report Provider Source October 09, 2024 10:23 AM AORTA -U/S SCREEN (INITIAL): ZENON BOND [id number] -1960 M Exm Date: OCTOBER 09, 2024@10:23 Req Phys: LUKE MICHELE Loc: SOL PACT PAPA 16-2 (Req'g Loc) Img Loc: SOL [facility] Service: Unknown (Case [id number] COMPLETE) AORTA -U/S SCREEN (INITIAL) (VAS Detailed) CPT:33131 Reason for Study: SEE CLINICAL HISTORY Clinical History: Screening aorta duplex, asymptomatic Report Status: Verified Date Reported: OCTOBER 10, 2024 Date Verified: OCTOBER 10, 2024 [facility] Associate E-Sig: Report: Duplex examination of the abdominal aorta. Findings: The suprarenal aorta measures 2.4 cm in diameter, and the infrarenal aorta 2.2 cm in diameter. The right and left common iliac arteries measure 1.1 and 1.4 cm in diameter. Impression: Study is negative for abdominal aortic aneurysm. Primary Diagnostic Code: NO ALERT REQUIRED Primary Interpreting Staff: LISA OTOOLE, ATTENDING PHYSICIAN Verified by restrooms or lounges maid for LISA OTOOLE /LISA PORTER [facility] Encounter Notes: All associated encounter notes This section contains the clinical notes associated to the Encounter. Date/Time Encounter Note(s) Provider Source Nov 04, 2024 11:58 AM PRIMARY CARE SECUR E MESSAGING: LOCAL TITLE: PRIMARY CARE SECURE MESSAGING STANDARD TITLE: PRIMARY CARE SECURE MESSAGING DATE OF NOTE: NOV 04, 2024@11:58 ENTRY DATE: NOV 04, 2024@11:58:02 AUTHOR: MARANDA BABIN EXP COSIGNER: URGENCY: STATUS: COMPLETED ------Original Message ------- Sent: 11/04/2024 11:53 AM ET From: ZENON BOND To: FROILAN Team (Leny) [facility] [place] Subject: General:General Great! Thank you so very much?. I noticed that I did not specify which hospital Emergency Room I went to. It was [facility] in [place]. Thanks again! /allie/ Maranda Babin LPN STAFF ART HANDLER Signed: 11/04/2024 11:58 MARANDA BABIN [facility] Nov 04, 2024 11:38 AM PRIMARY CARE SECUR E MESSAGING: LOCAL TITLE: PRIMARY CARE SECURE MESSAGING STANDARD TITLE: PRIMARY CARE SECURE MESSAGING DATE OF NOTE: NOV 04, 2024@11:38 ENTRY DATE: NOV 04, 2024@11:38:06 AUTHOR: AUGUSTINE CLINE EXP COSIGNER: URGENCY: STATUS: COMPLETED ------Original Message ------- Sent: 11/04/2024 11:37 AM ET From: AUGUSTINE CLINE To: ZENON BOND Subject: General:General Hello! Dr. Michele reviewed you message. She is requesting records of your ER visit. Once we receive those records and she reviews them, she can make the referral. If you have any questions, please let us know. Have a great day! /allie/ Augustine Cline RN box closing machine operator Signed: 11/04/2024 11:38 AUGUSTINE CLINE [facility]
--- OUTSIDE RECORDS SUMMARY | 2024-11-05 12:43 | XMS_ITS ---
Author Name [facility] [place] Address [address] [place] [address] Care Team Providers Care Producer Director Name Role Phone KRYSTIN HOLLIS Primary Care [...] PART A Jun 05, 2024 PART A [id number] [facility] BLAIR [place] PATIENT MEDICARE (WNR) MEDICARE (M) PART B Jun 05, 2024 PART B [id number] [place] PATIENT Selected Encounter This section includes the information on record at [place] for the Encounter. Date/Time Encounter Type Encounter Description Reason Pro vider Source Nov 05, 2024 04:43 PM Outpatient Encounter ADMIN PAT ACTIVTIES (MASNONCT) IHE Encounter Template Text not used by [place] Plan of Treatment: Future Appointments (+ 6 months) and Future Tests (+/- 45 days) The Plan of Treatment section includes future care activities for the patient from [facility] [place] [facility] This section includes future appointments and future orders which are active, pending or scheduled. Future Appointments This section includes appointments that were scheduled to occur 6 months from the date of the Encounter, up to a maximum of 20 appointments. The data comes from all [place] treatment [facility]. Appointment Date/Time Appointment Type Appointme nt Facility Name Nov 12, 2024 01:00 PM AMBULATORY [facility]ICINE [facility] Nov 15, 2024 09:00 AM AM[facility]ORY - MEDICINE [facility] Nov 25, 2024 04:00 PM [place] [place]ONE [place] [facility] Nov 28, 2024 09:40 AM [facility]ATORY - [facility]ICINE [facility] Dec 30, 2024 02:00 PM [place] Dec 30, 2024 02:30 PM [facility] Jan 22, 2025 03:00 PM AM[place]ULATORY - NONE [place] [facility] Active, Pending, and Scheduled Orders This section includes a listing of several types of active, pending, and scheduled orders, including clinic medications orders, diagnostic test orders, procedure orders and consult orders; where the start date of the order is 45 days before the date of the Encounter or 45 days after the date of theEncounter. The data comes from all [facility]. Test Date/Time Test Type Test Details Facility Name Nov 08, 2024 03:56 PM Consult Order MED CARDIO LOGY OUTPATIENT Cons Imaging Center Manager's Choice [facility] Nov 15, 2024 09:16 AM Procedure Order CP PATCH H OLTER OUTPATIENT CP PATCH HOLTER Proc Imaging Center Manager's Choice [facility] Lab Results: +/- 30 days of [...] Type Comment October 29, 2024 10:22 [facility] 1 PLASMA Specimen Type: PLASMA [...] Sep 30, 2024 11:03 AM Reporting Lab: [address] [address] Performing Lab: [address] [address] CREATININE 0.90 mg/dL 0.72-1.25 UREA NITROGEN 11 mg/dL 9-25 GLUCOSE 180 mg/dL H 74-100 SODIUM 144 mmol/L 136-145 POTASSIUM 4.5 mmol/L 3.5-5.1 CHLORIDE 105 mmol/L 98-107 CO2 26 mmol/L 22-29 CALCIUM 9.6 mg/dL 8.4-10.2 ANION GAP 13 meq/L 3-19 eGFR (CKD-EPI) >90 Advance Directives: All historical and current Section [...] 25, 2019 ADVANCE DIRECTIVE DISCUSSION ERVIN TAYLOR [facility] Radiology Reports: +/- 30 days of [...] AM AORTA -U/S SCREEN (INITIAL): ZENON BOND [id number] -1960 M Ex Date: OCTOBER 09, 2024@10:23 Req Phys: LUKE MICHELE Pat Loc: SOL PACT PAPA 16-2 (Req'g Loc) Img Loc: SOL VAS LAB [facility] Service: Unknown (Case [id number] COMPLETE) AORTA -U/S SCREEN (INITIAL) (VAS Detailed) CPT:25601 Reason for Study: SEE CLINICAL HISTORY Clinical History: Screening aorta duplex, asymptomatic Report Status: Verified Date Reported: OCTOBER 10, 2024 Date Verified: OCTOBER 10, 2024 Imaging Services Director E-Sig: Report: Duplex examination of the abdominal aorta. Findings: The suprarenal aorta measures 2.4 cm in diameter, and the infrarenal aorta 2.2 cm in diameter. The right and left common iliac arteries measure 1.1 and 1.4 cm in diameter. Impression: Study is negative for abdominal aortic aneurysm. Primary Diagnostic Code: NO ALERT REQUIRED Primary Interpreting Staff: LISA OTOOLE, ATTENDING PHYSICIAN Verified by laboratory engineer for LISA OTOOLE /LISA PORTER [facility] Encounter Notes: All associated encounter notes This section contains the clinical notes associated to the Encounter. Date/Time Encounter Note(s) Provider Source Nov 05, 2024 04:43 PM PRIMARY CARE ADMIN ISTRATIVE NOTE: LOCAL TITLE: PC ADMINISTRATIVE NOTE STANDARD TITLE: PRIMARY CARE ADMINISTRATIVE NOTE DATE OF NOTE: NOV 05, 2024@16:43 ENTRY DATE: NOV 05, 2024@16:43:22 AUTHOR: MOHAN BROOKS EXP COSIGNER: URGENCY: STATUS: COMPLETED PC ADMINISTRATIVE NOTE Has ADDENDA 17 page fax recieved from [facility] Placed in Dr. Michele's inbox. /allie/ MOHAN BROOKS Advanced Solar Sales Representative Signed: 11/05/2024 16:44 11/11/2024 ADDENDUM STATUS: COMPLETED Forms reviewed by PCP and forwarded to be scanned into 's chart. /valentine BROOKS Advanced [employer] Sales Representative Signed: 11/11/2024 09:29 MOHAN BROOKS-[facility]
--- OUTSIDE RECORDS SUMMARY | 2024-11-06 04:57 | XMS_ITS | Encounter Summary ---
Author Name [facility] [place] Address [address] [place] [address] Care Team Providers Care Mexican Food Cook Name Role Phone KRYSTIN HOLLIS Primary Care [...] PART B Jun 05, 2024 PART B [id number] [facility] BLA[place] PATIENT MEDICARE (WNR) MEDICARE (M) PART A Jun 05, 2024 PART A [id number] B[place] PATIENT Selected Encounter This section includes the information on record at [place] for the Encounter. Date/Time Encounter Type Encounter Description Reason Pro vider Source Nov 06, 2024 08:57 AM Outpatient Encounter ADMIN PAT ACTIVTIES (MASNONCT) IHE Encounter Template Text not used by [place] Plan of Treatment: Future Appointments (+ 6 months) and Future Tests (+/- 45 days) The Plan of Treatment section includes future care activities for the patient from all [place] [facility] This section includes future appointments and future orders which are active, pending or scheduled. Future Appointments This section includes appointments that were scheduled to occur 6 months from the date of the Encounter, up to a maximum of 20 appointments. The data comes from all [place] [facility]. Appointment Date/Time Appointment Type Appointme nt Facility Name Nov 12, 2024 01:00 PM AMBULATORY - MEDICINE [facility] Nov 15, 2024 09:00 AM AMBULATORY - MEDICINE [facility] Nov 25, 2024 04:00 PM [place]ORY - NONE [place] [facility] Nov 28, 2024 09:40 AM AMBULATORY - MEDICINE [facility] Dec 30, 2024 02:00 PM [place]ORY - NONE [place] Dec 30, 2024 02:30 PM AMBULATORY - MEDICINE [facility] Jan 22, 2025 03:00 PM AM[place]ULATORY - NONE [place] [facility] Active, Pending, and Scheduled Orders This section includes a listing of several types of active, pending, and scheduled orders, including clinic medications orders, diagnostic test orders, procedure orders and consult orders; where the start date of the order is 45 days before the date of the Encounter or 45 days after the date of theEncounter. The data comes from all [facility]. Test Date/Time Test Type Test Details Facility Name Nov 08, 2024 03:56 PM Consult Order MED CARDIO LOGY OUTPATIENT Cons Cantilever Crane Operator's Choice [facility] Nov 15, 2024 09:16 AM Procedure Order CP PATCH H OLTER OUTPATIENT CP PATCH HOLTER Proc Cantilever Crane Operator's Choice [facility] Lab Results: +/- 30 days of the encounter This section includes the Chemistry and Hematology Lab Results on record with [place] for the patient. Radiology Reports and Pathology Reports are provided separately, in subsequent sections. Lab Results This section contains the Chemistry/Hematology Results that were resulted 30 days before or 30 daysafter the date of the Encounter. Date/Time Source Result Type Result - Unit Interpretation Reference Range Specimen Type Comment October 29, 2024 10:22 AM [facility] PANEL 1 PLASMA Specimen Type: [...] Sep 30, 2024 11:03 AM Reporting Lab: [address] [address] Performing Lab: [address] [address] CREATININE 0.90 mg/dL 0.72-1.25 UREA NITROGEN 11 [...] and tobacco- related health factors from the [place] facility where the Encounter took place. Current Smoking Status This section includes the most current smoking, or tobacco-related health factor, from the [place] facility where the Encounter took place. Date/Time Current Smoking Status Comment Facil ity Dec 28, 2023 08:00 AM VA-TOBACCO FORMER USER [facility] Tobacco Use History This section includes a history of the smoking, or tobacco-related health factors, that were collected on or before the date of the Encounter. The data comes from the [place] facility where the Encounter took place. Date/Time [...] ALL of a patient's completed or amended [place] Advance and Rescinded Directives. The entries below indicate that a directive exists for the patient, but an actual copy is not included with this document. The data comes from all [place] facilities. Date Advance Directives Provider Source Apr 25, 2019 ADVANCE DIRECTIVE DISCUSSION TAYLORERVIN DUTTONARES [facility] Radiology Reports: +/- 30 days of [...] the Encounter. The data comes from all [place] treatment facilities. Date/Time Radiology Report Provider Source October 09, 2024 10:23 AM AORTA -U/S SCREEN (INITIAL): ZENON BOND Brandy [id number] -1960 M Exm Date: OCTOBER 09, 2024@10:23 Req Phys: LUKE MANCIA Pat Loc: SOL PACT PAPA 16-2 (Req'g Loc) Img Loc: SOL VAS LAB [facility] Service: Unknown (Case [id number] COMPLETE) AORTA -U/S SCREEN (INITIAL) (VAS Detailed) CPT:07497 Reason for Study: SEE CLINICAL HISTORY Clinical History: Screening aorta duplex, asymptomatic Report Status: Verified Date Reported: OCTOBER 10, 2024 Date Verified: OCTOBER 10, 2024 Warehouse Helper E-Sig: Report: Duplex examination of the abdominal aorta. Findings: The suprarenal aorta measures 2.4 cm in diameter, and the infrarenal aorta 2.2 cm in diameter. The right and left common iliac arteries measure 1.1 and 1.4 cm in diameter. Impression: Study is negative for abdominal aortic aneurysm. Primary Diagnostic Code: NO ALERT REQUIRED Primary Interpreting Staff: LISA OTOOLE, ATTENDING PHYSICIAN Verified by metal cleaner for LISA OTOOLE /LISA PORTER [facility] Encounter Notes: All associated encounter notes This section contains the clinical notes associated to the Encounter. Date/Time Encounter Note(s) Provider Source November 02, 2024 08:57 AM NONVA NOTE: LOCAL TITLE: OUTSIDE MEDICAL RECORD-OTHER STANDARD TITLE: NONVA NOTE DATE OF NOTE: NOVEMBER 02, 2024@08:57 ENTRY DATE: NOV 06, 2024@08:57:55 AUTHOR: MOO VASQUEZ EXP COSIGNER: URGENCY: STATUS: COMPLETED The scanned document may be viewed in [employer]. /allie/ MOO VASQUEZ MAINTENANCE ASSISTANT Signed: 11/06/2024 08:58 MOO VASQUEZ-[facility]
--- OUTSIDE RECORDS SUMMARY | 2024-11-08 12:30 | XMS_ITS | Encounter Summary ---
Author Name [place] Address [address] [place] [address] Care Team Providers Care Log Loader Helper Name Role Phone KRYSTIN HOLLIS Primary Care [...] PART B Jun 05, 2024 PART B [id number] [place] PATIENT MEDICARE (WNR) MEDICARE (M) PART A Jun 05, 2024 PART A [id number] B[place] PATIENT Selected Encounter This section includes the information on record at [place] for the Encounter. Date/Time Encounter Type Encounter Description Reason Provider Source Nov 08, 2024 04:30 PM PH1 ASSMT&MGMT NQHP 5-10 TELEPHONE PRIMARY CARE ICD-10-CM Z71.89 Other specified counseling AUGUSTINE CLINE [facility] Encounter Template Text not used by [place] Assessments - Encounter Diagnoses This section includes the primary and secondary diagnoses documented for the Encounter. Date/Time Primary/Secondary Diagnosis Diagnosis Name Provider Source Nov 08, 2024 04:30 PM PRIMARY Other specified counseling AUGUSTINE CLINE [facility] Plan of Treatment: Future Appointments (+ 6 months) and Future Tests (+/- 45 days) The Plan of Treatment section includes future care activities for the patient from all [place] [facility]. This section includes future appointments and future orders which are active, pending or scheduled. Future Appointments This section includes appointments that were scheduled to occur 6 months from the date of the Encounter, up to a maximum of 20 appointments. The data comes from all [facility]. Appointment Date/Time Appointment Type Appointme nt Facility Name Nov 12, 2024 01:00 PM [facility]ATORY - [facility]ICINE [facility] Nov 15, 2024 09:00 AM AMBULATORY - MEDICINE [facility] Nov 25, 2024 04:00 PM [facility]ORY - NONE [place] [facility] Nov 28, 2024 09:40 AM AMBULATORY - MEDICINE [facility] Dec 30, 2024 02:00 PM [place] - [place] Dec 30, 2024 02:30 PM AMBULATORY - MEDICINE [facility] Jan 22, 2025 03:00 PM [facility]ONE [facility] Active, Pending, and Scheduled Orders This section includes a listing of several types of active, pending, and scheduled orders, including clinic medications orders, diagnostic test orders, procedure orders and consult orders; where the start date of the order is 45 days before the date of the Encounter or 45 days after the date of theEncounter. The data comes from all [facility]. Test Date/Time Test Type Test Details Facility Name Nov 08, 2024 03:56 PM Consult Order MED CARDIO LOGY OUTPATIENT Cons Parking Lot Chauffeur's Choice [facility] Nov 15, 2024 09:16 AM Procedure Order CP PATCH H OLTER OUTPATIENT CP PATCH HOLTER Proc Parking Lot Chauffeur's Choice [facility] Lab Results: +/- 30 days of the encounter This section includes the Chemistry and Hematology Lab Results on record with [place] for the patient. Radiology Reports and Pathology Reports are provided separately, in subsequent sections. Lab Results This section contains the Chemistry/Hematology Results that were resulted 30 days before or 30 daysafter the date of the Encounter. Date/Time Source Result Type Result - Unit Interpretation Reference Range Specimen Type Comment October 29, 2024 10:22 AM [facility] Specimen Type: PLASMA [...] Sep 30, 2024 11:03 AM Reporting Lab: [address] [address] Performing Lab: [address] [address] CREATININE 0.90 mg/dL 0.72-1.25 UREA NITROGEN 11 [...] and tobacco- related health factors from the [place] facility where the Encounter took place. Current Smoking Status This section includes the most current smoking, or tobacco-related health factor, from the [place] facility where the Encounter took place. Date/Time Current Smoking Status Comment [place] Dec 28, 2023 08:00 AM VA-TOBACCO FORMER USER [facility] Tobacco Use History This section includes a history of the smoking, or tobacco-related health factors, that were collected on or before the date of the Encounter. The data comes from the [place] facility where the Encounter took place. Date/Time Smoking Status/Tobacco Use Comment F acility Dec 28, 2023 08:00 AM VA-TOBACCO QUIT 5 TO < 15 YRS [facility] May 19, 2022 09:30 AM VA-TOBACCO FORMER USER [facility] May 19, 2022 09:30 AM VA-TOBACCO QUIT 5 TO < 15 YRS [facility] Mar 29, 2021 08:00 AM VA-TOBACCO FORMER USER [facility] Mar 29, 2021 08:00 AM [place]-TOBACCO QUIT 5 TO < 15 YRS [facility] Nov 22, 2017 10:50 AM V9 QUIT TOBACCO >1 2 MO & <7 YRS AGO [facility] Advance Directives: All historical and current Section Date Range: From patient's date of to the date document was created. This section includes ALL of a patient's completed or amended [place] Advance and Rescinded Directives. The entries below indicate that a directive exists for the patient, but an actual copy is not included with this document. The data comes from all [place] facilities. Date Advance Directives Provider Source Apr 25, 2019 ADVANCE DIRECTIVE DISCUSSION ERVIN TAYLOR [facility] Radiology Reports: +/- 30 days of [...] the Encounter. The data comes from all [place] treatment facilities. Date/Time Radiology Report Provider Source October 09, 2024 10:23 AM AORTA -U/S SCREEN (INITIAL): ZENON BOND [id number] -1960 Ex Date: OCTOBER 09, 2024@10:23 Req Phys: LUKE MANCIA Pat Loc: SOL PACT PAPA 16-2 (Req'g Loc) Img Loc: SOL VAS LAB [facility] Service: Unknown (Case [id number] COMPLETE) AORTA -U/S SCREEN (INITIAL) (VAS Detailed) CPT:19897 Reason for Study: SEE CLINICAL HISTORY Clinical History: Screening aorta duplex, asymptomatic Report Status: Verified Date Reported: OCTOBER 10, 2024 Date Verified: OCTOBER 10, 2024 Superintendent Warehouse E-Sig: Report: Duplex examination of the abdominal aorta. Findings: The suprarenal aorta measures 2.4 cm in diameter, and the infrarenal aorta 2.2 cm in diameter. The right and left common iliac arteries measure 1.1 and 1.4 cm in diameter. Impression: Study is negative for abdominal aortic aneurysm. Primary Diagnostic Code: NO ALERT REQUIRED Primary Interpreting Staff: LISA OTOOLE, ATTENDING PHYSICIAN Verified by heading machine operator for LISA OTOOLE /LISA PORTER [facility] Encounter Notes: All associated encounter notes This section contains the clinical notes associated to the Encounter. 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 I have entered cardiology consult for follow-up and evaluation 2. I have entered warfarin clinic to order DA OC as recommended Patient verbalized understanding and agreement to plan of care. /allie/ Augustine Cline, RN blockmason Signed: 11/08/2024 16:31 LUKE MANCIA [facility] Nov 08, 2024 04:30 PM PRIMARY CARE TELEP COLLEEN ENCOUNTER NOTE: LOCAL TITLE: Pc Telephone Care Note STANDARD TITLE: PRIMARY CARE TELEPHONE ENCOUNTER NOTE DATE OF NOTE: NOV 08, 2024@16:30 ENTRY DATE: NOV 08, 2024@16:31:01 AUTHOR: AUGUSTINE CLINE EXP COSIGNER: URGENCY: STATUS: COMPLETED Pc Telephone Care Note Has ADDENDA Contacted and verified patient (name,ssn) regarding 11/08/24 Outside medical records note He was sent home on metoprolol and Eliquis Recommendation is to anticoagulate for 4 weeks and follow-up closely with cardiology My recommendations: 1. I have entered cardiology consult for follow-up and evaluation 2. I have entered warfarin clinic to order DA OC as recommended Patient verbalized understanding and agreement to plan of care. 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 /allie/ Chaya VarelaMSN,RN Patient Machined Parts Quality Inspector Signed: 11/12/2024 09:03 AUGUSTINE CLINE [facility]
--- OUTSIDE RECORDS SUMMARY | 2024-11-11 03:13 | XMS_ITS | Encounter Summary ---
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 Date/Time Encounter Type Encounter Description Reason Provider Source Nov 11, 2024 07:13 AM [facility] OL DIG ASSMT&MGMT 21+ CLINICAL PHARMACY ICD-10-CM Z51.81 Encounter for therapeutic drug level monitoring MICAELA VERA Encounter Template Text not used by [place] Assessments - Encounter Diagnoses This section includes the primary and secondary diagnoses documented for the Encounter. 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 This section includes future appointments and future orders which are active, pending or scheduled. Future Appointments This section includes appointments that were scheduled to occur 6 months from the date of the Encounter, up to a maximum of 20 appointments. The data comes from [facility] Appointment Date/Time Appointment Type Appointme nt Facility Name Nov 12, 2024 01:00 PM [facility] - [facility]ICINE [facility] Nov 15, 2024 09:00 AM [facility]ORY - MEDICINE [facility] Nov 25, 2024 04:00 PM AMBULATORY - NONE [place] [facility] Nov 28, 2024 09:40 AM AMBULATORY - MEDICINE [facility] Dec 30, 2024 02:00 PM AMBULATORY - NONE [place] [facility] Dec 30, 2024 02:30 PM [facility] Jan 22, 2025 03:00 PM AMBULATORY - NONE [place] [facility] Active, Pending, and Scheduled Orders This section includes a listing of several types of active, pending, and scheduled orders, including clinic medications orders, diagnostic test orders, procedure orders and consult orders; where the start date of the order is 45 days before the date of the Encounter or 45 days after the date of theEncounter. The data comes from [facility]. Test Date/Time Test Type Test Details Facility Name Nov 08, 2024 03:56 PM Consult Order MED CARDIO LOGY OUTPATIENT Cons Piano Technician's Choice [facility] Nov 15, 2024 09:16 AM Procedure Order CP PATCH H OLTER OUTPATIENT CP PATCH HOLTER Proc Piano Technician's Choice [facility] Lab Results: +/- 30 days of [...] Type Comment October 29, 2024 10:22 AM [facility] N PANEL 1 PLASMA Specimen Type: [...] Sep 30, 2024 11:03 AM Reporting Lab: [address] [id number] Performing Lab: [address] [address] CREATININE 0.90 mg/dL 0.72-1.25 UREA NITROGEN 11 [...] ALL of a patient's completed or amended [place] Advance and Rescinded Directives. The entries below indicate that a directive exists for the patient, but an actual copy is not included with this document. The data comes from all [place] facilities. Date Advance Directives Provider Source Apr 25, 2019 ADVANCE DIRECTIVE DISCUSSION [facility] Encounter Notes: All associated encounter notes This section contains the clinical notes associated to the Encounter. Date/Time Encounter Note(s) Provider Source Nov 11, 2024 10:48 AM SCANNED REPORT: LOCAL TITLE: SCANNED REPORT STANDARD TITLE: SCANNED REPORT DATE OF NOTE: NOV 11, 2024@10:48 ENTRY DATE: DEC 05, 2024@10:48:17 AUTHOR: YENIFER MASSEY EXP COSIGNER: URGENCY: STATUS: COMPLETED The scanned document may be viewed in [employer]. /allie/ YENIFER MASSEY PRINT BU[employer]ER Signed: 12/05/2024 10:48 YENIFER MASSEY [facility] Nov 11, 2024 09:25 AM ADDENDUM: LOCAL TITLE: Addendum STANDARD TITLE: ADDENDUM DATE OF NOTE: NOV 11, 2024@09:25 ENTRY DATE: NOV 11, 2024@09:25:50 AUTHOR: BARBY RODRIGUEZ COSIGNER: MICAELA VERA URGENCY: STATUS: COMPLETED pt reports he is not taking ASA, can remove from list will p/u med today Pharm D to enter Rx /es/ BARBY RODRIGUEZ [employer]ICAL [employer] Signed: 11/11/2024 09:26 /allie/ Micaela Vera, PharmD, [facility] Clinical Folder Machine Adjuster, Anticoagulation Cosigned: 11/11/2024 09:30 Receipt Acknowledged By: 11/11/2024 09:34 /es/ LUKE MICHELE STAFF PHYSICIAN/PRIMARY CARE --- Original Document --- 11/11/24 PHARMACY WARFARIN CONSULT RESPONSE: Reason for consult: New patient enrollment; New start Continuation of therapy: Start Date: 3 months - I received outside records from [facility] in [place] Dated 11/02/2024: Second EKG performed-shows ventricular rate of 78 normal sinus rhythm left anterior fascicular block no acute ischemic changes/noted no longer in atrial fibrillation and is now in normal sinus rhythm Discharge plan: Eliquis 5 mg twice daily for 28 days -Take 10 mg twice daily for 7 days followed by 5 mg twice daily for a total of 3 months Metoprolol succinate 50 mg extended release 24 hours daily Chief complaint: Dizziness HPI-patient presented with near syncope No chest pain or shortness of breath Positive palpitations Initial EKG: Shows ventricular rate of 155 and has atrial flutter with rapid ventricular response some ST depressions which are nonspecific No obvious STEMI Positive left anterior fascicular block History of hypomagnesia-this was replaced After replacement of magnesium, patient was successfully cardioverted/subsequent twelve-lead EKG which confirms sinus rhythm No complications; He was sent home on metoprolol and Eliquis Recommendation is to anticoagulate for 4 weeks and follow-up closely with cardiology PCP recommendations: 1. I have entered cardiology consult for follow-up and evaluation 2. I have entered warfarin clinic to order DA OC as recommended See scanned notes for full details Diagnosis: Atrial Flutter: See outside records Duration of therapy: See outside records Active Outpatient Medications (including Supplies): Active Outpatient [...] 6 HOURS NEEDED Indication: FOR PAIN 4) FLUTICASONE PROP 50MCG 120D NASAL INHL USE 2 SPRAYS IN EACH ACTIVE NOSTRIL DAILY Indication: FOR NASAL ALLERGY 5) LACTOBACILLUS ACIDOPHILUS CHEW TAB CHEW 2 TABLETS BY MOUTH ACTIVE THREE TIMES A DAY WITH MEALS -REFRIGERATE AFTER OPENING TAKE FOR GUT PROTECTION AGAINST ANTIBIOTIC Indication: FOR BOWEL HEALTH 6) LANCET,SOFTCLIX USE LANCET AFFECTED AREA DIRECTED ACTIVE 7) LIDOCAINE 5% 5IN X 6IN PATCH APPLY 2 PATCHES TO SKIN DAILY ACTIVE -LEAVE ON 12 HOURS, THEN REMOVE FOR 12 HOURS Indication: FOR PAIN 8) LISINOPRIL 20MG TAB TAKE ONE-HALF TABLET BY MOUTH DAILY ACTIVE Indication: FOR HIGH BLOOD PRESSURE 9) METFORMIN HCL 500MG 24HR SA TAB TAKE TWO TABLETS BY MOUTH ACTIVE TWICE A DAY Indication: FOR BLOOD SUGAR Active Non-VA Medications Status 1) Non-VA ASPIRIN 81MG EC TAB 81MG MOUTH DAILY ACTIVE 2) Non-VA TAMSULOSIN HCL 0.4MG CAP 0.4MG MOUTH EVERY EVENING ACTIVE 3) Non-VA TRAMADOL HCL 50MG TAB 50MG MOUTH TWICE A DAY ACTIVE 12 Total Medications Apixaban Avoid use with strong p-gp inducers (decreased DOAC concentration and unable to monitor): carbamazepine, oxcarbazepine, phenytoin, primidone, rifampin, [place] wort With p-gp and CY inhibitors (increased DOAC exposure) 1) If taking 5mg or 10mg bid reduce dose by 50% or avoid if taking 2.5mg bid with strong p-gp and strong CY inhibitors: itraconazole, indinavir, ketoconazole, posaconazole, ritonavir, voriconazole 2) USE WITH CAUTION in normal renal function and AVOID USE in pts with CrCl < 30ml/min, age > 80 or weight < 60kg): amiodarone, clarithromycin, diltiazem, erythromycin, fluconazole, tamoxifen, verapamil, ticagrelor PANEL 2 Frances. date TOT PRO ALBUMIN SGOT SGPT Z ALK PHZ GGT, CZ TOTAL 09/30/24 12:04 7.7 4.1 21 19 78 0.4 12/28/23 09:00 7.9 4.3 41 H 51 101 0.4 PANEL 1 Frances. date GLUCOSE BUN CREAT SODIUM K CHLOR CO2 10/29/24 10:22 180 H 11 0.90 144 4.5 105 26 09/30/24 12:04 181 H 7 L 0.91 144 3.8 102 30 H 01/30/24 09:25 189 H 11 1.09 139 4.3 101 27 PANEL 5 Frances. date GLUCOSE BUN CREAT SODIUM K CHLOR CO2 10/29/24 10:22 180 H 11 0.90 144 4.5 105 26 CBC/PLT, BLOOD - Partial Panel found WBC , BLOOD, 09/30/24@1204 7.8 K/cmm (5.0 - 10.0) RBC, BLOOD, 09/30/24@1204 4.65 M/cmm (4.6 - 6.2) HGB, BLOOD, 09/30/24@1204 14.3 g/dL (14.0 - 18.0) HCT, BLOOD, 09/30/24@1204 43.8 % (42.0 - 52.0) MCV, BLOOD, 09/30/241204 94.2 HfL (80.0 - 94.0) MCH, BLOOD, 09/30/241204 30.8 pg (27.0 - 31.0) MCHC, BLOOD, 09/30/241204 32.6 g/dL (32.0 - 36.0) RDW, BLOOD, 09/30/241204 13.0 % (11.0 - 16.0) PLT, BLOOD, 09/30/241204 280 K/cmm (150 - 450) MPV, BLOOD, 09/30/241204 9.6 fL (9.0 - 13.1) NRBC, BLOOD, 09/30/241204 0.0 % (0.0 - 0.0) 246 lb [111.58 kg] (09/30/2024 10:08) 76 in [193.0 cm] (09/30/2024 10:08) BODY MASS INDEX - 30.0 Est ClCr >100 ml/min Education: to be provided at telephone call Medical alert bracelet/necklace: offered at telephone call Comments: From outside records medical decision narrative: Patient with above history and physical presents today with near syncope EKG was performed I personally interpreted which shows a ventricular rate of 155 and has A-flutter with RVR some ST depressions which are nonspecific in this particular situation no obvious STEMI. Does appear to have a left anterior fascicular block. Patient has no chest pain or SOB I do not suspect an TX or Pulmonary embolism or other acute cardiopulmonary emergency this appears to be an acute arrhythmia. Given the fact that he had symptoms that presented just prior to arrival suggest that we could pursue either rate control or rhythm control. Had extensive discussion with him regarding risk and benefits of both. I do think that he is safe given the fact that this started just a few minutes ago that we could proceed with electrical cardioversion which is what he opted for. Will proceed with moderate sedation and electrical cardioversion then we will anticoagulate the patient and have him follow up with cardiology. Reassessment: patient had significant hypomagnesemia and this was replaced. After replacement patient was successfully cardioverted. Patient is awake, alert, oriented with normal neurologic exam first dose of metoprolol and Eliquis were provided patient will be anticoagulated for 4 weeks and will follow up closely with cardiology as soon as possible. Patient was discharge in improved and stable condition. From 12/28/23 note: Right knee pain-stable/has failed physical therapy and rehab/orthopedics consult entered/order repeat x-rays -Stop NSAID due to #2 -Continue Ultram per private provider -Weight loss 2. Gastroesophageal reflux disease without esophagitis-stable/stop NSAID/no alarming symptoms other than black tarry stool (for 1 year) -Ordered labs/upper GI/colonoscopy given history polyps -Increase PPI to 40 mg twice daily/check H. pylori 02/2024 Colonoscopy showed: Colon, ascending, polyp, biopsy: -Fragments of tubular adenoma. Apixaban started 10/2024 A-fib, duration per cardiology [id number] = 4 (age, HTN, DM) HAS BLED = 4 (Age, HTN, ASA, tarry stools) DOAC Score = 6 (age, HTN, DM, ASA) Med interactions: ASA (OTC) Tobacco/ETOH: to be reviewed DOAC Score (maximum 10 points) = 6 (age, HTN, DM, ASA) (2) Age: 65-69 (2), 70-74 (3), 75-79 (4), >= 80 (5) () CrCl/EGFR (mL/min) 30-60 (1), <30 (2) () Underweight (BMI <18.5 kg/m2) (1) () Stroke, TIA/embolism history (1) (1) Diabetes (1) (1) Hypertension (1) (2) Antiplatelet use: ASA (2), DAPT (3) () NSAID USE (1) () Bleeding history (3) () Liver disease* (2) *Defined as AST, ALT, ALP >=3x ULN, ALP >=2x ULN, or cirrhosis Risk: Very low (0-3), low (4-5), moderate (6-7), high (8-9), very high (10) The maximum number of allocated points for an individual is 10, to prevent overestimation of risk in the high-risk group. A/P 1. Outside records note patient was starting anticoagulation for A-fib but under discharge planning notes Eliquis 5mg tablets: 5mg PO BID for 28 days with rx instructions as 10mg BID for 7 day then 5mg BID for a total of 3 months. From review of primary care secure messaging patient requesting apixaban through the [place] 07/07 to cost. Based on outside records patient will be using apixaban for A- flutter is appropriate for 5mg BID. Records document no concerns for PE so unclear why apixaban instructions showed 10mg BID for 7 days then 5mg BID thereafter, and would only use this dosing if patient has a VTE concern. 2. Dr. Michele, Since patient is on apixaban for A-flutter and if he is still taking ASA over the counter, can he stop this? Appears it is for preventive measures. 3. Jerardo Rodriguez: please call patient to review apixaban education. Two things to address. a. Indication: o Records from [facility] did not document any concerns for PE or DVT but prescription instructions used 10mg BID for 7 days then 5mg BID. If only using for A-flutter, will need to do 5mg BID. b. Supply o If he does not have apixaban currently, see if patient can brick picker today since he had cardioversion. o If he is unable to brick picker at , will need to go overnight and please confirm address Time spent entering clinical information into CPRS, reviewing history, interpreting results, reviewing scans, ordering meds, tests, procedures, referring and communicating with consulting healthcare professionals and care coordination: 35 minutes PBM PharmD Pharmacotherapy Rem V12: PHARMACIST INTERVENTIONS: ANTICOAGULATION THERAPY DIRECT ORAL ANTICOAGULANT (DOAC) MANAGEMENT Initiate medication Prevent or manage an adverse drug reaction or event Address adherence Care coordination Identify drug interaction Referral/consultation made by pharmacist for additional care /allie/ Micaela Vera, DlD, BCACP Clinical Folder Machine Adjuster, Anticoagulation Signed: 11/11/2024 08:10 Receipt Acknowledged By: * AWAITING SIGNATURE * BARBY RODRIGUEZ 11/11/2024 08:23 /es/ LUKE MICHELE STAFF PHYSICIAN/PRIMARY CARE 11/11/2024 ADDENDUM STATUS: COMPLETED -can stop asa /es/ LUKE H NELLYON STAFF PHYSICIAN/PRIMARY CARE Signed: 11/11/2024 08:24 Receipt Acknowledged By: 11/11/2024 09:29 /valentine Vera PharmD, CHRISTOPHERCP Clinical Folder Machine Adjuster, Anticoagulation BARBY RODRIGUEZ-SERA [facility] Nov 11, 2024 08:24 AM ADDENDUM: LOCAL TITLE: Addendum STANDARD TITLE: ADDENDUM DATE OF NOTE: NOV 11, 2024@08:24:03 ENTRY DATE: NOV 11, 2024@08:24:04 AUTHOR: LUKE MICHELE EXP COSIGNER: URGENCY: STATUS: COMPLETED -can stop asa /es/ LUKE Phill NELLYON STAFF PHYSICIAN/PRIMARY CARE Signed: 11/11/2024 08:24 Receipt Acknowledged By: 11/11/2024 09:29 valentine Vera PharmD, [facility] Clinical Folder Machine Adjuster, Anticoagulation --- Original Document --- 11/11/24 PHARMACY WARFARIN CONSULT RESPONSE: Reason for consult: New patient enrollment; New start Continuation of therapy: Start Date: 3 months - I received outside records from [facility] in [place] Dated 11/02/2024: Second EKG performed-shows ventricular rate of 78 normal sinus rhythm left anterior fascicular block no acute ischemic changes/noted no longer in atrial fibrillation and is now in normal sinus rhythm Discharge plan: Eliquis 5 mg twice daily for 28 days -Take 10 mg twice daily for 7 days followed by 5 mg twice daily for a total of 3 months Metoprolol succinate 50 mg extended release 24 hours daily Chief complaint: Dizziness HPI-patient presented with near syncope No chest pain or shortness of breath Positive palpitations Initial EKG: Shows ventricular rate of 155 and has atrial flutter with rapid ventricular response some ST depressions which are nonspecific No obvious STEMI Positive left anterior fascicular block History of hypomagnesia-this was replaced After replacement of magnesium, patient was successfully cardioverted/subsequent twelve-lead EKG which confirms sinus rhythm No complications; He was sent home on metoprolol and Eliquis Recommendation is to anticoagulate for 4 weeks and follow-up closely with cardiology PCP recommendations: 1. I have entered cardiology consult for follow-up and evaluation 2. I have entered warfarin clinic to order DA OC as recommended See scanned notes for full details Diagnosis: Atrial Flutter: See outside records Duration of therapy: See outside records Active Outpatient Medications (including Supplies): Active Outpatient [...] 6 HOURS NEEDED Indication: FOR PAIN 4) FLUTICASONE PROP 50MCG 120D NASAL INHL USE 2 SPRAYS IN EACH ACTIVE NOSTRIL DAILY Indication: FOR NASAL ALLERGY 5) LACTOBACILLUS ACIDOPHILUS CHEW TAB CHEW 2 TABLETS BY MOUTH ACTIVE THREE TIMES A DAY WITH MEALS -REFRIGERATE AFTER OPENING TAKE FOR GUT PROTECTION AGAINST ANTIBIOTIC Indication: FOR BOWEL HEALTH 6) LANCET,SOFTCLIX USE LANCET AFFECTED AREA DIRECTED ACTIVE 7) LIDOCAINE 5% 5IN X 6IN PATCH APPLY 2 PATCHES TO SKIN DAILY ACTIVE -LEAVE ON 12 HOURS, THEN REMOVE FOR 12 HOURS Indication: FOR PAIN 8) LISINOPRIL 20MG TAB TAKE ONE-HALF TABLET BY MOUTH DAILY ACTIVE Indication: FOR HIGH BLOOD PRESSURE 9) METFORMIN HCL 500MG 24HR SA TAB TAKE TWO TABLETS BY MOUTH ACTIVE TWICE A DAY Indication: FOR BLOOD SUGAR Active Non-VA Medications Status 1) Non-VA ASPIRIN 81MG EC TAB 81MG MOUTH DAILY ACTIVE 2) Non-VA TAMSULOSIN HCL 0.4MG CAP 0.4MG MOUTH EVERY EVENING ACTIVE 3) Non-VA TRAMADOL HCL 50MG TAB 50MG MOUTH TWICE A DAY ACTIVE 12 Total Medications Apixaban Avoid use with strong p-gp inducers (decreased DOAC concentration and unable to monitor): carbamazepine, oxcarbazepine, phenytoin, primidone, rifampin, [place] wort With p-gp and CY inhibitors (increased DOAC exposure) 1) If taking 5mg or 10mg bid reduce dose by 50% or avoid if taking 2.5mg bid with strong p-gp and strong CY inhibitors: itraconazole, indinavir, ketoconazole, posaconazole, ritonavir, voriconazole 2) USE WITH CAUTION in normal renal function and AVOID USE in pts with CrCl < 30ml/min, age > 80 or weight < 60kg): amiodarone, clarithromycin, diltiazem, erythromycin, fluconazole, tamoxifen, verapamil, ticagrelor PANEL 2 Frances. date TOT PRO ALBUMIN SGOT SGPT Z ALK PHZ GGT, CZ TOTAL 09/30/24 12:04 7.7 4.1 21 19 78 0.4 12/28/23 09:00 7.9 4.3 41 H 51 101 0.4 PANEL 1 Frances. date GLUCOSE BUN CREAT SODIUM K [employer] CO2 10/29/24 10:22 180 H 11 0.90 144 4.5 105 26 09/30/24 12:04 181 H 7 L 0.91 144 3.8 102 30 H 01/30/24 09:25 189 H 11 1.09 139 4.3 101 27 PANEL 5 Franecs. date GLUCOSE BUN CREAT SODIUM K CHLOR CO2 10/29/24 10:22 180 H 11 0.90 144 4.5 105 26 CBC/PLT, BLOOD - Partial Panel found WBC , BLOOD, 09/30/24@1204 7.8 K/cmm (5.0 - 10.0) RBC, BLOOD, 09/30/24@1204 4.65 M/cmm (4.6 - 6.2) HGB, BLOOD, 09/30/241204 14.3 g/dL (14.0 - 18.0) HCT, BLOOD, 09/30/241204 43.8 % (42.0 - 52.0) MCV, BLOOD, 09/30/241204 94.2 HfL (80.0 - 94.0) MCH, BLOOD, 09/30/241204 30.8 pg (27.0 - 31.0) MCHC, BLOOD, 09/30/241204 32.6 g/dL (32.0 - 36.0) RDW, BLOOD, 09/30/241204 13.0 % (11.0 - 16.0) PLT, BLOOD, 09/30/24120 280 K/cmm (150 - 450) MPV, BLOOD, 09/30/241204 9.6 fL (9.0 - 13.1) NRBC, BLOOD, 09/30/241204 0.0 % (0.0 - 0.0) 246 lb [111.58 kg] (09/30/2024 10:08) 76 in [193.0 cm] (09/30/2024 10:08) BODY MASS INDEX - 30.0 Est ClCr >100 ml/min Education: to be provided at telephone call Medical alert bracelet/necklace: offered at telephone call Comments: From outside records medical decision narrative: Patient with above history and physical presents today with near syncope EKG was performed I personally interpreted which shows a ventricular rate of 155 and has A-flutter with RVR some ST depressions which are nonspecific in this particular situation no obvious STEMI. Does appear to have a left anterior fascicular block. Patient has no chest pain or SOB I do not suspect an TX or Pulmonary embolism or other acute cardiopulmonary emergency this appears to be an acute arrhythmia. Given the fact that he had symptoms that presented just prior to arrival suggest that we could pursue either rate control or rhythm control. Had extensive discussion with him regarding risk and benefits of both. I do think that he is safe given the fact that this started just a few minutes ago that we could proceed with electrical cardioversion which is what he opted for. Will proceed with moderate sedation and electrical cardioversion then we will anticoagulate the patient and have him follow up with cardiology. Reassessment: patient had significant hypomagnesemia and this was replaced. After replacement patient was successfully cardioverted. Patient is awake, alert, oriented with normal neurologic exam first dose of metoprolol and Eliquis were provided patient will be anticoagulated for 4 weeks and will follow up closely with cardiology as soon as possible. Patient was discharge in improved and stable condition. From 12/28/23 note: Right knee pain-stable/has failed physical therapy and rehab/orthopedics consult entered/order repeat x-rays -Stop NSAID due to #2 -Continue Ultram per private provider -Weight loss 2. Gastroesophageal reflux disease without esophagitis-stable/stop NSAID/no alarming symptoms other than black tarry stool (for 1 year) -Ordered labs/upper GI/colonoscopy given history polyps -Increase PPI to 40 mg twice daily/check H. pylori 02/2024 Colonoscopy showed: Colon, ascending, polyp, biopsy: -Fragments of tubular adenoma. Apixaban started 10/2024 A-fib, duration per cardiology [id number] = 4 (age, HTN, DM) HAS BLED = 4 (Age, HTN, ASA, tarry stools) DOAC Score = 6 (age, HTN, DM, ASA) Med interactions: ASA (OTC) Tobacco/ETOH: to be reviewed DOAC Score (maximum 10 points) = 6 (age, HTN, DM, ASA) (2) Age: 65-69 (2), 70-74 (3), 75-79 (4), >= 80 (5) () CrCl/EGFR (mL/min) 30-60 (1), <30 (2) () Underweight (BMI <18.5 kg/m2) (1) () Stroke, TIA/embolism history (1) (1) Diabetes (1) (1) Hypertension (1) (2) Antiplatelet use: ASA (2), DAPT (3) () NSAID USE (1) () Bleeding history (3) () Liver disease* (2) *Defined as AST, ALT, ALP >=3x ULN, ALP >=2x ULN, or cirrhosis Risk: Very low (0-3), low (4-5), moderate (6-7), high (8-9), very high (10) The maximum number of allocated points for an individual is 10, to prevent overestimation of risk in the high-risk group. A/P 1. Outside records note patient was starting anticoagulation for A-fib but under discharge planning notes Eliquis 5mg tablets: 5mg PO BID for 28 days with rx instructions as 10mg BID for 7 day then 5mg BID for a total of 3 months. From review of primary care secure messaging patient requesting apixaban through the [place] 07/07 to cost. Based on outside records patient will be using apixaban for A- flutter is appropriate for 5mg BID. Records document no concerns for PE so unclear why apixaban instructions showed 10mg BID for 7 days then 5mg BID thereafter, and would only use this dosing if patient has a VTE concern. 2. Dr. Michele, Since patient is on apixaban for A-flutter and if he is still taking ASA over the counter, can he stop this? Appears it is for preventive measures. 3. Jerardo Rodriguez: please call patient to review apixaban education. Two things to address. a. Indication: o Records from [facility] did not document any concerns for PE or DVT but prescription instructions used 10mg BID for 7 days then 5mg BID. If only using for A-flutter, will need to do 5mg BID. b. Supply o If he does not have apixaban currently, see if patient can brick picker today since he had cardioversion. o If he is unable to brick picker at , will need to go overnight and please confirm address Time spent entering clinical information into CPRS, reviewing history, interpreting results, reviewing scans, ordering meds, tests, procedures, referring and communicating with consulting healthcare professionals and care coordination: 35 minutes PBM PharmD Pharmacotherapy Rem V12: PHARMACIST INTERVENTIONS: ANTICOAGULATION THERAPY DIRECT ORAL ANTICOAGULANT (DOAC) MANAGEMENT Initiate medication Prevent or manage an adverse drug reaction or event Address adherence Care coordination Identify drug interaction Referral/consultation made by pharmacist for additional care /allie/ Micaela Vera, PharmD, BCACP Clinical Folder Machine Adjuster, Anticoagulation Signed: 11/11/2024 08:10 Receipt Acknowledged By: * AWAITING SIGNATURE * BARBY RODRIGUEZ 11/11/2024 08:23 /allie/ LUKE MICHELE STAFF PHYSICIAN/PRIMARY CARE 11/11/2024 ADDENDUM STATUS: UNCOSIGNED pt reports he is not taking ASA, can remove from list will p/u med today Pharm D to enter Rx /allie/ BARBY RODRIGUEZ CLINICAL JAVA SOFTWARE Signed: 11/11/2024 09:26 Receipt Acknowledged By: * AWAITING SIGNATURE * LUKE MICHELE TAMMY H [place] Nov 11, 2024 07:13 AM PHARMACY CONSULT: LOCAL TITLE: PHARMACY WARFARIN CONSULT RESPONSE STANDARD TITLE: PHARMACY CONSULT DATE OF NOTE: NOV 11, 2024@07:13 ENTRY DATE: NOV 11, 2024@07:13:59 AUTHOR: MICAELA VERA EXP COSIGNER: URGENCY: STATUS: COMPLETED PHARMACY WARFARIN CONSULT RESPONSE Has ADDENDA Reason for consult: New patient enrollment; New start Continuation of therapy: Start Date: 3 months - I received outside records from [facility] in [place] Dated 11/02/2024: Second EKG performed-shows ventricular rate of 78 normal sinus rhythm left anterior fascicular block no acute ischemic changes/noted no longer in atrial fibrillation and is now in normal sinus rhythm Discharge plan: Eliquis 5 mg twice daily for 28 days -Take 10 mg twice daily for 7 days followed by 5 mg twice daily for a total of 3 months Metoprolol succinate 50 mg extended release 24 hours daily Chief complaint: Dizziness HPI-patient presented with near syncope No chest pain or shortness of breath Positive palpitations Initial EKG: Shows ventricular rate of 155 and has atrial flutter with rapid ventricular response some ST depressions which are nonspecific No obvious STEMI Positive left anterior fascicular block History of hypomagnesia-this was replaced After replacement of magnesium, patient was successfully cardioverted/subsequent twelve-lead EKG which confirms sinus rhythm No complications; He was sent home on metoprolol and Eliquis Recommendation is to anticoagulate for 4 weeks and follow-up closely with cardiology PCP recommendations: 1. I have entered cardiology consult for follow-up and evaluation 2. I have entered warfarin clinic to order DA OC as recommended See scanned notes for full details Diagnosis: Atrial Flutter: See outside records Duration of therapy: See outside records Active Outpatient Medications (including Supplies): Active Outpatient [...] 6 HOURS NEEDED Indication: FOR PAIN 4) FLUTICASONE PROP 50MCG 120D NASAL INHL USE 2 SPRAYS IN EACH ACTIVE NOSTRIL DAILY Indication: FOR NASAL ALLERGY 5) LACTOBACILLUS ACIDOPHILUS CHEW TAB CHEW 2 TABLETS BY MOUTH ACTIVE THREE TIMES A DAY WITH MEALS -REFRIGERATE AFTER OPENING TAKE FOR GUT PROTECTION AGAINST ANTIBIOTIC Indication: FOR BOWEL HEALTH 6) LANCET,SOFTCLIX USE LANCET AFFECTED AREA DIRECTED ACTIVE 7) LIDOCAINE 5% 5IN X 6IN PATCH APPLY 2 PATCHES TO SKIN DAILY ACTIVE -LEAVE ON 12 HOURS, THEN REMOVE FOR 12 HOURS Indication: FOR PAIN 8) LISINOPRIL 20MG TAB TAKE ONE-HALF TABLET BY MOUTH DAILY ACTIVE Indication: FOR HIGH BLOOD PRESSURE 9) METFORMIN HCL 500MG 24HR SA TAB TAKE TWO TABLETS BY MOUTH ACTIVE TWICE A DAY Indication: FOR BLOOD SUGAR Active Non-VA Medications Status 1) Non-VA ASPIRIN 81MG EC TAB 81MG MOUTH DAILY ACTIVE 2) Non-VA TAMSULOSIN HCL 0.4MG CAP 0.4MG MOUTH EVERY EVENING ACTIVE 3) Non-VA TRAMADOL HCL 50MG TAB 50MG MOUTH TWICE A DAY ACTIVE 12 Total Medications Apixaban Avoid use with strong p-gp inducers (decreased DOAC concentration and unable to monitor): carbamazepine, oxcarbazepine, phenytoin, primidone, rifampin, [place] wort With p-gp and CY inhibitors (increased DOAC exposure) 1) If taking 5mg or 10mg bid reduce dose by 50% or avoid if taking 2.5mg bid with strong p-gp and strong CY inhibitors: itraconazole, indinavir, ketoconazole, posaconazole, ritonavir, voriconazole 2) USE WITH CAUTION in normal renal function and AVOID USE in pts with CrCl < 30ml/min, age > 80 or weight < 60kg): amiodarone, clarithromycin, diltiazem, erythromycin, fluconazole, tamoxifen, verapamil, ticagrelor PANEL 2 Frances. date TOT PRO ALBUMIN SGOT SGPT Z ALK PHZ GGT, CZ TOTAL 09/30/24 12:04 7.7 4.1 21 19 78 0.4 12/28/23 09:00 7.9 4.3 41 H 51 101 0.4 PANEL 1 Frances. date GLUCOSE BUN CREAT SODIUM K CHLOR CO2 10/29/24 10:22 180 H 11 0.90 144 4.5 105 26 09/30/24 12:04 181 H 7 L 0.91 144 3.8 102 30 H 01/30/24 09:25 189 H 11 1.09 139 4.3 101 27 PANEL 5 Frances. date GLUCOSE BUN CREAT SODIUM K CHLOR CO2 10/29/24 10:22 180 H 11 0.90 144 4.5 105 26 CBC/PLT, BLOOD - Partial Panel found WBC , BLOOD, 09/30/24@1204 7.8 K/cmm (5.0 - 10.0) RBC, BLOOD, 09/30/24@1204 4.65 M/cmm (4.6 - 6.2) HGB, BLOOD, 09/30/24@1204 14.3 g/dL (14.0 - 18.0) HCT, BLOOD, 09/30/24@1204 43.8 % (42.0 - 52.0) MCV, BLOOD, 09/30/24@1204 94.2 HfL (80.0 - 94.0) MCH, BLOOD, 09/30/241204 30.8 pg (27.0 - 31.0) MCHC, BLOOD, 09/30/241204 32.6 g/dL (32.0 - 36.0) RDW, BLOOD, 09/30/241204 13.0 % (11.0 - 16.0) PLT, BLOOD, 09/30/241204 280 K/cmm (150 - 450) MPV, BLOOD, 09/30/241204 9.6 fL (9.0 - 13.1) NRBC, BLOOD, 09/30/241204 0.0 % (0.0 - 0.0) 246 lb [111.58 kg] (09/30/2024 10:08) 76 in [193.0 cm] (09/30/2024 10:08) BODY MASS INDEX - 30.0 Est ClCr >100 ml/min Education: to be provided at telephone call Medical alert bracelet/necklace: offered at telephone call Comments: From outside records medical decision narrative: Patient with above history and physical presents today with near syncope EKG was performed I personally interpreted which shows a ventricular rate of 155 and has A-flutter with RVR some ST depressions which are nonspecific in this particular situation no obvious STEMI. Does appear to have a left anterior fascicular block. Patient has no chest pain or SOB I do not suspect an TX or Pulmonary embolism or other acute cardiopulmonary emergency this appears to be an acute arrhythmia. Given the fact that he had symptoms that presented just prior to arrival suggest that we could pursue either rate control or rhythm control. Had extensive discussion with him regarding risk and benefits of both. I do think that he is safe given the fact that this started just a few minutes ago that we could proceed with electrical cardioversion which is what he opted for. Will proceed with moderate sedation and electrical cardioversion then we will anticoagulate the patient and have him follow up with cardiology. Reassessment: patient had significant hypomagnesemia and this was replaced. After replacement patient was successfully cardioverted. Patient is awake, alert, oriented with normal neurologic exam first dose of metoprolol and Eliquis were provided patient will be anticoagulated for 4 weeks and will follow up closely with cardiology as soon as possible. Patient was discharge in improved and stable condition. From 12/28/23 note: Right knee pain-stable/has failed physical therapy and rehab/orthopedics consult entered/order repeat x-rays -Stop NSAID due to #2 -Continue Ultram per private provider -Weight loss 2. Gastroesophageal reflux disease without esophagitis-stable/stop NSAID/no alarming symptoms other than black tarry stool (for 1 year) -Ordered labs/upper GI/colonoscopy given history polyps -Increase PPI to 40 mg twice daily/check H. pylori 02/2024 Colonoscopy showed: Colon, ascending, polyp, biopsy: -Fragments of tubular adenoma. Apixaban started 10/2024 A-fib, duration per cardiology [id number] = 4 (age, HTN, DM) HAS BLED = 4 (Age, HTN, ASA, tarry stools) DOAC Score = 6 (age, HTN, DM, ASA) Med interactions: ASA (OTC) Tobacco/ETOH: to be reviewed DOAC Score (maximum 10 points) = 6 (age, HTN, DM, ASA) (2) Age: 65-69 (2), 70-74 (3), 75-79 (4), >= 80 (5) () CrCl/EGFR (mL/min) 30-60 (1), <30 (2) () Underweight (BMI <18.5 kg/m2) (1) () Stroke, TIA/embolism history (1) (1) Diabetes (1) (1) Hypertension (1) (2) Antiplatelet use: ASA (2), DAPT (3) () NSAID USE (1) () Bleeding history (3) () Liver disease* (2) *Defined as AST, ALT, ALP >=3x ULN, ALP >=2x ULN, or cirrhosis Risk: Very low (0-3), low (4-5), moderate (6-7), high (8-9), very high (10) The maximum number of allocated points for an individual is 10, to prevent overestimation of risk in the high-risk group. A/P 1. Outside records note patient was starting anticoagulation for A-fib but under discharge planning notes Eliquis 5mg tablets: 5mg PO BID for 28 days with rx instructions as 10mg BID for 7 day then 5mg BID for a total of 3 months. From review of primary care secure messaging patient requesting apixaban through the [place] 07/07 to cost. Based on outside records patient will be using apixaban for A- flutter is appropriate for 5mg BID. Records document no concerns for PE so unclear why apixaban instructions showed 10mg BID for 7 days then 5mg BID thereafter, and would only use this dosing if patient has a VTE concern. 2. Dr. Michele, Since patient is on apixaban for A-flutter and if he is still taking ASA over the counter, can he stop this? Appears it is for preventive measures. 3. Jerardo Rodriguez: please call patient to review apixaban education. Two things to address. a. Indication: o Records from [facility] did not document any concerns for PE or DVT but prescription instructions used 10mg BID for 7 days then 5mg BID. If only using for A-flutter, will need to do 5mg BID. b. Supply o If he does not have apixaban currently, see if patient can brick picker today since he had cardioversion. o If he is unable to brick picker at , will need to go overnight and please confirm address Time spent entering clinical information into CPRS, reviewing history, interpreting results, reviewing scans, ordering meds, tests, procedures, referring and communicating with consulting healthcare professionals and care coordination: 35 minutes PBM PharmD Pharmacotherapy Rem V12: PHARMACIST INTERVENTIONS: ANTICOAGULATION THERAPY DIRECT ORAL ANTICOAGULANT (DOAC) MANAGEMENT Initiate medication Prevent or manage an adverse drug reaction or event Address adherence Care coordination Identify drug interaction Referral/consultation made by pharmacist for additional care /allie/ Dl EliasD, BCACP Clinical Folder Machine Adjuster, Anticoagulation Signed: 11/11/2024 08:10 Receipt Acknowledged By: 11/11/2024 10:03 /allie/ BARBY RODRIGUEZ CLINICAL JAVA SOFTWARE 11/11/2024 08:23 /es/ LUKE MICHELE STAFF PHYSICIAN/PRIMARY CARE 11/11/2024 ADDENDUM STATUS: COMPLETED -can stop asa /allie/ LUKE MICHELE STAFF PHYSICIAN/PRIMARY CARE Signed: 11/11/2024 08:24 Receipt Acknowledged By: 11/11/2024 09:29 /allie/ Micaela Vera PharmD, LINDA Clinical Folder Machine Adjuster, Anticoagulation 11/11/2024 ADDENDUM STATUS: COMPLETED pt reports he is not taking ASA, can remove from list will p/u med today Pharm D to enter Rx /allie/ BARBY RODRIGUEZ CLINICAL JAVA SOFTWARE Signed: 11/11/2024 09:26 /allie/ Micaela Vera PharmD, LINDA Clinical Folder Machine Adjuster, Anticoagulation Cosigned: 11/11/2024 09:30 Receipt Acknowledged By: 11/11/2024 09:34 /allie/ LUKE MICHELE STAFF PHYSICIAN/PRIMARY CARE [facility]EL[facility]
--- OUTSIDE RECORDS SUMMARY | 2024-11-11 05:39 | XMS_ITS | Encounter Summary ---
Author Name [facility] [facility] [place] [facility] [place] Address [address] [place] [address] Care Team Providers Care Legal Administrator Name Role Phone KRYSTIN HOLLIS Primary [...] PART A Jun 05, 2024 PART A [id number] [place] PATIENT MEDICARE (WNR) MEDICARE (M) PART B Jun 05, 2024 PART B [id number] [place] PATIENT Selected Encounter This section includes the information on record at [place] for the Encounter. Date/Time Encounter Type Encounter Description Reason Provider Source Nov 11, 2024 09:39 AM MTMS BY PHARM LOADING INSPECTOR 15 MIN TELEPHONE/ANCILLA RY ICD-10-CM Z51.81 Encounter for therapeutic drug level monitoring MICALEA VERA Encounter Template Text not used by [place] Assessments - Encounter Diagnoses This section includes the primary and secondary diagnoses documented for the Encounter. 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 This section includes future appointments and future orders which are active, pending or scheduled. Future Appointments This section includes appointments that were scheduled to occur 6 months from the date of the Encounter, up to a maximum of 20 appointments. The data comes from all [facility]. Appointment Date/Time Appointment Type Appointme nt Facility Name Nov 12, 2024 01:00 PM AMBULATORY - MEDICINE [facility] Nov 15, 2024 09:00 AM AMBULATORY - MEDICINE [facility] Nov 25, 2024 04:00 PM [facility] - NONE [place] [facility] Nov 28, 2024 09:40 AM AM[facility]ULATORY - MEDICINE [facility] Dec 30, 2024 02:00 PM [facility] - [facility]ONE [place] [facility] Dec 30, 2024 02:30 PM AMBULATORY - MEDICINE [facility] Jan 22, 2025 03:00 PM AM[facility]ORY - NONE [place] [facility] Active, Pending, and Scheduled Orders This section includes a listing of several types of active, pending, and scheduled orders, including clinic medications orders, diagnostic test orders, procedure orders and consult orders; where the start date of the order is 45 days before the date of the Encounter or 45 days after the date of theEncounter. The data comes from all [facility]. Test Date/Time Test Type Test Details Facility Name Nov 08, 2024 03:56 PM Consult Order MED CARDIO LOGY OUTPATIENT Cons Ship Engines Operating Engineer's Choice [facility] Nov 15, 2024 09:16 AM Procedure Order CP PATCH H OLTER OUTPATIENT CP PATCH HOLTER Proc [employer] Operating [facility] Choice [facility] Lab Results: +/- [...] Type Comment October 29, 2024 10:22 AM [facility] N PANEL 1 PLASMA Specimen Type: PLASMA [...] Sep 30, 2024 11:03 AM Reporting Lab: [address] [id number] Performing Lab: [address] [id number] CREATININE 0.90 mg/dL 0.72-1.25 UREA NITROGEN 11 [...] 25, 2019 ADVANCE DIRECTIVE DISCUSSION [facility] [place] [facility] Encounter Notes: All associated encounter notes This section contains the clinical notes associated to the Encounter. Date/Time Encounter Note(s) Provider Source Nov 11, 2024 09:44 AM PHARMACY NOTE: LOCAL TITLE: PHARMACY WARFARIN CLINIC NOTE STANDARD TITLE: PHARMACY NOTE DATE OF NOTE: NOV 11, 2024@09:44:34 ENTRY DATE: NOV 11, 2024@09:44:34 AUTHOR: BARBY BARBOSA EXP COSIGNER: MICAELA VERA URGENCY: STATUS: COMPLETED PHARMACY WARFARIN CLINIC NOTE Has ADDENDA Patient continues to be followed in the TELEPHONE/DOAC Clinic. 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 Click on Anticoagulation Flowsheet. Education: for Apixaban/Eliquis (x) Indication for therapy and anticipated duration of therapy; (x) Interactions (drug, diet, and disease); (x) Daily dosage including dosing changes and capsule/tablet identification; proper storage (x) The importance of medication adherence; (x) The management of missed doses; If you miss a dose, you should take that dose as soon as you remember. If it is within 6 hours from when you are scheduled to take your next dose, you should skip the missed dose (x) Signs and symptoms of bleeding and thromboembolic event, and what to do if such an event occurs; (x) Non-bleeding adverse events (x) Reviewed safety to reduce risk of bleed,including risks associated with tobacco and alcohol use. (x) Alert clinic to any procedures and need to alert any providers about anticoagulation prior to procedure (x) The need to inform other health care providers about long-term anticoagulation therapy and when changes in medications (both rx and otc) occur or upcoming procedures are expected); (x) Risks associated with falling/falls prevention; (x) Monitoring requirements, keeping f/u appointments (x) Patient received appropriate contact information for AC clinic (n/a) If female, patient counseled on increased menstrual bleeding and Patient agreeable to monitoring. Reviewed that medication is not mailed automatically and must be ordered at least 14 days in advance. Written information mailed on all topics and patient was given opportunity to have questions answered. Comment: spoke with pt by phone, reviewed med ed, monitoring, rx refills,pt states he will return to [facility] after his knee replacement, unsure when it will be, states his A1C needs to be below 7 prior to any surgery, so unsure when it will take place possibly January or February, reviewed with pt he needs to be on therapy at least 3 months prior to procedure or Cards may DC therapy prior to procedure if DCCV sucessful. Pt expressed understanding. Pt states he has not started Apix as he could not afford os [facility], will come to p/u r/x today and start. Reviewed with pt that the correct dose is 5 mg bid, not what was listed on [place] paperwork of 10mg bid x 7 days then 5mg bid, will just take 5mg bid, pt expressed understanding. Pt states he is not taking ASA, will remove from Non VA med list, pt states he will see [facility]. A/P 1. Start Apixaban 5mg bid today 2. Linen Supervisor to schedule tele/doac x 2 weeks 'tolerance' 3. I have seen and discussed patient with my supervising practitioner, Dr. Vera, who agrees with my assessment and plan. Time spent entering clinical information into CPRS, reviewing history, performing the evaluation, interpreting results, counseling patient/family/caregiver, reviewing scans, ordering meds, tests, procedures,referring and communicating with consulting healthcare professionals and care coordination: 10 minutes PBM PharmD Pharmacotherapy Rem V12: PHARMACIST INTERVENTIONS: ANTICOAGULATION THERAPY DIRECT ORAL ANTICOAGULANT (DOAC) MANAGEMENT Initiate medication Care coordination /allie/ BARBY BARBOSA [facility] SPECIALIST Signed: 11/11/2024 10:02 /allie/ Micaela Vera PharmD, LINDA Clinical Information Resources Director, Anticoagulation Cosigned: 11/11/2024 10:04 Receipt Acknowledged By: 11/11/2024 10:09 /allie/ ARVIN DONG pediatrician/medical doctor 11/11/2024 ADDENDUM STATUS: COMPLETED Pt discussed with run lead who spoke to pt over the phone, chart reviewed, concur with plan. Time with pt = 20 mins /valentine Vera PharmD, LINDA Clinical Information Resources Director, Anticoagulation Signed: 11/11/2024 10:04 BARBY BARBOSA-[facility]
--- OUTSIDE RECORDS SUMMARY | 2024-11-12 09:00 | XMS_ITS | Encounter Summary ---
Author Name [facility] [place] Address [address] [place] [address] Care Team Providers Care Precision Lens Centerer And Edger Name Role Phone KRYSTIN HOLLIS Primary Care [...] PART A Jun 05, 2024 PART A [id number] BLA[place] PATIENT MEDICARE (WNR) MEDICARE (M) PART B Jun 05, 2024 PART B [id number] BLAIR BOND PATIENT Selected Encounter This section includes the information on record at [place] for the Encounter. Date/Time Encounter Type Encounter Description Reason Provider Source Nov 12, 2024 01:00 PM EXT ECG>7D<15D REC SCAN A/R AMB ECG MONITORING ICD-10-CM Z13.6 Encounter for screening for cardiovascular disorders NELDA BRYAN Chapo Encounter Template Text not used by [place] Assessments - Encounter Diagnoses This section includes the primary and secondary diagnoses documented for the Encounter. Date/Time Primary/Secondary Diagnosis Diagnosis Name Provider Source Nov 12, 2024 02:13 PM PRIMARY Encounter for screening for cardiovascular disorders [facility] Plan of Treatment: Future Appointments (+ 6 months) and Future Tests (+/- 45 days) The Plan of Treatment section includes future care activities for the patient from all [place] [facility]. This section includes future appointments and future orders which are active, pending or scheduled. Future Appointments This section includes appointments that were scheduled to occur 6 months from the date of the Encounter, up to a maximum of 20 appointments. The data comes from all [facility]. Appointment Date/Time Appointment Type Appointme nt Facility Name Nov 15, 2024 09:00 AM AMBULATORY - MEDICINE [facility] Nov 25, 2024 04:00 PM AM[place]ORY - NONE [place] [facility] Nov 28, 2024 09:40 AM AMBULATORY - MEDICINE TOYA [facility] Dec 30, 2024 02:00 PM AM[place]ATORY - NONE [place] Dec 30, 2024 02:30 PM AMBULATORY - MEDICINE [facility] Jan 22, 2025 03:00 PM AMBULATORY - NONE [place] [facility] Active, Pending, and Scheduled Orders This section includes a listing of several types of active, pending, and scheduled orders, including clinic medications orders, diagnostic test orders, procedure orders and consult orders; where the start date of the order is 45 days before the date of the Encounter or 45 days after the date of theEncounter. The data comes from all [facility]. Test Date/Time Test Type Test Details Facility Name Nov 08, 2024 03:56 PM Consult Order MED CARDIO LOGY OUTPATIENT Cons After School Program Assistant's Choice [facility] Nov 15, 2024 09:16 AM Procedure Order CP PATCH H OLTER OUTPATIENT CP PATCH HOLTER Proc After School Program Assistant's Choice [facility] Lab Results: +/- 30 days [...] October 29, 2024 10:22 AM [facility] PANEL 1 PLASMA Specimen Type: [...] Sep 30, 2024 11:03 AM Reporting Lab: [facility] [address] [facility] [id number] Performing Lab: [address] [address] CREATININE 0.90 mg/dL 0.72-1.25 UREA NITROGEN 11 [...] 25, 2019 ADVANCE DIRECTIVE DISCUSSION [facility] Encounter Notes: All associated encounter notes This section contains the clinical notes associated to the Encounter. Date/Time Encounter Note(s) Provider Source Nov 14, 2024 09:00 AM ADDENDUM: LOCAL TITLE: Addendum STANDARD TITLE: ADDENDUM DATE OF NOTE: NOV 14, 2024@09:00:04 ENTRY DATE: NOV 14, 2024@09:00:05 AUTHOR: BARBY BARBOSA EXP COSIGNER: URGENCY: STATUS: COMPLETED Pt states monitor has fallen off, pt would like a return call for further instructions /allie/ BARBY BARBOSA CLINICAL HUMAN RESOURCES BENEFITS ADMINISTRATOR Signed: 11/14/2024 09:00 Receipt Acknowledged By: 11/15/2024 08:22 /allie/ Palmer Blount SRNA SOCIAL MEDIA MANAGER --- Original Document --- 11/12/24 CARDIOLOGY CHART CHECK NOTE: Cp Patch Holter Monitor education and supervisor winding department is complete. /allie/ Palmer CASTRO SOCIAL MEDIA MANAGER Signed: 11/12/2024 14:12 BARBY BARBOSA [facility] Nov 12, 2024 02:10 PM CARDIOLOGY NOTE: LOCAL TITLE: CARDIOLOGY CHART CHECK NOTE STANDARD TITLE: CARDIOLOGY NOTE DATE OF NOTE: NOV 12, 2024@14:10 ENTRY DATE: NOV 12, 2024@14:10:59 AUTHOR: PALMER BLOUNT EXP COSIGNER: URGENCY: STATUS: COMPLETED CARDIOLOGY CHART CHECK NOTE Has ADDENDA Cp Patch Holter Monitor education and supervisor winding department is complete. /valentine CASTRO SOCIAL MEDIA MANAGER Signed: 11/12/2024 14:12 11/14/2024 ADDENDUM STATUS: COMPLETED Pt states monitor has fallen off, pt would like a return call for further instructions /allie/ BARBY BARBOSA CLINICAL HUMAN RESOURCES BENEFITS ADMINISTRATOR Signed: 11/14/2024 09:00 Receipt Acknowledged By: * AWAITING SIGNATURE * [facility] [place]
--- OUTSIDE RECORDS SUMMARY | 2024-11-15 05:00 | XMS_ITS | Encounter Summary ---
Author Name [facility] [place] Address [address] [place] [address] Care Team Providers Care Warehouse Team Member Name Role Phone KRYSTIN HOLLIS Primary Care [...] PART A Jun 05, 2024 PART A [id number] [place] PATIENT MEDICARE (WNR) MEDICARE (M) PART B Jun 05, 2024 PART B [id number] BLAIR BNOD PATIENT Selected Encounter This section includes the information on record at [place] for the Encounter. Date/Time Encounter Type Encounter Description Reason Pro vider Source Nov 15, 2024 09:00 AM Outpatient Encounter AMB ECG MONITORING IHE Encounter Template Text not used by [place] Plan of Treatment: Future Appointments (+ 6 months) and Future Tests (+/- 45 days) The Plan of Treatment section includes future care activities for the patient from all [place] [facility]. This section includes future appointments and future orders which are active, pending or scheduled. Future Appointments This section includes appointments that were scheduled to occur 6 months from the date of the Encounter, up to a maximum of 20 appointments. The data comes from all [facility]. Appointment Date/Time Appointment Type Appointme nt Facility Name Nov 25, 2024 04:00 PM AMBULATORY - NONE [facility] Nov 28, 2024 09:40 AM AMBULATORY - MEDICINE TOYA [facility] Dec 30, 2024 02:00 PM AMBULATORY - NONE [facility] Dec 30, 2024 02:30 PM AMBULATORY - MEDICINE TOYA [facility] Jan 22, 2025 03:00 PM AMBULATORY - NONE [facility] Active, Pending, and Scheduled Orders This section includes a listing of several types of active, pending, and scheduled orders, including clinic medications orders, diagnostic test orders, procedure orders and consult orders; where the start date of the order is 45 days before the date of the Encounter or 45 days after the date of theEncounter. The data comes from all [facility]. Test Date/Time Test Type Test Details Facility Name Nov 08, 2024 03:56 PM Consult Order MED CARDIO LOGY OUTPATIENT Cons Certified Public Accountant's Choice [facility] Nov 15, 2024 09:16 AM Procedure Order CP PATCH H OLTER OUTPATIENT CP PATCH HOLTER Proc Certified Public Accountant's Choice [facility] Dec 30, 2024 12:00 AM Laboratory - Chemi stry Order CBC/PLT [id number] BLOOD SP ONCE [facility] Dec 30, 2024 12:00 AM Laboratory - Chemi stry Order eGFR + CREATININE [id number] SP ONCE [facility] Lab Results: +/- 30 [...] Type Comment October 29, 2024 10:22 AM [facility] Jeevan PANEL 1 PLASMA Specimen Type: PLASMA [...] 30, 2024 11:03 AM Reporting Lab: [facility] [address] [facility] [phone] Performing Lab: [facility] [address] [facility] [address] CREATININE 0.90 mg/dL 0.72-1.25 UREA NITROGEN 11 [...] ALL of a patient's completed or amended [place] Advance and Rescinded Directives. The entries below indicate that a directive exists for the patient, but an actual copy is not included with this document. The data comes from all [place] facilities. Date Advance Directives Provider Source Apr 25, 2019 ADVANCE DIRECTIVE DISCUSSION ERVIN TAYLOR [place] [facility] Encounter Notes: All associated encounter notes This section contains the clinical notes associated to the Encounter. Date/Time Encounter Note(s) Provider Source Nov 18, 2024 11:04 AM CARDIOLOGY NOTE: LOCAL TITLE: CARDIOLOGY CHART CHECK NOTE STANDARD TITLE: CARDIOLOGY NOTE DATE OF NOTE: NOV 18, 2024@11:04 ENTRY DATE: NOV 18, 2024@11:04:22 AUTHOR: PALMER BLOUNT EXP COSIGNER: URGENCY: STATUS: COMPLETED Cp patch Holter Monitor Education and ict support technicians is complete. /allie/ Palmer Blount SRNA MANUFACTURING DEVELOPMENT ENGINEER Signed: 11/18/2024 11:05 [facility]
--- OUTSIDE RECORDS SUMMARY | 2024-11-25 06:29 | XMS_ITS ---
Author Name [facility] [place] Organization [place] Address [address] [place] [address] Care Team Providers Care Country Printer Name Role Phone KRYSTIN HOLLIS Primary Care [...] PART B Jun 05, 2024 PART B [id number] [facility] BLA[place] PATIENT MEDICARE (WNR) MEDICARE (M) PART A Jun 05, 2024 PART A [id number] [id number] [phone] BLAIR BOND PATIENT Selected Encounter This section includes the information on record at [place] for the Encounter. Date/Time Encounter Type Encounter Description Reason Pro vider Source Nov 25, 2024 10:29 AM Outpatient Encounter ADMIN PAT ACTIVTIES (MASNONCT) IHE Encounter Template Text not used by [place] Plan of Treatment: Future Appointments (+ 6 months) and Future Tests (+/- 45 days) The Plan of Treatment section includes future care activities for the patient from all [place] [facility]. This section includes future appointments and future orders which are active, pending or scheduled. Future Appointments This section includes appointments that were scheduled to occur 6 months from the date of the Encounter, up to a maximum of 20 appointments. The data comes from all [facility]. Appointment Date/Time Appointment Type Appointme nt Facility Name Nov 28, 2024 09:40 AM AMBULATORY - MEDICINE [facility] Dec 30, 2024 02:00 PM AMBULATORY - NONE [facility] Dec 30, 2024 02:30 PM AMBULATORY - MEDICINE [facility] Jan 22, 2025 03:00 PM AMBULATORY - NONE [facility] Active, Pending, and Scheduled Orders This section includes a listing of several types of active, pending, and scheduled orders, including clinic medications orders, diagnostic test orders, procedure orders and consult orders; where the start date of the order is 45 days before the date of the Encounter or 45 days after the date of theEncounter. The data comes from all [facility]. Test Date/Time Test Type Test Details Facility Name Nov 08, 2024 03:56 PM Consult Order MED CARDIO LOGY OUTPATIENT Cons Furs Salesperson's Choice [facility] Nov 15, 2024 09:16 AM Procedure Order CP PATCH H OLTER OUTPATIENT CP PATCH HOLTER Proc Furs Salesperson's Choice [facility] Dec 30, 2024 12:00 AM Laboratory - Chemi stry Order eGFR + CREATININE [id number] SP ONCE [facility] Dec 30, 2024 12:00 AM Laboratory - Chemi stry Order CBC/PLT [id number] BLOOD SP ONCE [facility] Lab Results: +/- 30 days [...] Type Comment October 29, 2024 10:22 AM [facility] N PANEL 1 PLASMA Specimen Type: PLASMA [...] Sep 30, 2024 11:03 AM Reporting Lab: [address] [id number] Performing Lab: [address] [address] CREATININE 0.90 mg/dL 0.72-1.25 UREA NITROGEN 11 [...] 25, 2019 ADVANCE DIRECTIVE DISCUSSION ERVIN TAYLOR [place] [facility] Encounter Notes: All associated encounter notes This section contains the clinical notes associated to the Encounter. Date/Time Encounter Note(s) Provider Source November 02, 2024 02:45 PM NONVA NOTE: LOCAL TITLE: [facility] PRESENTING CARE COORD PLAN STANDARD TITLE: NONVA NOTE DATE OF NOTE: NOVEMBER 02, 2024@14:45 ENTRY DATE: NOV 25, 2024@10:29:32 AUTHOR: MARY OLIVARES COSIGNER: URGENCY: STATUS: COMPLETED Emergency Notification Intake Date Presenting to the Facility: October Date of note has been modified to reflect Date of Service. Reason for modification: Hospital Notification Date:11/02/2024 3:33 PM EDT Method of Contact: Notified from BagThat worklist Notification ID: [id number] APPROVED [facility] Hospital Name: Hospital: [facility] Address: City: [place] State: [place] Zip Code: Chief complaint: DIZZINESS, HR ELEVATED Primary Diagnosis: Disposition DC FROM ED Handoff to PACT/PCP [facility] was informed this was seen for emergent care. Records requested for upload and review: Pursuant to 38 CFR 17.4020(c) Authorized emergency treatments. Handoff to PACT/PCP for follow up/care coordination as deemed appropriate by the PACT/PCP. PACT AWARE OF EOC /es/ Mary Olivares BSN BODY FITTERCLOTH BOOKER Signed: 11/25/2024 10:31 MARY OLIVARES-[facility]A [facility]
--- OUTSIDE RECORDS SUMMARY | 2024-11-25 12:00 | XMS_ITS | Encounter Summary ---
Author Name [place] Address [address] [place] [address] Care Team Providers Care Cell Stripper Name Role Phone KRYSTIN HOLLIS Primary Care [...] PART A Jun 05, 2024 PART A [id number] [id number] BLA[place] PATIENT MEDICARE (WNR) MEDICARE (M) PART B Jun 05, 2024 PART B [id number] [id number] BLAIR BOND PATIENT Selected Encounter This section includes the information on record at [place] for the Encounter. Date/Time Encounter Type Encounter Description Reason Provider Source Nov 25, 2024 04:00 PM MTMS BY PHARM EST 15 MIN TELEPHONE/ANNAMARIEILLA RY ICD-10-CM Z51.81 Encounter for therapeutic drug level monitoring MICAELA VERA Encounter Template Text not used by [place] Assessments - Encounter Diagnoses This section includes the primary and secondary diagnoses documented for the Encounter. 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 This section includes future appointments and future orders which are active, pending or scheduled. Future Appointments This section includes appointments that were scheduled to occur 6 months from the date of the Encounter, up to a maximum of 20 appointments. The data comes from all [facility]. Appointment Date/Time Appointment Type Appointme nt Facility Name Nov 28, 2024 09:40 AM AMBULATORY - MEDICINE [place] [facility] Dec 30, 2024 02:00 PM AM[place]ULATORY - NONE [place] [facility] Dec 30, 2024 02:30 PM AMBULATORY - MEDICINE TOYA [facility] Jan 22, 2025 03:00 PM AM[facility]ULATORY - NONE [place] [facility] Active, Pending, and Scheduled Orders This section includes a listing of several types of active, pending, and scheduled orders, including clinic medications orders, diagnostic test orders, procedure orders and consult orders; where the start date of the order is 45 days before the date of the Encounter or 45 days after the date of theEncounter. The data comes from all [facility]. Test Date/Time Test Type Test Details Facility Name Nov 08, 2024 03:56 PM Consult Order MED CARDIO LOGY OUTPATIENT Cons Call Box Wirer's Choice [facility] Nov 15, 2024 09:16 AM Procedure Order CP PATCH H OLTER OUTPATIENT CP PATCH HOLTER Proc Call Box Wirer's Choice [facility] Dec 30, 2024 12:00 AM Laboratory - Chemi stry Order eGFR + CREATININE [id number]-[id number] SP ONCE [facility] Dec 30, 2024 12:00 AM Laboratory - Chemi stry Order CBC/PLT [id number] BLOOD SP ONCE [facility] Lab Results: +/- 30 days of [...] October 29, 2024 10:22 AM [facility] N PANEL 1 PLASMA Specimen Type: PLASMA [...] Sep 30, 2024 11:03 AM Reporting Lab: [address] [id number] Performing Lab: [address] [address] CREATININE 0.90 mg/dL 0.72-1.25 UREA NITROGEN 11 [...] ALL of a patient's completed or amended [place] Advance and Rescinded Directives. The entries below indicate that a directive exists for the patient, but an actual copy is not included with this document. The data comes from all [place] facilities. Date Advance Directives Provider Source Apr 25, 2019 ADVANCE DIRECTIVE DISCUSSION ERVIN TAYLOR [place] [facility] Encounter Notes: All associated encounter notes This section contains the clinical notes associated to the Encounter. Date/Time Encounter Note(s) Provider Source Nov 25, 2024 02:11 PM PHARMACY NOTE: LOCAL TITLE: [facility] NOTE STANDARD TITLE: PHARMACY NOTE DATE OF NOTE: NOV 25, 2024@14:11:16 ENTRY DATE: NOV 25, 2024@14:11:16 AUTHOR: BARBY BARBOSA EXP COSIGNER: MICAELA VERA URGENCY: STATUS: COMPLETED [facility] NOTE Has ADDENDA Patient continues to be followed in the TELEPHONE/DOAC Clinic. 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 Click on Anticoagulation Flowsheet. Comments: Spoke with pt by phone Pt verified current dose of 5mg bid - Missed doses: none - Interacting med changes: none - Changes in health: none - Upcoming procedures: none - Alcohol/tobacco changes: none - S/sx bleeding or abnormal bruising: none reported - Falls: none Other:tolerating med well, no bleeding or issues reported, reviewed monitoring, Rx refills, med alert item ordered, pt knows knee replacement will not take place until after 3 months of therapy, pt expressed understanding A/P 1. continue with 5mg bid 2. Software Security Architect to schedule DOAC lab 12/30 with other appt/mail letter Pharm D to enter DOAC labs 3. I have seen and discussed patient [...] ANTICOAGULATION THERAPY DIRECT ORAL ANTICOAGULANT (DOAC) MANAGEMENT Medication monitoring, no dosage change required, continue to monitor and assess Care coordination /allie/ BARBY BARBOSA CLINICAL PUBLIC HEALTH REGISTRAR Signed: 11/25/2024 14:17 /allie/ Micaela Vera, DlD, [facility] Clinical Workers Compensation Analyst, Anticoagulation Cosigned: 11/25/2024 14:32 Receipt Acknowledged By: 11/25/2024 14:23 /allie/ ARVIN DONG medical specialist 11/25/2024 ADDENDUM STATUS: COMPLETED Pt discussed with platinum smith who spoke to pt over the phone, chart reviewed, concur with plan. Time with pt = 10 mins /es/ Micaela Vera, DlD, BCACP Clinical Workers Compensation Analyst, Anticoagulation Signed: 11/25/2024 14:33 [facility]OSA-[facility]
--- OUTSIDE RECORDS SUMMARY | 2024-11-28 05:40 | XMS_ITS | Encounter Summary ---
Author Name [place] Address [address] [place] [address] Care Team Providers Care Learning Disabled Teacher Name Role Phone KRYSTIN HOLLIS Primary Care [...] PART B Jun 05, 2024 PART B [id number] BLA[place] PATIENT MEDICARE (WNR) MEDICARE (M) PART A Jun 05, 2024 PART A [id number] BLAIR BOND PATIENT Selected Encounter This section includes the information on record at [place] for the Encounter. Date/Time Encounter Type Encounter Description Reason Provider Source Nov 28, 2024 09:40 AM EXT ECG>7D<15D REC SCAN A/R AMB ECG MONITORING ICD-10-CM Z13.6 Encounter for screening for cardiovascular disorders LYNETTE BALDERAS IHChapo Encounter Template Text not used by [place] Assessments - Encounter Diagnoses This section includes the primary and secondary diagnoses documented for the Encounter. Date/Time Primary/Secondary Diagnosis Diagnosis Name Provider Source Dec 04, 2024 08:37 AM PRIMARY Encounter for screening for cardiovascular disorders CHARLIEEM Dillon [facility] Plan of Treatment: Future Appointments (+ 6 months) and Future Tests (+/- 45 days) The Plan of Treatment section includes future care activities for the patient from all [place] [facility]. This section includes future appointments and future orders which are active, pending or scheduled. Future Appointments This section includes appointments that were scheduled to occur 6 months from the date of the Encounter, up to a maximum of 20 appointments. The data comes from all [facility]. Appointment Date/Time Appointment Type Appointme nt Facility Name Dec 30, 2024 02:00 PM AMBULATORY - NONE [facility] Dec 30, 2024 02:30 PM [facility] Jan 22, 2025 03:00 PM AMBULATORY - NONE [facility] Active, Pending, and Scheduled Orders This section includes a listing of several types of active, pending, and scheduled orders, including clinic medications orders, diagnostic test orders, procedure orders and consult orders; where the start date of the order is 45 days before the date of the Encounter or 45 days after the date of theEncounter. The data comes from all [facility]. Test Date/Time Test Type Test Details Facility Name Nov 08, 2024 03:56 PM Consult Order MED CARDIO LOGY OUTPATIENT Cons Paper Coating Machine Operator's Choice [facility] Nov 15, 2024 09:16 AM Procedure Order CP PATCH H OLTER OUTPATIENT CP PATCH HOLTER Proc Paper Coating Machine Operator's Choice [facility] Dec 30, 2024 12:00 AM Laboratory - Chemi stry Order eGFR + CREATININE [id number]-[id number] SP ONCE [facility] Dec 30, 2024 12:00 AM Laboratory - Chemi stry Order CBC/PLT [id number] BLOOD SP ONCE [facility] Advance Directives: All historical [...] Encounter. Date/Time Encounter Note(s) Provider Source Dec 04, 2024 08:36 AM CARDIOLOGY NOTE: LOCAL TITLE: CARDIOLOGY CHART CHECK NOTE STANDARD TITLE: CARDIOLOGY NOTE DATE OF NOTE: DEC 04, 2024@08:36 ENTRY DATE: DEC 04, 2024@08:36:58 AUTHOR: EM GUERRA EXP COSIGNER: URGENCY: STATUS: COMPLETED patch holter complete /allie/ EM GUERRA ANGEL-EKG Signed: 12/04/2024 08:37 EM GUERRA-SERA [facility]
--- OUTSIDE RECORDS SUMMARY | 2024-12-04 05:43 | XMS_ITS | Encounter Summary ---
Author Name [facility] [place] Address [address] [place] [address] Care Team Providers Care Fisher Name Role Phone KRYSTIN HOLLIS Primary Care [...] PART A Jun 05, 2024 PART A [id number] [id number] [phone] [place] PATIENT MEDICARE (WNR) MEDICARE (M) PART B Jun 05, 2024 PART B [id number] BLA[place] PATIENT Selected Encounter This section includes the information on record at [place] for the Encounter. Date/Time Encounter Type Encounter Description Reason Pro vider Source Dec 04, 2024 09:43 AM Outpatient Encounter PRIMARY CARE/MEDICINE IHE Encounter Template Text not used by [place] Plan of Treatment: Future Appointments (+ 6 months) and Future Tests (+/- 45 days) The Plan of Treatment section includes future care activities for the patient from all [place] [facility]. This section includes future appointments and future orders which are active, pending or scheduled. Future Appointments This section includes appointments that were scheduled to occur 6 months from the date of the Encounter, up to a maximum of 20 appointments. The data comes from all [facility]. Appointment Date/Time Appointment Type Appointme nt Facility Name Dec 30, 2024 02:00 PM AMBULATORY - NONE [facility] Dec 30, 2024 02:30 PM AMBULATORY - MEDICINE [facility] Jan 22, 2025 03:00 PM AMBULATORY - NONE [facility] Active, Pending, and Scheduled Orders This section includes a listing of several types of active, pending, and scheduled orders, including clinic medications orders, diagnostic test orders, procedure orders and consult orders; where the start date of the order is 45 days before the date of the Encounter or 45 days after the date of theEncounter. The data comes from all [facility]. Test Date/Time Test Type Test Details Facility Name Nov 08, 2024 03:56 PM Consult Order MED CARDIO LOGY OUTPATIENT Cons Supervisor [employer] Deliveries's Choice [facility] Nov 15, 2024 09:16 AM Procedure Order CP PATCH H OLTER OUTPATIENT CP PATCH HOLTER Proc Supervisor [employer]'s Choice [facility] Dec 30, 2024 12:00 AM Laboratory - Chemi stry Order eGFR + CREATININE [id number] SP ONCE [facility] Dec 30, 2024 12:00 AM Laboratory - Chemi stry Order CBC/PLT [id number] BLOOD SP ONCE [facility] Social History: Smoking Status (Most current) and Tobacco Use (All prior to encounter date) This section includes the most current, and the historical, smoking and tobacco- related health factors from the [place] facility where the Encounter took place. Current Smoking Status This section includes the most current smoking, or tobacco-related health factor, from the [place] facility where the Encounter took place. Date/Time Current Smoking Status Comment Facil ity Dec 28, 2023 08:00 AM VA-TOBACCO FORMER USER [facility] Tobacco Use History This section includes a history of the smoking, or tobacco-related health factors, that were collected on or before the date of the Encounter. The data comes from the [place] facility where the Encounter took place. Date/Time Smoking Status/Tobacco Use Comment F acility Dec 28, 2023 08:00 AM VA-TOBACCO QUIT 5 TO < 15 YRS [facility] May 19, 2022 09:30 AM VA-TOBACCO FORMER USER [facility] May 19, 2022 09:30 AM VA-TOBACCO QUIT 5 TO < 15 YRS [facility] Mar 29, 2021 08:00 AM VA-TOBACCO FORMER USER [facility] Mar 29, 2021 08:00 AM VA-TOBACCO QUIT 5 TO < 15 YRS [facility] Nov 22, 2017 10:50 AM V9 QUIT TOBACCO >1 2 MO & <7 YRS AGO [facility] Advance Directives: All historical and current Section Date Range: From patient's date of to the date document was created. This section includes ALL of a patient's completed or amended [place] Advance and Rescinded Directives. The entries below indicate that a directive exists for the patient, but an actual copy is not included with this document. The data comes from all [place] facilities. Date Advance Directives Provider Source Apr 25, 2019 ADVANCE DIRECTIVE DISCUSSION [facility] [place] [facility] Encounter Notes: All associated encounter notes This section contains the clinical notes associated to the Encounter. Date/Time Encounter Note(s) Provider Source Dec 04, 2024 09:43 AM PRIMARY CARE ADMIN ISTRATIVE NOTE: LOCAL TITLE: PC ADMINISTRATIVE NOTE STANDARD TITLE: PRIMARY CARE ADMINISTRATIVE NOTE DATE OF NOTE: DEC 04, 2024@09:43 ENTRY DATE: DEC 04, 2024@09:43:40 AUTHOR: ARVIN AMARAL COSIGNER: URGENCY: STATUS: COMPLETED PC ADMINISTRATIVE NOTE Has ADDENDA Please inform that holter monitor demonstrates he has remained in a normal sinus rhythm (only rare abnormal rhythms which is normal for any healthy heart, the two triggered events were still in normal sinus rhythm). Recommend to continue with cardiology consult and strict ED precautions for any similar events in the future. Thanks /allie/ ARVIN AMARAL MD Primary Care Physician, Team Nila Signed: 12/04/2024 09:46 Receipt Acknowledged By: 12/04/2024 14:52 /es/ Sangeeta Cline, RN stonework tracer 12/04/2024 ADDENDUM STATUS: COMPLETED please see telephone care note 12/04/24 /allie/ Sangeeta Cline, RN stonework tracer Signed: 12/04/2024 14:53 ARVIN AMARAL [facility]
--- OUTSIDE RECORDS SUMMARY | 2024-12-04 10:56 | XMS_ITS | Encounter Summary ---
Author Name [facility] [place] [facility] [place] Organization [facility] [place] Address [address] [place] [address] Care Team Providers Care Speeder Frame Tender Name Role Phone KRYSTIN HOLLIS Primary Care [...] PART B Jun 05, 2024 PART B [id number] [place] PATIENT MEDICARE (WNR) MEDICARE (M) PART A Jun 05, 2024 PART A [id number] BLA[place] PATIENT Selected Encounter This section includes the information on record at [place] for the Encounter. Date/Time Encounter Type Encounter Description Reason Provider Source Dec 04, 2024 02:56 PM PH1 ASSMT&MGMT NQHP 5-10 TELEPHONE PRIMARY CARE ICD-10-CM Z71.2 Person consulting for explanation of exam or test findings AUGUSTINE CLINE E Encounter Template Text not used by [place] Assessments - Encounter Diagnoses This section includes the primary and secondary diagnoses documented for the Encounter. Date/Time Primary/Secondary Diagnosis Diagnosis Name Provider Source Dec 04, 2024 02:56 PM PRIMARY Person consulting for explanation of exam or test findings AUGUSTINE CLINE [facility] Plan of Treatment: Future Appointments (+ 6 months) and Future Tests (+/- 45 days) The Plan of Treatment section includes future care activities for the patient from all [place] [facility]. This section includes future appointments and future orders which are active, pending or scheduled. Future Appointments This section includes appointments that were scheduled to occur 6 months from the date of the Encounter, up to a maximum of 20 appointments. The data comes from all [facility]. Appointment Date/Time Appointment Type Appointme nt Facility Name Dec 30, 2024 02:00 PM AMBULATORY - NONE [facility] Dec 30, 2024 02:30 PM AMBULATORY - MEDICINE [facility] Jan 22, 2025 03:00 PM AMBULATORY [...] comes from all [facility]. Test Date/Time Test Type Test Details Facility Name Nov 08, 2024 03:56 PM Consult Order MED CARDIO LOGY OUTPATIENT Cons Administration Internship's Choice [facility] Nov 15, 2024 09:16 AM Procedure Order CP PATCH H OLTER OUTPATIENT CP PATCH HOLTER Proc Administration Internship's Choice [facility] Dec 30, 2024 12:00 AM Laboratory - Chemi stry Order eGFR + CREATININE [id number]-[id number] SP ONCE [facility] Dec 30, 2024 12:00 AM Laboratory - Chemi stry Order CBC/PLT [id number] BLOOD SP ONCE [facility] Social History: Smoking Status (Most current) [...] 28, 2023 08:00 AM VA-TOBACCO FORMER USER [facility] Tobacco Use History This section includes a history of the smoking, or tobacco-related health factors, that were collected on or before the date of the Encounter. The data comes from the [place] facility where the Encounter took place. Date/Time Smoking Status/Tobacco Use Comment F acility Dec 28, 2023 08:00 AM VA-TOBACCO QUIT 5 TO < 15 YRS [facility] May 19, 2022 09:30 AM VA-TOBACCO FORMER USER [facility] May 19, 2022 09:30 AM VA-TOBACCO QUIT 5 TO < 15 YRS [facility] Mar 29, 2021 08:00 AM VA-TOBACCO FORMER USER [facility] Mar 29, 2021 08:00 AM VA-TOBACCO QUIT 5 TO < 15 YRS [facility] Nov 22, 2017 10:50 AM V9 QUIT TOBACCO >1 2 MO & <7 YRS AGO [facility] Advance Directives: All historical and current [...] Source Apr 25, 2019 ADVANCE DIRECTIVE DISCUSSION [facility] [place] [facility] Encounter Notes: All associated encounter notes This section contains the clinical notes associated to the Encounter. Date/Time Encounter Note(s) Provider Source Dec 04, 2024 02:56 PM PRIMARY CARE TELEP COLLEEN ENCOUNTER NOTE: LOCAL TITLE: Pc Telephone Care Note STANDARD TITLE: PRIMARY CARE TELEPHONE ENCOUNTER NOTE DATE OF NOTE: DEC 04, 2024@14:56 ENTRY DATE: DEC 04, 2024@14:57:10 AUTHOR: CLINE,AUGUSTINE M EXP COSIGNER: URGENCY: STATUS: COMPLETED Contacted and verified patient (name,ssn) regarding 12/04/24 PC Admin note Please inform [place] that holter monitor demonstrates he has remained in a normal sinus rhythm (only rare abnormal rhythms which is normal for any healthy heart, the two triggered events were still in normal sinus rhythm). Recommend to continue with cardiology consult and strict ED precautions for any similar events in the future. patient verbalized understanding and agreement to plan of care. // Augustine Cline RN profiling machine set up operator Signed: 12/04/2024 14:58 AUGUSTINE CLINE [facility]
--- OUTSIDE RECORDS SUMMARY | 2024-12-19 03:33 | XMS_ITS | Encounter Summary ---
Author Name [place] Address [address] [place] [address] Care Team Providers Care Salesperson Driver Name Role Phone KRYSTIN HOLLIS Primary Care [...] PART A Jun 05, 2024 PART A [id number] [place] PATIENT MEDICARE (WNR) MEDICARE (M) PART B Jun 05, 2024 PART B [id number] BLA[place] BOND PATIENT Selected Encounter This section includes the information on record at [place] for the Encounter. Date/Time Encounter Type Encounter Description Reason Provider Source Dec 19, 2024 07:33 AM Outpatient Encounter PRIMARY CARE/MEDICINE SADE BABIN E Encounter Template Text not used by [place] Plan of Treatment: Future Appointments (+ 6 months) and Future Tests (+/- 45 days) The Plan of Treatment section includes future care activities for the patient from all [place] [facility] This section includes future appointments and future orders which are active, pending or scheduled. Future Appointments This section includes appointments that were scheduled to occur 6 months from the date of the Encounter, up to a maximum of 20 appointments. The data comes from all [facility]. Appointment Date/Time Appointment Type Appointme nt Facility Name Dec 30, 2024 02:00 PM AMBULATORY - NONE [facility] Dec 30, 2024 02:30 PM AMBULATORY - MEDICINE [facility] Jan 22, 2025 03:00 PM AMBULATORY - NONE [facility] Active, Pending, and Scheduled Orders This [...] comes from all [facility]. Test Date/Time Test Type Test Details Facility Name Nov 08, 2024 03:56 PM Consult Order MED CARDIO LOGY OUTPATIENT Cons Director Outpatient Services's Choice [facility] Nov 15, 2024 09:16 AM Procedure Order CP PATCH H OLTER OUTPATIENT CP PATCH HOLTER Proc Director Outpatient Services's [facility] Dec 30, 2024 12:00 AM Laboratory - Chemi stry Order CBC/PLT [id number] BLOOD SP ONCE [facility] Dec 30, 2024 12:00 AM Laboratory - Chemi stry Order eGFR + CREATININE [id number]-JVDBUF SP ONCE [facility] Social History: Smoking Status (Most current) and Tobacco Use (All prior to encounter date) This section includes the most current, and the historical, smoking and tobacco- related health factors from the [place] facility where the Encounter took place. Current Smoking Status This section includes the most current smoking, or tobacco-related health factor, from the [place] facility where the Encounter took place. Date/Time Current Smoking Status Comment Facil ity Dec 28, 2023 08:00 AM [place]-TOBACCO QUIT 5 TO < 15 YRS [facility] Tobacco Use History This section includes a history of the smoking, or tobacco-related health factors, that were collected on or before the date of the Encounter. The data comes from the [place] facility where the Encounter took place. Date/Time Smoking Status/Tobacco Use Comment F acility Dec 28, 2023 08:00 AM VA-TOBACCO QUIT 5 TO < 15 YRS [facility] May 19, 2022 09:30 AM VA-TOBACCO FORMER USER [facility] May 19, 2022 09:30 AM VA-TOBACCO QUIT 5 TO < 15 YRS [facility] Mar 29, 2021 08:00 AM VA-TOBACCO FORMER USER [facility] Mar 29, 2021 08:00 AM VA-TOBACCO QUIT 5 TO < 15 YRS [facility] Nov 22, 2017 10:50 AM V9 QUIT TOBACCO >1 2 MO & <7 YRS AGO [facility] Advance Directives: All historical and current Section Date Range: From patient's date of to the date document was created. This section includes ALL of a patient's completed or amended [place] Advance and Rescinded Directives. The entries below indicate that a directive exists for the patient, but an actual copy is not included with this document. The data comes from all [place] facilities. Date Advance Directives Provider Source Apr 25, 2019 ADVANCE DIRECTIVE DISCUSSION [facility] [place] [facility] Encounter Notes: All associated encounter notes This section contains the clinical notes associated to the Encounter. Date/Time Encounter Note(s) Provider Source Dec 19, 2024 07:33 AM PRIMARY CARE [employer] MESSAGING: LOCAL TITLE: PRIMARY CARE SECURE MESSAGING STANDARD TITLE: PRIMARY CARE SECURE MESSAGING DATE OF NOTE: DEC 19, 2024@07:33 ENTRY DATE: DEC 19, 2024@07:33:27 AUTHOR: SADE BABIN EXP COSIGNER: URGENCY: STATUS: COMPLETED PRIMARY CARE SECURE MESSAGING Has ADDENDA ------Original Message ---- Sent: 12/18/2024 09:00 PM ET From: ZENON BOND To: FROILAN Team (Leny) Primary [facility] Subject: Appointment:Right foot pain Doctor Leny, The pain in my right foot, which is what made me limp so bad the last 2 appointments, has continued to increase! Now there are some days that I cannot leave the house due to the pain. Please refer me to a doctor who can assist in finding what is causing the pain and, hopefully, correct it! Thank you! ------Original Message ---- Sent: 12/19/2024 07:33 AM ET From: SADE BABIN To: ZENON BOND Subject: Appointment:Right foot pain Forwarding to your RN for triage. Sade Babin LPN /allie/ Sade Babin LPN STAFF FIRE AND SAFETY HELPER Signed: 12/19/2024 07:33 Receipt Acknowledged By: 12/20/2024 08:58 /allie/ Sangeeta Cline RN yarn examiner 12/20/2024 ADDENDUM STATUS: COMPLETED please see telephone care note 12/20/24 /valentine Cline, RN yarn examiner Signed: 12/20/2024 08:59 SADE BABIN [facility]
--- OUTSIDE RECORDS SUMMARY | 2024-12-20 05:00 | XMS_ITS | Encounter Summary ---
Author Name [facility] [place] Address [address] [place] [address] Care Team Providers Care Collections Director Name Role Phone KRYSTIN HOLLIS Primary [...] PART A Jun 05, 2024 PART A [id number] [place] PATIENT MEDICARE (WNR) MEDICARE (M) PART B Jun 05, 2024 PART B [id number] BLA[place] PATIENT Selected Encounter This section includes the information on record at [place] for the Encounter. Date/Time Encounter Type Encounter Description Reason Provider Source Dec 20, 2024 09:00 AM PH1 ASSMT&MGMT NQHP 5-10 TELEPHONE PRIMARY CARE ICD-10-CM R68.89 Other general symptoms and signs AUGUSTINE CLINE E Encounter Template Text not used by [place] Assessments - Encounter Diagnoses This section includes the primary and secondary diagnoses documented for the Encounter. Date/Time Primary/Secondary Diagnosis Diagnosis Name Provider Source Dec 20, 2024 09:00 AM PRIMARY Other general symptoms and signs AUGUSTINE CLINE [facility] Plan of Treatment: Future Appointments (+ 6 months) and Future Tests (+/- 45 days) The Plan of Treatment section includes future care activities for the patient from all [place] [facility]. This section includes future appointments and future orders which are active, pending or scheduled. Future Appointments This section includes appointments that were scheduled to occur 6 months from the date of the Encounter, up to a maximum of 20 appointments. The data comes from all [facility]. Appointment Date/Time Appointment Type Appointme nt Facility Name Dec 30, 2024 02:00 PM AMBULATORY - NONE [facility] Dec 30, 2024 02:30 PM AMBULATORY - MEDICINE [facility] Jan 22, 2025 03:00 PM AMBULATORY - NONE [facility] Active, Pending, and Scheduled Orders This section includes a listing of several types of active, pending, and scheduled orders, including clinic medications orders, diagnostic test orders, procedure orders and consult orders; where the start date of the order is 45 days before the date of the Encounter or 45 days after the date of theEncounter. The data comes from all [facility]. Test Date/Time Test Type Test Details Facility Name Nov 08, 2024 03:56 PM Consult Order MED CARDIO LOGY OUTPATIENT Cons Business Services Vice President's Choice [facility] Nov 15, 2024 09:16 AM Procedure Order CP PATCH H OLTER OUTPATIENT CP PATCH HOLTER Proc Business Services Vice President's Choice [facility] Dec 30, 2024 12:00 AM Laboratory - Chemi stry Order eGFR + CREATININE [id number]-ANEHP-QVZINT SP ONCE [facility] Dec 30, 2024 12:00 AM Laboratory - Chemi stry Order CBC/PLT [id number] BLOOD SP ONCE [facility] Social History: Smoking Status (Most [...] place. Date/Time Current Smoking Status Comment [place] Dec 28, 2023 08:00 AM VA-TOBACCO FORMER USER [facility] Tobacco Use History This section includes a history of the smoking, or tobacco-related health factors, that were collected on or before the date of the Encounter. The data comes from the [place] facility where the Encounter took place. Date/Time Smoking Status/Tobacco Use Comment F acility Dec 28, 2023 08:00 AM VA-TOBACCO QUIT 5 TO < 15 YRS [facility] May 19, 2022 09:30 AM VA-TOBACCO FORMER USER [facility] May 19, 2022 09:30 AM VA-TOBACCO QUIT 5 TO < 15 YRS [facility] Mar 29, 2021 08:00 AM VA-TOBACCO FORMER USER [facility] Mar 29, 2021 08:00 AM VA-TOBACCO QUIT 5 TO < 15 YRS [facility] Nov 22, 2017 10:50 AM V9 QUIT TOBACCO >1 2 MO & <7 YRS AGO [facility] Advance Directives: All historical and [...] 25, 2019 ADVANCE DIRECTIVE DISCUSSION [facility] [place] [facility] Encounter Notes: All associated encounter notes This section contains the clinical notes associated to the Encounter. Date/Time Encounter Note(s) Provider Source Dec 20, 2024 11:57 AM ADDENDUM: LOCAL TITLE: Addendum STANDARD TITLE: ADDENDUM DATE OF NOTE: DEC 20, 2024@11:57:07 ENTRY DATE: DEC 20, 2024@11:57:08 AUTHOR: LUKE MANCIA EXP COSIGNER: URGENCY: STATUS: COMPLETED -please obtain bilateral foot xrays-recs to follow /allie/ LUKE MANCIA STAFF PHYSICIAN/PRIMARY CARE Signed: 12/20/2024 11:57 Receipt Acknowledged By: 12/20/2024 15:44 /valentine Cline RN neurological surgery teacher ====== --- Original Document --- 12/20/24 PC TELEPHONE CLINICAL NOTE: Contacted and verified patient (name,ssn) regarding 12/19/24 Primary Care secure message The pain in my right foot, which is what made me limp so bad the last 2 appointments, has continued to increase! Now there are some days that I cannot leave the house due to the pain. Please refer me to a doctor who can assist in finding what is causing the pain and, hopefully, correct it! Patient states pain started about 4 months ago and has gradually gotten worse. Denies any injury to it. States the pain is so bad, he now limps. Pain is worse when he actually lifts his foot up. He has tried tylenol, ibuprofen, and icing it without any relief. Explained to patient that PCP will probably want xrays, which he is agreeable to. Forwarding to PCP for review. /allie/ Augustine Cline RN neurological surgery teacher Signed: 12/20/2024 09:03 Receipt Acknowledged By: 12/20/2024 11:56 /allie/ LUKE MANCIA STAFF PHYSICIAN/PRIMARY CARE LUKE MANCIA [facility] Dec 20, 2024 09:00 AM PRIMARY CARE TELEP COLLEEN ENCOUNTER NOTE: LOCAL TITLE: PC TELEPHONE CLINICAL NOTE STANDARD TITLE: PRIMARY CARE TELEPHONE ENCOUNTER NOTE DATE OF NOTE: DEC 20, 2024@09:00 ENTRY DATE: DEC 20, 2024@09:00:27 AUTHOR: AUGUSTINE CLINE EXP COSIGNER: URGENCY: STATUS: COMPLETED PC TELEPHONE CLINICAL NOTE Has ADDENDA Contacted and verified patient (name,ssn) regarding 12/19/24 Primary Care secure message The pain in my right foot, which is what made me limp so bad the last 2 appointments, has continued to increase! Now there are some days that I cannot leave the house due to the pain. Please refer me to a doctor who can assist in finding what is causing the pain and, hopefully, correct it! Patient states pain started about 4 months ago and has gradually gotten worse. Denies any injury to it. States the pain is so bad, he now limps. Pain is worse when he actually lifts his foot up. He has tried tylenol, ibuprofen, and icing it without any relief. Explained to patient that PCP will probably want xrays, which he is agreeable to. Forwarding to PCP for review. /valentine Cline RN neurological surgery teacher Signed: 12/20/2024 09:03 Receipt Acknowledged By: 12/20/2024 11:56 /allie/ LUKE MANCIA STAFF PHYSICIAN/PRIMARY CARE 12/20/2024 ADDENDUM STATUS: COMPLETED -please obtain bilateral foot xrays-recs to follow /valentine MANCIA STAFF PHYSICIAN/PRIMARY CARE Signed: 12/20/2024 11:57 Receipt Acknowledged By: 12/20/2024 15:44 /valentine Cline RN neurological surgery teacher 12/20/2024 ADDENDUM STATUS: COMPLETED Contacted and verified patient (name,ssn) regarding above recs from pcp. Patient states he will have done on Monday. /valentine Cline RN neurological surgery teacher Signed: 12/20/2024 15:45 AUGUSTINE CLINE [facility]
[2024-12-21] VITALS (9 sets, daily range): BP systolic 139–155; BP diastolic 79–123; PULSE 82–116; RESP 12–25; TEMP 36.9–37.2; O2SAT 89–99; BMI 30.4
--- OUTSIDE RECORDS SUMMARY | 2024-12-21 10:43 | XMS_ITS | Continuity of Care Document ---
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 It does not include entries that were removed or entered in error. Problem Status Onset Date Problem Type Date of Resolution Comments Source Adenomatous polyp of colon Active Condition Dec 27, 2017 Entered By: GENEVA CHRISTENSEN Comment: very large 4cm adenoma found December 2017 -- repeat for removal.Feb 22, 2018 Entered By: SAMARA GUILLORY Comment: TSA resected Jan 2018 -- repeat in 6 months.Feb 01, 2024 Entered By: LUANN MACIEL Comment: 02-01-24 colonoscopy , polyps removed, repeat 5 years [facility] Adjustment disorder with mixed anxiety and depressed mood Active Condition [facility] Allergic Rhinitis (SCT 78904739) Active Condition [facility] Benign prostatic hyperplasia Active Condition [facility] Derangement of knee Active Condition [facility] Derangement of medial meniscus Active Condition [facility] Diabetes Mellitus Type 2 (SCT 07036178) [facility] Exposure to potentially hazardous substance [facility] Exposure to potentially hazardous substance (SCT [id number]) [facility] Gastroesophageal reflux disease Active Condition [facility] Headache (SCT 44530942) Active Condition [facility] Hearing Loss (SCT 46340149) Active [facility] Hyperlipidemia Active Condition [facility] N Inflammatory disorder due to increased blood urate level Active Condition [facility] Insomnia Active Condition [facility] Low Back Pain (SCT 591782138) Active Condition [facility] Mixed Hyperlipidemia (SCT 412015563) Active [facility] Neck Pain (SCT 78412179) Active Condition [facility] Obesity Active Condition [facility] Osteoarthritis of knee [facility] Polyp Colon (SCT 91352353) Active Condition [facility] Polyp of colon [facility] Popliteal cyst Active Condition [facility] Right knee pain Active Condition [facility] Type 2 diabetes mellitus Active Condition [facility] Partner relationship problem Inactive Condition 07/02/2019 [facility] Diagnosis: ICD-10-CM R68.89 Other general symptoms and signs Active Diagnosis [facility] Diagnosis: ICD-10-CM Z71.2 Person consulting for explanation of exam or test findings Active [facility] Diagnosis: ICD-10-CM Z13.6 Encounter for screening for cardiovascular disorders Active Diagnosis [facility] Diagnosis: ICD-10-CM Z51.81 Encounter for therapeutic drug level monitoring Active Diagnosis [facility] Diagnosis: ICD-10-CM Z71.89 Other specified counseling Active Diagnosis TOYA GLASER [facility] Diagnosis: ICD-10-CM I10 Essential (primary) hypertension Active Diagnosis [facility] Diagnosis: ICD-10-CM R05.9 Cough, unspecified Active Diagnosis [facility] Diagnosis: ICD-10-CM M25.561 Pain in right knee Active Diagnosis [facility] Diagnosis: ICD-10-CM Z46.1 Encounter for fitting and adjustment of hearing aid Active Diagnosis [facility] Diagnosis: ICD-10-CM E11.9 Type 2 diabetes mellitus without complications Active Diagnosis [facility] Diagnosis: ICD-10-CM H90.5 Unspecified sensorineural hearing loss Active Diagnosis [facility] Diagnosis: ICD-10-CM K92.1 Melena Active Diagnosis [facility] Diagnosis: ICD-10-CM M17.0 Bilateral primary osteoarthritis of knee Active Diagnosis [facility] Diagnosis: ICD-10-CM Z01.818 Encounter for other preprocedural examination Active Diagnosis [facility] Diagnosis: ICD-10-CM E11.65 Type 2 diabetes mellitus with hyperglycemia Active Diagnosis [facility] Medications Combined list of outpatient medications from Department of Defense and Veterans Affairs facilities.Medications provided include 1) outpatient medications from the last 15 months, and 2) patient-reported medications. Medication Details Route Status Patient Instructions Prescription Expires Prescription Number Last Dispense Date Ordering Provider Order Date Order Qty Source APIXABAN 5MG TAB TAKE ONE TABLET BY MOUTH TWICE A DAY FOR AFIB -CALL [facility] WITH QUESTION S OR CONCERNS ORAL SUSPEND ED 11/12/2025 [id number] Chapo FERNÁNDEZ 2024 60 [place] ATORVASTATI N CA 40MG TAB TAKE ONE-HALF TABLET BY MOUTH DAILY FOR CHOLESTE ROL -DO NOT DRINK GRAPEFRU IT JUICE WHILE ON THIS DRUG ORAL ACTIVE 02/02/2025 [id number] 5 LUKE MANCIA [address] [place] [facility] ATORVASTATI N CA 40MG TAB TAKE ONE-HALF TABLET BY MOUTH DAILY FOR CHOLESTE ROL -DO NOT DRINK GRAPEFRU IT JUICE WHILE ON THIS DRUG ORAL DISCONT INUED 12/29/2024 [id number] LUKE MANCIA 2024 45 [place] [facility] [place] ATORVASTATI N CA 40MG TAB TAKE ONE-HALF TABLET BY MOUTH DAILY FOR CHOLESTE ROL -DO NOT DRINK GRAPEFRU IT JUICE WHILE ON THIS DRUG ORAL DISCONT INUED (EDIT) 01/02/2025 [id number] LUKE MANCIA 2023 15 [place] AZITHROMYCI N 250MG TAB TAKE TWO TABLETS BY MOUTH DAILY FOR 1 DAY, THEN TAKE ONE TABLET DAILY FOR 4 DAYS FOR EAR OR THROAT INFECTIO N ORAL 10/30/2024 [id number] 5 LUKE MANCIA 2024 6 [place] [facility] DICLOFENAC NA 1% GEL,TOP APPLY 4 GRAM STRIP TO AFFECTED AREA EVERY 6 HOURS NEEDED FOR PAIN TOPICA L ACTIVE 01/30/2025 [id number] YUNIOR SWANSON RA 2023 100 [place] FLUTICASONE PROPIONATE 50MCG/SPRAY SOLN,NASAL, 16GM USE 2 SPRAYS IN EACH NOSTRIL DAILY FOR NASAL ALLERGY NASAL ACTIVE 12/19/2025 [id number] 5 LUKE MANCIA 2024 1 [place] [facility] [place] FLUTICASONE PROPIONATE 50MCG/SPRAY SOLN,NASAL, 16GM USE 2 SPRAYS IN EACH NOSTRIL DAILY FOR NASAL ALLERGY NASAL DISCONT INUED 12/29/2024 [id number] 5 LUKE MANCIA 2024 1 [place] [facility] [place] FLUTICASONE PROPIONATE 50MCG/SPRAY SOLN,NASAL, 16GM USE 2 SPRAYS IN EACH NOSTRIL DAILY FOR NASAL ALLERGY NASAL DISCONT INUED 12/11/2024 [id number] 5 LUKE MANCIA 2024 1 [place] [facility] [place] FLUTICASONE PROPIONATE 50MCG/SPRAY SOLN,NASAL, 16GM USE 2 SPRAYS IN EACH NOSTRIL DAILY FOR NASAL ALLERGY NASAL DISCONT INUED 11/16/2024 [id number] 5 LUKE MANCIA 2024 1 [place] [facility] [place] FLUTICASONE PROPIONATE 50MCG/SPRAY SOLN,NASAL, 16GM USE 2 SPRAYS IN EACH NOSTRIL DAILY FOR NASAL ALLERGY NASAL DISCONT INUED 10/30/2024 [id number] LUKE MANCIA 2024 1 [place] [facility] [place] GLIMEPIRIDE 2MG TAB TAKE ONE TABLET BY MOUTH TWICE A DAY FOR BLOOD SUGAR ORAL ACTIVE 01/02/2025 [id number] LUKE MANCIA 2023 180 [place] HC 1%/N-MYCIN 3.5MG/POLYM YX [id number]/ML SUSP,OTIC INSTILL 2 DROPS IN LEFT EAR THREE TIMES A DAY FOR INFECTIO N SHAKE WELL BEFORE USE. OKSANA MCCLELLAN (OTIC) 10/30/2024 [id number] LUKE MANCIA H 2024 10 [place] [facility] [place] LACTOBACILL US ACIDOPHILUS TAB,CHEWABL E CHEW 2 TABLETS BY MOUTH THREE TIMES A DAY WITH MEALS FOR BOWEL HEALTH -REFRIGE RATE AFTER OPENING TAKE FOR GUT PROTECTI ON AGAINST ANTIBIOT IC ORAL ACTIVE 12/29/2024 [id number] MARIYA MANCIAMY H 2024 100 [place] [facility] LIDOCAINE 5% PATCH APPLY 2 PATCHES TO SKIN DAILY FOR PAIN -LEAVE ON 12 HOURS, THEN REMOVE FOR 12 HOURS TRANSD ERMAL ACTIVE 10/01/2025 [id number] 5 MARIYA MANCIAMY H 2024 60 [place] [facility] LIDOCAINE 5% PATCH APPLY 2 PATCHES TO SKIN DAILY FOR PAIN -LEAVE ON 12 HOURS, THEN REMOVE FOR 12 HOURS TRANSD ERMAL DISCONT INUED 01/30/2025 [id number] YUNIOR SWANSON RA 2023 60 [place] LISINOPRIL 10MG TAB TAKE ONE-HALF TABLET BY MOUTH DAILY FOR HIGH BLOOD PRESSURE ORAL DISCONT INUED 01/02/2025 [id number] MARIYA MANCIAMY Phill 2023 15 [place] LISINOPRIL 20MG TAB TAKE ONE-HALF TABLET BY MOUTH DAILY FOR HIGH BLOOD PRESSURE ORAL ACTIVE 10/01/2025 [id number] LUKE MANCIA H 2024 45 [place] [facility] [place] METFORMIN HCL 500MG 24HR TAB,SA TAKE TWO TABLETS BY MOUTH TWICE A DAY FOR BLOOD SUGAR ORAL ACTIVE 12/19/2025 [id number] 5 MARIYA MANCIAMY H 2024 360 [place] [facility] [place] METFORMIN HCL 500MG 24HR TAB,SA TAKE TWO TABLETS BY MOUTH TWICE A DAY FOR BLOOD SUGAR ORAL DISCONT INUED 12/29/2024 [id number] 5 NGUYENDON ,LUKE H 2024 120 [place] [facility] METFORMIN HCL 500MG 24HR TAB,SA TAKE TWO TABLETS BY MOUTH TWICE A DAY FOR BLOOD SUGAR ORAL DISCONT INUED 12/11/2024 [id number] 5 NGUYENDON ,LUKE H 2024 120 [place] [facility] METFORMIN HCL 500MG 24HR TAB,SA TAKE TWO TABLETS BY MOUTH TWICE A DAY FOR BLOOD SUGAR ORAL DISCONT INUED 11/16/2024 [id number] 5 NGUYENDON ,LUKE H 2024 120 [place] [facility] METFORMIN HCL 500MG 24HR TAB,SA TAKE TWO TABLETS BY MOUTH TWICE A DAY FOR BLOOD SUGAR ORAL DISCONT INUED 10/30/2024 [id number] 5 NGUYENDON ,LUKE H 2024 120 [place] [facility] METFORMIN HCL 500MG 24HR TAB,SA TAKE TWO TABLETS BY MOUTH TWICE A DAY FOR BLOOD SUGAR ORAL DISCONT INUED 01/17/2025 [id number] NGCLEOPATRAENDON LUKE H 2023 120 [place] [facility] METFORMIN HCL 500MG 24HR TAB,SA TAKE ONE TABLET BY MOUTH DAILY FOR 7 DAYS, THEN TAKE ONE TABLET TWICE A DAY FOR 7 DAYS, THEN TAKE TWO TABLETS EVERY MORNING AND TAKE ONE TABLET EVERY EVENING FOR 7 DAYS, THEN TAKE TWO TABLETS TWICE A DAY FOR BLOOD SUGAR ORAL DISCONT INUED 01/17/2025 [id number] NGCLEOPATRAENDON LUKE H 2023 78 [place] [facility] MULTIVITAMI NS CAP/TAB TAKE ONE CAPSULE/ TABLET BY MOUTH EVERY DAY ORAL ACTIVE VALENTINE WILLIAM N 2018 [facility] OMEPRAZOLE 20MG CAP,EC TAKE TWO CAPSULES BY MOUTH TWICE A DAY FOR STOMACH -TAKE ON AN EMPTY STOMACH ORAL 03/27/2024 [id number] NGNENAON LUKE H 2023 360 [place] [facility] [place] PEG-3350/EL ECTROLYTES PWDR TAKE MIX CONTENTS OF BOTTLE AND TAKE BY MOUTH DIRECTED FOR BOWEL PREP -FILL JUG TO LINE WITH WATER. DRINK HALF AT 6PM THE NIGHT BEFORE PROCEDUR E. DRINK LAST HALF 4-6 HOURS PRIOR TO PROCEDUR E. NOTHING BY MOUTH AFTER PREP IS COMPLETE D. CALL PREP HOTLINE AT WITH QUESTION S. -FILL JUG TO LINE WITH WATER. DRINK HALF AT 6PM THE NIGHT BEFORE PROCEDUR E. DRINK LAST HALF 4-6 HOURS PRIOR TO PROCEDUR E. NOTHING BY MOUTH AFTER PREP IS COMPLETE D. CALL PREP HOTLINE AT WITH QUESTION S. ORAL 02/02/2024 [id number] MARIBETH ERMIKAELYANELY H 2023 1 [place] [facility] TAMSULOSIN HCL 0.4MG CAP TAKE 1 CAPSULE BY MOUTH EVERY EVENING ORAL ACTIVE NGUYENDON LUKE H 2023 [place] [facility] TRAMADOL HCL 50MG TAB TAKE ONE TABLET BY MOUTH TWICE A DAY ORAL ACTIVE NGUYENDON ,LUKE H 2023 [place] [facility] Allergies, Adverse Reactions, Alerts Combined list of allergies from Department of Defense and Veterans Affairs facilities. It does not include entries that were removed or entered in error. Substance Category Reaction Severity Reaction type Status Date Reported Comments Source ATORVASTATIN Propensity to adverse reactions to drug (finding) Muscle pain active 9 [facility] CRESTOR Propensity to adverse reactions to drug (finding) Stomach cramps, Abdominal discomfort MODERATE active 2 [place] [facility] PRAVASTATIN Propensity to adverse reactions to drug (finding) Muscle pain active 9 [facility] PSEUDOEPHEDR INE Propensity to adverse reactions to drug (finding) active 9 [facility] Immunizations Combined list of available immunizations from the Department of Defense and Veterans Affairs facilities. Immunization Series Date Given Administered By Site Reaction Lot Number CVX Code Drug Automatic Glove Former Status Comments Source TDAP 2024 DEEJAY LAI RIGHT DELTO ID [id number] 115 complet ed Booster for Series, ADMINISTE [place] AT [place], [place] [facility] INFLUENZA, UNSPECIFIED FORMULATION 2023 88 complet ed Completed Series, HISTORICA L INFORMATI ON - FROM PATIENT'S RECALL, [place] [facility] COVID-19 (PFIZER), MRNA, LNP-S, PF, MARGO-SUCROSE, 30 MCG/0.3 ML (AGES 12+ YEARS) 1 2023 MARANDA BABIN LEFT DELTO ID [id number] 309 complet ed ADMINISTE RED AT NM, [place] [facility] PNEUMOCOCCAL CONJUGATE PCV20, POLYSACCHARID E [id number] CONJUGATE, ADJUVANT, PF 2023 MARANDA BABIN RIGHT DELTO ID [id number] 216 complet ed Booster for Series, ADMINISTE [place] AT NM, [place] [facility] INFLUENZA, INJECTABLE, MDCK, PRESERVATIVE FREE, QUADRIVALENT 2021 MARANDA BABIN LEFT DELTO ID [id number] 171 complet ed Booster for Series, ADMINISTE [place] AT [place], [place] [facility] COVID-19 (MODERNA), MRNA, LNP-S, BIVALENT BOOSTER, PF, 50 MCG/0.5 ML OR 25MCG/0.25 ML DOSE 2021 229 complet ed HISTORICA L INFORMATI ON - FROM OTHER PROVIDER, [place] [facility] COVID-19 (MODERNA), MRNA, LNP-S, PF, 100 MCG/0.5ML DOSE OR 50 MCG/0.25ML DOSE 2021 207 complet ed HISTORICA L INFORMATI ON - FROM OTHER PROVIDER, [place] [facility] INFLUENZA, SPLIT VIRUS, QUADRIVALENT, PF 2 2020 150 complet ed HISTORICA L INFORMATI ON - FROM OTHER REGISTRY, [place] [facility] [place] INFLUENZA, UNSPECIFIED FORMULATION 2020 88 complet ed [place] [facility] COVID-19 (MODERNA), MRNA, LNP-S, PF, 100 MCG/0.5ML DOSE OR 50 MCG/0.25ML DOSE 3 2020 207 complet ed HISTORICA L INFORMATI ON - FROM OTHER PROVIDER, [place] [facility] COVID-19 (MODERNA), MRNA, LNP-S, PF, 100 MCG/0.5ML DOSE OR 50 MCG/0.25ML DOSE 2 2020 207 complet ed HISTORICA L INFORMATI ON - FROM OTHER PROVIDER, [place] [facility] COVID-19 (MODERNA), MRNA, LNP-S, PF, 100 MCG/0.5ML DOSE OR 50 MCG/0.25ML DOSE 1 2019 207 complet ed HISTORICA L INFORMATI ON - FROM OTHER PROVIDER, [place] [facility] INFLUENZA, UNSPECIFIED FORMULATION 2019 88 complet ed [facility] INFLUENZA, SPLIT VIRUS, QUADRIVALENT, PF 1 2019 150 complet ed HISTORICA L INFORMATI ON - FROM OTHER REGISTRY, [place] [facility] PNEUMOCOCCAL POLYSACCHARID E [id number] 2019 33 complet ed [facility] INFLUENZA, INJECTABLE, QUADRIVALENT, PRESERVATIVE FREE 2018 150 complet ed [id number] [facility] INFLUENZA, INJECTABLE, QUADRIVALENT, PRESERVATIVE FREE 2018 150 complet ed [id number] -- [facility] TDAP 2012 115 complet ed [place] [facility] Results Combined list of recent chemistry, hematology and other laboratory results from Department of Defense and Veterans Affairs, ranging from 15 months to all on record, depending upon the facility. Order Name Results Value Reference Range Date Interpretation Specimen Comments Source PANEL 1 CREATININE [MASS/VOLUM E] IN SERUM OR PLASMA 0.90 mg/dL 0.72 - 1.25 10/29 Specimen Type: PLASMA Comment: Estimated Glomerular Filtration Rate (eGFR) calculated using the 2020 Chronic Kidney Disease-Epi demiology (CKD-EPI) Collaborati on creatinine equation; units of measure are mL/min/1.73 m2. Results are only valid for adults (>=18 years) whose serum creatinine is in a steady state. eGFR calculation s are not valid for patients with acute kidney injury and for patients on dialysis. Creatinine- based estimates of kidney function may also be inaccurate in patients with reduced creatinine generation due to decreased muscle mass (e.g., malnutritio n, severe hypoalbumin emia, sarcopenia, chronic neuromuscul ar disease, amputations , severe heart failure or liver disease) and in patients with increased creatinine generation due to increased muscle mass (e.g., muscle builders, anabolic steroids) or increased dietary intake. As drug clearance is proportiona l to total GFR and not GFR indexed to body surface area (BSA), in individuals with a BSA substantial ly different than 1.73 m2, drug dosing should be based on the reported eGFR value de-indexed from BSA by multiplying by the individual' s BSA and dividing by 1.73. CKD is diagnosed based on abnormaliti es of kidney structure or function, present for >3 months, with implication s for health and disease. CKD is classified and staged based on cause, eGFR and albuminuria (quantified as urine albumin to creatinine ratio). An eGFR >60 mL/min/1.73 m2 in the absence of increased urine albumin excretion or structural abnormaliti es does not represent CKD. eGFR CKD Interpretat ion (mL/min/1.7 3 m2) stage >=90 G1 Normal 60-89 G2 Mild decrease 45-59 G3A Mild to moderate decrease 30-44 G3B Moderate to severe decrease 15-29 G4 Severe decrease <15 G5 Kidney failure Ordering Provider: Rose MANCIA Report Released Date/Time: Sep 30, 2024 11:03 AM Reporting Lab: [facility] [address] [address] Performing Lab: [facility] [address] [address] [facility] PANEL 1 UREA NITROGEN [MASS/VOLUM E] IN SERUM OR PLASMA 11 mg/dL 10/29 Specimen Type: PLASMA Comment: Estimated Glomerular Filtration Rate (eGFR) calculated using the 2020 Chronic Kidney Disease-Epi demiology (CKD-EPI) Collaborati on creatinine equation; units of measure are mL/min/1.73 m2. Results are only valid for adults (>=18 years) whose serum creatinine is in a steady state. eGFR calculation s are not valid for patients with acute kidney injury and for patients on dialysis. Creatinine- based estimates of kidney function may also be inaccurate in patients with reduced creatinine generation due to decreased muscle mass (e.g., malnutritio n, severe hypoalbumin emia, sarcopenia, chronic neuromuscul ar disease, amputations , severe heart failure or liver disease) and in patients with increased creatinine generation due to increased muscle mass (e.g., muscle builders, anabolic steroids) or increased dietary intake. As drug clearance is proportiona l to total GFR and not GFR indexed to body surface area (BSA), in individuals with a BSA substantial ly different than 1.73 m2, drug dosing should be based on the reported eGFR value de-indexed from BSA by multiplying by the individual' s BSA and dividing by 1.73. CKD is diagnosed based on abnormaliti es of kidney structure or function, present for >3 months, with implication s for health and disease. CKD is classified and staged based on cause, eGFR and albuminuria (quantified as urine albumin to creatinine ratio). An eGFR >60 mL/min/1.73 m2 in the absence of increased urine albumin excretion or structural abnormaliti es does not represent CKD. eGFR CKD Interpretat ion (mL/min/1.7 3 m2) stage >=90 G1 Normal 60-89 G2 Mild decrease 45-59 G3A Mild to moderate decrease 30-44 G3B Moderate to severe decrease 15-29 G4 Severe decrease <15 G5 Kidney failure Ordering Provider: Rose MANCIA Report Released Date/Time: Sep 30, 2024 11:03 AM Reporting Lab: [facility] [address] [address] Performing Lab: [facility] [address] [address] [facility] PANEL 1 GLUCOSE [MASS/VOLUM E] IN SERUM OR PLASMA 180 mg/dL 74 - 100 10/29 H Specimen Type: PLASMA Comment: Estimated Glomerular Filtration Rate (eGFR) calculated using the 2020 Chronic Kidney Disease-Epi demiology (CKD-EPI) Collaborati on creatinine equation; units of measure are mL/min/1.73 m2. Results are only valid for adults (>=18 years) whose serum creatinine is in a steady state. eGFR calculation s are not valid for patients with acute kidney injury and for patients on dialysis. Creatinine- based estimates of kidney function may also be inaccurate in patients with reduced creatinine generation due to decreased muscle mass (e.g., malnutritio n, severe hypoalbumin emia, sarcopenia, chronic neuromuscul ar disease, amputations , severe heart failure or liver disease) and in patients with increased creatinine generation due to increased muscle mass (e.g., muscle builders, anabolic steroids) or increased dietary intake. As drug clearance is proportiona l to total GFR and not GFR indexed to body surface area (BSA), in individuals with a BSA substantial ly different than 1.73 m2, drug dosing should be based on the reported eGFR value de-indexed from BSA by multiplying by the individual' s BSA and dividing by 1.73. CKD is diagnosed based on abnormaliti es of kidney structure or function, present for >3 months, with implication s for health and disease. CKD is classified and staged based on cause, eGFR and albuminuria (quantified as urine albumin to creatinine ratio). An eGFR >60 mL/min/1.73 m2 in the absence of increased urine albumin excretion or structural abnormaliti es does not represent CKD. eGFR CKD Interpretat ion (mL/min/1.7 3 m2) stage >=90 G1 Normal 60-89 G2 Mild decrease 45-59 G3A Mild to moderate decrease 30-44 G3B Moderate to severe decrease 15-29 G4 Severe decrease <15 G5 Kidney failure Ordering Provider: Rose MANCIA Report Released Date/Time: Sep 30, 2024 11:03 AM Reporting Lab: [facility] [address] [address] Performing Lab: [facility] [address] [phone] [facility] PANEL 1 SODIUM [MOLES/VOLU ME] IN SERUM OR PLASMA 144 mmol/L 136 - 145 10/29 Specimen Type: PLASMA Comment: Estimated Glomerular Filtration Rate (eGFR) calculated using the 2020 Chronic Kidney Disease-Epi demiology (CKD-EPI) Collaborati on creatinine equation; units of measure are mL/min/1.73 m2. Results are only valid for adults (>=18 years) whose serum creatinine is in a steady state. eGFR calculation s are not valid for patients with acute kidney injury and for patients on dialysis. Creatinine- based estimates of kidney function may also be inaccurate in patients with reduced creatinine generation due to decreased muscle mass (e.g., malnutritio n, severe hypoalbumin emia, sarcopenia, chronic neuromuscul ar disease, amputations , severe heart failure or liver disease) and in patients with increased creatinine generation due to increased muscle mass (e.g., muscle builders, anabolic steroids) or increased dietary intake. As drug clearance is proportiona l to total GFR and not GFR indexed to body surface area (BSA), in individuals with a BSA substantial ly different than 1.73 m2, drug dosing should be based on the reported eGFR value de-indexed from BSA by multiplying by the individual' s BSA and dividing by 1.73. CKD is diagnosed based on abnormaliti es of kidney structure or function, present for >3 months, with implication s for health and disease. CKD is classified and staged based on cause, eGFR and albuminuria (quantified as urine albumin to creatinine ratio). An eGFR >60 mL/min/1.73 m2 in the absence of increased urine albumin excretion or structural abnormaliti es does not represent CKD. eGFR CKD Interpretat ion (mL/min/1.7 3 m2) stage >=90 G1 Normal 60-89 G2 Mild decrease 45-59 G3A Mild to moderate decrease 30-44 G3B Moderate to severe decrease 15-29 G4 Severe decrease <15 G5 Kidney failure Ordering Provider: Rose MANCIA Report Released Date/Time: Sep 30, 2024 11:03 AM Reporting Lab: [facility] [address] [address] Performing Lab: [facility] [address] [address] [facility] PANEL 1 POTASSIUM [MOLES/VOLU ME] IN SERUM OR PLASMA 4.5 mmol/L 3.5 - 5.1 10/29 Specimen Type: PLASMA Comment: Estimated Glomerular Filtration Rate (eGFR) calculated using the 2020 Chronic Kidney Disease-Epi demiology (CKD-EPI) Collaborati on creatinine equation; units of measure are mL/min/1.73 m2. Results are only valid for adults (>=18 years) whose serum creatinine is in a steady state. eGFR calculation s are not valid for patients with acute kidney injury and for patients on dialysis. Creatinine- based estimates of kidney function may also be inaccurate in patients with reduced creatinine generation due to decreased muscle mass (e.g., malnutritio n, severe hypoalbumin emia, sarcopenia, chronic neuromuscul ar disease, amputations , severe heart failure or liver disease) and in patients with increased creatinine generation due to increased muscle mass (e.g., muscle builders, anabolic steroids) or increased dietary intake. As drug clearance is proportiona l to total GFR and not GFR indexed to body surface area (BSA), in individuals with a BSA substantial ly different than 1.73 m2, drug dosing should be based on the reported eGFR value de-indexed from BSA by multiplying by the individual' s BSA and dividing by 1.73. CKD is diagnosed based on abnormaliti es of kidney structure or function, present for >3 months, with implication s for health and disease. CKD is classified and staged based on cause, eGFR and albuminuria (quantified as urine albumin to creatinine ratio). An eGFR >60 mL/min/1.73 m2 in the absence of increased urine albumin excretion or structural abnormaliti es does not represent CKD. eGFR CKD Interpretat ion (mL/min/1.7 3 m2) stage >=90 G1 Normal 60-89 G2 Mild decrease 45-59 G3A Mild to moderate decrease 30-44 G3B Moderate to severe decrease 15-29 G4 Severe decrease <15 G5 Kidney failure Ordering Provider: Rose MANCIA Report Released Date/Time: Sep 30, 2024 11:03 AM Reporting Lab: [facility] [address] [address] Performing Lab: DAVIDEmelia L[facility]ST[facility] [address] [address] [facility] PANEL 1 CHLORIDE [MOLES/VOLU ME] IN SERUM OR PLASMA 105 mmol/L 98 - 107 10/29 Specimen Type: PLASMA Comment: Estimated Glomerular Filtration Rate (eGFR) calculated using the 2020 Chronic Kidney Disease-Epi demiology (CKD-EPI) Collaborati on creatinine equation; units of measure are mL/min/1.73 m2. Results are only valid for adults (>=18 years) whose serum creatinine is in a steady state. eGFR calculation s are not valid for patients with acute kidney injury and for patients on dialysis. Creatinine- based estimates of kidney function may also be inaccurate in patients with reduced creatinine generation due to decreased muscle mass (e.g., malnutritio n, severe hypoalbumin emia, sarcopenia, chronic neuromuscul ar disease, amputations , severe heart failure or liver disease) and in patients with increased creatinine generation due to increased muscle mass (e.g., muscle builders, anabolic steroids) or increased dietary intake. As drug clearance is proportiona l to total GFR and not GFR indexed to body surface area (BSA), in individuals with a BSA substantial ly different than 1.73 m2, drug dosing should be based on the reported eGFR value de-indexed from BSA by multiplying by the individual' s BSA and dividing by 1.73. CKD is diagnosed based on abnormaliti es of kidney structure or function, present for >3 months, with implication s for health and disease. CKD is classified and staged based on cause, eGFR and albuminuria (quantified as urine albumin to creatinine ratio). An eGFR >60 mL/min/1.73 m2 in the absence of increased urine albumin excretion or structural abnormaliti es does not represent CKD. eGFR CKD Interpretat ion (mL/min/1.7 3 m2) stage >=90 G1 Normal 60-89 G2 Mild decrease 45-59 G3A Mild to moderate decrease 30-44 G3B Moderate to severe decrease 15-29 G4 Severe decrease <15 G5 Kidney failure Ordering Provider: Rose MANCIA Report Released Date/Time: Sep 30, 2024 11:03 AM Reporting Lab: [facility] [address] [address] Performing Lab: NES[facility] L[facility]ST[facility] [address] [address] [facility] PANEL 1 CARBON DIOXIDE, TOTAL [MOLES/VOLU ME] IN SERUM OR PLASMA 26 mmol/L 10/29 Specimen Type: PLASMA Comment: Estimated Glomerular Filtration Rate (eGFR) calculated using the 2020 Chronic Kidney Disease-Epi demiology (CKD-EPI) Collaborati on creatinine equation; units of measure are mL/min/1.73 m2. Results are only valid for adults (>=18 years) whose serum creatinine is in a steady state. eGFR calculation s are not valid for patients with acute kidney injury and for patients on dialysis. Creatinine- based estimates of kidney function may also be inaccurate in patients with reduced creatinine generation due to decreased muscle mass (e.g., malnutritio n, severe hypoalbumin emia, sarcopenia, chronic neuromuscul ar disease, amputations , severe heart failure or liver disease) and in patients with increased creatinine generation due to increased muscle mass (e.g., muscle builders, anabolic steroids) or increased dietary intake. As drug clearance is proportiona l to total GFR and not GFR indexed to body surface area (BSA), in individuals with a BSA substantial ly different than 1.73 m2, drug dosing should be based on the reported eGFR value de-indexed from BSA by multiplying by the individual' s BSA and dividing by 1.73. CKD is diagnosed based on abnormaliti es of kidney structure or function, present for >3 months, with implication s for health and disease. CKD is classified and staged based on cause, eGFR and albuminuria (quantified as urine albumin to creatinine ratio). An eGFR >60 mL/min/1.73 m2 in the absence of increased urine albumin excretion or structural abnormaliti es does not represent CKD. eGFR CKD Interpretat ion (mL/min/1.7 3 m2) stage >=90 G1 Normal 60-89 G2 Mild decrease 45-59 G3A Mild to moderate decrease 30-44 G3B Moderate to severe decrease 15-29 G4 Severe decrease <15 G5 Kidney failure Ordering Provider: Rose MANCIA Report Released Date/Time: Sep 30, 2024 11:03 AM Reporting Lab: DAVIDEmelia L[facility]ST[facility] [address] [address] Performing Lab: NES[facility] L[facility]ST[facility] [address] [address] [facility] PANEL 1 CALCIUM [MASS/VOLUM E] IN SERUM OR PLASMA 9.6 mg/dL 8.4 - 10.2 10/29 Specimen Type: PLASMA Comment: Estimated Glomerular Filtration Rate (eGFR) calculated using the 2020 Chronic Kidney Disease-Epi demiology (CKD-EPI) Collaborati on creatinine equation; units of measure are mL/min/1.73 m2. Results are only valid for adults (>=18 years) whose serum creatinine is in a steady state. eGFR calculation s are not valid for patients with acute kidney injury and for patients on dialysis. Creatinine- based estimates of kidney function may also be inaccurate in patients with reduced creatinine generation due to decreased muscle mass (e.g., malnutritio n, severe hypoalbumin emia, sarcopenia, chronic neuromuscul ar disease, amputations , severe heart failure or liver disease) and in patients with increased creatinine generation due to increased muscle mass (e.g., muscle builders, anabolic steroids) or increased dietary intake. As drug clearance is proportiona l to total GFR and not GFR indexed to body surface area (BSA), in individuals with a BSA substantial ly different than 1.73 m2, drug dosing should be based on the reported eGFR value de-indexed from BSA by multiplying by the individual' s BSA and dividing by 1.73. CKD is diagnosed based on abnormaliti es of kidney structure or function, present for >3 months, with implication s for health and disease. CKD is classified and staged based on cause, eGFR and albuminuria (quantified as urine albumin to creatinine ratio). An eGFR >60 mL/min/1.73 m2 in the absence of increased urine albumin excretion or structural abnormaliti es does not represent CKD. eGFR CKD Interpretat ion (mL/min/1.7 3 m2) stage >=90 G1 Normal 60-89 G2 Mild decrease 45-59 G3A Mild to moderate decrease 30-44 G3B Moderate to severe decrease 15-29 G4 Severe decrease <15 G5 Kidney failure Ordering Provider: Rose MANCIA Report Released Date/Time: Sep 30, 2024 11:03 AM Reporting [facility] [address] [address] Performing Lab: [address] [address] [facility] PANEL 1 ANION GAP 3 IN SERUM OR PLASMA 13 meq/L 3 - 19 10/29 Specimen Type: PLASMA Comment: Estimated Glomerular Filtration Rate (eGFR) calculated using the 2020 Chronic Kidney Disease-Epi demiology (CKD-EPI) Collaborati on creatinine equation; units of measure are mL/min/1.73 m2. Results are only valid for adults (>=18 years) whose serum creatinine is in a steady state. eGFR calculation s are not valid for patients with acute kidney injury and for patients on dialysis. Creatinine- based estimates of kidney function may also be inaccurate in patients with reduced creatinine generation due to decreased muscle mass (e.g., malnutritio n, severe hypoalbumin emia, sarcopenia, chronic neuromuscul ar disease, amputations , severe heart failure or liver disease) and in patients with increased creatinine generation due to increased muscle mass (e.g., muscle builders, anabolic steroids) or increased dietary intake. As drug clearance is proportiona l to total GFR and not GFR indexed to body surface area (BSA), in individuals with a BSA substantial ly different than 1.73 m2, drug dosing should be based on the reported eGFR value de-indexed from BSA by multiplying by the individual' s BSA and dividing by 1.73. CKD is diagnosed based on abnormaliti es of kidney structure or function, present for >3 months, with implication s for health and disease. CKD is classified and staged based on cause, eGFR and albuminuria (quantified as urine albumin to creatinine ratio). An eGFR >60 mL/min/1.73 m2 in the absence of increased urine albumin excretion or structural abnormaliti es does not represent CKD. eGFR CKD Interpretat ion (mL/min/1.7 3 m2) stage >=90 G1 Normal 60-89 G2 Mild decrease 45-59 G3A Mild to moderate decrease 30-44 G3B Moderate to severe decrease 15-29 G4 Severe decrease <15 G5 Kidney failure Ordering Provider: Rose MANCIA Report Released Date/Time: Sep 30, 2024 11:03 AM Reporting Lab: [facility] [address] [address] Performing Lab: N[facility] L[facility]ST[facility] [address] [address] [facility] 1 GLOMERULAR FILTRATION RATE/1.73 SQ M.PREDICTED [VOLUME RATE/AREA] IN SERUM, PLASMA OR BLOOD BY CREATININE- BASED FORMULA (CKD-EPI 2020) >90 10/29 Specimen Type: PLASMA Comment: Estimated Glomerular Filtration Rate (eGFR) calculated using the 2020 Chronic Kidney Disease-Epi demiology (CKD-EPI) Collaborati on creatinine equation; units of measure are mL/min/1.73 m2. Results are only valid for adults (>=18 years) whose serum creatinine is in a steady state. eGFR calculation s are not valid for patients with acute kidney injury and for patients on dialysis. Creatinine- based estimates of kidney function may also be inaccurate in patients with reduced creatinine generation due to decreased muscle mass (e.g., malnutritio n, severe hypoalbumin emia, sarcopenia, chronic neuromuscul ar disease, amputations , severe heart failure or liver disease) and in patients with increased creatinine generation due to increased muscle mass (e.g., muscle builders, anabolic steroids) or increased dietary intake. As drug clearance is proportiona l to total GFR and not GFR indexed to body surface area (BSA), in individuals with a BSA substantial ly different than 1.73 m2, drug dosing should be based on the reported eGFR value de-indexed from BSA by multiplying by the individual' s BSA and dividing by 1.73. CKD is diagnosed based on abnormaliti es of kidney structure or function, present for >3 months, with implication s for health and disease. CKD is classified and staged based on cause, eGFR and albuminuria (quantified as urine albumin to creatinine ratio). An eGFR >60 mL/min/1.73 m2 in the absence of increased urine albumin excretion or structural abnormaliti es does not represent CKD. eGFR CKD Interpretat ion (mL/min/1.7 3 m2) stage >=90 G1 Normal 60-89 G2 Mild decrease 45-59 G3A Mild to moderate decrease 30-44 G3B Moderate to severe decrease 15-29 G4 Severe decrease <15 G5 Kidney failure Ordering Provider: Rose MANCIA Report Released Date/Time: Sep 30, 2024 11:03 AM Reporting Lab: [facility] [address] [address] Performing Lab: NESSA LANGSTON [address] [address] [facility] DRUG SCREEN EXPANDED IN-HOUSE TETRAHYDROC ANNABINOL [PRESENCE] IN URINE NEG Cutoff < 50 - 50 09/30 Specimen Type: URINE Comment: Screening method results are unconfirmed and are for medical use only. Unconfirmed screening results must not be used for non-medical purposes. Opiates test most sensitive for morphine, codeine and heroin and less sensitive for hydrocodone and hydromorpho ne where higher concentrati ons are needed for cut-off detection. Drugs of abuse screening is a preliminary analytical test result. A more specific alternate chemical method (GC/MS) must be used to obtain a confirmed analytical result. This assay provides a preliminary unconfirmed analytical test result that may be suitable for clinical management of patients in certain situations. Drug-test results should be interpreted in the context of clinical information . Patient metabolic characteris tics can affect test outcome. Ordering Provider: Rose MANCIA Report Released Date/Time: Sep 30, 2024 11:05 AM Reporting Lab: N[facility] [address] [address] Performing Lab: [address] [address] [facility] DRUG SCREEN EXPANDED IN-HOUSE AMPHETAMINE S [PRESENCE] IN URINE NEG Cutoff < 1000 - 1000 09/30 Specimen Type: URINE Comment: Screening method results are unconfirmed and are for medical use only. Unconfirmed screening results must not be used for non-medical purposes. Opiates test most sensitive for morphine, codeine and heroin and less sensitive for hydrocodone and hydromorpho ne where higher concentrati ons are needed for cut-off detection. Drugs of abuse screening is a preliminary analytical test result. A more specific alternate chemical method (GC/MS) must be used to obtain a confirmed analytical result. This assay provides a preliminary unconfirmed analytical test result that may be suitable for clinical management of patients in certain situations. Drug-test results should be interpreted in the context of clinical information . Patient metabolic characteris tics can affect test outcome. Ordering Provider: Rose MANCIA Report Released Date/Time: Sep 30, 2024 11:05 AM Reporting Lab: [address] [address] Performing Lab: [address] [address] [facility] DRUG SCREEN EXPANDED IN-HOUSE BARBITURATE S [PRESENCE] IN URINE BY SCREEN METHOD NEG Cutoff < 200 - 200 09/30 Specimen Type: URINE Comment: Screening method results are unconfirmed and are for medical use only. Unconfirmed screening results must not be used for non-medical purposes. Opiates test most sensitive for morphine, codeine and heroin and less sensitive for hydrocodone and hydromorpho ne where higher concentrati ons are needed for cut-off detection. Drugs of abuse screening is a preliminary analytical test result. A more specific alternate chemical method (GC/MS) must be used to obtain a confirmed analytical result. This assay provides a preliminary unconfirmed analytical test result that may be suitable for clinical management of patients in certain situations. Drug-test results should be interpreted in the context of clinical information . Patient metabolic characteris tics can affect test outcome. Ordering Provider: Rose MANCIA Report Released Date/Time: Sep 30, 2024 11:05 AM Reporting Lab: [place] [id number] Performing Lab: [place] [phone] [facility] DRUG SCREEN EXPANDED IN-HOUSE BENZODIAZEP TJ [PRESENCE] IN URINE BY SCREEN METHOD NEG Cutoff < 200 - 200 09/30 Specimen Type: URINE Comment: Screening method results are unconfirmed and are for medical use only. Unconfirmed screening results must not be used for non-medical purposes. Opiates test most sensitive for morphine, codeine and heroin and less sensitive for hydrocodone and hydromorpho ne where higher concentrati ons are needed for cut-off detection. Drugs of abuse screening is a preliminary analytical test result. A more specific alternate chemical method (GC/MS) must be used to obtain a confirmed analytical result. This assay provides a preliminary unconfirmed analytical test result that may be suitable for clinical management of patients in certain situations. Drug-test results should be interpreted in the context of clinical information . Patient metabolic characteris tics can affect test outcome. Ordering Provider: Rose MANCIA Report Released Date/Time: Sep 30, 2024 11:05 AM Reporting Lab: [address] [address] Performing Lab: [place] [id number] [facility] DRUG SCREEN EXPANDED IN-HOUSE BENZOYLECGO NINE [PRESENCE] IN URINE NEG Cutoff < 300 - 300 09/30 Specimen Type: URINE Comment: Screening method results are unconfirmed and are for medical use only. Unconfirmed screening results must not be used for non-medical purposes. Opiates test most sensitive for morphine, codeine and heroin and less sensitive for hydrocodone and hydromorpho ne where higher concentrati ons are needed for cut-off detection. Drugs of abuse screening is a preliminary analytical test result. A more specific alternate chemical method (GC/MS) must be used to obtain a confirmed analytical result. This assay provides a preliminary unconfirmed analytical test result that may be suitable for clinical management of patients in certain situations. Drug-test results should be interpreted in the context of clinical information . Patient metabolic characteris tics can affect test outcome. Ordering Provider: Rose MANCIA Report Released Date/Time: Sep 30, 2024 11:05 AM Reporting Lab: [place] [phone] Performing Lab: [address] DRUG SCREEN EXPANDED IN-HOUSE OPIATES [PRESENCE] IN URINE BY SCREEN METHOD NEG Cutoff < 300 - 300 09/30 Specimen Type: URINE Comment: Screening method results are unconfirmed and are for medical use only. Unconfirmed screening results must not be used for non-medical purposes. Opiates test most sensitive for morphine, codeine and heroin and less sensitive for hydrocodone and hydromorpho ne where higher concentrati ons are needed for cut-off detection. Drugs of abuse screening is a preliminary analytical test result. A more specific alternate chemical method (GC/MS) must be used to obtain a confirmed analytical result. This assay provides a preliminary unconfirmed analytical test result that may be suitable for clinical management of patients in certain situations. Drug-test results should be interpreted in the context of clinical information . Patient metabolic characteris tics can affect test outcome. Ordering Provider: Rose MANCIA Report Released Date/Time: Sep 30, 2024 11:05 AM Reporting Lab: [place] [id number] Performing Lab: [place] [id number] DRUG SCREEN EXPANDED IN-HOUSE METHADONE [PRESENCE] IN URINE NEG Cutoff < 300 - 300 09/30 Specimen Type: URINE Comment: Screening method results are unconfirmed and are for medical use only. Unconfirmed screening results must not be used for non-medical purposes. Opiates test most sensitive for morphine, codeine and heroin and less sensitive for hydrocodone and hydromorpho ne where higher concentrati ons are needed for cut-off detection. Drugs of abuse screening is a preliminary analytical test result. A more specific alternate chemical method (GC/MS) must be used to obtain a confirmed analytical result. This assay provides a preliminary unconfirmed analytical test result that may be suitable for clinical management of patients in certain situations. Drug-test results should be interpreted in the context of clinical information . Patient metabolic characteris tics can affect test outcome. Ordering Provider: Rose MANCIA Report Released Date/Time: Sep 30, 2024 11:05 AM Reporting Lab: [place] [id number] Performing Lab: [address] DRUG SCREEN EXPANDED IN-HOUSE OXYCODONE [PRESENCE] IN URINE NEG Cutoff < 200 - 200 09/30 Specimen Type: URINE Comment: Screening method results are unconfirmed and are for medical use only. Unconfirmed screening results must not be used for non-medical purposes. Opiates test most sensitive for morphine, codeine and heroin and less sensitive for hydrocodone and hydromorpho ne where higher concentrati ons are needed for cut-off detection. Drugs of abuse screening is a preliminary analytical test result. A more specific alternate chemical method (GC/MS) must be used to obtain a confirmed analytical result. This assay provides a preliminary unconfirmed analytical test result that may be suitable for clinical management of patients in certain situations. Drug-test results should be interpreted in the context of clinical information . Patient metabolic characteris tics can affect test outcome. Ordering Provider: Rose MANCIA Report Released Date/Time: Sep 30, 2024 11:05 AM Reporting Lab: [place] [id number] Performing Lab: [address] DRUG SCREEN EXPANDED IN-HOUSE BUPRENORPHI NE+NORBUPRE NORPHINE [PRESENCE] IN URINE NEG Cutoff < 5 - 5 09/30 Specimen Type: URINE Comment: Screening method results are unconfirmed and are for medical use only. Unconfirmed screening results must not be used for non-medical purposes. Opiates test most sensitive for morphine, codeine and heroin and less sensitive for hydrocodone and hydromorpho ne where higher concentrati ons are needed for cut-off detection. Drugs of abuse screening is a preliminary analytical test result. A more specific alternate chemical method (GC/MS) must be used to obtain a confirmed analytical result. This assay provides a preliminary unconfirmed analytical test result that may be suitable for clinical management of patients in certain situations. Drug-test results should be interpreted in the context of clinical information . Patient metabolic characteris tics can affect test outcome. Ordering Provider: Rose MANCIA Report Released Date/Time: Sep 30, 2024 11:05 AM Reporting Lab: NES[facility] [address] [address] Performing Lab: [address] [address] [facility] DRUG SCREEN EXPANDED IN-HOUSE FENTANYL SCREEN IN-HOUSE NEG Cutoff < 1 - 1 09/30 Specimen Type: URINE Comment: Screening method results are unconfirmed and are for medical use only. Unconfirmed screening results must not be used for non-medical purposes. Opiates test most sensitive for morphine, codeine and heroin and less sensitive for hydrocodone and hydromorpho ne where higher concentrati ons are needed for cut-off detection. Drugs of abuse screening is a preliminary analytical test result. A more specific alternate chemical method (GC/MS) must be used to obtain a confirmed analytical result. This assay provides a preliminary unconfirmed analytical test result that may be suitable for clinical management of patients in certain situations. Drug-test results should be interpreted in the context of clinical information . Patient metabolic characteris tics can affect test outcome. Ordering Provider: Rose MANCIA Report Released Date/Time: Sep 30, 2024 11:05 AM Reporting Lab: NESSA [address] [address] Performing Lab: [address] [address] [facility] PSA PROSTATE SPECIFIC AG [MASS/VOLUM E] IN SERUM OR PLASMA 0.561 ng/mL 0 - 3.999 09/30 Specimen Type: SERUM No comment entered. Ordering Provider: Rose MANCIA Report Released Date/Time: Sep 30, 2024 11:03 AM Reporting Lab: [address] [address] Performing Lab: [address] [address] [facility] PANEL 2 PROTEIN [MASS/VOLUM E] IN SERUM OR PLASMA 7.7 g/dL 6.4 - 8.3 09/30 Specimen Type: PLASMA Comment: Vitamin B12 test may not yield results when protein level of sample is too elevated. Estimated Glomerular Filtration Rate (eGFR) calculated using the 2020 Chronic Kidney Disease-Epi demiology (CKD-EPI) Collaborati on creatinine equation; units of measure are mL/min/1.73 m2. Results are only valid for adults (>=18 years) whose serum creatinine is in a steady state. eGFR calculation s are not valid for patients with acute kidney injury and for patients on dialysis. Creatinine- based estimates of kidney function may also be inaccurate in patients with reduced creatinine generation due to decreased muscle mass (e.g., malnutritio n, severe hypoalbumin emia, sarcopenia, chronic neuromuscul ar disease, amputations , severe heart failure or liver disease) and in patients with increased creatinine generation due to increased muscle mass (e.g., muscle builders, anabolic steroids) or increased dietary intake. As drug clearance is proportiona l to total GFR and not GFR indexed to body surface area (BSA), in individuals with a BSA substantial ly different than 1.73 m2, drug dosing should be based on the reported eGFR value de-indexed from BSA by multiplying by the individual' s BSA and dividing by 1.73. CKD is diagnosed based on abnormaliti es of kidney structure or function, present for >3 months, with implication s for health and disease. CKD is classified and staged based on cause, eGFR and albuminuria (quantified as urine albumin to creatinine ratio). An eGFR >60 mL/min/1.73 m2 in the absence of increased urine albumin excretion or structural abnormaliti es does not represent CKD. eGFR CKD Interpretat ion (mL/min/1.7 3 m2) stage >=90 G1 Normal 60-89 G2 Mild decrease 45-59 G3A Mild to moderate decrease 30-44 G3B Moderate to severe decrease 15-29 G4 Severe decrease <15 G5 Kidney failure Ordering Provider: Rose MANCIA Report Released Date/Time: Sep 30, 2024 11:03 AM Reporting Lab: [facility] [address] [phone] Performing Lab: N[facility]ST[facility] [address] [address] [facility] PANEL 2 ALBUMIN [MASS/VOLUM E] IN SERUM OR PLASMA 4.1 g/dL 3.5 - 5.2 09/30 Specimen Type: PLASMA Comment: Vitamin B12 test may not yield results when protein level of sample is too elevated. Estimated Glomerular Filtration Rate (eGFR) calculated using the 2020 Chronic Kidney Disease-Epi demiology (CKD-EPI) Collaborati on creatinine equation; units of measure are mL/min/1.73 m2. Results are only valid for adults (>=18 years) whose serum creatinine is in a steady state. eGFR calculation s are not valid for patients with acute kidney injury and for patients on dialysis. Creatinine- based estimates of kidney function may also be inaccurate in patients with reduced creatinine generation due to decreased muscle mass (e.g., malnutritio n, severe hypoalbumin emia, sarcopenia, chronic neuromuscul ar disease, amputations , severe heart failure or liver disease) and in patients with increased creatinine generation due to increased muscle mass (e.g., muscle builders, anabolic steroids) or increased dietary intake. As drug clearance is proportiona l to total GFR and not GFR indexed to body surface area (BSA), in individuals with a BSA substantial ly different than 1.73 m2, drug dosing should be based on the reported eGFR value de-indexed from BSA by multiplying by the individual' s BSA and dividing by 1.73. CKD is diagnosed based on abnormaliti es of kidney structure or function, present for >3 months, with implication s for health and disease. CKD is classified and staged based on cause, eGFR and albuminuria (quantified as urine albumin to creatinine ratio). An eGFR >60 mL/min/1.73 m2 in the absence of increased urine albumin excretion or structural abnormaliti es does not represent CKD. eGFR CKD Interpretat ion (mL/min/1.7 3 m2) stage >=90 G1 Normal 60-89 G2 Mild decrease 45-59 G3A Mild to moderate decrease 30-44 G3B Moderate to severe decrease 15-29 G4 Severe decrease <15 G5 Kidney failure Ordering Provider: Rose MANCIA Report Released Date/Time: Sep 30, 2024 11:03 AM Reporting Lab: [facility] [address] [phone] Performing Lab: N[facility] L[facility]ST[facility] [address] [phone] [facility] PANEL 2 BILIRUBIN.T OTAL [MASS/VOLUM E] IN SERUM OR PLASMA 0.4 mg/dL 0.2 - 1.2 09/30 Specimen Type: PLASMA Comment: Vitamin B12 test may not yield results when protein level of sample is too elevated. Estimated Glomerular Filtration Rate (eGFR) calculated using the 2020 Chronic Kidney Disease-Epi demiology (CKD-EPI) Collaborati on creatinine equation; units of measure are mL/min/1.73 m2. Results are only valid for adults (>=18 years) whose serum creatinine is in a steady state. eGFR calculation s are not valid for patients with acute kidney injury and for patients on dialysis. Creatinine- based estimates of kidney function may also be inaccurate in patients with reduced creatinine generation due to decreased muscle mass (e.g., malnutritio n, severe hypoalbumin emia, sarcopenia, chronic neuromuscul ar disease, amputations , severe heart failure or liver disease) and in patients with increased creatinine generation due to increased muscle mass (e.g., muscle builders, anabolic steroids) or increased dietary intake. As drug clearance is proportiona l to total GFR and not GFR indexed to body surface area (BSA), in individuals with a BSA substantial ly different than 1.73 m2, drug dosing should be based on the reported eGFR value de-indexed from BSA by multiplying by the individual' s BSA and dividing by 1.73. CKD is diagnosed based on abnormaliti es of kidney structure or function, present for >3 months, with implication s for health and disease. CKD is classified and staged based on cause, eGFR and albuminuria (quantified as urine albumin to creatinine ratio). An eGFR >60 mL/min/1.73 m2 in the absence of increased urine albumin excretion or structural abnormaliti es does not represent CKD. eGFR CKD Interpretat ion (mL/min/1.7 3 m2) stage >=90 G1 Normal 60-89 G2 Mild decrease 45-59 G3A Mild to moderate decrease 30-44 G3B Moderate to severe decrease 15-29 G4 Severe decrease <15 G5 Kidney failure Ordering Provider: Rose MANCIA Report Released Date/Time: Sep 30, 2024 11:03 AM Reporting [facility]: [facility] [address] [phone] Performing Lab: [facility] [address] [place] [phone] [facility] PANEL 2 ASPARTATE AMINOTRANSF ERASE [ENZYMATIC ACTIVITY/VO LUME] IN SERUM OR PLASMA 21 U/L 5 - 34 09/30 Specimen Type: PLASMA Comment: Vitamin B12 test may not yield results when protein level of sample is too elevated. Estimated Glomerular Filtration Rate (eGFR) calculated using the 2020 Chronic Kidney Disease-Epi demiology (CKD-EPI) Collaborati on creatinine equation; units of measure are mL/min/1.73 m2. Results are only valid for adults (>=18 years) whose serum creatinine is in a steady state. eGFR calculation s are not valid for patients with acute kidney injury and for patients on dialysis. Creatinine- based estimates of kidney function may also be inaccurate in patients with reduced creatinine generation due to decreased muscle mass (e.g., malnutritio n, severe hypoalbumin emia, sarcopenia, chronic neuromuscul ar disease, amputations , severe heart failure or liver disease) and in patients with increased creatinine generation due to increased muscle mass (e.g., muscle builders, anabolic steroids) or increased dietary intake. As drug clearance is proportiona l to total GFR and not GFR indexed to body surface area (BSA), in individuals with a BSA substantial ly different than 1.73 m2, drug dosing should be based on the reported eGFR value de-indexed from BSA by multiplying by the individual' s BSA and dividing by 1.73. CKD is diagnosed based on abnormaliti es of kidney structure or function, present for >3 months, with implication s for health and disease. CKD is classified and staged based on cause, eGFR and albuminuria (quantified as urine albumin to creatinine ratio). An eGFR >60 mL/min/1.73 m2 in the absence of increased urine albumin excretion or structural abnormaliti es does not represent CKD. eGFR CKD Interpretat ion (mL/min/1.7 3 m2) stage >=90 G1 Normal 60-89 G2 Mild decrease 45-59 G3A Mild to moderate decrease 30-44 G3B Moderate to severe decrease 15-29 G4 Severe decrease <15 G5 Kidney failure Ordering Provider: Rose MANCIA Report Released Date/Time: Sep 30, 2024 11:03 AM Reporting Lab: NESSA LANGSTON [address] [phone] Performing Lab: NESSA LANGSTON [address] [address] [facility] PANEL 2 ALANINE AMINOTRANSF ERASE [ENZYMATIC ACTIVITY/VO LUME] IN SERUM OR PLASMA 19 U/L 0 - 55 09/30 Specimen Type: PLASMA Comment: Vitamin B12 test may not yield results when protein level of sample is too elevated. Estimated Glomerular Filtration Rate (eGFR) calculated using the 2020 Chronic Kidney Disease-Epi demiology (CKD-EPI) Collaborati on creatinine equation; units of measure are mL/min/1.73 m2. Results are only valid for adults (>=18 years) whose serum creatinine is in a steady state. eGFR calculation s are not valid for patients with acute kidney injury and for patients on dialysis. Creatinine- based estimates of kidney function may also be inaccurate in patients with reduced creatinine generation due to decreased muscle mass (e.g., malnutritio n, severe hypoalbumin emia, sarcopenia, chronic neuromuscul ar disease, amputations , severe heart failure or liver disease) and in patients with increased creatinine generation due to increased muscle mass (e.g., muscle builders, anabolic steroids) or increased dietary intake. As drug clearance is proportiona l to total GFR and not GFR indexed to body surface area (BSA), in individuals with a BSA substantial ly different than 1.73 m2, drug dosing should be based on the reported eGFR value de-indexed from BSA by multiplying by the individual' s BSA and dividing by 1.73. CKD is diagnosed based on abnormaliti es of kidney structure or function, present for >3 months, with implication s for health and disease. CKD is classified and staged based on cause, eGFR and albuminuria (quantified as urine albumin to creatinine ratio). An eGFR >60 mL/min/1.73 m2 in the absence of increased urine albumin excretion or structural abnormaliti es does not represent CKD. eGFR CKD Interpretat ion (mL/min/1.7 3 m2) stage >=90 G1 Normal 60-89 G2 Mild decrease 45-59 G3A Mild to moderate decrease 30-44 G3B Moderate to severe decrease 15-29 G4 Severe decrease <15 G5 Kidney failure Ordering Provider: Rose MANCIA Report Released Date/Time: Sep 30, 2024 11:03 AM Reporting Lab: NESSA LANGSTON [address] [address] Performing Lab: NESSA LANGSTON [address] [address] [facility] PANEL 2 ALKALINE PHOSPHATASE [ENZYMATIC ACTIVITY/VO LUME] IN SERUM OR PLASMA 78 U/L 40 - 150 09/30 Specimen Type: PLASMA Comment: Vitamin B12 test may not yield results when protein level of sample is too elevated. Estimated Glomerular Filtration Rate (eGFR) calculated using the 2020 Chronic Kidney Disease-Epi demiology (CKD-EPI) Collaborati on creatinine equation; units of measure are mL/min/1.73 m2. Results are only valid for adults (>=18 years) whose serum creatinine is in a steady state. eGFR calculation s are not valid for patients with acute kidney injury and for patients on dialysis. Creatinine- based estimates of kidney function may also be inaccurate in patients with reduced creatinine generation due to decreased muscle mass (e.g., malnutritio n, severe hypoalbumin emia, sarcopenia, chronic neuromuscul ar disease, amputations , severe heart failure or liver disease) and in patients with increased creatinine generation due to increased muscle mass (e.g., muscle builders, anabolic steroids) or increased dietary intake. As drug clearance is proportiona l to total GFR and not GFR indexed to body surface area (BSA), in individuals with a BSA substantial ly different than 1.73 m2, drug dosing should be based on the reported eGFR value de-indexed from BSA by multiplying by the individual' s BSA and dividing by 1.73. CKD is diagnosed based on abnormaliti es of kidney structure or function, present for >3 months, with implication s for health and disease. CKD is classified and staged based on cause, eGFR and albuminuria (quantified as urine albumin to creatinine ratio). An eGFR >60 mL/min/1.73 m2 in the absence of increased urine albumin excretion or structural abnormaliti es does not represent CKD. eGFR CKD Interpretat ion (mL/min/1.7 3 m2) stage >=90 G1 Normal 60-89 G2 Mild decrease 45-59 G3A Mild to moderate decrease 30-44 G3B Moderate to severe decrease 15-29 G4 Severe decrease <15 G5 Kidney failure Ordering Provider: Rose MANCIA Report Released Date/Time: Sep 30, 2024 11:03 AM Reporting Lab: NESSA LANGSTON [address] [phone] Performing Lab: NESSA LANGSTON [address] [address] [facility] PANEL 2 BILIRUBIN.D IRECT [MASS/VOLUM E] IN SERUM OR PLASMA 0.2 mg/dL 0.0 - 0.5 09/30 Specimen Type: PLASMA Comment: Vitamin B12 test may not yield results when protein level of sample is too elevated. Estimated Glomerular Filtration Rate (eGFR) calculated using the 2020 Chronic Kidney Disease-Epi demiology (CKD-EPI) Collaborati on creatinine equation; units of measure are mL/min/1.73 m2. Results are only valid for adults (>=18 years) whose serum creatinine is in a steady state. eGFR calculation s are not valid for patients with acute kidney injury and for patients on dialysis. Creatinine- based estimates of kidney function may also be inaccurate in patients with reduced creatinine generation due to decreased muscle mass (e.g., malnutritio n, severe hypoalbumin emia, sarcopenia, chronic neuromuscul ar disease, amputations , severe heart failure or liver disease) and in patients with increased creatinine generation due to increased muscle mass (e.g., muscle builders, anabolic steroids) or increased dietary intake. As drug clearance is proportiona l to total GFR and not GFR indexed to body surface area (BSA), in individuals with a BSA substantial ly different than 1.73 m2, drug dosing should be based on the reported eGFR value de-indexed from BSA by multiplying by the individual' s BSA and dividing by 1.73. CKD is diagnosed based on abnormaliti es of kidney structure or function, present for >3 months, with implication s for health and disease. CKD is classified and staged based on cause, eGFR and albuminuria (quantified as urine albumin to creatinine ratio). An eGFR >60 mL/min/1.73 m2 in the absence of increased urine albumin excretion or structural abnormaliti es does not represent CKD. eGFR CKD Interpretat ion (mL/min/1.7 3 m2) stage >=90 G1 Normal 60-89 G2 Mild decrease 45-59 G3A Mild to moderate decrease 30-44 G3B Moderate to severe decrease 15-29 G4 Severe decrease <15 G5 Kidney failure Ordering Provider: Rose MANCIA Report Released Date/Time: Sep 30, 2024 11:03 AM Reporting Lab: NESSA LANGSTON [address] [address] Performing Lab: NESSA [address] [address] [facility] MIN/CREAT RATIO CREATININE [MASS/VOLUM E] IN URINE 189.9 mg/dL 09/30 Specimen Type: URINE No comment entered. Ordering Provider: Rose MANCIA Report Released Date/Time: Sep 30, 2024 11:03 AM Reporting Lab: NESSA [address] [address] Performing Lab: [place] [id number] [place] [address] MICROALBU MIN/CREAT RATIO MICROALBUMI N [MASS/VOLUM E] IN URINE 60.2 mg/L 0.0 - 30.0 09/30 H Specimen Type: URINE No comment entered. Ordering Provider: Rose MANCIA Report Released Date/Time: Sep 30, 2024 11:03 AM Reporting Lab: [place] [address] Performing Lab: [address] MICROALBU MIN/CREAT RATIO MICROALBUMI N/CREATININ E [MASS RATIO] IN URINE 31.7 ug/mg{ creat} 09/30 Specimen Type: URINE No comment entered. Ordering Provider: Rose MANCIA Report Released Date/Time: Sep 30, 2024 11:03 AM Reporting Lab: [place] [address] Performing Lab: [address] GLYCOHEMO GLOBIN HEMOGLOBIN A1C/HEMOGLO BIN.TOTAL IN BLOOD BY HPLC 7.8 4.4 - 5.6 09/30 H Specimen Type: BLOOD Comment: Prediabetes : 5.7%-6.4% Diabetes: >= 6.5% [facility] guidelines for A1c interpretat ion: Glycemic control targets are based on Shared Decision Making between clinicians and patients. Criteria used to establish an A1c target recommendat ion can be found at https://www .[place].gov/luan lityandpati entsafety/ and include the use of result accuracy and precision(C V) of the A1c tests clinicians utilize at their own sites of practice. Values obtained from A1C measurement s can vary. For typical A1C assays, a reported value of 7.0 could actually be between 6.72 and 7.28 if measured by a reference method. A reported value of 9.0 could actually be between 8.73 and 9.27. Ref: https://ngs p.org/CAPda ta.asp. The in-house [employer] D-100 analyzer has a historical CV <= 2%. Contact the laboratory for further performance characteris tics of this assay. Ordering Provider: Rose MANCIA Report Released Date/Time: Sep 30, 2024 11:03 AM Reporting Lab: N[facility] LANGSTON [address] [address] Performing Lab: [facility] [facility] [address] [address] [facility] LIPID PROFILE CHOLESTEROL [MASS/VOLUM E] IN SERUM OR PLASMA 201 mg/dL 0 - 199 09/30 H Specimen Type: PLASMA Comment: Vitamin B12 test may not yield results when protein level of sample is too elevated. Estimated Glomerular Filtration Rate (eGFR) calculated using the 2020 Chronic Kidney Disease-Epi demiology (CKD-EPI) Collaborati on creatinine equation; units of measure are mL/min/1.73 m2. Results are only valid for adults (>=18 years) whose serum creatinine is in a steady state. eGFR calculation s are not valid for patients with acute kidney injury and for patients on dialysis. Creatinine- based estimates of kidney function may also be inaccurate in patients with reduced creatinine generation due to decreased muscle mass (e.g., malnutritio n, severe hypoalbumin emia, sarcopenia, chronic neuromuscul ar disease, amputations , severe heart failure or liver disease) and in patients with increased creatinine generation due to increased muscle mass (e.g., muscle builders, anabolic steroids) or increased dietary intake. As drug clearance is proportiona l to total GFR and not GFR indexed to body surface area (BSA), in individuals with a BSA substantial ly different than 1.73 m2, drug dosing should be based on the reported eGFR value de-indexed from BSA by multiplying by the individual' s BSA and dividing by 1.73. CKD is diagnosed based on abnormaliti es of kidney structure or function, present for >3 months, with implication s for health and disease. CKD is classified and staged based on cause, eGFR and albuminuria (quantified as urine albumin to creatinine ratio). An eGFR >60 mL/min/1.73 m2 in the absence of increased urine albumin excretion or structural abnormaliti es does not represent CKD. eGFR CKD Interpretat ion (mL/min/1.7 3 m2) stage >=90 G1 Normal 60-89 G2 Mild decrease 45-59 G3A Mild to moderate decrease 30-44 G3B Moderate to severe decrease 15-29 G4 Severe decrease <15 G5 Kidney failure Ordering Provider: Rose MANCIA Report Released Date/Time: Sep 30, 2024 11:03 AM Reporting Lab: NES[facility] LANGSTON [address] [address] Performing Lab: [facility] [address] [address] [facility] LIPID PROFILE TRIGLYCERID E [MASS/VOLUM E] IN SERUM OR PLASMA 166 mg/dL 0 - 149 09/30 H Specimen Type: PLASMA Comment: Vitamin B12 test may not yield results when protein level of sample is too elevated. Estimated Glomerular Filtration Rate (eGFR) calculated using the 2020 Chronic Kidney Disease-Epi demiology (CKD-EPI) Collaborati on creatinine equation; units of measure are mL/min/1.73 m2. Results are only valid for adults (>=18 years) whose serum creatinine is in a steady state. eGFR calculation s are not valid for patients with acute kidney injury and for patients on dialysis. Creatinine- based estimates of kidney function may also be inaccurate in patients with reduced creatinine generation due to decreased muscle mass (e.g., malnutritio n, severe hypoalbumin emia, sarcopenia, chronic neuromuscul ar disease, amputations , severe heart failure or liver disease) and in patients with increased creatinine generation due to increased muscle mass (e.g., muscle builders, anabolic steroids) or increased dietary intake. As drug clearance is proportiona l to total GFR and not GFR indexed to body surface area (BSA), in individuals with a BSA substantial ly different than 1.73 m2, drug dosing should be based on the reported eGFR value de-indexed from BSA by multiplying by the individual' s BSA and dividing by 1.73. CKD is diagnosed based on abnormaliti es of kidney structure or function, present for >3 months, with implication s for health and disease. CKD is classified and staged based on cause, eGFR and albuminuria (quantified as urine albumin to creatinine ratio). An eGFR >60 mL/min/1.73 m2 in the absence of increased urine albumin excretion or structural abnormaliti es does not represent CKD. eGFR CKD Interpretat ion (mL/min/1.7 3 m2) stage >=90 G1 Normal 60-89 G2 Mild decrease 45-59 G3A Mild to moderate decrease 30-44 G3B Moderate to severe decrease 15-29 G4 Severe decrease <15 G5 Kidney failure Ordering Provider: Rose MANCIA Report Released Date/Time: Sep 30, 2024 11:03 AM Reporting Lab: NESSA LANGSTON [address] [phone] Performing Lab: NESSA LANGSTON [address] [address] [facility] LIPID PROFILE CHOLESTEROL IN HDL [MASS/VOLUM E] IN SERUM OR PLASMA 51 mg/dL 40 - 69 09/30 Specimen Type: PLASMA Comment: Vitamin B12 test may not yield results when protein level of sample is too elevated. Estimated Glomerular Filtration Rate (eGFR) calculated using the 2020 Chronic Kidney Disease-Epi demiology (CKD-EPI) Collaborati on creatinine equation; units of measure are mL/min/1.73 m2. Results are only valid for adults (>=18 years) whose serum creatinine is in a steady state. eGFR calculation s are not valid for patients with acute kidney injury and for patients on dialysis. Creatinine- based estimates of kidney function may also be inaccurate in patients with reduced creatinine generation due to decreased muscle mass (e.g., malnutritio n, severe hypoalbumin emia, sarcopenia, chronic neuromuscul ar disease, amputations , severe heart failure or liver disease) and in patients with increased creatinine generation due to increased muscle mass (e.g., muscle builders, anabolic steroids) or increased dietary intake. As drug clearance is proportiona l to total GFR and not GFR indexed to body surface area (BSA), in individuals with a BSA substantial ly different than 1.73 m2, drug dosing should be based on the reported eGFR value de-indexed from BSA by multiplying by the individual' s BSA and dividing by 1.73. CKD is diagnosed based on abnormaliti es of kidney structure or function, present for >3 months, with implication s for health and disease. CKD is classified and staged based on cause, eGFR and albuminuria (quantified as urine albumin to creatinine ratio). An eGFR >60 mL/min/1.73 m2 in the absence of increased urine albumin excretion or structural abnormaliti es does not represent CKD. eGFR CKD Interpretat ion (mL/min/1.7 3 m2) stage >=90 G1 Normal 60-89 G2 Mild decrease 45-59 G3A Mild to moderate decrease 30-44 G3B Moderate to severe decrease 15-29 G4 Severe decrease <15 G5 Kidney failure Ordering Provider: Rose MANCIA Report Released Date/Time: Sep 30, 2024 11:03 AM Reporting Lab: NESSA LANGSTON [address] [address] Performing Lab: NESSA LANGSTON [address] [address] [facility] LIPID PROFILE CHOLESTEROL IN LDL [MASS/VOLUM E] IN SERUM OR PLASMA BY DIRECT ASSAY 139 mg/dL 0 - 100 09/30 H Specimen Type: PLASMA Comment: Vitamin B12 test may not yield results when protein level of sample is too elevated. Estimated Glomerular Filtration Rate (eGFR) calculated using the 2020 Chronic Kidney Disease-Epi demiology (CKD-EPI) Collaborati on creatinine equation; units of measure are mL/min/1.73 m2. Results are only valid for adults (>=18 years) whose serum creatinine is in a steady state. eGFR calculation s are not valid for patients with acute kidney injury and for patients on dialysis. Creatinine- based estimates of kidney function may also be inaccurate in patients with reduced creatinine generation due to decreased muscle mass (e.g., malnutritio n, severe hypoalbumin emia, sarcopenia, chronic neuromuscul ar disease, amputations , severe heart failure or liver disease) and in patients with increased creatinine generation due to increased muscle mass (e.g., muscle builders, anabolic steroids) or increased dietary intake. As drug clearance is proportiona l to total GFR and not GFR indexed to body surface area (BSA), in individuals with a BSA substantial ly different than 1.73 m2, drug dosing should be based on the reported eGFR value de-indexed from BSA by multiplying by the individual' s BSA and dividing by 1.73. CKD is diagnosed based on abnormaliti es of kidney structure or function, present for >3 months, with implication s for health and disease. CKD is classified and staged based on cause, eGFR and albuminuria (quantified as urine albumin to creatinine ratio). An eGFR >60 mL/min/1.73 m2 in the absence of increased urine albumin excretion or structural abnormaliti es does not represent CKD. eGFR CKD Interpretat ion (mL/min/1.7 3 m2) stage >=90 G1 Normal 60-89 G2 Mild decrease 45-59 G3A Mild to moderate decrease 30-44 G3B Moderate to severe decrease 15-29 G4 Severe decrease <15 G5 Kidney failure Ordering Provider: Rose MANCIA Report Released Date/Time: Sep 30, 2024 11:03 AM Reporting Lab: [place] [phone] Performing Lab: [address] CBC/PLT LEUKOCYTES [#/VOLUME] IN BLOOD BY AUTOMATED COUNT 7.8 10*3/u L 5.0 - 10.0 09/30 Specimen Type: BLOOD No comment entered. Ordering Provider: Rose MANCIA Report Released Date/Time: Sep 30, 2024 11:03 AM Reporting Lab: [place] [phone] Performing Lab: [address] CBC/PLT ERYTHROCYTE S [#/VOLUME] IN BLOOD BY AUTOMATED COUNT 4.65 10*6/u L 4.6 - 6.2 09/30 Specimen Type: BLOOD No comment entered. Ordering Provider: Rose MANCIA Report Released Date/Time: Sep 30, 2024 11:03 AM Reporting Lab: [place] [id number] Performing Lab: [address] CBC/PLT HEMOGLOBIN [MASS/VOLUM E] IN BLOOD 14.3 g/dL 14.0 - 18.0 09/30 Specimen Type: BLOOD No comment entered. Ordering Provider: Rose MANCIA Report Released Date/Time: Sep 30, 2024 11:03 AM Reporting Lab: [place] [address] Performing Lab: [address] CBC/PLT HEMATOCRIT [VOLUME FRACTION] OF BLOOD BY AUTOMATED COUNT 43.8 42.0 - 52.0 09/30 Specimen Type: BLOOD No comment entered. Ordering Provider: Rose MANCIA Report Released Date/Time: Sep 30, 2024 11:03 AM Reporting Lab: [place] [address] Performing Lab: [address] CBC/PLT MCV [ENTITIC VOLUME] BY AUTOMATED COUNT 94.2 fL 80.0 - 94.0 09/30 H Specimen Type: BLOOD No comment entered. Ordering Provider: Rose MANCIA Report Released Date/Time: Sep 30, 2024 11:03 AM Reporting Lab: [place] [address] Performing Lab: [address] CBC/PLT MCH [ENTITIC MASS] BY AUTOMATED COUNT 30.8 pg 27.0 - 31.0 09/30 Specimen Type: BLOOD No comment entered. Ordering Provider: Rose MANCIA Report Released Date/Time: Sep 30, 2024 11:03 AM Reporting Lab: [address] [phone] Performing Lab: [address] [phone] [place] [address] CBC/PLT MCHC [MASS/VOLUM E] BY AUTOMATED COUNT 32.6 g/dL 32.0 - 36.0 09/30 Specimen Type: BLOOD No comment entered. Ordering Provider: Rose MANCIA Report Released Date/Time: Sep 30, 2024 11:03 AM Reporting Lab: [address] [phone] Performing Lab: [place] [phone] [place] [address] CBC/PLT PLATELETS [#/VOLUME] IN BLOOD 280 10*3/u L 150 - 450 09/30 Specimen Type: BLOOD No comment entered. Ordering Provider: Rose MANCIA Report Released Date/Time: Sep 30, 2024 11:03 AM Reporting Lab: [address] [phone] Performing Lab: [place] [phone] [place] [address] CBC/PLT PLATELET MEAN VOLUME [ENTITIC VOLUME] IN BLOOD 9.6 fL 9.0 - 13.1 09/30 Specimen Type: BLOOD No comment entered. Ordering Provider: Rose MANCIA Report Released Date/Time: Sep 30, 2024 11:03 AM Reporting Lab: [place] [phone] Performing Lab: [address] [phone] [facility] CBC/PLT ERYTHROCYTE DISTRIBUTIO N WIDTH [ENTITIC VOLUME] BY AUTOMATED COUNT 13.0 11.0 - 16.0 09/30 Specimen Type: BLOOD No comment entered. Ordering Provider: Rose MANCIA Report Released Date/Time: Sep 30, 2024 11:03 AM Reporting Lab: [address] [phone] Performing Lab: [address] [phone] [facility] CBC/PLT NUCLEATED ERYTHROCYTE S/100 ERYTHROCYTE S IN BLOOD 0.0 0.0 - 0.0 09/30 Specimen Type: BLOOD No comment entered. Ordering Provider: Rose MANCIA Report Released Date/Time: Sep 30, 2024 11:03 AM Reporting Lab: [place] [phone] Performing Lab: [place] [phone] [facility] 25-OH VITAMIN D 25-HYDROXYV ITAMIN D3 [MASS/VOLUM E] IN SERUM OR PLASMA 53.7 ng/mL 20.0 - 50.0 09/30 H Specimen Type: SERUM Comment: The National Institutes of Health (NIH) recommendat ions state: <12 ng/mL - Deficient 20 - 50 ng/mL - Optimal Levels - adequate for most people. >50 ng/mL - Increased risk of hypercalciu teto/other health problems - clinical correlation is required. These reference ranges represent clinical decision values rather than population- based reference values. Ordering Provider: Rose MANCIA Report Released Date/Time: Sep 30, 2024 11:03 AM Reporting Lab: [address] [phone] Performing Lab: [place] [phone] [facility] B12 VITAMIN COBALAMIN (VITAMIN B12) [MASS/VOLUM E] IN SERUM OR PLASMA 295 pg/mL 213 - 816 09/30 Specimen Type: PLASMA Comment: Vitamin B12 test may not yield results when protein level of sample is too elevated. Estimated Glomerular Filtration Rate (eGFR) calculated using the 2020 Chronic Kidney Disease-Epi demiology (CKD-EPI) Collaborati on creatinine equation; units of measure are mL/min/1.73 m2. Results are only valid for adults (>=18 years) whose serum creatinine is in a steady state. eGFR calculation s are not valid for patients with acute kidney injury and for patients on dialysis. Creatinine- based estimates of kidney function may also be inaccurate in patients with reduced creatinine generation due to decreased muscle mass (e.g., malnutritio n, severe hypoalbumin emia, sarcopenia, chronic neuromuscul ar disease, amputations , severe heart failure or liver disease) and in patients with increased creatinine generation due to increased muscle mass (e.g., muscle builders, anabolic steroids) or increased dietary intake. As drug clearance is proportiona l to total GFR and not GFR indexed to body surface area (BSA), in individuals with a BSA substantial ly different than 1.73 m2, drug dosing should be based on the reported eGFR value de-indexed from BSA by multiplying by the individual' s BSA and dividing by 1.73. CKD is diagnosed based on abnormaliti es of kidney structure or function, present for >3 months, with implication s for health and disease. CKD is classified and staged based on cause, eGFR and albuminuria (quantified as urine albumin to creatinine ratio). An eGFR >60 mL/min/1.73 m2 in the absence of increased urine albumin excretion or structural abnormaliti es does not represent CKD. eGFR CKD Interpretat ion (mL/min/1.7 3 m2) stage >=90 G1 Normal 60-89 G2 Mild decrease 45-59 G3A Mild to moderate decrease 30-44 G3B Moderate to severe decrease 15-29 G4 Severe decrease <15 G5 Kidney failure Ordering Provider: Rose MANCIA Report Released Date/Time: Sep 30, 2024 11:03 AM Reporting Lab: [facility] [facility] [address] [address] Performing Lab: [facility] [address] [address] [facility] Vital Signs Combined list of inpatient and outpatient Vital Signs from Department of Defense and Veterans Affairs, ranging from 12 months to all on record, depending upon the facility. Vital Sign Value Date Comments Source SYSTOLIC BLOOD PRESSURE 108 10/29/2024 10:05:18 [facility] DIASTOLIC BLOOD PRESSURE 74 10/29/2024 10:05:18 [facility] PULSE 94 10/29/2024 10:05:18 JULIANNA ESTRADA [facility] SYSTOLIC BLOOD PRESSURE 156 09/30/2024 10:08:12 MARIA LUZ [facility] DIASTOLIC BLOOD PRESSURE 91 09/30/2024 10:08:12 MARIA LUZ [facility] PULSE OXIMETRY 95 09/30/2024 10:08:12 [facility] WEIGHT 246 09/30/2024 10:08:12 SOLIN SEAN [facility] BMI 30 kg/m2 09/30/2024 10:08:12 LEXIN SEAN [facility] PAIN 0 09/30/2024 10:08:12 SOLIN SEAN [facility] HEIGHT 76 09/30/2024 10:08:12 JULIANNA ESTRADA [facility] TEMPERATURE 98.4 09/30/2024 10:08:12 TOYA GLASER [facility] PULSE 76 09/30/2024 10:08:12 SOLIN SEAN [facility] RESPIRATION 14 09/30/2024 10:08:12 TOYA GLASER [facility] SYSTOLIC BLOOD PRESSURE 124 01/30/2024 09:22:01 MARIA LUZ [facility] DIASTOLIC BLOOD PRESSURE 74 01/30/2024 09:22:01 MARIA LUZ [facility] PULSE 96 01/30/2024 09:22:01 [facility] TEMPERATURE 97.9 12/28/2023 07:53:42 TOYA GLASER [facility] Encounters Combined list of: 1) Encounters from Department of Veterans Affairs facilities going backup to the last 18 months, not all [place] inpatient encounters are included; 2) Encounters from the Department of [facility] facilities going backup to 280 months. Location Location Details Encounter Type Encounter Number Reason For Visit Attending Provider ADM Date DC Date Status Disposition Source [facility] Outpatient Encounter [id number] 08/28 [facility] En[facility] [id number] MARANDA BABIN 12/[address] [place] [facility] Outpatient Encounter [id number] MARANDA BABIN 12/[address] [place] [facility] Outpatient Encounter [id number] 12/[address] [place] [facility] Outpatient Encounter [id number] MARANDA BABIN 12/26 [place] [facility] CYNDIS [facility] Outpatient Encounter [id number] 12/[address] [facility] S [facility] Outpatient Encounter [id number] 12/27 [facility] Outpatient Encounter [id number] 12/[address] [place] [facility] OFFICE O/P EST MOD 30 MIN [id number] Diagnos is: ICD-10- CM M25.561 Pain in right knee NELLYLUKE ROBB 12/[address] [place] [facility] Outpatient Encounter [id number] 12/27 [place] [facility] Outpatient Encounter [id number] 12/28 [place] [facility] HC PRO PHONE CALL 5-10 MIN [id number] Diagnos is: ICD-10- CM E11.9 Type 2 diabete s mellitu s without complic atJOANNE Gonzalez 01/01 [place] [facility] Outpatient Encounter [id number] 01/02 [place] [facility] DIAB MANAGE TRN IND/GROUP [id number] Diagnos is: ICD-10- CM E11.65 Type 2 diabete s mellitu s with hypergl ycemia ENA TERAN B 01/[address] [place] [facility] DIAB MANAGE TRN IND/GROUP [id number] Diagnos is: ICD-10- CM E11.9 Type 2 diabete s mellitu s without complic ations BORDERS,BE THANY S 01/[address] [place] [facility] Outpatient Encounter [id number] 01/[address] [place] [facility] Outpatient Encounter [id number] MARINO VIGIL 01/[address] [place] [facility] Outpatient Encounter [id number] MARINO VIGIL 01/22 [place] [facility] HC PRO PHONE CALL 5-10 MIN [id number] Diagnos is: ICD-10- CM Z01.818 Encount er for other preproc edural examDANITA Morris B 01/24 [place] [facility] Outpatient Encounter [id number] 01/25 [place] [facility] Outpatient Encounter [id number] 01/28 [place] [facility] OFF/OP EST MAY X REQ PHY/QHP [id number] Diagnos is: ICD-10- CM I10 Essenti al (primar y) hyperte nsion MARANDA BABIN S 01/29 [place] [facility] OFFICE O/P NEW MOD 45 MIN [id number] Diagnos is: ICD-10- CM M17.0 Bilater al primary osteoar thritis of knee ELEUTERIO SWANSON 01/29 [place] [facility] SELF-MGMT EDUC & TRAIN 1 [place] [id number] Diagnos is: ICD-10- CM M25.561 Pain in right knee BRITTA STEPHEN 01/29 [place] [facility] COLONOSCOP Y W/LESION REMOVAL [id number] Diagnos is: ICD-10- CM K92.1 JAYA Bueno Phill W 01/31 [place] Outpatient Encounter [id number] 01/31 [place] [facility] Outpatient Encounter [id number] IZZYJAYA Phill W 01/31 [place] [facility] Outpatient Encounter [id number] 02/01 [place] [facility] Outpatient Encounter [id number] 02/[address] [place] [facility] Outpatient Encounter [id number] 02/[address] [place] [facility] HEARING AID EXAM BOTH EARS [id number] Diagnos is: ICD-10- CM H90.5 Unspeci fied sensori neural hearing loss ALICIA LEON 02/[address] [place] [facility] Outpatient Encounter [id number] 02/[address] [place] [facility] DIAB MANAGE TRN PER INDIV [id number] Diagnos is: ICD-10- CM E11.9 Type 2 diabete s mellitu s without complic ations ENA TERAN MARGARETHChapo Noemi 02/[address] [place] [facility] Outpatient Encounter [id number] ELBA SEXTON 02/[address] [place] [facility] Outpatient Encounter [id number] 02/[address] [place] [facility] Outpatient Encounter [id number] 02/[address] [place] [facility] ORTHC/PROS TC MGMT SBSQ ENC [id number] Diagnos is: ICD-10- CM M25.561 Pain in right knee YASSINEANITA Naranjo 02/[address] [place] [facility] HEARING AID FITTING/CH ECKING [id number] Diagnos is: ICD-10- CM Z46.1 Encount er for fitting and adjustm ent of hearing aid ALICIA LEON 02/22 [place] [facility] PT EVAL LOW COMPLEX 20 MIN [id number] Diagnos is: ICD-10- CM M25.561 Pain in right knee JEFFREY FRANCIS R 02/27 [place] [facility] Outpatient Encounter [id number] 07/17 [place] [facility] Outpatient Encounter [id number] MARANDA BABIN 07/[address] [place] [facility] Outpatient Encounter [id number] MARANDA BABIN 08/01 [place] [facility] En[facility] [id number] 09/30 [facility] Outpatient Encounter [id number] 09/30 [facility] J[facility]NA [facility] OFFICE O/P EST MOD 30 MIN [id number] Diagnos is: ICD-10- CM R05.9 Cough, unspeci fied LUKE MANCIA H 09/30 [place] [facility] Outpatient Encounter [id number] 09/30 [place] [facility] Outpatient Encounter [id number] 09/30 [place] [facility] Outpatient Encounter [id number] 10/15 [place] [facility] OFF/OP EST MAY X REQ PHY/QHP [id number] Diagnos is: ICD-10- CM I10 Essenti al (primar y) hyperte nsion MARANDA BABIN 10/[address] [place] [facility] Outpatient Encounter [id number] MARANDA BABIN 11/[address] [place] [facility] Outpatient Encounter [id number] AUGUSTINE ALAN 11/04 [place] [facility] Outpatient Encounter [id number] 11/05 [place] [facility] Outpatient Encounter [id number] 11/[address] [place] 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 AUGUSTINE Limon 11/08 [place] [facility] NQHP OL DIG ASSMT&MGMT 21+ [id number] Diagnos is: ICD-10- CM Z51.81 Encount er for therape utic drug level monitor VICKEY Ward NIR E 11/11 [place] [facility] MTMS BY PHARM B2B MANAGED SERVICE SALES EXEC 15 MIN [id number] Diagnos is: ICD-10- CM Z51.81 Encount er for therape utic drug level monitor sita FERNÁNDEZVICKEY NIR E 11/11 [place] [facility] EXT ECG>7D<15D REC SCAN A/R [id number] Diagnos is: ICD-10- CM Z13.6 Encount er for screeni ng for cardiov ascular disorde DODIE Saini IG A 11/12 [place] [facility] Outpatient Encounter [id number] 11/15 [place] [facility] Outpatient Encounter [id number] 11/25 [place] [facility] MTMS BY PHARM EST 15 MIN [id number] Diagnos is: ICD-10- CM Z51.81 Encount er for therape utic drug level monitor sita FERNÁNDEZVICKEY NIR E 11/25 [place] [facility] EXT ECG>7D<15D REC SCAN A/R [id number] Diagnos is: ICD-10- CM Z13.6 Encount er for screeni ng for cardiov ascular disorde tod HOTRAY SCHULER Brandy 11/28 [place] [facility] Outpatient Encounter [id number] 12/[address] [place] [facility] PH1 ASSMT&MGMT NQHP 5-10 [id number] Diagnos is: ICD-10- CM Z71.2 Person consult ing for explana tion of exam or test finding s DAYANNA AUGUSTINE Nelson 12/[address] [place] [facility] Outpatient Encounter [id number] MARANDA BABIN Paresh 12/[address] [place] [facility] PH1 ASSMT&MGMT NQHP 5-10 [id number] Diagnos is: ICD-10- CM R68.89 Other general symptom s and signs YAIMA ALANJeevan Nelson 12/20 [place] [facility] Social History Combined list of available smoking, tobacco, and other social history from Department of Defense and Veterans Affairs facilities. Social History Type Response Date Comment [facility] e Tobacco smoking status NHIS VA-TOBACCO FORMER USER 12/28/2023 [facility] History of tobacco use VA-TOBACCO QUIT 5 TO < 15 YRS 12/28/2023 [facility] History of tobacco use VA-TOBACCO FORMER USER 05/19/2022 [facility] History of tobacco use NM-TOBACCO QUIT 5 TO < 15 YRS 03/29/2021 [facility] History of tobacco use VA-TOBACCO QUIT 1 TO < 5 YRS 09/09/2019 [facility] History of tobacco use VA-TOBACCO FORMER USER 08/07/2018 [facility] History of tobacco use V9 QUIT TOBACCO >12 MO and <7 YRS AGO 11/22/2017 [facility] Plan of Care List of future care activities from Department of [facility] facilities. Additional future care activities may be listed in the Assessment and Plan section. Date/Time Care Activity Care Activity Detail Facili ty 12/30/2024 AMBULATORY - NONE AMBULATORY - NONE [facility] Advance Directives List of completed, amended, or rescinded Advance Directives on record at Department of [facility] facilities. An actual copy of the Directive is not included. Date Advance Directive Provider Source 04/25/2019 [facility]VANCE DIRECTIVE DISCUSSION [facility] [employer]
--- NOTE | 2024-12-21 15:36 | ECG_ITS ---
APPROVED REPORT Exam: Resting ECG HR:115 bpm ECG Measurements Heart Rate 115 AXES RI 162 P 57 QRSd 99 QRS -69 QT 324 T 71 QTc 392 Conclusion Sinus tachycardia without acute ST or T wave changes concerning for ischemia Electronically signed by : Micaela Holcomb, 12/25/2024 00:42:18
--- NOTE | 2024-12-21 15:38 | XR_ITS ---
PROCEDURE INFORMATION: Exam: XR Chest Exam date and time: 12/21/2024 4:15 PM Age: 64 years old Clinical indication: Other: Chest pain; Additional info: Cp TECHNIQUE: Imaging protocol: Radiologic exam of the chest. Views: 1 view. COMPARISON: No relevant prior studies available. FINDINGS: Lungs: Unremarkable. No consolidation. Pleural spaces: Unremarkable. No pleural effusion. No pneumothorax. Heart/Mediastinum: Unremarkable. No cardiomegaly. Bones/joints: Unremarkable. IMPRESSION: No acute findings.
--- NOTE | 2024-12-21 15:40 | ED_ITS ---
<Statement entered by Micaela Holcomb DO - 12/21/24 19:36> I was consulted by the RANDELL, and we discussed the complexity of problems being addressed. I approve the treatment and management plan for this patient's care in the emergency department, thus performing a substantial portion of the medical decision making. Micaela Holcomb DO Discharge Plan Disposition Patient Disposition: Home, Self-Care Condition: Good Prescriptions Prescriptions: No Action pantoprazole [Protonix] 20 mg tablet,delayed release (DR/EC) 20 mg PO ONCE fluticasone propionate 120 SPR/BOT bottle 1 spr NS DAILY Qty: 1 0RF Rx Instructions: each nostril daily Eliquis 5 mg tablet 5 mg PO BID 28 Days Qty: 56 0RF Rx Instructions: please take 10 mg BID for 7 days followed by 5 mg BID for a total of 3 months metoprolol succinate 50 mg tablet extended release 24 hr 50 mg PO DAILY 30 Days Qty: 30 0RF Referrals Follow up/Referrals: Provider,Referral, MD [Primary Care Provider, Medical] - See instructions Activity Restrictions/Add. Instructions Additional Instructions/Restrictions: Please return to the emergency department with any worsening signs or symptoms, please follow-up with your PCP and office service coordinator in the upcoming days/weeks to recheck your magnesium level. Clinical Impressions Clinical Impression: Chest pain, Hypomagnesemia Instructions Patient Instructions: DI for Atypical Chest Pain Print Language Print Language: Russian Discharge ED Provider: Micaela Holcomb General Adult HPI General Chief complaint: Chest Pain Stated complaint: chest pain Time Seen by Provider: 12/21/24 15:37 Mode of Arrival: Ambulatory Source of Information: Patient Limitations: No Limitations History of Present Illness HPI narrative: 64-year-old male presents to the emergency department with lightheadedness, fatigue, chest pain that is located to the right substernal chest, nonradiating, that is a current 2 out of 10, patient states he started feeling lightheaded, had an episode of sweating, started feeling clammy , around 2 PM, patient states the dull aching chest pain started around 3:25 PM, patient denies any fever or chills, sore throat, shortness of breath, no abdominal pain, no nausea no vomiting no constipation no diarrhea no urinary type symptomatology, patient is a former smoker, current everyday alcohol use, 2 mixed drinks , nightly, denies any other drug use, initial triage vitals are notable for tachycardia otherwise unremarkable, other past medical history consistent with atrial flutter, hypertension, T2DM, GERD, patient is on anticoagulation therapy with Eliquis, he is taking this medication as prescribed. Onset (ago): hour(s) Related Data Home Medications ?Medication ?Instructions ?Recorded ?Confirmed pantoprazole 20 mg tablet,delayed 20 mg PO ONCE 01/05/21 release (Protonix) Previous Rx's ?Medication ?Instructions ?Recorded fluticasone propionate 50 1 spr NS DAILY ##1 05/05/20 mcg/actuation nasal spray,suspension apixaban 5 mg tablet (Eliquis) 5 mg PO BID 28 days #56 tabs 11/02/24 metoprolol succinate 50 mg 50 mg PO DAILY 30 days #30 tabs 11/02/24 tablet,extended release 24 hr Allergies Allergy/AdvReac Type Severity Reaction Status Date / Time pseudoephedrine (From Allergy Verified 01/05/21 17:14 Sudafed) [facility] Disclaimer: The information contained in this section may have been updated after the patient was seen, as this information can be updated by other users. Social History Smoking Status: Never smoker alcohol intake: never current occupational status: other Travel in the last 8 weeks?: None Have you lived/traveled outside US in past 30 days?: No Contact w/someone who lives/traveled outside US past 30 days?: No Exposure to someone with infectious disease in past 14 days?: No Do you have a fever (greater than 100.4 F or 38 C)?: No Have you tested positive for COVID-19?: No Exposed to someone with COVID-19 in past 14 days?: No Do you have a sore throat?: No Do you have a cough?: No Do you have any weakness?: No Do you have any diarrhea?: No Are you experiencing any unusual bleeding?: No Do you have any muscle aches/pain?: No Do you have any abdominal pain?: No Are you experiencing loss of taste or smell?: No Other Medical History Have you received the Flu Vaccine for this season: Yes ROS Obtained: Yes All systems reviewed & no additional complaints except as documented Physical Exam General General appearance: alert and in no apparent distress Head Head exam: atraumatic and normocephalic Eye Eye exam: Present PERRL and EOMI ENT ENT exam: Present mucous membranes moist Neck Neck exam: Present normal inspection Chest Chest inspection: Present normal inspection and symmetric chest wall rise; Absent tenderness Respiratory Respiratory exam: Present normal lung sounds bilaterally; Absent respiratory distress Cardiovascular Cardiovascular exam: Present regular rate and normal rhythm Abdominal Exam Abdominal exam: Present soft; Absent tenderness, guarding, rebound or rigidity Extremities Exam Extremities exam: Present normal inspection Neurological Exam Neurological exam: Present alert and oriented X3 Psychiatric Psychiatric exam: Present normal affect Skin Skin exam: Present warm and dry Medical Decision Making Medical Records Medical records reviewed: Yes I reviewed the patient's medical records. Screening: Per USPSTF and CDC recommendations, given the prevalence of disease in our region, it is our hospital?s policy to screen for HIV and viral Hepatitis for all patients aged 18 and over and those with ongoing risk factors. Matti Inquiry Pt receiving controlled substance: Yes Matti was queried for this patient: No Reason not queried -: Emergent pt cond-no time Risks and benefits of using a controlled substance: were discussed with pt by me Vital Signs: 12/21/24 15:43 12/21/24 15:54 12/21/24 16:00 Temperature 98.4 F Temperature Source Oral Pulse Rate 116 H 100 H Pulse Rate [Right] 116 H Respiratory Rate 13 17 Blood Pressure 146/79 H Blood Pressure [Right Arm] 155/123 H Blood Pressure Mean [Right Arm] 133 02 Sat by Pulse Oximetry 99 97 Oxygen Delivery Method Room Air 12/21/24 16:30 12/21/24 16:31 12/21/24 17:00 Temperature Temperature Source Pulse Rate 90 89 97 H Pulse Rate [Right] Respiratory Rate 24 25 H 12 Blood Pressure 140/83 146/79 H 139/95 H Blood Pressure [Right Arm] Blood Pressure Mean [Right Arm] 02 Sat by Pulse Oximetry 94 L 89 L 98 Oxygen Delivery Method Room Air 12/21/24 17:30 12/21/24 18:00 Temperature Temperature Source Pulse Rate 90 93 H Pulse Rate [Right] Respiratory Rate 22 23 Blood Pressure 151/93 H 152/90 H Blood Pressure [Right Arm] Blood Pressure Mean [Right Arm] 02 Sat by Pulse Oximetry 94 L 94 L Oxygen Delivery Method Lab Data Lab results reviewed: Yes I reviewed the patient's lab results. Lab Results 12/21/24 15:40: WBC 9.7, RBC 4.57 L, Hgb 13.9 L, Hct 42.4, MCV 92.8, MCH 30.4, MCHC 32.8, RDW 12.8, Plt Count 237, MPV 9.2, Neut % (Auto) 48.9, Lymph % (Auto) 36.5, [place] % (Auto) 11.9 H, Eos % (Auto) 1.6, Baso % (Auto) 0.6, Neut # (Auto) 4.8, Lymph # (Auto) 3.6, [place] # (Auto) 1.2 H, Eos # (Auto) 0.2, Baso # (Auto) 0.1, PT 11.6, INR 1.05, D-Dimer 0.65 H, Sodium 139, Potassium 4.0, Chloride 101, Carbon Dioxide 28, Anion Gap 14.0, BUN 12, Creatinine 0.90, Estimated Creat Clear 118, Estimated GFR 85, Est GFR ( Amer) 102, Glucose 229 H, Calcium 9.8, Phosphorus 3.1, Magnesium 0.9 L, Total Bilirubin 1.0, AST 57, ALT 48, Alkaline Phosphatase 99, Troponin I < 0.01, NT-Pro-B Natriuret Pep 48.4, Total Protein 7.9, Albumin 4.7, Globulin 3.2, Albumin/Globulin Ratio 1.5 12/21/24 18:30: Troponin I < 0.01 12/21/24 15:40 12/21/24 15:40 Orders (Tests/Meds): ED MEDICATIONS Discontinued Medications Generic Name Dose Route Start Last Admin Trade Name Mami PRN Reason Stop Dose Admin Aspirin 325 mg 12/21/24 15:49 12/21/24 15:58 Aspirin 325mg Tablet PO 12/21/24 15:50 325 mg ONCE ONE Administration Magnesium Sulfate 2 gm in 50 mls @ 50 mls/hr 12/21/24 16:15 12/21/24 16:21 Magnesium Sulfate 2gm/50ml Premix IV 12/21/24 17:14 50 mls/hr ONCE ONE Administration Morphine Sulfate 2 mg 12/21/24 15:54 12/21/24 15:59 Morphine 2mg/Ml Syringe IV 12/21/24 15:55 2 mg ONCE ONE Administration Ondansetron HCl 4 mg 12/21/24 15:54 12/21/24 15:58 Ondansetron 4mg/2ml Vial IV 12/21/24 15:55 4 mg ONCE ONE Administration ORDERS Category Date Time Status XR chest portable Stat Exams 12/21/24 15:38 Completed Complete Blood Count Auto Diff Stat Lab 12/21/24 15:40 Completed Comprehensive Metabolic Panel Stat Lab 12/21/24 15:40 Completed D-Dimer Stat Lab 12/21/24 15:40 Completed Magnesium Stat Lab 12/21/24 15:40 Completed NT Pro Brain Natriuretic Pep. Stat Lab 12/21/24 15:40 Completed PHOS [Phosphorous] Stat Lab 12/21/24 15:40 Completed PT INR [Prothrombin Time INR] Stat Lab 12/21/24 15:40 Completed Troponin I Q3H Lab 12/21/24 18:30 Completed Troponin I Q3H Lab 12/21/24 21:45 Ordered Troponin I Stat Lab 12/21/24 15:40 Completed Medical Decision Narrative: 64-year-old male presents to the emergency department with diaphoresis, lightheadedness, chest pain, differential diagnosis include but not limited to, cardiac arrhythmia, electrolyte disturbance, ACS, costochondritis, anxiety reaction, panic attack, pneumonia, among others. I discussed this patient's case with the attending physician Will obtain basic laboratory studies, CXR, proBNP, troponin, coags, obtain D- dimer, EKG, magnesium level, will give 324 mg p.o. aspirin 2 mg IV morphine 4 mg Zofran for pain. CBC unremarkable I along with the attending physician reviewed the patient's EKG at 1536, sinus tachycardia at 115 bpm MN interval within normals, QT interval within normal limits there is no STEMI. Coags within normal limits Hypomagnesia mag 0.9, will replace with 2 g IV magnesium, will obtain phosphorus level. Initial troponin is less than 0.01, proBNP within normal limits D- Dimer is minimally elevated at 0.65, thus utilizing years criteria and age- adjusted D-dimer arteria, VTE/PE is unlikely. I reviewed the patient's chest x-ray along the corresponding radiologic report, no acute findings. Repeat troponin is less than 0.01 Reexamination of the patient at approximately 7:10 PM, patient states his symptomatology improved, patient made hemodynamically stable at his time in the emergency department, no further episode of chest pain, heart score of 3, patient is cleared to be discharged home to self-care, patient follow-up PCP and office service coordinator as directed, he was notified about his hypomagnesia, he follow-up with PCP for this, patient voiced understanding and agreed with current treatment plan/discharge plan. Critical Care Critical Care Time Critical Care Time: No
--- OUTSIDE RECORDS SUMMARY | 2024-12-21 15:46 | XMS_ITS | Clinical Summary ---
Author Organization Healthcare [place] [address] Care Team Providers Care Breakfast Server Name Role Phone Pcp, No Primary Care Provider Unavailabl e Allergies Active Allergy Reactions Criticality Noted Date Comments Pseudoephedrine Palpitations,Dizziness Low 01/09/20 21 Patient passes out Medications gabapentin (Neurontin) 300 MG capsule Take 300 mg by mouth 2 (two) times a day. Active traMADol (Ultram) 50 MG tablet Take 50 mg by mouth 3 (three) times a day. Active ketorolac (Toradol) 10 MG tablet Take 1 tablet by mouth every 6 (six) hours if needed for moderate pain. Active pantoprazole (ProtoNix) 20 MG EC tablet Take 20 mg by mouth 1 (one) time each day before breakfast. Do not crush, chew, or split. Active hydroxychloroqu ine (Plaquenil) 200 MG tablet Take 1 tablet (200 mg total) by mouth 2 (two) times a day. 90 tablet 1 01/08/2021 Active Family History Medical History Relation Name Comments Rheum arthritis Maternal Grandmother Relation Name Status Comments Maternal Grandmother Social History Tobacco Use Types Packs/Day Years Used Date Smoking Tobacco: Never Smokeless Tobacco: Never Alcohol Use Standard Drinks/Week Comments Yes 0 (1 standard drink = 0.6 oz pure alcohol) Alcoholic Drinks/day: Occasional alcohol use PHQ-2 Answer Date Recorded Patient Health Questionnaire-2 Score 0 01/08/2021 Sex and Gender Information Value Date Recorded Sex Assigned at Not on file Legal Sex Male 8:40 PM EDT Gender Identity Not on file Sexual Orientation Not on file Last Filed Vital Signs Vital Sign Reading Time Taken Comments Blood Pressure 131/79 01/08/2021 12:53 PM EDT Pulse 69 01/08/2021 12:53 PM EDT Temperature 35.6 C (96 F) 01/08/2021 12:53 PM EDT Respiratory Rate - - Oxygen Saturation 96% 01/08/2021 12:53 PM EDT Inhaled Oxygen Concentration - - Weight 129 kg (283 lb 15.2 oz) 01/08/2021 12:53 PM EDT Height 193 cm (6' 4 ) 01/08/2021 12:53 PM EDT Body Mass Index 34.56 01/08/2021 12:53 PM EDT Plan of Treatment Health Maintenance Due Date Last Done Comments [facility]-Depression Screening 1959 [facility]-Infant/Child/Adol SDOH Screenings 1959 [facility]- SDOH Screenings 1977 [facility]-Adult SDOH Screenings 1977 [facility]-DTaP,Tdap,and Td Vaccine s (1 - Tdap) 1978 CT Colonography 2004 Colonoscopy 2004 FIT-DNA 2004 FIT 2004 FOBT 2004 Sigmoidoscopy 2004 [facility]-Colorectal Cancer Screening 2004 [facility]-Pneumococcal Vaccine: 50 + Years (1 of 1 - PCV) 2009 [facility]-Zoster Vaccines (1 of 2) 2009 [facility]-[id number]-50 Vaccine (3 - season) 2024 07/08/2020, 06/01/2020 [facility]-Influenza Vaccine (#1) 2025 03/02/2020 [facility]-RSV Vaccine: 60+ Years o r (1 - 1-dose 75+ series) 2034 HPV Vaccines Aged Out No longer eligi ble based on patient's age to complete this topic [facility]-HIB Vaccines Aged Out No longer e ligible based on patient's age to complete this topic [facility]-Hepatitis A Vaccines Aged Out No longer eligible based on patient's age to complete this topic [facility]-IPV Vaccines Aged Out No longer e ligible based on patient's age to complete this topic [facility]-Rotavirus Vaccines Aged Out No lo nger eligible based on patient's age to complete this topic Insurance [facility] Care Teams Breakfast Server Relationship Specialty Start Date End Date Pcp, Jessica [address] [place] [address] PCP - General 01/07/21
[2024-12-21 15:49] LABS: Hematocrit 42.4 % (42.0-52.0); Hemoglobin 13.9 g/dL (14.1-18.0); Immature Granulocytes % 0.5 %; Mean Corpuscular HGB Conc 32.8 g/dL (31.8-35.4); Mean Corpuscular Hemoglobin 30.4 pg (27.0-31.2); Mean Corpuscular Volume 92.8 fl (80-94); Nucleated Red Blood Cells % 0 %; Platelet Count 237 K/mm3 (142-424); Red Blood Count 4.57 M/mm3 (4.60-6.20); Red Cell Distribution Width-SD 43.6 fL; White Blood Count 9.7 K/mm3 (4.8-10.8)
[2024-12-21] MEDS: ASPIRIN 325MG TABLET 325 MG PO (15:58)
[2024-12-21] MEDS: ONDANSETRON 4MG/2ML VIAL 4 MG IV (15:58)
[2024-12-21 15:59] LABS: INR 1.05 (0.9-1.1); Prothrombin Time 11.6 seconds (10.1-12.5)
[2024-12-21] MEDS: MORPHINE 2MG/ML SYRINGE 2 MG IV (15:59)
[2024-12-21 16:06] LABS: Albumin Level 4.7 g/dl (3.5-5.0); Chloride 101 mmol/L (98-107)
[2024-12-21 16:07] LABS: Potassium 4.0 mmoL/L (3.5-5.1); Sodium 139 mmol/L (136-145)
[2024-12-21 16:09] LABS: Alanine Aminotransferase 48 U/L (12-78); Albumin/Globulin Ratio 1.5 (1.1-1.8); Alkaline Phosphatase 99 U/L (38-126); Anion Gap 14.0 mEq/L (5-15); Aspartate Amino Transferase 57 U/L (17-59); Bilirubin,Total 1.0 mg/dl (0.2-1.3); Blood Urea Nitrogen 12 mg/dl (9-20); Carbon Dioxide 28 mmol/L (22.0-30.0); Creatinine Clearance Estimated 118 mL/min (50-200); Creatinine,Serum 0.90 mg/dl (0.66-1.25); Estimated Glomerular Filt Rate 85 ml/min (>60); GFR (African American) 102 ML/MIN (>60); Globulin 3.2 g/dL (1.3-3.2); Total Protein,Serum 7.9 g/dl (6.3-8.2)
[2024-12-21 16:10] LABS: Calcium 9.8 mg/dl (8.4-10.2); Glucose 229 mg/dl (74-100)
[2024-12-21 16:12] LABS: Magnesium 0.9 mg/dl (1.6-2.3)
[2024-12-21 16:19] LABS: NT Pro Brain Natriuretic Pep. 48.4 pg/mL (0-125)
[2024-12-21] MEDS: MAGNESIUM SULFATE IN WATER 2 GM/50 ML PIGGYBACK IV (16:21)
[2024-12-21 16:23] LABS: Troponin I < 0.01 ng/ml (0.00-0.034)
[2024-12-21 16:29] LABS: Phosphorous 3.1 mg/dl (2.5-4.5)
[2024-12-21 16:38] LABS: D-Dimer 0.65 ug/mL (0.0-0.5)
[2024-12-21 19:02] LABS: Troponin I < 0.01 ng/ml (0.00-0.034)
== END 2024-12-21 19:24 | disposition home or self-care (01) ==
PROVIDERS: Physician Assistant; Emergency Provider Student in an Organized Health Care Education/Training Program
DX: R07.89 Other chest pain (principal); R00.0 Tachycardia, unspecified; E83.42 Hypomagnesemia; R53.83 Other fatigue
CPT/HCPCS: 71045; 80053; 83735; 83880; 84100; 84484; 85025; 85378; 85610; 93005; 96365; 96375; 99285; J2270; J2405; J3475